=== PATIENT | male | born 1960 | race Hispanic/Latino ===

== ENCOUNTER 2018-09-23 12:03 | Inpatient (IN) | payer MEDICAID, OTHER ==
[2018-09-23] MEDS ORDERED: Sodium Chloride 0.9% 500 ML IV ONE ×3 (13:39→18:39)
[2018-09-23] MEDS ORDERED: Piperacillin/Tazobact 3.375 gm 100 ML IVPB STA (13:40)
[2018-09-23] MEDS ORDERED: Piperacillin/Tazobact 3.375 gm 100 ML IVPB ONE ×2 (13:50→14:25)
[2018-09-23 14:17] LABS: BASO # 0.4 K/uL (0.0-0.2); BASO % 1.1 % (0.0-2.0); LYMPH # 0.5 K/uL (1.0-4.3); LYMPH % 1.4 % (20.0-40.0); MEAN CORPUSCULAR HEMOGLOBIN 29.2 pg (27.0-31.0); MEAN CORPUSCULAR HGB CONC 33.5 g/dL (33.0-37.0); MEAN PLATELET VOLUME 9.1 fL (7.2-11.7); MONO # 1.5 K/uL (0.0-0.8); MONO % 4.1 % (0.0-10.0); NEUT # 33.6 K/uL (1.8-7.0); NEUT % 93.4 % (50.0-75.0); PLATELET COUNT 386 K/uL (130-400); RBC 4.47 Mil/uL (4.40-5.90); RED CELL DISTRIBUTION WIDTH 13.8 % (11.5-14.5)
--- NOTE | 2018-09-23 14:23 | C.PDOC ---
History Of Present Illness 58yo male, comes to ER reporting right foot swelling and also wounds in his right lower extremity for the past 5 days. Patient went to his PMD for evaluation and was referred to the ER. He denies any fever, chills, and has no additional complaints. Time Seen by Provider: 09/23/18 13:13 Chief Complaint (Nursing): Lower Extremity Problem/Injury History Per: Patient History/Exam Limitations: no limitations Onset/Duration Of Symptoms: Days (5) Current Symptoms Are (Timing): Still Present Past Medical History Reviewed: Historical Data, Nursing Documentation, Vital Signs Vital Signs: Last Vital Signs Temp 2098 F H 09/23/18 12:08 Pulse 96 H 09/23/18 12:08 Resp 20 09/23/18 12:08 BP 102/70 09/23/18 12:08 Pulse Ox 98 09/23/18 12:08 Surgical History: No Surg Hx Family History: States: No Known Family Hx - Social History Hx Tobacco Use: No Hx Alcohol Use: No Hx Substance Use: No - Immunization History Hx Tetanus Toxoid Vaccination: No Hx Influenza Vaccination: No Hx Pneumococcal Vaccination: No Review Of Systems Except As Marked, All Systems Reviewed And Found Negative. Constitutional: Negative for: Fever, Chills Musculoskeletal: Positive for: Foot Pain (right foot pain and swelling) Neurological: Negative for: Weakness Physical Exam - Physical Exam Appears: Non-toxic Skin: Normal Color Head: Atraumatic, Normacephalic Eye(s): bilateral: Normal Inspection Cardiovascular: Rhythm Regular Respiratory: Normal Breath Sounds Extremity: Other (diffuse erythema to right lower leg; ulcers noted to right lower leg with foul purulent discharge and bullae.) Neurological/Psych: Oriented x3 ED Course And Treatment - Laboratory Results Result Diagrams: 09/28/18 07:09 09/29/18 07:53 O2 Sat by Pulse Oximetry: 98 (RA) Pulse Ox Interpretation: Normal Medical Decision Making Medical Decision Making: Impression: Right foot pain and swelling Plan: * Labs * XR Right foot * XR Tib/fib * IV Zosyn 1400 Podiatry resident aware of case, will evaluate patient in ER. [id number] Patient to be taken to the OR due to necrotizing fascitis; patient admitted under Dr. Moreno. Disposition - Disposition Disposition: HOSPITALIZED Disposition Time: 16:00 Condition: CRITICAL - Clinical Impression Clinical Impression: Necrotizing fasciitis - Scribe Statement The provider has reviewed the documentation as recorded by the Quentinibe Shanti Graham Provider Attestation: All medical record entries made by the Quentinibsue were at my direction and person ally dictated by me. I have reviewed the chart and agree that the record accurately reflects my personal performance of the history, physical exam, medical decision making, and the department course for this patient. I have also personally directed, reviewed, and agree with the discharge instructions and disposition. Decision To Admit - Pt Status Changed To: Hospital Disposition Of: Inpatient - Admit Certification Admit to Inpatient:: After my assessment, the patient will require hospitalization for at least two midnights. This is because of the severity of symptoms shown, intensity of services needed, and/or the medical risk in this patient being treated as an outpatient. - InPatient: Physician Admission Certification: I certify that this patient requires 2 or more midnights of care for the following reason:: needs OR - . Bed Request Type: ICU Admitting Physician: Taiwo Moreno Patient Diagnosis: Necrotizing fasciitis
[2018-09-23 14:25] LABS: INR 1.4; PROTHROMBIN TIME 15.2 SECONDS (9.7-12.2)
[2018-09-23 14:39] LABS: VENOUS BLOOD GAS BASE EXCESS 7.3 mmol/L (0.0-2.0); VENOUS BLOOD GAS PCO2 53 mmHg (40-60); VENOUS BLOOD GAS PO2 32 mm/Hg (30-55); VENOUS BLOOD PH 7.41 (7.32-7.43)
[2018-09-23] MEDS ORDERED: Sodium Chloride 0.9% 1,000 ML IV ONE ×2 (14:41→15:04)
[2018-09-23 15:06] LABS: ALB/GLOB RATIO 0.8 (1.0-2.1); ALBUMIN 2.7 g/dL (3.5-5.0); ALT/SGPT 17 U/L (21-72); AST/SGOT 16 U/L (17-59); BLOOD UREA NITROGEN 36 mg/dL (9-20); CALCIUM 7.7 mg/dl (8.6-10.4); GFR NON-AFRICAN AMERICAN > 60
[2018-09-23] MEDS ORDERED: (Novolin R) Insulin Human Regular 100 units/ml vial IVP STA ×2 (15:08→17:48)
[2018-09-23 15:14] LABS: BANDS 6 % (0-2); MONOCYTE 2 % (0-10); NEUTROPHIL 92 % (50-75); PLATELET ESTIMATE NORMAL (NORMAL); TOTAL CELLS COUNTED 100
--- NOTE | 2018-09-23 15:15 | RAD ---
Date of service: 09/23/2018 PROCEDURE: Right Foot Radiographs. HISTORY: swelling COMPARISON: None. FINDINGS: BONES: No fracture. Small plantar calcaneal spur noted. No lytic or blastic osseous lesion. No osseous erosion or periosteal reaction appreciated. JOINTS: Normal. SOFT TISSUES: There is diffuse soft tissue swelling. There is subcutaneous gas noted most prominently over the dorsal aspect of the foot but also in the plantar soft tissues as evident on the lateral view. The dorsal subcutaneous gas extends proximally along the anterior tibia. Vascular calcification is noted suggestive of diabetes. OTHER FINDINGS: None. IMPRESSION: Soft tissue swelling with subcutaneous gas both dorsally and along the plantar aspect of the foot. Findings were discussed with Dr. Julio by telephone at 2:50 p.m. on 09/23/2018.
--- NOTE | 2018-09-23 15:18 | RAD ---
Date of service: 09/23/2018 PROCEDURE: Radiographs of the right tibia and fibula. HISTORY: swelling COMPARISON: None available TECHNIQUE: Frontal and lateral views obtained. FINDINGS: BONES: No osseous fracture. No osseous erosion or periosteal reaction. JOINT SPACES: Unremarkable. OTHER FINDINGS: Diffuse soft tissue swelling. There is subcutaneous gas seen over the distal dorsal tibia. This may be indicative of necrotizing fasciitis. IMPRESSION: Subcutaneous gas and diffuse soft tissue swelling. These findings may indicate necrotizing fasciitis.
[2018-09-23 15:29] LABS: ERYTHROCYTE SEDIMENTATION RATE 55 mm/hr (0-15)
--- NOTE | 2018-09-23 16:03 | RAD ---
Date of service: 09/23/2018 HISTORY: preop COMPARISON: No prior. FINDINGS: LUNGS: No active pulmonary disease. PLEURA: No significant pleural effusion identified, no pneumothorax apparent. CARDIOVASCULAR: No appreciable visualized aortic atherosclerotic calcification present. Normal cardiac size. No pulmonary vascular congestion. OSSEOUS STRUCTURES: No significant abnormalities. VISUALIZED UPPER ABDOMEN: Normal. OTHER FINDINGS: None. IMPRESSION: No active disease. .
[2018-09-23] MEDS ORDERED: Vancomycin 1 GM 1 GM/250 ML BAG IVPB ONE (16:14)
[2018-09-23] MEDS ORDERED: (Novolin R) Insulin Human Regular 100 units/ml vial ONE ×2 (16:14→18:04)
--- NOTE | 2018-09-23 17:46 | CP.PCM.CON ---
History of Present Illness - History of Present Illness History of Present Illness: Podiatry Consult Note for Dr. Prashanth BernabeM seen and evaluated in ED complaining of blistering, pain, redness and swelling to his right leg x 5 days. Patient states that these symptoms have gradually been getting worse over that time period. He states that he went to Urgent Care and was told to immediately present to the ED. He denies taking any medicine for his symptoms at this time. Denies any recent trauma or open wounds to the area. Patient is AAO x 3 and NAD at time of visit. States that all he had to eat or drink today was tea at around 8:30 am. Denies any further pedal complaints at this time. Denies any recent N/V/F/C/CP/SOB/D Meds: Denies All: NKDA PSH: Nasal polyp FH: Unknown SH: Denies alcohol, tobacco or drug use Review of Systems - Review of Systems All systems: reviewed and no additional remarkable complaints except Review of Systems: as per HPI Past Patient History - Infectious Disease Hx of Infectious Diseases: None - Past Social History Smoking Status: Never Smoked - PSYCHIATRIC Hx Substance Use: No - SURGICAL HISTORY Hx Surgeries: No - ANESTHESIA Hx Anesthesia: No Meds Allergies/Adverse Reactions: Allergies Allergy/AdvReac Type Severity Reaction Status Date / Time No Known Allergies Allergy Verified 09/23/18 12:13 - Medications Medications: Current Medications Bacitracin 150,000 unit/ (Sodium Chloride) 3,000 mls @ 3,000 mls/hr IR .Q1H SHIVANI; Protocol Stop: 09/23/18 18:26 Physical Exam - Constitutional Appears: Toxic, No Acute Distress - Extremities Exam Additional comments: RLE focused exam: Vasc: DP/PT pulses faintly palpable 1/4 b/l secondary to +2 pitting edema. CFT < 3 seconds to all digits. Skin temperature greatly increased in right leg compared to left leg Neuro: Epicritic and protective sensation grossly intact b/l Derm: Multiple hemmorhagic bullae noted to leg and foot with open, weeping, blistering skin noted to dorsal and plantar foot. Severe erythema noted from distal toes to upper third of leg circumferentially. No open wounds noted. Severe malodor present MSK: POP to RLE with crepitus present in foot and leg. ROM limited to RLE compared to LLE. - Neurological Exam Neurological exam: Alert, Oriented x3 - Psychiatric Exam Psychiatric exam: Normal Affect, Normal Mood Results - Vital Signs Recent Vital Signs: Last Vital Signs Temp 98.8 F 09/23/18 17:09 Pulse 97 H 09/23/18 17:36 Resp 20 09/23/18 17:36 BP 143/85 09/23/18 17:36 Pulse Ox 97 09/23/18 17:36 - Labs Result Diagrams: 09/23/18 13:40 09/23/18 14:08 Labs: Laboratory Results - last 24 hr 09/23/18 09/23/18 09/23/18 13:40 14:08 14:08 WBC 36.0 H RBC 4.47 Hgb 13.0 Hct 38.9 MCV 87.0 MCH 29.2 MCHC 33.5 RDW 13.8 Plt Count 386 MPV 9.1 Neut % (Auto) 93.4 H Lymph % (Auto) 1.4 L [place] % (Auto) 4.1 Eos % (Auto) 0.0 Baso % (Auto) 1.1 Neut # (Auto) 33.6 H Lymph # (Auto) 0.5 L [place] # (Auto) 1.5 H Eos # (Auto) 0.0 Baso # (Auto) 0.4 H Neutrophils % (Manual) 92 H Band Neutrophils % 6 H Lymphocytes % (Manual) TEST NOT PERFORMED Monocytes % (Manual) 2 Platelet Estimate Normal RBC Morphology Normal ESR 55 H PT 15.2 H INR 1.4 APTT 26 pO2 VBG pH VBG pCO2 VBG HCO3 VBG Total CO2 VBG O2 Sat (Calc) VBG Base Excess VBG Potassium Glucose Lactate Crit Value Called To Crit Value Called By Crit Value Read Back Blood Gas Notified Time Sodium 128 L Potassium 3.8 Chloride 82 L Carbon Dioxide 31 H Anion Gap 19 BUN 36 H Creatinine 1.1 Est GFR ( Amer) > 60 Est GFR (Non-Af Amer) > 60 Random Glucose 576 H* Serum Osmolality Calcium 7.7 L Total Bilirubin 0.8 AST 16 L ALT 17 L Alkaline Phosphatase 205 H Troponin I < 0.0120 C-Reactive Protein > 270.00 H Total Protein 6.3 Albumin 2.7 L Globulin 3.6 Albumin/Globulin Ratio 0.8 L Venous Blood Potassium Blood Type Antibody Screen 09/23/18 09/23/1818 14:32 14:53 14:57 WBC RBC Hgb Hct MCV MCH MCHC RDW Plt Count MPV Neut % (Auto) Lymph % (Auto) [place] % (Auto) Eos % (Auto) Baso % (Auto) Neut # (Auto) Lymph # (Auto) [place] # (Auto) Eos # (Auto) Baso # (Auto) Neutrophils % (Manual) Band Neutrophils % Lymphocytes % (Manual) Monocytes % (Manual) Platelet Estimate RBC Morphology ESR PT INR APTT pO2 32 VBG pH 7.41 VBG pCO2 53 VBG HCO3 29.7 VBG Total CO2 35.2 H VBG O2 Sat (Calc) 68.7 H VBG Base Excess 7.3 H VBG Potassium 3.9 Glucose 590 H* Lactate 2.9 H Crit Value Called To irvin Garcia Crit Value Called By Angel solares Crit Value Read Back Y Blood Gas Notified Time 1439 Sodium 131.0 L Potassium Chloride 84.0 L Carbon Dioxide Anion Gap BUN Creatinine Est GFR ( Amer) Est GFR (Non-Af Amer) Random Glucose Serum Osmolality 303 H Calcium Total Bilirubin AST ALT Alkaline Phosphatase Troponin I C-Reactive Protein Total Protein Albumin Globulin Albumin/Globulin Ratio Venous Blood Potassium 3.9 Blood Type AB POSITIVE Antibody Screen Negative Assessment & Plan - Assessment and Plan (Free Text) Assessment: 58M seen in ED for soft tissue emphysema and possible necrotizing fasciitis of RLE Plan: Patient seen and evaluated Plan discussed with Dr. Alford WBC 36.0 Glucose 576 ESR 55 CRP > 270 R foot xray: Soft tissue swelling with subcutaneous gas both dorsally and along the plantar aspect of the foot. R tib/fib xray: Subcutaneous gas and diffuse soft tissue swelling. These findings may indicate necrotizing fasciitis. Patient for emergent I and D with Dr. Alford Patient to be admitted to hospital following case Podiatry will continue to follow while patient in house - Date & Time Date: 09/23/18 Time: 17:45
[2018-09-23] MEDS ORDERED: Midazolam 2 MG/2 ML VIAL ONE (18:31)
[2018-09-23] MEDS ORDERED: Propofol 10 mg/ml Inj (20 ML) ONE (18:31)
[2018-09-23] MEDS ORDERED: Sodium Chloride 0.9% 1,000 ML ONE (18:39)
[2018-09-23] MEDS: Bacitracin 150,000 UNIT in Sodium Chloride 0.9% Irrig 3,000 ML IR SCH ×2 (19:20→19:30)
[2018-09-23] MEDS ORDERED: Succinylcholine Chloride 20 mg/ml Syr (5 ml) IV ONE (19:48)
[2018-09-23] MEDS ORDERED: Phenylephrine 10 mg/ml Inj ONE (19:48)
[2018-09-23] MEDS ORDERED: Oxycodone/Acetaminophen 5/325 mg Tab PO PRN ×2 (20:16)
[2018-09-23] MEDS ORDERED: Vasopressin 20 Units/ml Inj ONE (20:21)
--- NOTE | 2018-09-23 20:24 | PCM.SURG1 ---
Surgeon's Initial Post Op Note - Surgeon's Notes Surgeon: Dr. Alford, DPM Treatment Specialist: Dr. Job Fair PGY2, Dr. Obdulia Alonzo PGY2, Dr. Glenny Arnold PGY1 Type of Anesthesia: General Endo Pre-Operative Diagnosis: Soft tissue emphysema/necrotizing fasciitis of right leg Operative Findings: See Dictation. I: None. M: 3-0 Prolene, 1/4 inch packing Post-Operative Diagnosis: Same Operation Performed: Incision and drainage of R leg and foot with debridement of nonviable soft tissue and irigation of tissue Specimen/Specimens Removed: None Estimated Blood Loss: EBL {In ML}: 30 Blood Products Given: N/A Drains Used: No Drains Post-Op Condition: Good Date of Surgery/Procedure: 09/23/18 Time of Surgery/Procedure: 20:24
[2018-09-23] MEDS ORDERED: Clindamycin 300 MG in Sodium Chloride 0.9% 50 ML IVPB SCH (20:30)
[2018-09-23] MEDS ORDERED: Piperacillin/Tazobact 3.375 GM in Sodium Chloride 100 ML IVPB SCH (20:30)
[2018-09-23] MEDS: (Novolin R) Insulin Human Regular 100 units/ml vial IVP ONE ×2 (20:35→22:21)
[2018-09-23] MEDS: Sodium Chloride 0.9% 1,000 ML IV SCH (22:22)
--- NOTE | 2018-09-23 22:26 | CP.PCM.HP ---
Past Patient History - Infectious Disease Hx of Infectious Diseases: None - Past Social History Smoking Status: Never Smoked - PSYCHIATRIC Hx Substance Use: No - SURGICAL HISTORY Hx Surgeries: No - ANESTHESIA Hx Anesthesia: No Meds Allergies/Adverse Reactions: Allergies Allergy/AdvReac Type Severity Reaction Status Date / Time No Known Allergies Allergy Verified 09/23/18 12:13 Results - Vital Signs Recent Vital Signs: Last Vital Signs Temp 99.3 F 09/23/18 21:30 Pulse 83 09/23/18 21:30 Resp 16 09/23/18 21:30 BP 105/64 09/23/18 21:30 Pulse Ox 100 09/23/18 21:30 - Labs Result Diagrams: 09/23/18 13:40 09/23/18 14:08 Labs: Laboratory Results - last 24 hr 09/23/18 09/23/18 09/23/18 13:40 14:08 14:08 WBC 36.0 H RBC 4.47 Hgb 13.0 Hct 38.9 MCV 87.0 MCH 29.2 MCHC 33.5 RDW 13.8 Plt Count 386 MPV 9.1 Neut % (Auto) 93.4 H Lymph % (Auto) 1.4 L [place] % (Auto) 4.1 Eos % (Auto) 0.0 Baso % (Auto) 1.1 Neut # (Auto) 33.6 H Lymph # (Auto) 0.5 L [place] # (Auto) 1.5 H Eos # (Auto) 0.0 Baso # (Auto) 0.4 H Neutrophils % (Manual) 92 H Band Neutrophils % 6 H Lymphocytes % (Manual) TEST NOT PERFORMED Monocytes % (Manual) 2 Platelet Estimate Normal RBC Morphology Normal ESR 55 H PT 15.2 H INR 1.4 APTT 26 pO2 VBG pH VBG pCO2 VBG HCO3 VBG Total CO2 VBG O2 Sat (Calc) VBG Base Excess VBG Potassium Glucose Lactate Crit Value Called To Crit Value Called By Crit Value Read Back Blood Gas Notified Time Sodium 128 L Potassium 3.8 Chloride 82 L Carbon Dioxide 31 H Anion Gap 19 BUN 36 H Creatinine 1.1 Est GFR ( Amer) > 60 Est GFR (Non-Af Amer) > 60 POC Glucose (mg/dL) Random Glucose 576 H* Serum Osmolality Calcium 7.7 L Total Bilirubin 0.8 AST 16 L ALT 17 L Alkaline Phosphatase 205 H Troponin I < 0.0120 C-Reactive Protein > 270.00 H Total Protein 6.3 Albumin 2.7 L Globulin 3.6 Albumin/Globulin Ratio 0.8 L Venous Blood Potassium Blood Type Antibody Screen 09/23/18 09/23/18 09/23/18 14:32 14:53 14:57 WBC RBC Hgb Hct MCV MCH MCHC RDW Plt Count MPV Neut % (Auto) Lymph % (Auto) [place] % (Auto) Eos % (Auto) Baso % (Auto) Neut # (Auto) Lymph # (Auto) [place] # (Auto) Eos # (Auto) Baso # (Auto) Neutrophils % (Manual) Band Neutrophils % Lymphocytes % (Manual) Monocytes % (Manual) Platelet Estimate RBC Morphology ESR PT INR APTT pO2 32 VBG pH 7.41 VBG pCO2 53 VBG HCO3 29.7 VBG Total CO2 35.2 H VBG O2 Sat (Calc) 68.7 H VBG Base Excess 7.3 H VBG Potassium 3.9 Glucose 590 H* Lactate 2.9 H Crit Value Called To irvin Garcia Crit Value Called By Angel solares Crit Value Read Back Y Blood Gas Notified Time 1439 Sodium 131.0 L Potassium Chloride 84.0 L Carbon Dioxide Anion Gap BUN Creatinine Est GFR ( Amer) Est GFR (Non-Af Amer) POC Glucose (mg/dL) Random Glucose Serum Osmolality 303 H Calcium Total Bilirubin AST ALT Alkaline Phosphatase Troponin I C-Reactive Protein Total Protein Albumin Globulin Albumin/Globulin Ratio Venous Blood Potassium 3.9 Blood Type AB POSITIVE Antibody Screen Negative 09/23/18 17:46 WBC RBC Hgb Hct MCV MCH MCHC RDW Plt Count MPV Neut % (Auto) Lymph % (Auto) [place] % (Auto) Eos % (Auto) Baso % (Auto) Neut # (Auto) Lymph # (Auto) [place] # (Auto) Eos # (Auto) Baso # (Auto) Neutrophils % (Manual) Band Neutrophils % Lymphocytes % (Manual) Monocytes % (Manual) Platelet Estimate RBC Morphology ESR PT INR APTT pO2 VBG pH VBG pCO2 VBG HCO3 VBG Total CO2 VBG O2 Sat (Calc) VBG Base Excess VBG Potassium Glucose Lactate Crit Value Called To Crit Value Called By Crit Value Read Back Blood Gas Notified Time Sodium Potassium Chloride Carbon Dioxide Anion Gap BUN Creatinine Est GFR ( Amer) Est GFR (Non-Af Amer) POC Glucose (mg/dL) 365 H Random Glucose Serum Osmolality Calcium Total Bilirubin AST ALT Alkaline Phosphatase Troponin I C-Reactive Protein Total Protein Albumin Globulin Albumin/Globulin Ratio Venous Blood Potassium Blood Type Antibody Screen
[2018-09-23 23:08] LABS: BLOOD UREA NITROGEN 36 mg/dL (9-20); GFR NON-AFRICAN AMERICAN > 60; HDL CHOLESTEROL 10 mg/dL (30-70)
[2018-09-23 23:19] LABS: LDL CHOLESTEROL 42 mg/dL (0-129)
--- NOTE | 2018-09-23 23:57 | PCM.SEPTIC ---
Sepsis Progress Note - Reassessment Type Date of Evaluation: 09/23/18 Time of Evaluation: 21:00 Reassessment Type: Non-invasive reassessment - Non Invasive Reassessment Were the most recent vital sign reviewed: Yes Vital Sign (Latest): Temp Pulse Resp BP Pulse Ox 97.9 F 82 16 115/73 99 09/23/18 22:00 09/23/18 22:40 09/23/18 22:40 09/23/18 22:01 09/23/18 22:40 Cardiovascular: Yes: Regular Rate, Rhythm Respiratory: Yes: Normal Breath Sounds Capillary Refill: Normal (Less than 2 sec) Skin: Normal Color - Invasive Reassessment (complete 2 of 4) Was a Central Venous Pressure Measurement obtained within 6 Hours after the presentation of septic shock: No Was a central venous oxygen measurement obtained within 6 hours after the presentation of septic shock: No Was a bedside cardiovascular ultrasound performed within 6 hours after the presentation of septic shock: No Was a passive leg raise performed or was a fluid challenge performed within 6 hrs of the initial fluid bolus: No
[2018-09-24] MEDS ORDERED: Potassium Chloride 20 mEq/15 ml LIQ UD PO ONE (00:17)
--- NOTE | 2018-09-24 03:52 | HP ---
CHIEF COMPLIANT: Right leg pain, fever, blistering for five days. HISTORY OF PRESENT ILLNESS: This is a 58-year-old white male who is nonsmoker, nonalcohol user. He works in [employer], has no significant past medical history. According to the patient, he developed sudden onset of right leg swelling, redness, pain, purulent discharge from the right leg and foot below the knee area, gradually worsening acute quick redness of the leg, fevers, chills, rigors, body aches, tiredness, frequency of urination, generalized weakness, malaise, anorexia, and fatigue. The patient had frequency of urination, polyuria, and polydipsia. He has a weight loss. He does not recall how long he has this condition and pain in the right leg got worse, became more red, started bleeding from the right foot with open ulcers on the foot, on the bottom of the right big toe. The patient came to emergency room, and he is hospitalized. He is in intense pain. Along with that, he has systemic symptoms. He denies any cough, sore throat, running nose, sneezing, itchy eyes, itchy nose. He denies any joint pain, hip pain, back pain, chest pain. He has palpitation, weakness, and dizziness. The patient has history of polyuria, polydipsia, and polyphagia. He denies any history of abdominal pain. PAST MEDICAL HISTORY: Nothing significant. SOCIAL HISTORY: Nonsmoker, non-EtOH user. CURRENT MEDICATIONS: None. ALLERGIES: UNKNOWN. PHYSICAL EXAMINATION: GENERAL: This is an middle-aged male, in [id number] distress with right leg pain below the knee area cellulitis. SKIN: The patient has a large area of cellulitis on the right leg below the knee down to the foot with open ulcers on the bottom of right big toe. Along with that, he has ulceration on the dorsum of the foot with bleeding from the bottom of foot with purulent discharge, foul smelling, increasingly dense, red, swollen, hard and tender to touch. HEENT: Atraumatic and normocephalic. Negative pallor. Negative jaundice. Extraocular movements are intact. NECK: Supple. No JVD. No lymph node. No thyromegaly. No carotid bruit. CHEST WALL: Bilateral symmetrical expansion. No tenderness. No deformity. LUNGS: Bilaterally clear. No rales. No rhonchi. CARDIOVASCULAR SYSTEM: PMI in the fifth intercostal space, midclavicular line. CENTRAL NERVOUS SYSTEM: Awake, alert, and oriented x3. Cranial nerves II through XII are normal. Power 5/5 x4. Plantars are downgoing. ASSESSMENT: 1. Necrotizing fasciitis of the right leg with cellulitis, most likely bacterial infection, unclear about source. 2. Diabetes. PLAN: Admit. Accu-Chek sliding scale. Antibiotics. Pain medication. The patient is for emergency operating room to release necrotizing fasciitis. The patient is medically stable to go to OR as his chest x-ray negative. The patient has high sugar, he is being started on sliding scale. Taiwo Moreno MD
[2018-09-24] MEDS: Clindamycin 300 MG in Sodium Chloride 0.9% 50 ML IVPB SCH ×4 (04:05→21:38)
[2018-09-24] MEDS: Piperacillin/Tazobact 3.375 GM in Sodium Chloride 100 ML IVPB SCH ×4 (04:10→22:19)
[2018-09-24] MEDS: Vancomycin 1 gm/NS 200 ml 1 GM/200 ML BAG IVPB SCH ×2 (04:56→18:08)
[2018-09-24] MEDS: Sodium Chloride 0.9% 1,000 ML IV SCH ×3 (05:45→17:29)
[2018-09-24 06:42] LABS: BASO % 0.1 % (0.0-2.0); EOS % 0.1 % (0.0-4.0); HEMOGLOBIN 10.3 g/dL (12.0-18.0); LYMPH # 0.8 K/uL (1.0-4.3); LYMPH % 2.2 % (20.0-40.0); MEAN CELL VOLUME 86.9 fL (80.0-94.0); MEAN CORPUSCULAR HEMOGLOBIN 28.9 pg (27.0-31.0); MEAN CORPUSCULAR HGB CONC 33.2 g/dL (33.0-37.0); MEAN PLATELET VOLUME 9.1 fL (7.2-11.7); MONO % 2.9 % (0.0-10.0); NEUT # 31.9 K/uL (1.8-7.0); NEUT % 94.7 % (50.0-75.0); PLATELET COUNT 309 K/uL (130-400); RBC 3.58 Mil/uL (4.40-5.90); RED CELL DISTRIBUTION WIDTH 13.5 % (11.5-14.5); WHITE BLOOD COUNT 33.7 K/uL (4.8-10.8)
[2018-09-24 06:57] LABS: ALB/GLOB RATIO 0.7 (1.0-2.1); ALBUMIN 2.2 g/dL (3.5-5.0); ALT/SGPT 18 U/L (21-72); AST/SGOT 20 U/L (17-59); BLOOD UREA NITROGEN 40 mg/dL (9-20); CALCIUM 6.7 mg/dl (8.6-10.4); GFR NON-AFRICAN AMERICAN 57
--- NOTE | 2018-09-24 07:45 | CP.CCUPN ---
CCU Subjective - Physician Review Subjective (Free Text): 09/24/18 10:57 Patient clinically improved. Medically stable for transfer to med/surg. Critical Care Time Spent (in minutes): 35 CCU Objective - Vital Signs / Intake & Output Vital Signs (Last 4 hours): Vital Signs Temp 09/24/18 04:00 97.8 F Intake and Output (Last 8hrs): Intake & Output 09/23/18 09/24/18 09/24/18 22:59 06:59 14:59 Intake Total 1100 1200 100 Output Total 550 Balance 1100 650 100 Weight 189 lb 4.8 oz Intake: IV 700 Intake, IV Amount 200 1000 100 Right hand 200 1000 100 Oral 200 200 0 Output: Urine 550 Urine, Voided 550 Other: # Voids Urine, Voided 0 0 0 # Bowel Movements 0 0 0 - Physical Exam Head: Positive for: Atraumatic, Normocephalic Pupils: Positive for: PERRL Extroacular Muscles: Positive for: EOMI Conjunctiva: Positive for: Normal Mouth: Positive for: Moist Mucous Membranes Neck: Positive for: Normal Range of Motion Respiratory/Chest: Positive for: Clear to Auscultation, Good Air Exchange. Negative for: Respiratory Distress, Accessory Muscle Use, Wheezes, Rales, Retracting, Rhonchi Cardiovascular: Positive for: Regular Rate and Rhythm, Normal S1, S2 Abdomen: Positive for: Normal Bowel Sounds. Negative for: Tenderness, Distention, Peritoneal Signs, Rebound, Guarding Upper Extremity: Positive for: Normal Inspection, Normal ROM, NORMAL PULSES, Neurovascularly Intact, Capillary Refill < 2s. Negative for: Cyanosis, Edema Lower Extremity: Positive for: NORMAL PULSES, Neurovascularly Intact, Capillary Refill < 2 s, Other (RLE dressing clean/dry/intact). Negative for: CALF TENDERNESS Neurological: Positive for: CN II-XII Intact, Speech Normal Psychiatric: Positive for: Alert, Oriented x 3, Normal Insight, Normal Concentration - Medications Active Medications: Active Medications Generic Name Dose Route Start Last Admin Trade Name Freq PRN Reason Stop Dose Admin Acetaminophen 650 mg 09/23/18 20:19 Tylenol 325mg Tab PO Q6 PRN Pain, Mild (1-3) Enoxaparin Sodium 40 mg 09/24/18 10:00 Lovenox SC DAILY SHIVANI Vancomycin/Sodium Chloride 1 gm in 200 mls @ 133.333 mls/hr 09/24/18 04:30 09/24/18 04:56 Vancomycin 1 Gm/Ns 200 Ml IVPB 133.333 mls/hr Q12H SHIVANI Administration Protocol Sodium Chloride 1,000 mls @ 100 mls/hr 09/23/18 20:30 09/24/18 05:45 Sodium Chloride 0.9% IV Not Given .Q10H SHIVANI Piperacillin Sod/Tazobactam 100 mls @ 200 mls/hr 09/24/18 04:30 09/24/18 04:10 Sod 3.375 gm/ Sodium Chloride IVPB 200 mls/hr Q6H SHIVANI Administration Protocol Clindamycin Phosphate 300 mg/ 52 mls @ 100 mls/hr 09/24/18 04:30 09/24/18 04:05 Sodium Chloride IVPB 100 mls/hr Q6H [facility] Administration Protocol Insulin Aspart 0 unit 09/24/18 07:30 Novolog SC ACHS [facility] Protocol Ketorolac Tromethamine 30 mg 09/24/18 00:00 09/24/18 05:44 Toradol IVP Not Given Q6 SHIVANI Oxycodone/Acetaminophen 1 tab 09/23/18 20:16 Percocet 5/325 Mg Tab PO 09/26/18 20:17 Q4H PRN Pain, moderate (4-7) Oxycodone/Acetaminophen 2 tab 09/23/18 20:16 Percocet 5/325 Mg Tab PO 09/26/18 20:17 Q4H PRN Pain, moderate (4-7) Pneumococcal Polyvalent Vaccine 0.5 ml 09/25/18 10:00 Pneumovax 23 Vaccine IM 09/25/18 10:01 .ONCE ONE - Patient Studies Lab Studies: Lab Studies 09/24/18 09/24/18 09/23/18 Range/Units 06:32 06:30 22:44 WBC 33.7 H (4.8-10.8) K/uL RBC 3.58 L (4.40-5.90) Mil/uL Hgb 10.3 L D (12.0-18.0) g/dL Hct 31.1 L (35.0-51.0) % MCV 86.9 (80.0-94.0) fL MCH 28.9 (27.0-31.0) pg MCHC 33.2 (33.0-37.0) g/dL RDW 13.5 (11.5-14.5) % Plt Count 309 (130-400) K/uL MPV 9.1 (7.2-11.7) fL Neut % (Auto) 94.7 H (50.0-75.0) % Lymph % (Auto) 2.2 L (20.0-40.0) % [place] % (Auto) 2.9 (0.0-10.0) % Eos % (Auto) 0.1 (0.0-4.0) % Baso % (Auto) 0.1 (0.0-2.0) % Neut # (Auto) 31.9 H (1.8-7.0) K/uL Lymph # (Auto) 0.8 L (1.0-4.3) K/uL [place] # (Auto) 1.0 H (0.0-0.8) K/uL Eos # (Auto) 0.0 (0.0-0.7) K/uL Baso # (Auto) 0.0 (0.0-0.2) K/uL Neutrophils % (Manual) (50-75) % Band Neutrophils % (0-2) % Lymphocytes % (Manual) Monocytes % (Manual) (0-10) % Platelet Estimate (NORMAL) RBC Morphology ESR (0-15) mm/hr PT (9.7-12.2) SECONDS INR APTT (21-34) SECONDS pO2 (30-55) mm/Hg VBG pH (7.32-7.43) VBG pCO2 (40-60) mmHg VBG HCO3 mmol/L VBG Total CO2 (22-28) mmol/L VBG O2 Sat (Calc) (40-65) % VBG Base Excess (0.0-2.0) mmol/L VBG Potassium (3.6-5.2) mmol/L Glucose (75-110) mg/dl Lactate (0.7-2.1) mmol/L Crit Value Called To Crit Value Called By Crit Value Read Back Blood Gas Notified Time Sodium 134 (132-148) mmol/L Potassium 3.8 (3.6-5.2) mmol/L Chloride 97 L (98-107) mmol/L Carbon Dioxide 28 (22-30) mmol/L Anion Gap 13 (10-20) BUN 40 H (9-20) mg/dL Creatinine 1.3 (0.8-1.5) mg/dL Est GFR ( Amer) > 60 Est GFR (Non-Af Amer) 57 POC Glucose (mg/dL) (65-110) mg/dL Random Glucose 285 H (75-110) mg/dL Hemoglobin A1c 11.3 H (4.2-6.5) % Serum Osmolality (272-300) mosm/kg Lactic Acid (0.7-2.1) mmol/L Calcium 6.7 L (8.6-10.4) mg/dl Phosphorus 3.3 (2.5-4.5) mg/dL Magnesium 2.0 (1.6-2.3) mg/dL Total Bilirubin 0.8 (0.2-1.3) mg/dL AST 20 (17-59) U/L ALT 18 L (21-72) U/L Alkaline Phosphatase 183 H (38-126) U/L Troponin I (0.00-0.120) ng/mL C-Reactive Protein (0.0-9.9) mg/L Total Protein 5.2 L (6.3-8.3) g/dL Albumin 2.2 L (3.5-5.0) g/dL Globulin 3.0 (2.2-3.9) gm/dL Albumin/Globulin Ratio 0.7 L (1.0-2.1) Triglycerides (0-149) mg/dL Cholesterol (0-199) mg/dL LDL Cholesterol Direct (0-129) mg/dL HDL Cholesterol (30-70) mg/dL Venous Blood Potassium (3.6-5.2) mmol/L Blood Type Antibody Screen 09/23/18 09/23/18 09/23/18 Range/Units 22:44 22:44 17:46 WBC (4.8-10.8) K/uL RBC (4.40-5.90) Mil/uL Hgb (12.0-18.0) g/dL Hct (35.0-51.0) % MCV (80.0-94.0) fL MCH (27.0-31.0) pg MCHC (33.0-37.0) g/dL RDW (11.5-14.5) % Plt Count (130-400) K/uL MPV (7.2-11.7) fL Neut % (Auto) (50.0-75.0) % Lymph % (Auto) (20.0-40.0) % [place] % (Auto) (0.0-10.0) % Eos % (Auto) (0.0-4.0) % Baso % (Auto) (0.0-2.0) % Neut # (Auto) (1.8-7.0) K/uL Lymph # (Auto) (1.0-4.3) K/uL [place] # (Auto) (0.0-0.8) K/uL Eos # (Auto) (0.0-0.7) K/uL Baso # (Auto) (0.0-0.2) K/uL Neutrophils % (Manual) (50-75) % Band Neutrophils % (0-2) % Lymphocytes % (Manual) Monocytes % (Manual) (0-10) % Platelet Estimate (NORMAL) RBC Morphology ESR (0-15) mm/hr PT (9.7-12.2) SECONDS INR APTT (21-34) SECONDS pO2 (30-55) mm/Hg VBG pH (7.32-7.43) VBG pCO2 (40-60) mmHg VBG HCO3 mmol/L VBG Total CO2 (22-28) mmol/L VBG O2 Sat (Calc) (40-65) % VBG Base Excess (0.0-2.0) mmol/L VBG Potassium (3.6-5.2) mmol/L Glucose (75-110) mg/dl Lactate (0.7-2.1) mmol/L Crit Value Called To Crit Value Called By Crit Value Read Back Blood Gas Notified Time Sodium 134 (132-148) mmol/L Potassium 3.3 L (3.6-5.2) mmol/L Chloride 96 L (98-107) mmol/L Carbon Dioxide 31 H (22-30) mmol/L Anion Gap 10 (10-20) BUN 36 H (9-20) mg/dL Creatinine 1.0 (0.8-1.5) mg/dL Est GFR ( Amer) > 60 Est GFR (Non-Af Amer) > 60 POC Glucose (mg/dL) 365 H (65-110) mg/dL Random Glucose 321 H (75-110) mg/dL Hemoglobin A1c (4.2-6.5) % Serum Osmolality (272-300) mosm/kg Lactic Acid 1.6 (0.7-2.1) mmol/L Calcium 7.0 L (8.6-10.4) mg/dl Phosphorus (2.5-4.5) mg/dL Magnesium (1.6-2.3) mg/dL Total Bilirubin (0.2-1.3) mg/dL AST (17-59) U/L ALT (21-72) U/L Alkaline Phosphatase (38-126) U/L Troponin I (0.00-0.120) ng/mL C-Reactive Protein (0.0-9.9) mg/L Total Protein (6.3-8.3) g/dL Albumin (3.5-5.0) g/dL Globulin (2.2-3.9) gm/dL Albumin/Globulin Ratio (1.0-2.1) Triglycerides 152 H (0-149) mg/dL Cholesterol 64 (0-199) mg/dL LDL Cholesterol Direct 42 (0-129) mg/dL HDL Cholesterol 10 L (30-70) mg/dL Venous Blood Potassium (3.6-5.2) mmol/L Blood Type Antibody Screen 09/23/18 09/23/18 09/23/18 Range/Units 14:57 14:53 14:32 WBC (4.8-10.8) K/uL RBC (4.40-5.90) Mil/uL Hgb (12.0-18.0) g/dL Hct (35.0-51.0) % MCV (80.0-94.0) fL MCH (27.0-31.0) pg MCHC (33.0-37.0) g/dL RDW (11.5-14.5) % Plt Count (130-400) K/uL MPV (7.2-11.7) fL Neut % (Auto) (50.0-75.0) % Lymph % (Auto) (20.0-40.0) % [place] % (Auto) (0.0-10.0) % Eos % (Auto) (0.0-4.0) % Baso % (Auto) (0.0-2.0) % Neut # (Auto) (1.8-7.0) K/uL Lymph # (Auto) (1.0-4.3) K/uL [place] # (Auto) (0.0-0.8) K/uL Eos # (Auto) (0.0-0.7) K/uL Baso # (Auto) (0.0-0.2) K/uL Neutrophils % (Manual) (50-75) % Band Neutrophils % (0-2) % Lymphocytes % (Manual) Monocytes % (Manual) (0-10) % Platelet Estimate (NORMAL) RBC Morphology ESR (0-15) mm/hr PT (9.7-12.2) SECONDS INR APTT (21-34) SECONDS pO2 32 (30-55) mm/Hg VBG pH 7.41 (7.32-7.43) VBG pCO2 53 (40-60) mmHg VBG HCO3 29.7 mmol/L VBG Total CO2 35.2 H (22-28) mmol/L VBG O2 Sat (Calc) 68.7 H (40-65) % VBG Base Excess 7.3 H (0.0-2.0) mmol/L VBG Potassium 3.9 (3.6-5.2) mmol/L Glucose 590 H* (75-110) mg/dl Lactate 2.9 H (0.7-2.1) mmol/L Crit Value Called To irvin Gacria Crit Value Called By Angel solares Crit Value Read Back Y Blood Gas Notified Time 1439 Sodium 131.0 L (132-148) mmol/L Potassium (3.6-5.2) mmol/L Chloride 84.0 L (98-107) mmol/L Carbon Dioxide (22-30) mmol/L Anion Gap (10-20) BUN (9-20) mg/dL Creatinine (0.8-1.5) mg/dL Est GFR ( Amer) Est GFR (Non-Af Amer) POC Glucose (mg/dL) (65-110) mg/dL Random Glucose (75-110) mg/dL Hemoglobin A1c (4.2-6.5) % Serum Osmolality 303 H (272-300) mosm/kg Lactic Acid (0.7-2.1) mmol/L Calcium (8.6-10.4) mg/dl Phosphorus (2.5-4.5) mg/dL Magnesium (1.6-2.3) mg/dL Total Bilirubin (0.2-1.3) mg/dL AST (17-59) U/L ALT (21-72) U/L Alkaline Phosphatase (38-126) U/L Troponin I (0.00-0.120) ng/mL C-Reactive Protein (0.0-9.9) mg/L Total Protein (6.3-8.3) g/dL Albumin (3.5-5.0) g/dL Globulin (2.2-3.9) gm/dL Albumin/Globulin Ratio (1.0-2.1) Triglycerides (0-149) mg/dL Cholesterol (0-199) mg/dL LDL Cholesterol Direct (0-129) mg/dL HDL Cholesterol (30-70) mg/dL Venous Blood Potassium 3.9 (3.6-5.2) mmol/L Blood Type AB POSITIVE Antibody Screen Negative 09/23/18 09/23/18 09/23/18 Range/Units 14:08 14:08 13:40 WBC 36.0 H (4.8-10.8) K/uL RBC 4.47 (4.40-5.90) Mil/uL Hgb 13.0 (12.0-18.0) g/dL Hct 38.9 (35.0-51.0) % MCV 87.0 (80.0-94.0) fL MCH 29.2 (27.0-31.0) pg MCHC 33.5 (33.0-37.0) g/dL RDW 13.8 (11.5-14.5) % Plt Count 386 (130-400) K/uL MPV 9.1 (7.2-11.7) fL Neut % (Auto) 93.4 H (50.0-75.0) % Lymph % (Auto) 1.4 L (20.0-40.0) % [place] % (Auto) 4.1 (0.0-10.0) % Eos % (Auto) 0.0 (0.0-4.0) % Baso % (Auto) 1.1 (0.0-2.0) % Neut # (Auto) 33.6 H (1.8-7.0) K/uL Lymph # (Auto) 0.5 L (1.0-4.3) K/uL [place] # (Auto) 1.5 H (0.0-0.8) K/uL Eos # (Auto) 0.0 (0.0-0.7) K/uL Baso # (Auto) 0.4 H (0.0-0.2) K/uL Neutrophils % (Manual) 92 H (50-75) % Band Neutrophils % 6 H (0-2) % Lymphocytes % (Manual) TEST NOT PERFORMED Monocytes % (Manual) 2 (0-10) % Platelet Estimate Normal (NORMAL) RBC Morphology Normal ESR 55 H (0-15) mm/hr PT 15.2 H (9.7-12.2) SECONDS INR 1.4 APTT 26 (21-34) SECONDS pO2 (30-55) mm/Hg VBG pH (7.32-7.43) VBG pCO2 (40-60) mmHg VBG HCO3 mmol/L VBG Total CO2 (22-28) mmol/L VBG O2 Sat (Calc) (40-65) % VBG Base Excess (0.0-2.0) mmol/L VBG Potassium (3.6-5.2) mmol/L Glucose (75-110) mg/dl Lactate (0.7-2.1) mmol/L Crit Value Called To Crit Value Called By Crit Value Read Back Blood Gas Notified Time Sodium 128 L (132-148) mmol/L Potassium 3.8 (3.6-5.2) mmol/L Chloride 82 L (98-107) mmol/L Carbon Dioxide 31 H (22-30) mmol/L Anion Gap 19 (10-20) BUN 36 H (9-20) mg/dL Creatinine 1.1 (0.8-1.5) mg/dL Est GFR ( Amer) > 60 Est GFR (Non-Af Amer) > 60 POC Glucose (mg/dL) (65-110) mg/dL Random Glucose 576 H* (75-110) mg/dL Hemoglobin A1c (4.2-6.5) % Serum Osmolality (272-300) mosm/kg Lactic Acid (0.7-2.1) mmol/L Calcium 7.7 L (8.6-10.4) mg/dl Phosphorus (2.5-4.5) mg/dL Magnesium (1.6-2.3) mg/dL Total Bilirubin 0.8 (0.2-1.3) mg/dL AST 16 L (17-59) U/L ALT 17 L (21-72) U/L Alkaline Phosphatase 205 H (38-126) U/L Troponin I < 0.0120 (0.00-0.120) ng/mL C-Reactive Protein > 270.00 H (0.0-9.9) mg/L Total Protein 6.3 (6.3-8.3) g/dL Albumin 2.7 L (3.5-5.0) g/dL Globulin 3.6 (2.2-3.9) gm/dL Albumin/Globulin Ratio 0.8 L (1.0-2.1) Triglycerides (0-149) mg/dL Cholesterol (0-199) mg/dL LDL Cholesterol Direct (0-129) mg/dL HDL Cholesterol (30-70) mg/dL Venous Blood Potassium (3.6-5.2) mmol/L Blood Type Antibody Screen Laboratory Results - last 24 hr 09/23/18 09/23/18 09/23/18 13:40 14:08 14:08 WBC 36.0 H RBC 4.47 Hgb 13.0 Hct 38.9 MCV 87.0 MCH 29.2 MCHC 33.5 RDW 13.8 Plt Count 386 MPV 9.1 Neut % (Auto) 93.4 H Lymph % (Auto) 1.4 L [place] % (Auto) 4.1 Eos % (Auto) 0.0 Baso % (Auto) 1.1 Neut # (Auto) 33.6 H Lymph # (Auto) 0.5 L [place] # (Auto) 1.5 H Eos # (Auto) 0.0 Baso # (Auto) 0.4 H Neutrophils % (Manual) 92 H Band Neutrophils % 6 H Lymphocytes % (Manual) TEST NOT PERFORMED Monocytes % (Manual) 2 Platelet Estimate Normal RBC Morphology Normal ESR 55 H PT 15.2 H INR 1.4 APTT 26 pO2 VBG pH VBG pCO2 VBG HCO3 VBG Total CO2 VBG O2 Sat (Calc) VBG Base Excess VBG Potassium Glucose Lactate Crit Value Called To Crit Value Called By Crit Value Read Back Blood Gas Notified Time Sodium 128 L Potassium 3.8 Chloride 82 L Carbon Dioxide 31 H Anion Gap 19 BUN 36 H Creatinine 1.1 Est GFR ( Amer) > 60 Est GFR (Non-Af Amer) > 60 POC Glucose (mg/dL) Random Glucose 576 H* Hemoglobin A1c Serum Osmolality Lactic Acid Calcium 7.7 L Phosphorus Magnesium Total Bilirubin 0.8 AST 16 L ALT 17 L Alkaline Phosphatase 205 H Troponin I < 0.0120 C-Reactive Protein > 270.00 H Total Protein 6.3 Albumin 2.7 L Globulin 3.6 Albumin/Globulin Ratio 0.8 L Triglycerides Cholesterol LDL Cholesterol Direct HDL Cholesterol Venous Blood Potassium Blood Type Antibody Screen 09/23/18 09/23/18 09/23/18 14:32 14:53 14:57 WBC RBC Hgb Hct MCV MCH MCHC RDW Plt Count MPV Neut % (Auto) Lymph % (Auto) [place] % (Auto) Eos % (Auto) Baso % (Auto) Neut # (Auto) Lymph # (Auto) [place] # (Auto) Eos # (Auto) Baso # (Auto) Neutrophils % (Manual) Band Neutrophils % Lymphocytes % (Manual) Monocytes % (Manual) Platelet Estimate RBC Morphology ESR PT INR APTT pO2 32 VBG pH 7.41 VBG pCO2 53 VBG HCO3 29.7 VBG Total CO2 35.2 H VBG O2 Sat (Calc) 68.7 H VBG Base Excess 7.3 H VBG Potassium 3.9 Glucose 590 H* Lactate 2.9 H Crit Value Called To irivn Garcia Crit Value Called By Angel solares Crit Value Read Back Y Blood Gas Notified Time 1439 Sodium 131.0 L Potassium Chloride 84.0 L Carbon Dioxide Anion Gap BUN Creatinine Est GFR ( Amer) Est GFR (Non-Af Amer) POC Glucose (mg/dL) Random Glucose Hemoglobin A1c Serum Osmolality 303 H Lactic Acid Calcium Phosphorus Magnesium Total Bilirubin AST ALT Alkaline Phosphatase Troponin I C-Reactive Protein Total Protein Albumin Globulin Albumin/Globulin Ratio Triglycerides Cholesterol LDL Cholesterol Direct HDL Cholesterol Venous Blood Potassium 3.9 Blood Type AB POSITIVE Antibody Screen Negative 09/23/18 09/23/18 09/23/18 17:46 22:44 22:44 WBC RBC Hgb Hct MCV MCH MCHC RDW Plt Count MPV Neut % (Auto) Lymph % (Auto) [place] % (Auto) Eos % (Auto) Baso % (Auto) Neut # (Auto) Lymph # (Auto) [place] # (Auto) Eos # (Auto) Baso # (Auto) Neutrophils % (Manual) Band Neutrophils % Lymphocytes % (Manual) Monocytes % (Manual) Platelet Estimate RBC Morphology ESR PT INR APTT pO2 VBG pH VBG pCO2 VBG HCO3 VBG Total CO2 VBG O2 Sat (Calc) VBG Base Excess VBG Potassium Glucose Lactate Crit Value Called To Crit Value Called By Crit Value Read Back Blood Gas Notified Time Sodium 134 Potassium 3.3 L Chloride 96 L Carbon Dioxide 31 H Anion Gap 10 BUN 36 H Creatinine 1.0 Est GFR ( Amer) > 60 Est GFR (Non-Af Amer) > 60 POC Glucose (mg/dL) 365 H Random Glucose 321 H Hemoglobin A1c Serum Osmolality Lactic Acid 1.6 Calcium 7.0 L Phosphorus Magnesium Total Bilirubin AST ALT Alkaline Phosphatase Troponin I C-Reactive Protein Total Protein Albumin Globulin Albumin/Globulin Ratio Triglycerides 152 H Cholesterol 64 LDL Cholesterol Direct 42 HDL Cholesterol 10 L Venous Blood Potassium Blood Type Antibody Screen 09/23/18 09/24/18 09/24/18 22:44 06:30 06:32 WBC 33.7 H RBC 3.58 L Hgb 10.3 L D Hct 31.1 L MCV 86.9 MCH 28.9 MCHC 33.2 RDW 13.5 Plt Count 309 MPV 9.1 Neut % (Auto) 94.7 H Lymph % (Auto) 2.2 L [place] % (Auto) 2.9 Eos % (Auto) 0.1 Baso % (Auto) 0.1 Neut # (Auto) 31.9 H Lymph # (Auto) 0.8 L [place] # (Auto) 1.0 H Eos # (Auto) 0.0 Baso # (Auto) 0.0 Neutrophils % (Manual) Band Neutrophils % Lymphocytes % (Manual) Monocytes % (Manual) Platelet Estimate RBC Morphology ESR PT INR APTT pO2 VBG pH VBG pCO2 VBG HCO3 VBG Total CO2 VBG O2 Sat (Calc) VBG Base Excess VBG Potassium Glucose Lactate Crit Value Called To Crit Value Called By Crit Value Read Back Blood Gas Notified Time Sodium 134 Potassium 3.8 Chloride 97 L Carbon Dioxide 28 Anion Gap 13 BUN 40 H Creatinine 1.3 Est GFR ( Amer) > 60 Est GFR (Non-Af Amer) 57 POC Glucose (mg/dL) Random Glucose 285 H Hemoglobin A1c 11.3 H Serum Osmolality Lactic Acid Calcium 6.7 L Phosphorus 3.3 Magnesium 2.0 Total Bilirubin 0.8 AST 20 ALT 18 L Alkaline Phosphatase 183 H Troponin I C-Reactive Protein Total Protein 5.2 L Albumin 2.2 L Globulin 3.0 Albumin/Globulin Ratio 0.7 L Triglycerides Cholesterol LDL Cholesterol Direct HDL Cholesterol Venous Blood Potassium Blood Type Antibody Screen EKG/Cardiology Studies: Cardiology / EKG Studies 09/23/18 14:48 ELECTROCARDIOGRAM Stat Comment: Mode Of Transportation: Reason For Exam: preop 09/23/18 15:27 ELECTROCARDIOGRAM Stat Comment: Mode Of Transportation: Reason For Exam: preop Fingerstick Blood Sugar Results: 395 Critical Care Progress Note - Nutrition Nutrition: Nutrition Category Date Time Status Diabetic [Consistent Carbohydrate] [DIET] Diets 09/24/18 Breakfast Active
[2018-09-24] MEDS: (Novolog) Insulin Aspart, Recombinant 100 u/ml 10 ml vial SC SCH ×4 (07:57→21:07)
--- NOTE | 2018-09-24 07:57 | RAD ---
Date of service: 09/23/2018 PROCEDURE: Right Foot Radiographs. HISTORY: RLE infection s/p I D COMPARISON: None. FINDINGS: BONES: No fracture. No periosteal reaction. No osseous destruction appreciated. Inferior calcaneal spur . Mary's tendon insetional enesthesophyte. JOINTS: Minimal 1st metatarsal-phalangeal joint arthrosis. SOFT TISSUES: Diffusely abdomen normally swollen with diffuse abnormal mottled lucencies-appearance consistent with known soft tissue infection with recent incision and drainage and subsequent bandaging. Soft tissue changes are seen mainly along the anterior lower leg along the dorsal mid and forefoot and also affect the plantar surfaces as well. OTHER FINDINGS: None. IMPRESSION: No osseous destruction or periosteal reaction seen to suggest osteomyelitis. Extensive abnormal soft tissue findings as detailed above compatible with the history of a soft tissue infection and recent surgical intervention. Follow-up recommended
--- NOTE | 2018-09-24 07:59 | RAD ---
Date of service: 09/23/2018 PROCEDURE: Radiographs of the right tibia and fibula. HISTORY: RLE infection s/p I D COMPARISON: None available TECHNIQUE: Frontal and lateral views obtained. FINDINGS: BONES: No fracture or destructive lesion. Calcaneal spurring present JOINT SPACES: Unremarkable. OTHER FINDINGS: Soft tissue abnormal swelling and abnormal multiple lucencies project over the distal lower leg and are partially seen in portions of the ankle on this exam. Findings are better detailed on the same-day right foot x-ray report. Soft tissue changes are compatible with known soft tissue infection and recent incision and drainage for such. Vascular calcifications present IMPRESSION: No periosteal reaction or cortical interruption seen to suggest osteomyelitis. No lytic lesions. No fractures. Soft tissue changes are compatible with known soft tissue infection and recent incision and drainage and bandaging
[2018-09-24 09:08] LABS: BANDS 5 % (0-2); LYMPHOCYTE 1 % (20-40); MONOCYTE 2 % (0-10); NEUTROPHIL 92 % (50-75); PLATELET ESTIMATE NORMAL (NORMAL); TOTAL CELLS COUNTED 100
[2018-09-24 09:09] LABS: HYPOCHROMIC SLIGHT; POLYCHROMIC SLIGHT
[2018-09-24] MEDS: Enoxaparin 40 mg Syringe SC SCH (09:42)
[2018-09-24] MEDS ORDERED: Tetanus/Diphtheria Toxoids 0.5 ml Syringe IM ONE (11:45)
--- NOTE | 2018-09-24 12:14 | CP.PCM.CON ---
History of Present Illness - History of Present Illness History of Present Illness: 58M seen and evaluated in ED complaining of blistering, pain, redness and swelling to his right leg x 5 days. Patient states that these symptoms have gradually been getting worse over that time period. He states that he went to Urgent Care and was told to immediately present to the ED. denies trauma travel pets injury etc Meds: Denies All: NKDA PSH: Nasal polyp FH: Unknown SH: Denies alcohol, tobacco or drug use Review of Systems - Review of Systems All systems: reviewed and no additional remarkable complaints except - Constitutional Constitutional: absent: As Per HPI, Anorexia, Chills, Daytime Sleepiness, Excessive Sweating, Fatigue, Fever, Frequent Falls, Headache, Increased Appetite, Lethargy, Malaise, Night Sweats, Snoring, Sleep Apnea, Weight Gain, Weight Loss, Weakness, Other - EENT Eyes: absent: As Per HPI, Blind Spots, Blurred Vision, Change in Vision, Decreased Night Vision, Diplopia, Discharge, Dry Eye, Exophthalmos, Floaters, Irritation, Itchy Eyes, Loss of Peripheral Vision, Pain, Photophobia, Requires Corrective Lenses, Sees Flashes, Spots in Vision, Tunnel Vision, Other Visual Disturbances, Loss of Vision, Other Ears: absent: As Per HPI, Decreased Hearing, Ear Discharge, Ear Pain, Tinnitus, Abnormal Hearing, Disequilibrium, Dizziness, Other Nose/Mouth/Throat: absent: As Per HPI, Epistaxis, Nasal Congestion, Nasal Discharge, Nasal Obstruction, Nasal Trauma, Nose Pain, Post Nasal Drip, Sinus Pain, Sinus Pressure, Bleeding Gums, Change in Voice, Dental Pain, Dry Mouth, Dysphagia, Halitosis, Hoarsness, Lip Swelling, Mouth Lesions, Mouth Pain, Odynophagia, Sore Throat, Throat Swelling, Tongue Swelling, Facial Pain, Neck Pain, Neck Mass, Other - Cardiovascular Cardiovascular: absent: As Per HPI, Acrocyanosis, Chest Pain, Chest Pain at Rest, Chest Pain with Activity, Claudication, Diaphoresis, Dyspnea, Dyspnea on Exertion, Edema, Irregular Heart Rhythm, Pain Radiating to Arm/Neck/Jaw, Leg Edema, Leg Ulcers, Lightheadedness, Orthopnea, Palpitations, Paroxysmal Nocturnal Dyspnea, Pedal Edema, Radiating Pain, Rapid Heart Rate, Slow Heart Rate, Syncope, Other - Respiratory Respiratory: absent: As Per HPI, Cough, Dyspnea, Hemoptysis, Dyspnea on Exertion, Wheezing, Snoring, Stridor, Pain on Inspiration, Chest Congestion, Excessive Mucous Production, Change in Mucous Color, Pain with Coughing, Other - Gastrointestinal Gastrointestinal: absent: As Per HPI, Abdominal Pain, Belching, Bloating, Change in Bowel Habits, Change in Stool Character, Coffee Ground Emesis, Constipation, Cramping, Diarrhea, Dyspepsia, Dysphagia, Early Satiety, Excessive Flatus, Fecal Incontinence, Heartburn, Hematemesis, Hematochezia, Loose Stools, Melena, Nausea, Odynophagia, Temesmus, Vomiting, Other - Genitourinary Genitourinary: absent: As Per HPI, Change in Urinary Stream, Difficulty Urinating, Dysuria, Flank Pain, Hematuria, Pyuria, Nocturia, Urinary Incontinence, Urinary Frequency, Urinary Hesitance, Urinary Urgency, Voiding Freq/Small Amts, Freq UTI, Hx Renal/Bladder Calculi, Hx /Renal Surgery, Bladder Distension, Other - Musculoskeletal Musculoskeletal: As Per HPI - Integumentary Integumentary: As Per HPI, Skin Pain, Wounds - Neurological Neurological: absent: As Per HPI, Abnormal Gait, Abnormal Hearing, Abnormal Movements, Abnormal Speech, Behavioral Changes, Burning Sensations, Confusion, Convulsions, Disequilibrium, Dizziness, Numbness, Focal Weakness, Frequent Falls, Headaches, Lack of Coordination, Loss of Vision, Memory Loss, Paresthesias, Radicular Pain, Restless Legs, Sensory Deficit, Syncope, Tingling, Tremor, Vertigo, Weakness, Other Visual Disturbances, Other - Psychiatric Psychiatric: absent: As Per HPI, Abnormal Sleep Pattern, Anhedonia, Anxiety, Auditory Hallucinations, Behavioral Changes, Change in Appetite, Change in Libido, Confusion, Depression, Difficulty Concentrating, Hallucinations, Homicidal Ideation, Hopelessness, Irritability, Memory Loss, Mood Swings, Panic Attacks, Paranoia, Suicidal Ideation, Visual Hallucinations, Tactile Hallucinations, Other - Endocrine Endocrine: absent: As Per HPI, Change in Body Appearance, Change in Libido, Cold Intolorance, Deepening of Voice, Excessive Sweating, Fatigue, Flushing, Heat Intolorance, Increase in Ring/Shoe/Hat Size, Palpitations, Polydipsia, Polyphagia, Polyuria, Other - Hematologic/Lymphatic Hematologic: absent: As Per HPI, Easy Bleeding, Easy Bruising, Lymphadenopathy, Other Past Patient History - Infectious Disease Hx of Infectious Diseases: None - Past Medical History & Family History Past Medical History?: Yes - Past Social History Smoking Status: Never Smoked - CARDIAC Hx Cardiac Disorders: No - PULMONARY Hx Respiratory Disorders: No - NEUROLOGICAL Hx Neurological Disorder: No - HEENT Hx HEENT Problems: Yes Other/Comment: uses reading glasses - RENAL Hx Chronic Kidney Disease: No - ENDOCRINE/METABOLIC Hx Endocrine Disorders: No - HEMATOLOGICAL/ONCOLOGICAL Hx Blood Disorders: No - INTEGUMENTARY Hx Dermatological Problems: No - MUSCULOSKELETAL/RHEUMATOLOGICAL Hx Falls: No - GASTROINTESTINAL Hx Gastrointestinal Disorders: No - GENITOURINARY/GYNECOLOGICAL Hx Genitourinary Disorders: No - PSYCHIATRIC Hx Substance Use: No - SURGICAL HISTORY Hx Surgeries: No - ANESTHESIA Hx Anesthesia: No Meds Allergies/Adverse Reactions: Allergies Allergy/AdvReac Type Severity Reaction Status Date / Time No Known Allergies Allergy Verified 09/23/18 12:13 - Medications Medications: Current Medications Acetaminophen (Tylenol 325mg Tab) 650 mg PO Q6 PRN PRN Reason: Pain, Mild (1-3) Enoxaparin Sodium (Lovenox) 40 mg SC DAILY [facility] Last Admin: 09/24/18 09:42 Dose: 40 mg Vancomycin/Sodium Chloride (Vancomycin 1 Gm/Ns 200 Ml) 1 gm in 200 mls @ 133.333 mls/hr IVPB Q12H [facility]; Protocol Last Admin: 09/24/18 04:56 Dose: 133.333 mls/hr Sodium Chloride (Sodium Chloride 0.9%) 1,000 mls @ 100 mls/hr IV .Q10H [facility] Last Admin: 09/24/18 05:45 Dose: Not Given Piperacillin Sod/Tazobactam (Sod 3.375 gm/ Sodium Chloride) 100 mls @ 200 mls/hr IVPB Q6H [facility]; Protocol Last Admin: 09/24/18 09:57 Dose: 200 mls/hr Clindamycin Phosphate 300 mg/ (Sodium Chloride) 52 mls @ 100 mls/hr IVPB Q6H [facility]; Protocol Last Admin: 09/24/18 09:42 Dose: 100 mls/hr Insulin Aspart (Novolog) 0 unit SC ACHS [facility]; Protocol Last Admin: 09/24/18 12:02 Dose: 4 units Ketorolac Tromethamine (Toradol) 30 mg IVP Q6 [facility] Last Admin: 09/24/18 12:04 Dose: Not Given Oxycodone/Acetaminophen (Percocet 5/325 Mg Tab) 1 tab PO Q4H PRN PRN Reason: Pain, moderate (4-7) Stop: 09/26/18 20:17 Oxycodone/Acetaminophen (Percocet 5/325 Mg Tab) 2 tab PO Q4H PRN PRN Reason: Pain, moderate (4-7) Stop: 09/26/18 20:17 Last Admin: 09/24/18 09:55 Dose: 2 tab Pneumococcal Polyvalent Vaccine (Pneumovax 23 Vaccine) 0.5 ml IM .ONCE ONE Stop: 09/25/18 10:01 Physical Exam - Constitutional Appears: Non-toxic, Chronically Ill - Head Exam Head Exam: NORMOCEPHALIC - Eye Exam Eye Exam: absent: Scleral icterus - ENT Exam ENT Exam: Mucous Membranes Dry - Neck Exam Neck exam: Negative for: Lymphadenopathy - Respiratory Exam Respiratory Exam: Decreased Breath Sounds - Cardiovascular Exam Cardiovascular Exam: REGULAR RHYTHM - GI/Abdominal Exam GI & Abdominal Exam: Diminished Bowel Sounds, Soft - Rectal Exam Rectal Exam: Deferred - Exam Exam: NORMAL INSPECTION - Extremities Exam Extremities exam: Positive for: pedal edema, tenderness, pedal pulses present. Negative for: calf tenderness - Back Exam Back exam: absent: CVA tenderness (L), CVA tenderness (R) - Neurological Exam Neurological exam: Alert, CN II-XII Intact, Oriented x3, Reflexes Normal - Psychiatric Exam Psychiatric exam: Normal Mood - Skin Skin Exam: Dry Results - Vital Signs Recent Vital Signs: Last Vital Signs Temp 97.8 F 09/24/18 08:00 Pulse 82 09/23/18 22:40 Resp 16 09/23/18 22:40 BP 115/73 09/23/18 22:01 Pulse Ox 99 09/23/18 22:40 - Labs Result Diagrams: 09/24/18 06:32 09/24/18 06:30 Labs: Laboratory Results - last 24 hr 09/23/18 09/23/18 09/23/18 13:40 14:08 14:08 WBC 36.0 H RBC 4.47 Hgb 13.0 Hct 38.9 MCV 87.0 MCH 29.2 MCHC 33.5 RDW 13.8 Plt Count 386 MPV 9.1 Neut % (Auto) 93.4 H Lymph % (Auto) 1.4 L Gosper % (Auto) 4.1 Eos % (Auto) 0.0 Baso % (Auto) 1.1 Neut # (Auto) 33.6 H Lymph # (Auto) 0.5 L Gosper # (Auto) 1.5 H Eos # (Auto) 0.0 Baso # (Auto) 0.4 H Neutrophils % (Manual) 92 H Band Neutrophils % 6 H Lymphocytes % (Manual) TEST NOT PERFORMED Monocytes % (Manual) 2 Platelet Estimate Normal RBC Morphology Normal Polychromasia Hypochromasia (manual) ESR 55 H PT 15.2 H INR 1.4 APTT 26 pO2 VBG pH VBG pCO2 VBG HCO3 VBG Total CO2 VBG O2 Sat (Calc) VBG Base Excess VBG Potassium Glucose Lactate Crit Value Called To Crit Value Called By Crit Value Read Back Blood Gas Notified Time Sodium 128 L Potassium 3.8 Chloride 82 L Carbon Dioxide 31 H Anion Gap 19 BUN 36 H Creatinine 1.1 Est GFR ( Amer) > 60 Est GFR (Non-Af Amer) > 60 POC Glucose (mg/dL) Random Glucose 576 H* Hemoglobin A1c Serum Osmolality Lactic Acid Calcium 7.7 L Phosphorus Magnesium Total Bilirubin 0.8 AST 16 L ALT 17 L Alkaline Phosphatase 205 H Troponin I < 0.0120 C-Reactive Protein > 270.00 H Total Protein 6.3 Albumin 2.7 L Globulin 3.6 Albumin/Globulin Ratio 0.8 L Triglycerides Cholesterol LDL Cholesterol Direct HDL Cholesterol Venous Blood Potassium Blood Type Antibody Screen 09/23/18 09/23/18 09/23/18 14:32 14:53 14:57 WBC RBC Hgb Hct MCV MCH MCHC RDW Plt Count MPV Neut % (Auto) Lymph % (Auto) Gosper % (Auto) Eos % (Auto) Baso % (Auto) Neut # (Auto) Lymph # (Auto) Gosper # (Auto) Eos # (Auto) Baso # (Auto) Neutrophils % (Manual) Band Neutrophils % Lymphocytes % (Manual) Monocytes % (Manual) Platelet Estimate RBC Morphology Polychromasia Hypochromasia (manual) ESR PT INR APTT pO2 32 VBG pH 7.41 VBG pCO2 53 VBG HCO3 29.7 VBG Total CO2 35.2 H VBG O2 Sat (Calc) 68.7 H VBG Base Excess 7.3 H VBG Potassium 3.9 Glucose 590 H* Lactate 2.9 H Crit Value Called To irvin Garcia Crit Value Called By Angel solares Crit Value Read Back Y Blood Gas Notified Time 1439 Sodium 131.0 L Potassium Chloride 84.0 L Carbon Dioxide Anion Gap BUN Creatinine Est GFR ( Amer) Est GFR (Non-Af Amer) POC Glucose (mg/dL) Random Glucose Hemoglobin A1c Serum Osmolality 303 H Lactic Acid Calcium Phosphorus Magnesium Total Bilirubin AST ALT Alkaline Phosphatase Troponin I C-Reactive Protein Total Protein Albumin Globulin Albumin/Globulin Ratio Triglycerides Cholesterol LDL Cholesterol Direct HDL Cholesterol Venous Blood Potassium 3.9 Blood Type AB POSITIVE Antibody Screen Negative 09/23/18 09/23/18 09/23/18 17:46 20:23 22:44 WBC RBC Hgb Hct MCV MCH MCHC RDW Plt Count MPV Neut % (Auto) Lymph % (Auto) Gosper % (Auto) Eos % (Auto) Baso % (Auto) Neut # (Auto) Lymph # (Auto) Gosper # (Auto) Eos # (Auto) Baso # (Auto) Neutrophils % (Manual) Band Neutrophils % Lymphocytes % (Manual) Monocytes % (Manual) Platelet Estimate RBC Morphology Polychromasia Hypochromasia (manual) ESR PT INR APTT pO2 VBG pH VBG pCO2 VBG HCO3 VBG Total CO2 VBG O2 Sat (Calc) VBG Base Excess VBG Potassium Glucose Lactate Crit Value Called To Crit Value Called By Crit Value Read Back Blood Gas Notified Time Sodium Potassium Chloride Carbon Dioxide Anion Gap BUN Creatinine Est GFR ( Amer) Est GFR (Non-Af Amer) POC Glucose (mg/dL) 365 H 364 H Random Glucose Hemoglobin A1c Serum Osmolality Lactic Acid 1.6 Calcium Phosphorus Magnesium Total Bilirubin AST ALT Alkaline Phosphatase Troponin I C-Reactive Protein Total Protein Albumin Globulin Albumin/Globulin Ratio Triglycerides Cholesterol LDL Cholesterol Direct HDL Cholesterol Venous Blood Potassium Blood Type Antibody Screen 09/23/18 09/23/18 09/24/18 22:44 22:44 06:30 WBC RBC Hgb Hct MCV MCH MCHC RDW Plt Count MPV Neut % (Auto) Lymph % (Auto) Gosper % (Auto) Eos % (Auto) Baso % (Auto) Neut # (Auto) Lymph # (Auto) Gosper # (Auto) Eos # (Auto) Baso # (Auto) Neutrophils % (Manual) Band Neutrophils % Lymphocytes % (Manual) Monocytes % (Manual) Platelet Estimate RBC Morphology Polychromasia Hypochromasia (manual) ESR PT INR APTT pO2 VBG pH VBG pCO2 VBG HCO3 VBG Total CO2 VBG O2 Sat (Calc) VBG Base Excess VBG Potassium Glucose Lactate Crit Value Called To Crit Value Called By Crit Value Read Back Blood Gas Notified Time Sodium 134 134 Potassium 3.3 L 3.8 Chloride 96 L 97 L Carbon Dioxide 31 H 28 Anion Gap 10 13 BUN 36 H 40 H Creatinine 1.0 1.3 Est GFR ( Amer) > 60 > 60 Est GFR (Non-Af Amer) > 60 57 POC Glucose (mg/dL) Random Glucose 321 H 285 H Hemoglobin A1c 11.3 H Serum Osmolality Lactic Acid Calcium 7.0 L 6.7 L Phosphorus 3.3 Magnesium 2.0 Total Bilirubin 0.8 AST 20 ALT 18 L Alkaline Phosphatase 183 H Troponin I C-Reactive Protein Total Protein 5.2 L Albumin 2.2 L Globulin 3.0 Albumin/Globulin Ratio 0.7 L Triglycerides 152 H Cholesterol 64 LDL Cholesterol Direct 42 HDL Cholesterol 10 L Venous Blood Potassium Blood Type Antibody Screen 09/24/18 09/24/18 09/24/18 06:32 07:19 11:47 WBC 33.7 H RBC 3.58 L Hgb 10.3 L D Hct 31.1 L MCV 86.9 MCH 28.9 MCHC 33.2 RDW 13.5 Plt Count 309 MPV 9.1 Neut % (Auto) 94.7 H Lymph % (Auto) 2.2 L Gosper % (Auto) 2.9 Eos % (Auto) 0.1 Baso % (Auto) 0.1 Neut # (Auto) 31.9 H Lymph # (Auto) 0.8 L Gosper # (Auto) 1.0 H Eos # (Auto) 0.0 Baso # (Auto) 0.0 Neutrophils % (Manual) 92 H Band Neutrophils % 5 H Lymphocytes % (Manual) 1 L Monocytes % (Manual) 2 Platelet Estimate Normal RBC Morphology Polychromasia Slight Hypochromasia (manual) Slight ESR PT INR APTT pO2 VBG pH VBG pCO2 VBG HCO3 VBG Total CO2 VBG O2 Sat (Calc) VBG Base Excess VBG Potassium Glucose Lactate Crit Value Called To Crit Value Called By Crit Value Read Back Blood Gas Notified Time Sodium Potassium Chloride Carbon Dioxide Anion Gap BUN Creatinine Est GFR ( Amer) Est GFR (Non-Af Amer) POC Glucose (mg/dL) 288 H 294 H Random Glucose Hemoglobin A1c Serum Osmolality Lactic Acid Calcium Phosphorus Magnesium Total Bilirubin AST ALT Alkaline Phosphatase Troponin I C-Reactive Protein Total Protein Albumin Globulin Albumin/Globulin Ratio Triglycerides Cholesterol LDL Cholesterol Direct HDL Cholesterol Venous Blood Potassium Blood Type Antibody Screen Assessment & Plan (1) Necrotizing fasciitis of ankle and foot Status: Acute (2) Sepsis Status: Acute - Assessment and Plan (Free Text) Assessment: s/p debridement cont iv rx and wound care prognosis for limmb salvage guarded
--- NOTE | 2018-09-24 16:41 | CP.PCM.PN ---
Subjective - Date & Time of Evaluation Date of Evaluation: 09/24/18 Time of Evaluation: 16:29 - Subjective Subjective: Podiatry Progress Note for Dr. Prashanth Souza seen one day s/p I and D with washout of right foot and leg secondary to necrotizing fasciitis. Patient is AAO x 3 and NAD at time of visit. Denies any pain to his right lower leg. Denies any acute overnight events or new pedal complaints. States that he continues to experience some N/V/D Objective - Vital Signs/Intake and Output Vital Signs (last 24 hours): Temp Pulse Resp BP Pulse Ox 97.9 F 73 20 101/67 100 09/24/18 13:57 09/24/18 13:57 09/24/18 13:57 09/24/18 13:57 09/24/18 13:57 Intake and Output: 09/24/18 09/24/18 06:59 18:59 Intake Total 1800 1300 Output Total 550 200 Balance 1250 1100 - Medications Medications: Current Medications Acetaminophen (Tylenol 325mg Tab) 650 mg PO Q6 PRN PRN Reason: Pain, Mild (1-3) Enoxaparin Sodium (Lovenox) 40 mg SC DAILY [facility] Last Admin: 09/24/18 09:42 Dose: 40 mg Vancomycin/Sodium Chloride (Vancomycin 1 Gm/Ns 200 Ml) 1 gm in 200 mls @ 133.333 mls/hr IVPB Q12H [facility]; Protocol Last Admin: 09/24/18 04:56 Dose: 133.333 mls/hr Sodium Chloride (Sodium Chloride 0.9%) 1,000 mls @ 100 mls/hr IV .Q10H [facility] Last Admin: 09/24/18 13:40 Dose: 100 mls/hr Piperacillin Sod/Tazobactam (Sod 3.375 gm/ Sodium Chloride) 100 mls @ 200 mls/hr IVPB Q6H [facility]; Protocol Last Admin: 09/24/18 09:57 Dose: 200 mls/hr Clindamycin Phosphate 300 mg/ (Sodium Chloride) 52 mls @ 100 mls/hr IVPB Q6H [facility]; Protocol Last Admin: 09/24/18 16:09 Dose: 100 mls/hr Insulin Aspart (Novolog) 0 unit SC ACHS [facility]; Protocol Last Admin: 09/24/18 12:02 Dose: 4 units Ketorolac Tromethamine (Toradol) 30 mg IVP Q6 [facility] Last Admin: 09/24/18 12:04 Dose: Not Given Oxycodone/Acetaminophen (Percocet 5/325 Mg Tab) 1 tab PO Q4H PRN PRN Reason: Pain, moderate (4-7) Stop: 09/26/18 20:17 Oxycodone/Acetaminophen (Percocet 5/325 Mg Tab) 2 tab PO Q4H PRN PRN Reason: Pain, moderate (4-7) Stop: 09/26/18 20:17 Last Admin: 09/24/18 09:55 Dose: 2 tab Pneumococcal Polyvalent Vaccine (Pneumovax 23 Vaccine) 0.5 ml IM .ONCE ONE Stop: 09/25/18 10:01 - Labs Labs: 09/24/18 06:32 09/24/18 06:30 PT 15.2 SECONDS (9.7-12.2) H 09/23/18 14:08 INR 1.4 09/23/18 14:08 APTT 26 SECONDS (21-34) 09/23/18 14:08 - Constitutional Appears: Well, Non-toxic, No Acute Distress - Extremities Exam Additional comments: RLE focused exam: Vasc: DP/PT pulses non-palpable secondary to 2+ non-pitting edema to RLE. CFT > 3 seconds to all digits. Skin temperature increased R>L. Neuro: Epicritic and protective sensation intact along distribution of Sural and Tibial nerves. Epicritic and protective sensation absent along distribution of Superficial and Deep peroneal nerves Derm: Open incision sites noted at 1. lateral anterior mid-leg to base of third digit, partially helded together with intact retention sutures 2. Longitudinal plantar incision from first interdigital space to level of midfoot 3. Medial foot at level of MTPJ measuring roughly 4 cm. Packing noted in all incision sites. Skin is erythematous and mottled, especially at second and third digit. Evidence of lysed blisters noted in multiple spots on leg. 1 cc of purulent drainage expressed from base of second and third digits MSK: ROM limited at toes and ankle joint. Pain with palpation of proximal portion of anterior incision site - Neurological Exam Neurological Exam: Alert, Awake, Oriented x3 - Psychiatric Exam Psychiatric exam: Normal Affect, Normal Mood Assessment and Plan - Assessment and Plan (Free Text) Assessment: 58M seen one day s/p I and D with washout of right foot and leg secondary to necrotizing fasciitis Plan: Patient seen and evaluated Plan discussed with Dr. Alford WBC 33.7 from 36, afebrile Continue IV abx per ID Continue pain management per primary team Intra-op wound cx: Pending Post operative tib fib xray: No periosteal reaction or cortical interruption seen to suggest osteomyelitis. No lytic lesions. No fractures. Soft tissue changes are compatible with known soft tissue infection and recent incision and drainage and bandaging Post operative foot xray: No osseous destruction or periosteal reaction seen to suggest osteomyelitis. Extensive abnormal soft tissue findings as detailed above compatible with the history of a soft tissue infection and recent surgical intervention. Follow-up recommended Incision sites re-packed and wounds dressed with betadine soaked gauze, ABD pads, kirlix, CARMENCITA Patient scheduled for second washout in OR on Thursday 09/[address] Alford Podiatry will continue to follow while patient in house
[2018-09-25] MEDS: Sodium Chloride 0.9% 1,000 ML IV SCH ×4 (02:30→23:26)
[2018-09-25] MEDS: Clindamycin 300 MG in Sodium Chloride 0.9% 50 ML IVPB SCH ×4 (03:30→21:43)
[2018-09-25] MEDS: Piperacillin/Tazobact 3.375 GM in Sodium Chloride 100 ML IVPB SCH ×4 (04:00→23:57)
[2018-09-25] MEDS: Vancomycin 1 gm/NS 200 ml 1 GM/200 ML BAG IVPB SCH ×2 (04:50→17:49)
--- NOTE | 2018-09-25 08:09 | OP ---
PROCEDURE DATE: 09/23/2018 SURGEON: Aniyah Alford DPM ASSISTANTS: Job Fair, PGY-2; Obdulia Alonzo, PGY-2; Glenny Quinteros, PGY-1. ANESTHESIOLOGIST: Mark Zapata MD ANESTHESIA: General. PREOPERATIVE DIAGNOSIS: Soft tissue emphysema/necrotizing fasciitis of right lower extremity. POSTOPERATIVE DIAGNOSIS: Soft tissue emphysema/necrotizing fasciitis of right lower extremity. PROCEDURE: Incision and drainage of right leg and foot with debridement of all nonviable soft tissue and irrigation. INDICATIONS: The patient is a 58-year-old male with the above-mentioned diagnosis. The patient presented to the emergency department with signs and symptoms of necrotizing fasciitis and required immediate surgical intervention. The patient's family consented after careful explanation of risks, benefits, complications, and alternatives for the surgical procedure. No guarantees were given nor implied. N.p.o. status was confirmed prior to taking the patient into the operating room. PREPARATION: The patient was brought into the operating room and placed on the operating room table in a supine position. A time-out was performed for identification of the correct patient and procedure. After induction of general anesthesia, the right lower extremity was prepped and draped in the normal sterile manner and the procedure was begun. No tourniquet was used during the procedure. DESCRIPTION OF PROCEDURE: Attention was then turned to the right leg, which was noted to be extremely erythematous with hemorrhagic bullae present throughout the leg and foot. Utilizing a #15 blade, an approximately 5 cm longitudinal incision was made on the plantar aspect of the foot beginning in the first interdigital space and extending posteriorly to the level of the midfoot. Entire foot and leg was then squeezed to try and extract as much purulent drainage as possible. Roughly 5 mL worth of purulent drainage with malodor was expressed from the surgical site at this time. Attention was then turned to the lateral anterior right leg where an incision was made down to the level of deep fascia from the level of the mid leg across the anterior ankle to the base of the third digit. Copious amounts of purulent malodorous drainage was expressed from the surgical site. The leg, foot, and ankle were squeezed continuously until it was felt that nearly all purulent drainage had been removed. Multiple wound cultures were taken off the purulent drainage during this time and sent for microbiological examination. Attention was then turned to the medial aspect of the right foot where an approximately 3 cm longitudinal incision was made at the level of the first metatarsophalangeal joint. Again, the foot was squeezed and copious amounts of purulent drainage was expressed from this surgical site. Once it was felt that nearly all purulent drainage had been expressed from the leg and foot, a pulse lavage was utilized to irrigate all 3 surgical sites with a total of 6 liters of bacitracin-laced saline. Next, Irrisept solution was used to irrigate all 3 surgical sites as well. Clean cultures were then taken, and all three surgical sites were explored for any further purulent drainage and none was expressed. Four retention sutures were then placed across the anterior leg incision site. The skin edges were not reapproximated and coapted, but were brought closer together by these sutures. All three surgical sites were then packed with quarter inch iodoform packing, and dressed with copious amounts of betadine-soaked gauze, normal gauze, ABD pads, Kerlix, and Jose bandage. POSTOPERATIVE CONDITION: The patient tolerated the anesthesia and the procedure well and was escorted to the recovery room with vital signs stable and neurovascular structures intact to the right lower extremity. The patient is to remain nonweightbearing to his right lower extremity. Podiatry will continue to follow the patient while in-house. Job Fair DPM Aniyah Alford DPM
[2018-09-25] MEDS: (Novolog) Insulin Aspart, Recombinant 100 u/ml 10 ml vial SC SCH ×4 (08:29→21:13)
[2018-09-25] MEDS ORDERED: Pneumococcal 23-Valent Vaccine IM ONE (10:00)
[2018-09-25] MEDS: Enoxaparin 40 mg Syringe SC SCH (10:03)
--- NOTE | 2018-09-25 13:39 | MRI ---
Date of service: 09/25/2018 PROCEDURE: RIGHT FOOT MRI WITHOUT AND WITH CONTRAST HISTORY: s/p R lower extremity infection COMPARISON: right foot radiographs 09/23/2018. TECHNIQUE: Multiplanar multisequential MR imaging of the right foot was performed including but not limited to fat-suppressed T1 weighted imaging prior to and following intravenous gadolinium striation. Forefoot midfoot anatomy was captured throughout this examination. The hindfoot was not included in this study. 18 cc of Omniscan was utilized for contrast intravenously. 18cc of Omniscan was utilized for intravenous intravenous contrast. FINDINGS: There is a failure of fat suppression throughout the mid to distal digits diffusely in fat-suppressed sequences, which limits interpretation. No definitive osteomyelitis is appreciated otherwise although extensive soft tissue defects are identified at the plantar forefoot deep to the. Prominent soft tissue defects with a least some containing surgical packing are identified at the lateral superficial and deep soft tissues and midfoot, septated soft tissues immediately lateral to the 1st metatarsal head. A large defect is seen at the plantar foot superficial and deep soft tissues with surgical packing in the plane of the mid and distal 2nd metatarsal bone and a small with circumscribed dermal and subcutaneous soft tissue defect is appreciated medial to the 1st metatarsophalangeal joint. Pattern suggests drainage of potential prior abscess. No definitive abscess appreciated this time or enhancing marrow. No fracture or contusion. No subluxation or dislocation degenerative changes are manifest by articular cortical sclerosis throughout the cortices of the midfoot and forefoot joints diffusely. IMPRESSION: No definitive pattern suggest osteomyelitis though failure fat suppression throughout the digits limits interpretation somewhat. No definitive abnormal bone enhancement appreciable. No definitive marrow edema. Extensive left foot edema is appreciate diffusely including multiple soft tissue and dermal defects packed by gauze at the forefoot to midfoot plantar and dorsal soft tissues as discussed above. Limitations: Failure fat suppression of the digits diffusely.
--- NOTE | 2018-09-25 15:09 | PN ---
DATE: 09/25/2018 SUBJECTIVE: The patient denies any chest discomfort or abdominal pain. Dressing applied to the right foot. PHYSICAL EXAMINATION: VITAL SIGNS: Blood pressure 128/78, heart rate 83, temperature 98.3, respirations 20. HEENT: Pale conjunctivae. Chest: Clear. HEART: S1 and S2 regular. ABDOMEN: Soft. EXTREMITIES: 1+ right pedal edema with dressings applied to the right foot. LABORATORY DATA: yesterday's SMA-7, sodium 134, potassium 3.8, chloride 97, CO2 is 28, glucose 185, BUN 40, creatinine 1.3. Yesterday's hemoglobin and hematocrit 10.3 and 31.1. White count 33.7, platelet count 309,000. Right foot x-ray revealed no osseous destruction or periosteal reaction to suggest osteomyelitis. Extensive abnormal soft tissue findings compatible with a history of soft tissue infection and recent surgical intervention. MRI of the right lower extremity was performed, the report is still pending. ASSESSMENT: 1. Status post incision and drainage of right foot and leg for necrotizing fasciitis. 2. Uncontrolled diabetes mellitus. 3. Mild anemia. RECOMMENDATIONS: Continue current IV clindamycin 300 mg every six hours., subcutaneous Lovenox 40 mg once a day, Percocet 2 tablets every four hours p.r.n., IV Zosyn 3.375 g every six hours and IV vancomycin 1 g intravenously every 12 hours. I will obtain an echocardiograph study. Rao Cobb MD cc: Taiwo Moreno MD
--- NOTE | 2018-09-25 15:22 | CP.PCM.PN ---
Subjective - Date & Time of Evaluation Date of Evaluation: 09/25/18 Time of Evaluation: 15:12 - Subjective Subjective: Podiatry Progress Note for Dr. Prashanth Souza seen two days s/p I and D with washout of right leg for treatment of necrotizing fasciitis. Patient is AAO x 3 and NAD at time of visit. Denies any acute overnight events or new pedal complaints. Denies any recent N/V/F/C/CP/SOB/D. States that pain in leg is well controlled Objective - Vital Signs/Intake and Output Vital Signs (last 24 hours): Temp Pulse Resp BP Pulse Ox 98.3 F 83 20 128/78 96 09/25/18 07:38 09/25/18 07:38 09/25/18 07:38 09/25/18 07:38 09/25/18 07:38 Intake and Output: 09/25/18 09/25/18 06:59 18:59 Intake Total 1940 1200 Output Total 600 500 Balance 1340 700 - Medications Medications: Current Medications Acetaminophen (Tylenol 325mg Tab) 650 mg PO Q6 PRN PRN Reason: Pain, Mild (1-3) Enoxaparin Sodium (Lovenox) 40 mg SC DAILY [facility] Last Admin: 09/25/18 10:03 Dose: 40 mg Vancomycin/Sodium Chloride (Vancomycin 1 Gm/Ns 200 Ml) 1 gm in 200 mls @ 133.333 mls/hr IVPB Q12H [facility]; Protocol Last Admin: 09/25/18 04:50 Dose: 133.333 mls/hr Sodium Chloride (Sodium Chloride 0.9%) 1,000 mls @ 100 mls/hr IV .Q10H [facility] Last Admin: 09/25/18 13:56 Dose: Not Given Piperacillin Sod/Tazobactam (Sod 3.375 gm/ Sodium Chloride) 100 mls @ 200 mls/hr IVPB Q6H [facility]; Protocol Last Admin: 09/25/18 12:32 Dose: 200 mls/hr Clindamycin Phosphate 300 mg/ (Sodium Chloride) 52 mls @ 100 mls/hr IVPB Q6H [facility]; Protocol Last Admin: 09/25/18 10:04 Dose: 100 mls/hr Insulin Aspart (Novolog) 0 unit SC ACHS [facility]; Protocol Last Admin: 09/25/18 12:30 Dose: 2 units Ketorolac Tromethamine (Toradol) 30 mg IVP Q6 [facility] Last Admin: 09/25/18 13:57 Dose: Not Given Oxycodone/Acetaminophen (Percocet 5/325 Mg Tab) 1 tab PO Q4H PRN PRN Reason: Pain, moderate (4-7) Stop: 09/26/18 20:17 Oxycodone/Acetaminophen (Percocet 5/325 Mg Tab) 2 tab PO Q4H PRN PRN Reason: Pain, moderate (4-7) Stop: 09/26/18 20:17 Last Admin: 09/24/18 09:55 Dose: 2 tab - Labs Labs: 09/24/18 06:32 09/24/18 06:30 PT 15.2 SECONDS (9.7-12.2) H 09/23/18 14:08 INR 1.4 09/23/18 14:08 APTT 26 SECONDS (21-34) 09/23/18 14:08 - Constitutional Appears: Well, Non-toxic, No Acute Distress - Extremities Exam Additional comments: RLE focused exam: Vasc: DP/PT pulses non-palpable secondary to 2+ non-pitting edema to RLE. CFT > 3 seconds to all digits. Skin temperature increased R>L but greatly improved over yesterday. Erythema is still noted from toes to level of midcalf circumfrentially but is noted to be less severe than yesterday. Neuro: Epicritic and protective sensation intact along distribution of Sural and Tibial nerves. Epicritic and protective sensation starting to return along distribution of superficial peroneal nerve Derm: Open incision sites noted at 1. lateral anterior mid-leg to base of third digit, partially helded together with intact retention sutures 2. Longitudinal plantar incision from first interdigital space to level of midfoot 3. Medial foot at level of MTPJ measuring roughly 4 cm. Packing noted in all incision sites. Skin is erythematous and mottled, especially at second and third digit. Evidence of lysed blisters noted in multiple spots on leg. 1 cc of purulent drainage again expressed from base of second and third digits. Blister noted to base of third digit plantarly MSK: ROM limited at toes and ankle joint but improved over yesterday. Pain with palpation of proximal portion of anterior incision site - Neurological Exam Neurological Exam: Alert, Awake, Oriented x3 - Psychiatric Exam Psychiatric exam: Normal Affect, Normal Mood Assessment and Plan - Assessment and Plan (Free Text) Assessment: 58M seen two days s/p I and D with washout of right leg for treatment of necrotizing fasciitis. Plan: Patient seen and evaluated Plan discussed with Dr. Alford Afebrile Follow up CBC Continue IV abx per ID Intra-op wound cx: Staph Aureus, Group G Strep Post operative tib fib xray: No periosteal reaction or cortical interruption seen to suggest osteomyelitis. No lytic lesions. No fractures. Soft tissue changes are compatible with known soft tissue infection and recent incision and drainage and bandaging Post operative foot xray: No osseous destruction or periosteal reaction seen to suggest osteomyelitis. Extensive abnormal soft tissue findings as detailed above compatible with the history of a soft tissue infection and recent surgical intervention. Follow-up recommended LE MRI: No definitive pattern suggest osteomyelitis though failure fat suppression throughout the digits limits interpretation somewhat. No definitive abnormal bone enhancement appreciable. No definitive marrow edema. Extensive left foot edema is appreciate diffusely including multiple soft tissue and dermal defects packed by gauze at the forefoot to midfoot plantar and dorsal soft tissues as discussed above. Limitations: Failure fat suppression of the digits diffusely. Incision sites re-packed and wounds dressed with betadine soaked gauze, ABD pads, kirlix, CARMENCITA Patient scheduled for second washout in OR on Thursday 09/[address] Alford Podiatry will continue to follow while patient in house
[2018-09-25] MEDS ORDERED: Glucagon Recombinant 1 mg Inj IM PRN (16:33)
[2018-09-25] MEDS ORDERED: Dextrose 50% SYRINGE Inj (50 ml) IV PRN (16:33)
[2018-09-25 17:06] LABS: BASO # 0.1 K/uL (0.0-0.2); BASO % 0.3 % (0.0-2.0); EOS # 0.3 K/uL (0.0-0.7); EOS % 0.8 % (0.0-4.0); HEMOGLOBIN 9.5 g/dL (12.0-18.0); LYMPH # 0.7 K/uL (1.0-4.3); LYMPH % 2.4 % (20.0-40.0); MEAN CELL VOLUME 87.2 fL (80.0-94.0); MEAN CORPUSCULAR HEMOGLOBIN 28.7 pg (27.0-31.0); MEAN CORPUSCULAR HGB CONC 32.8 g/dL (33.0-37.0); MEAN PLATELET VOLUME 8.9 fL (7.2-11.7); MONO # 0.6 K/uL (0.0-0.8); NEUT # 28.3 K/uL (1.8-7.0); NEUT % 94.5 % (50.0-75.0); PLATELET COUNT 317 K/uL (130-400); RED CELL DISTRIBUTION WIDTH 14.2 % (11.5-14.5)
[2018-09-25 17:16] LABS: INR 1.4; PROTHROMBIN TIME 15.6 SECONDS (9.7-12.2)
--- NOTE | 2018-09-25 17:18 | CP.PCM.PN ---
Subjective - Date & Time of Evaluation Date of Evaluation: 09/25/18 Time of Evaluation: 16:50 - Subjective Subjective: [employer] ARCHITECT NOTES RN reported patient vomiting blood Patient seen at bedside , not in distress , noted bright blood noted in the emesis basin , patient stated he was drinking liquid and after he vomited , denies any prior alcohol history or upper gi bleed vss taken- stable Objective - Vital Signs/Intake and Output Vital Signs (last 24 hours): Temp Pulse Resp BP Pulse Ox 99 F 91 H 20 133/82 98 09/25/18 16:00 09/25/18 16:00 09/25/18 16:00 09/25/18 16:00 09/25/18 16:00 Intake and Output: 09/25/18 09/25/18 06:59 18:59 Intake Total 1940 1200 Output Total 600 500 Balance 1340 700 - Medications Medications: Current Medications Acetaminophen (Tylenol 325mg Tab) 650 mg PO Q6 PRN PRN Reason: Pain, Mild (1-3) Dextrose (Dextrose 50% Inj) 0 ml IV STAT PRN; Protocol PRN Reason: Hypoglycemia Protocol Dextrose (Glutose 15) 0 gm PO ONCE PRN; Protocol PRN Reason: Hypoglycemia Protocol Glucagon (Glucagen Diagnostic Kit) 0 mg IM STAT PRN; Protocol PRN Reason: Hypoglycemia Protocol Vancomycin/Sodium Chloride (Vancomycin 1 Gm/Ns 200 Ml) 1 gm in 200 mls @ 133.333 mls/hr IVPB Q12H [facility]; Protocol Last Admin: 09/25/18 04:50 Dose: 133.333 mls/hr Sodium Chloride (Sodium Chloride 0.9%) 1,000 mls @ 100 mls/hr IV .Q10H [facility] Last Admin: 09/25/18 13:56 Dose: Not Given Piperacillin Sod/Tazobactam (Sod 3.375 gm/ Sodium Chloride) 100 mls @ 200 mls/hr IVPB Q6H [facility]; Protocol Last Admin: 09/25/18 12:32 Dose: 200 mls/hr Clindamycin Phosphate 300 mg/ (Sodium Chloride) 52 mls @ 100 mls/hr IVPB Q6H [facility]; Protocol Last Admin: 09/25/18 16:14 Dose: 100 mls/hr Dextrose (Dextrose 5% In Water 1000 Ml) 1,000 mls @ 0 mls/hr IV .Q0M PRN; Protocol PRN Reason: Hypoglycemia Protocol Insulin Aspart (Novolog) 0 unit SC ACHS [facility]; Protocol Last Admin: 09/25/18 16:38 Dose: 2 units Insulin Aspart (Novolog) 0 unit SC ACBD [facility]; Protocol Oxycodone/Acetaminophen (Percocet 5/325 Mg Tab) 1 tab PO Q4H PRN PRN Reason: Pain, moderate (4-7) Stop: 09/26/18 20:17 Oxycodone/Acetaminophen (Percocet 5/325 Mg Tab) 2 tab PO Q4H PRN PRN Reason: Pain, moderate (4-7) Stop: 09/26/18 20:17 Last Admin: 09/24/18 09:55 Dose: 2 tab Pantoprazole Sodium (Protonix Inj) 40 mg IVP Q12H [facility] - Labs Labs: 09/24/18 06:32 09/24/18 06:30 PT 15.2 SECONDS (9.7-12.2) H 09/23/18 14:08 INR 1.4 09/23/18 14:08 APTT 26 SECONDS (21-34) 09/23/18 14:08 Assessment and Plan - Assessment and Plan (Free Text) Assessment: A/P r/o upper GI BLEED stat cbc, PT,PTT, and cbc q 6hrs , type and screen , and stoppped all anticoagulant prtonix [address] barnett on GI Consult transfer patient to telemetry Will transfuse PRBC if hgb less than 7.5 D/W Dr. Cobb ( covering with Dr. Moreno)
[2018-09-25 17:35] LABS: ALB/GLOB RATIO 0.7 (1.0-2.1); ALBUMIN 2.2 g/dL (3.5-5.0); BILIRUBIN,DIRECT 0.7 mg/dL (0.0-0.4); CALCIUM 7.2 mg/dl (8.6-10.4)
[2018-09-25 18:06] LABS: BANDS 3 % (0-2); LYMPHOCYTE 1 % (20-40); MONOCYTE 1 % (0-10); NEUTROPHIL 95 % (50-75); TOTAL CELLS COUNTED 100
--- NOTE | 2018-09-25 18:06 | CP.PCM.PN ---
Subjective - Date & Time of Evaluation Date of Evaluation: 09/25/18 Time of Evaluation: 09:00 - Subjective Subjective: vomited blood earlier denies any now no fever Objective - Vital Signs/Intake and Output Vital Signs (last 24 hours): Temp Pulse Resp BP Pulse Ox 99.1 F 92 H 20 127/76 97 09/25/18 17:43 09/25/18 17:43 09/25/18 17:43 09/25/18 17:43 09/25/18 17:43 Intake and Output: 09/25/18 09/25/18 06:59 18:59 Intake Total 1940 1200 Output Total 600 500 Balance 1340 700 - Medications Medications: Current Medications Acetaminophen (Tylenol 325mg Tab) 650 mg PO Q6 PRN PRN Reason: Pain, Mild (1-3) Dextrose (Dextrose 50% Inj) 0 ml IV STAT PRN; Protocol PRN Reason: Hypoglycemia Protocol Dextrose (Glutose 15) 0 gm PO ONCE PRN; Protocol PRN Reason: Hypoglycemia Protocol Glucagon (Glucagen Diagnostic Kit) 0 mg IM STAT PRN; Protocol PRN Reason: Hypoglycemia Protocol Vancomycin/Sodium Chloride (Vancomycin 1 Gm/Ns 200 Ml) 1 gm in 200 mls @ 133.333 mls/hr IVPB Q12H [facility]; Protocol Last Admin: 09/25/18 17:49 Dose: 133.333 mls/hr Sodium Chloride (Sodium Chloride 0.9%) 1,000 mls @ 100 mls/hr IV .Q10H [facility] Last Admin: 09/25/18 13:56 Dose: Not Given Piperacillin Sod/Tazobactam (Sod 3.375 gm/ Sodium Chloride) 100 mls @ 200 mls/hr IVPB Q6H [facility]; Protocol Last Admin: 09/25/18 17:19 Dose: 200 mls/hr Clindamycin Phosphate 300 mg/ (Sodium Chloride) 52 mls @ 100 mls/hr IVPB Q6H [facility]; Protocol Last Admin: 09/25/18 16:14 Dose: 100 mls/hr Dextrose (Dextrose 5% In Water 1000 Ml) 1,000 mls @ 0 mls/hr IV .Q0M PRN; Protocol PRN Reason: Hypoglycemia Protocol Insulin Aspart (Novolog) 0 unit SC ACHS [facility]; Protocol Last Admin: 09/25/18 16:38 Dose: 2 units Insulin Aspart (Novolog) 0 unit SC ACBD [facility]; Protocol Oxycodone/Acetaminophen (Percocet 5/325 Mg Tab) 1 tab PO Q4H PRN PRN Reason: Pain, moderate (4-7) Stop: 09/26/18 20:17 Oxycodone/Acetaminophen (Percocet 5/325 Mg Tab) 2 tab PO Q4H PRN PRN Reason: Pain, moderate (4-7) Stop: 09/26/18 20:17 Last Admin: 09/24/18 09:55 Dose: 2 tab Pantoprazole Sodium (Protonix Inj) 40 mg IVP Q12H [facility] Last Admin: 09/25/18 17:17 Dose: 40 mg - Labs Labs: 09/25/18 16:56 09/25/18 16:56 PT 15.6 SECONDS (9.7-12.2) H 09/25/18 16:56 INR 1.4 09/25/18 16:56 APTT 27 SECONDS (21-34) 09/25/18 16:56 - Constitutional Appears: Non-toxic - Head Exam Head Exam: NORMOCEPHALIC - Eye Exam Eye Exam: PERRL - ENT Exam ENT Exam: Mucous Membranes Dry - Neck Exam Neck Exam: absent: Lymphadenopathy - Respiratory Exam Respiratory Exam: Decreased Breath Sounds - Cardiovascular Exam Cardiovascular Exam: REGULAR RHYTHM - GI/Abdominal Exam GI & Abdominal Exam: Distended, Soft - Rectal Exam Rectal Exam: Deferred - Exam Exam: NORMAL INSPECTION - Extremities Exam Extremities Exam: Pedal Edema Additional comments: dressing in place - Back Exam Back Exam: absent: CVA tenderness (L), CVA tenderness (R) - Neurological Exam Neurological Exam: Alert, Awake Assessment and Plan (1) Necrotizing fasciitis of ankle and foot Status: Acute (2) Sepsis Status: Acute (3) Diabetes mellitus, new onset Status: Acute - Assessment and Plan (Free Text) Plan: cont iv antibiotics and wound care will review MRI
[2018-09-25 18:07] LABS: HYPOCHROMIC SLIGHT; PLATELET ESTIMATE NORMAL (NORMAL); POLYCHROMIC SLIGHT
[2018-09-25 22:20] LABS: BASO # 0.1 K/uL (0.0-0.2); BASO % 0.3 % (0.0-2.0); EOS # 0.3 K/uL (0.0-0.7); EOS % 1.1 % (0.0-4.0); HEMOGLOBIN 8.7 g/dL (12.0-18.0); LYMPH # 0.8 K/uL (1.0-4.3); LYMPH % 2.8 % (20.0-40.0); MEAN CELL VOLUME 86.9 fL (80.0-94.0); MEAN CORPUSCULAR HGB CONC 33.4 g/dL (33.0-37.0); MEAN PLATELET VOLUME 8.9 fL (7.2-11.7); MONO # 0.6 K/uL (0.0-0.8); MONO % 2.2 % (0.0-10.0); NEUT # 25.6 K/uL (1.8-7.0); NEUT % 93.6 % (50.0-75.0); PLATELET COUNT 302 K/uL (130-400); RED CELL DISTRIBUTION WIDTH 13.7 % (11.5-14.5); WHITE BLOOD COUNT 27.4 K/uL (4.8-10.8)
[2018-09-25 22:40] LABS: EOSINOPHIL 1 % (0-4); LYMPHOCYTE 5 % (20-40); NEUTROPHIL 94 % (50-75); PLATELET ESTIMATE NORMAL (NORMAL); TOTAL CELLS COUNTED 100
[2018-09-25 22:41] LABS: HYPOCHROMIC SLIGHT; POLYCHROMIC SLIGHT
--- NOTE | 2018-09-25 22:44 | CARD ---
APPROVED REPORT Date of service: 09/25/2018 EXAM: Two-dimensional and M-mode echocardiogram with Doppler and color Doppler. 2D DIMENSIONS IVSd1.1 (0.7-1.1cm)LVDd4.6 (3.9-5.9cm) PWd1.0 (0.7-1.1cm)LA Ouyrlf48 (18-58mL) LVDs2.9 (2.5-4.0cm)FS (%) 36.0 % LVEF (%)65.7 (>50%)LVEF (Pimentel's)61.28 % M-Mode DIMENSIONS Left Atrium (MM)4.10 (2.5-4.0cm)IVSd1.07 (0.7-1.1cm) Aortic Root4.05 (2.2-3.7cm)LVDd5.20 (4.0-5.6cm) Aortic Cusp Exc.2.28 (1.5-2.0cm)PWd1.01 (0.7-1.1cm) FS (%) 38 %LVDs3.20 (2.0-3.8cm) LVEF (%)68 (>50%) Aortic Valve AI P 1/2 [id number] Mitral Valve MV E Hdisxbxr80.1cm/sMV A Yrfdtzsk046.2cm/sE/A ratio0.9 TDI Lateral E' Peak V11.77cm/sMedial E' Peak V9.00cm/sE/Lateral E'7.6 E/Medial E'9.9 Tricuspid Valve TR Peak Bpwcicba783yn/sTR Peak Gr.[id number] LEFT VENTRICLE The left ventricle is normal size. There is normal left ventricular wall thickness. The left ventricular function is normal. The left ventricular ejection fraction is within the normal range. There is normal LV segmental wall motion. Transmitral Doppler flow pattern is abnormal. RIGHT VENTRICLE The right ventricle is normal size. ATRIA The left atrium is borderline dilated. The right atrium size is normal. AORTIC VALVE There is mild aortic regurgitation. MITRAL VALVE Mitral regurgitation is mild. TRICUSPID VALVE There is moderate tricuspid regurgitation. <Conclusion> Normal LV systolic function. Diastolic dysfunction. Borderline dilated LA. Mild MR. Mild A R. Moderte TR.
[2018-09-26] MEDS: Clindamycin 300 MG in Sodium Chloride 0.9% 50 ML IVPB SCH ×4 (03:59→21:32)
[2018-09-26] MEDS: Piperacillin/Tazobact 3.375 GM in Sodium Chloride 100 ML IVPB SCH ×4 (04:00→22:06)
[2018-09-26] MEDS: Sodium Chloride 0.9% 1,000 ML IV SCH ×2 (04:03→21:28)
[2018-09-26 07:46] LABS: HEMOGLOBIN 8.4 g/dL (12.0-18.0); MEAN CELL VOLUME 87.1 fL (80.0-94.0); MEAN CORPUSCULAR HGB CONC 33.3 g/dL (33.0-37.0); MEAN PLATELET VOLUME 9.2 fL (7.2-11.7); RBC 2.88 Mil/uL (4.40-5.90); RED CELL DISTRIBUTION WIDTH 13.8 % (11.5-14.5); WHITE BLOOD COUNT 23.8 K/uL (4.8-10.8)
[2018-09-26] MEDS: (Novolog) Insulin Aspart, Recombinant 100 u/ml 10 ml vial SC SCH ×6 (08:10→21:41)
--- NOTE | 2018-09-26 10:39 | CP.PCM.PN ---
Subjective - Date & Time of Evaluation Date of Evaluation: 09/26/18 Time of Evaluation: 10:36 - Subjective Subjective: Podiatry Progress Note for Dr. Prashanth Souza seen three days s/p I and D with washout of right leg for treatment of necrotizing fasciitis. Patient is AAO x 3 and NAD at time of visit. Denies any acute overnight events or new pedal complaints. Denies any recent N/V/F/C/CP/SOB/D. States that pain in leg is well controlled Objective - Vital Signs/Intake and Output Vital Signs (last 24 hours): Temp Pulse Resp BP Pulse Ox 98.9 F 99 H 20 126/77 96 09/25/18 23:10 09/26/18 00:00 09/25/18 23:10 09/25/18 23:10 09/25/18 23:10 Intake and Output: 09/26/18 09/26/18 06:59 18:59 Intake Total 1250 Output Total 1600 Balance -350 - Medications Medications: Current Medications Acetaminophen (Tylenol 325mg Tab) 650 mg PO Q6 PRN PRN Reason: Pain, Mild (1-3) Dextrose (Dextrose 50% Inj) 0 ml IV STAT PRN; Protocol PRN Reason: Hypoglycemia Protocol Dextrose (Glutose 15) 0 gm PO ONCE PRN; Protocol PRN Reason: Hypoglycemia Protocol Glucagon (Glucagen Diagnostic Kit) 0 mg IM STAT PRN; Protocol PRN Reason: Hypoglycemia Protocol Sodium Chloride (Sodium Chloride 0.9%) 1,000 mls @ 100 mls/hr IV .Q10H [facility] Last Admin: 09/26/18 04:03 Dose: 100 mls/hr Piperacillin Sod/Tazobactam (Sod 3.375 gm/ Sodium Chloride) 100 mls @ 200 mls/hr IVPB Q6H [facility]; Protocol Last Admin: 09/26/18 04:00 Dose: 200 mls/hr Clindamycin Phosphate 300 mg/ (Sodium Chloride) 52 mls @ 100 mls/hr IVPB Q6H [facility]; Protocol Last Admin: 09/26/18 03:59 Dose: 100 mls/hr Dextrose (Dextrose 5% In Water 1000 Ml) 1,000 mls @ 0 mls/hr IV .Q0M PRN; Protocol PRN Reason: Hypoglycemia Protocol Daptomycin 400 mg/ Sodium (Chloride) 100 mls @ 100 mls/hr IV Q24H [facility]; Protocol Stop: 09/30/18 18:31 Last Admin: 09/25/18 20:01 Dose: 100 mls/hr Insulin Aspart (Novolog) 0 unit SC ACHS [facility]; Protocol Last Admin: 09/26/18 08:10 Dose: Not Given Insulin Aspart (Novolog) 0 unit SC ACBD [facility]; Protocol Last Admin: 09/26/18 08:11 Dose: Not Given Oxycodone/Acetaminophen (Percocet 5/325 Mg Tab) 1 tab PO Q4H PRN PRN Reason: Pain, moderate (4-7) Stop: 09/26/18 20:17 Oxycodone/Acetaminophen (Percocet 5/325 Mg Tab) 2 tab PO Q4H PRN PRN Reason: Pain, moderate (4-7) Stop: 09/26/18 20:17 Last Admin: 09/24/18 09:55 Dose: 2 tab Pantoprazole Sodium (Protonix Inj) 40 mg IVP Q12H [facility] Last Admin: 09/26/18 03:59 Dose: 40 mg - Labs Labs: 09/26/18 07:34 09/25/18 16:56 PT 15.6 SECONDS (9.7-12.2) H 09/25/18 16:56 INR 1.4 09/25/18 16:56 APTT 27 SECONDS (21-34) 09/25/18 16:56 - Constitutional Appears: Well, Non-toxic - Head Exam Head Exam: ATRAUMATIC - Extremities Exam Additional comments: RLE focused exam: Vasc: DP/PT pulses non-palpable secondary to 2+ non-pitting edema to RLE. CFT > 3 seconds to all digits. Skin temperature increased R>L but greatly improved over yesterday. Erythema is still noted from toes to level of midcalf circ umfrentially but is noted to be less severe than yesterday. Neuro: Epicritic and protective sensation intact along distribution of Sural and Tibial nerves. Epicritic and protective sensation starting to return along distribution of superficial peroneal nerve Derm: Open incision sites noted at 1. lateral anterior mid-leg to base of third digit, partially helded together with intact retention sutures 2. Longitudinal plantar incision from first interdigital space to level of midfoot 3. Medial foot at level of MTPJ measuring roughly 4 cm. Packing noted in all incision sites. Skin is erythematous and mottled, especially at second and third digit. Evidence of lysed blisters noted in multiple spots on leg. 1 cc of purulent drainage again expressed from base of second and third digits. Blister noted to base of third digit plantarly MSK: ROM limited at toes and ankle joint but improved over yesterday. Pain with palpation of proximal portion of anterior incision site - Neurological Exam Neurological Exam: Alert, Awake, Oriented x3 - Psychiatric Exam Psychiatric exam: Normal Affect - Skin Skin Exam: Normal Color Assessment and Plan - Assessment and Plan (Free Text) Assessment: 58M seen three days s/p I and D with washout of right leg for treatment of necrotizing fasciitis. Plan: Patient seen and evaluated Plan discussed with Dr. Alford Afebrile white count trending downwards Continue IV abx per ID Intra-op wound cx: Staph Aureus, Group G Strep Post operative tib fib xray: No periosteal reaction or cortical interruption seen to suggest osteomyelitis. No lytic lesions. No fractures. Soft tissue changes are compatible with known soft tissue infection and recent incision and drainage and bandaging Post operative foot xray: No osseous destruction or periosteal reaction seen to suggest osteomyelitis. Extensive abnormal soft tissue findings as detailed above compatible with the history of a soft tissue infection and recent surgical intervention. Follow-up recommended LE MRI: No definitive pattern suggest osteomyelitis though failure fat suppression throughout the digits limits interpretation somewhat. No definitive abnormal bone enhancement appreciable. No definitive marrow edema. Extensive left foot edema is appreciate diffusely including multiple soft tissue and dermal defects packed by gauze at the forefoot to midfoot plantar and dorsal soft tissues as discussed above. Limitations: Failure fat suppression of the digits diffusely. Incision sites re-packed and wounds dressed with betadine soaked gauze, ABD pads, kirlix, CARMENCITA Patient scheduled for second washout in OR on Thursday 09/[address] Alford; please provide medical clearance Podiatry will continue to follow while patient in house
--- NOTE | 2018-09-26 13:30 | CP.PCM.CON ---
<RanjanaMark - Last Filed: 09/26/18 15:03> History of Present Illness - History of Present Illness History of Present Illness: GI Fellow PGY4, Consult note. Aramis Cabrera, 58M, presented 09/23 for leg pain and found to have necrotizing fasciitis, s/p I&D with Irrigation. He reportedly had bright red blood emesis yesterday and we were consulted. Today, patient denies subsequent hematemesis. He had BM today but did not look at the color. He denies hx of GI bleeds. He does not take any medications at home and denies using NSAIDS. He denies hx of liver disease or alcohol use. He denies seeing a doctor regularly. He denies weight loss, abdominal pain, previously having EGD or CSPY. Patient is tolerating diet and ate solid food for lunch. Hb has decreased from 13 on admission to 8.4 today. INR 1.4. PMHx - T2DM PSHx - None FMHx - none SocHx - Never smoker. Quit alcohol 2 years ago. 12pt ROS comleted and negative except for above. Past Patient History - Infectious Disease Hx of Infectious Diseases: None - Past Medical History & Family History Past Medical History?: Yes - Past Social History Smoking Status: Never Smoked - CARDIAC Hx Cardiac Disorders: No - PULMONARY Hx Respiratory Disorders: No - NEUROLOGICAL Hx Neurological Disorder: No - HEENT Hx HEENT Problems: Yes Other/Comment: uses reading glasses - RENAL Hx Chronic Kidney Disease: No - ENDOCRINE/METABOLIC Hx Endocrine Disorders: No - HEMATOLOGICAL/ONCOLOGICAL Hx Blood Disorders: No - INTEGUMENTARY Hx Dermatological Problems: No - MUSCULOSKELETAL/RHEUMATOLOGICAL Hx Falls: No - GASTROINTESTINAL Hx Gastrointestinal Disorders: No - GENITOURINARY/GYNECOLOGICAL Hx Genitourinary Disorders: No - PSYCHIATRIC Hx Substance Use: No - SURGICAL HISTORY Hx Surgeries: No - ANESTHESIA Hx Anesthesia: No Meds Allergies/Adverse Reactions: Allergies Allergy/AdvReac Type Severity Reaction Status Date / Time No Known Allergies Allergy Verified 09/23/18 12:13 - Medications Medications: Current Medications Acetaminophen (Tylenol 325mg Tab) 650 mg PO Q6 PRN PRN Reason: Pain, Mild (1-3) Dextrose (Dextrose 50% Inj) 0 ml IV STAT PRN; Protocol PRN Reason: Hypoglycemia Protocol Dextrose (Glutose 15) 0 gm PO ONCE PRN; Protocol PRN Reason: Hypoglycemia Protocol Glucagon (Glucagen Diagnostic Kit) 0 mg IM STAT PRN; Protocol PRN Reason: Hypoglycemia Protocol Sodium Chloride (Sodium Chloride 0.9%) 1,000 mls @ 100 mls/hr IV .Q10H [facility] Last Admin: 09/26/18 04:03 Dose: 100 mls/hr Piperacillin Sod/Tazobactam (Sod 3.375 gm/ Sodium Chloride) 100 mls @ 200 mls/hr IVPB Q6H [facility]; Protocol Last Admin: 09/26/18 10:55 Dose: 200 mls/hr Clindamycin Phosphate 300 mg/ (Sodium Chloride) 52 mls @ 100 mls/hr IVPB Q6H [facility]; Protocol Last Admin: 09/26/18 10:50 Dose: 100 mls/hr Dextrose (Dextrose 5% In Water 1000 Ml) 1,000 mls @ 0 mls/hr IV .Q0M PRN; Protocol PRN Reason: Hypoglycemia Protocol Daptomycin 400 mg/ Sodium (Chloride) 100 mls @ 100 mls/hr IV Q24H [facility]; Protocol Stop: 09/30/18 18:31 Last Admin: 09/25/18 20:01 Dose: 100 mls/hr Insulin Aspart (Novolog) 0 unit SC ACHS [facility]; Protocol Last Admin: 09/26/18 12:42 Dose: 2 units Insulin Aspart (Novolog) 0 unit SC ACBD [facility]; Protocol Last Admin: 09/26/18 08:11 Dose: Not Given Oxycodone/Acetaminophen (Percocet 5/325 Mg Tab) 1 tab PO Q4H PRN PRN Reason: Pain, moderate (4-7) Stop: 09/26/18 20:17 Oxycodone/Acetaminophen (Percocet 5/325 Mg Tab) 2 tab PO Q4H PRN PRN Reason: Pain, moderate (4-7) Stop: 09/26/18 20:17 Last Admin: 09/24/18 09:55 Dose: 2 tab Pantoprazole Sodium (Protonix Inj) 40 mg IVP Q12H [facility] Last Admin: 09/26/18 03:59 Dose: 40 mg Physical Exam - Constitutional Appears: Non-toxic, No Acute Distress - Head Exam Head Exam: NORMAL INSPECTION, NORMOCEPHALIC - Eye Exam Eye Exam: EOMI, Normal appearance - ENT Exam ENT Exam: Mucous Membranes Moist, Normal Exam - Respiratory Exam Respiratory Exam: Clear to Auscultation Bilateral, NORMAL BREATHING PATTERN - Cardiovascular Exam Cardiovascular Exam: REGULAR RHYTHM, +S1, +S2 - GI/Abdominal Exam GI & Abdominal Exam: Normal Bowel Sounds, Organomegaly, Soft. absent: Tendern ess - Rectal Exam Rectal Exam: Black Stool - Extremities Exam Extremities exam: Positive for: normal inspection. Negative for: pedal edema - Neurological Exam Neurological exam: Alert, CN II-XII Intact, Oriented x3 - Psychiatric Exam Psychiatric exam: Normal Affect, Normal Mood - Skin Skin Exam: Dry, Normal Color Results - Vital Signs Recent Vital Signs: Last Vital Signs Temp 98.9 F 09/25/18 23:10 Pulse 99 H 09/26/18 00:00 Resp 20 09/25/18 23:10 BP 126/77 09/25/18 23:10 Pulse Ox 96 09/25/18 23:10 - Labs Result Diagrams: 09/26/18 07:34 09/25/18 16:56 Labs: Laboratory Results - last 24 hr 09/25/18 09/25/18 09/25/18 12:06 16:13 16:56 WBC 30.0 H RBC 3.30 L Hgb 9.5 L Hct 28.8 L MCV 87.2 MCH 28.7 MCHC 32.8 L RDW 14.2 Plt Count 317 MPV 8.9 Neut % (Auto) 94.5 H Lymph % (Auto) 2.4 L [place] % (Auto) 2.0 Eos % (Auto) 0.8 Baso % (Auto) 0.3 Neut # (Auto) 28.3 H Lymph # (Auto) 0.7 L [place] # (Auto) 0.6 Eos # (Auto) 0.3 Baso # (Auto) 0.1 Neutrophils % (Manual) 95 H Band Neutrophils % 3 H Lymphocytes % (Manual) 1 L Monocytes % (Manual) 1 Eosinophils % (Manual) Platelet Estimate Normal Polychromasia Slight Hypochromasia (manual) Slight PT INR APTT Sodium Potassium Chloride Carbon Dioxide Anion Gap BUN Creatinine Est GFR ( Amer) Est GFR (Non-Af Amer) POC Glucose (mg/dL) 183 H 199 H Random Glucose Calcium Total Bilirubin Direct Bilirubin AST ALT Alkaline Phosphatase Total Protein Albumin Globulin Albumin/Globulin Ratio Blood Type Antibody Screen 09/25/18 09/25/1818 16:56 16:56 16:56 WBC RBC Hgb Hct MCV MCH MCHC RDW Plt Count MPV Neut % (Auto) Lymph % (Auto) [place] % (Auto) Eos % (Auto) Baso % (Auto) Neut # (Auto) Lymph # (Auto) [place] # (Auto) Eos # (Auto) Baso # (Auto) Neutrophils % (Manual) Band Neutrophils % Lymphocytes % (Manual) Monocytes % (Manual) Eosinophils % (Manual) Platelet Estimate Polychromasia Hypochromasia (manual) PT 15.6 H INR 1.4 APTT 27 Sodium 132 Potassium 3.4 L Chloride 98 Carbon Dioxide 27 Anion Gap 11 BUN 40 H Creatinine 1.9 H Est GFR ( Amer) 44 Est GFR (Non-Af Amer) 37 POC Glucose (mg/dL) Random Glucose 196 H Calcium 7.2 L Total Bilirubin 0.7 Direct Bilirubin 0.7 H AST 37 ALT 23 Alkaline Phosphatase 282 H D Total Protein 5.5 L Albumin 2.2 L Globulin 3.3 Albumin/Globulin Ratio 0.7 L Blood Type AB POSITIVE Antibody Screen Negative 09/25/18 09/25/18 09/26/18 20:55 22:13 06:18 WBC 27.4 H RBC 3.00 L Hgb 8.7 L Hct 26.1 L MCV 86.9 MCH 29.0 MCHC 33.4 RDW 13.7 Plt Count 302 MPV 8.9 Neut % (Auto) 93.6 H Lymph % (Auto) 2.8 L [place] % (Auto) 2.2 Eos % (Auto) 1.1 Baso % (Auto) 0.3 Neut # (Auto) 25.6 H Lymph # (Auto) 0.8 L [place] # (Auto) 0.6 Eos # (Auto) 0.3 Baso # (Auto) 0.1 Neutrophils % (Manual) 94 H Band Neutrophils % Lymphocytes % (Manual) 5 L Monocytes % (Manual) TEST NOT PERFORMED Eosinophils % (Manual) 1 Platelet Estimate Normal Polychromasia Slight Hypochromasia (manual) Slight PT INR APTT Sodium Potassium Chloride Carbon Dioxide Anion Gap BUN Creatinine Est GFR ( Amer) Est GFR (Non-Af Amer) POC Glucose (mg/dL) 160 H 142 H Random Glucose Calcium Total Bilirubin Direct Bilirubin AST ALT Alkaline Phosphatase Total Protein Albumin Globulin Albumin/Globulin Ratio Blood Type Antibody Screen 09/26/18 09/26/18 07:34 11:17 WBC 23.8 H RBC 2.88 L Hgb 8.4 L Hct 25.1 L MCV 87.1 MCH 29.0 MCHC 33.3 RDW 13.8 Plt Count 290 MPV 9.2 Neut % (Auto) Lymph % (Auto) [place] % (Auto) Eos % (Auto) Baso % (Auto) Neut # (Auto) Lymph # (Auto) [place] # (Auto) Eos # (Auto) Baso # (Auto) Neutrophils % (Manual) Band Neutrophils % Lymphocytes % (Manual) Monocytes % (Manual) Eosinophils % (Manual) Platelet Estimate Polychromasia Hypochromasia (manual) PT INR APTT Sodium Potassium Chloride Carbon Dioxide Anion Gap BUN Creatinine Est GFR ( Amer) Est GFR (Non-Af Amer) POC Glucose (mg/dL) 216 H Random Glucose Calcium Total Bilirubin Direct Bilirubin AST ALT Alkaline Phosphatase Total Protein Albumin Globulin Albumin/Globulin Ratio Blood Type Antibody Screen Assessment & Plan - Assessment and Plan (Free Text) Assessment: #Acute blood loss anemia due to suspected upper GI bleed #Leg Necrotizing Faciitis #T2DM, uncontrolled #Maculopapular rash, ?drug reaction PLAN: - Patient needs EGD. Plan for tomorrow AM. - He is HDS, but hb drop from 13 to 8.4. - Monitor Hb closely, transfuse 2u pRBCs stat if Hb less than 7 or becomes unstable. - PPI IV BID - I have asked the nurse to contact podiatry to make them aware of the urgency of the EGD. - NPO - Date & Time Date: 09/26/18 Time: 14:57 <Braden Starkey - Last Filed: 09/27/18 07:56> Meds - Medications Medications: Current Medications Acetaminophen (Tylenol 325mg Tab) 650 mg PO Q6 PRN PRN Reason: Pain, Mild (1-3) Dextrose (Dextrose 50% Inj) 0 ml IV STAT PRN; Protocol PRN Reason: Hypoglycemia Protocol Dextrose (Glutose 15) 0 gm PO ONCE PRN; Protocol PRN Reason: Hypoglycemia Protocol Glucagon (Glucagen Diagnostic Kit) 0 mg IM STAT PRN; Protocol PRN Reason: Hypoglycemia Protocol Clindamycin Phosphate 300 mg/ (Sodium Chloride) 52 mls @ 100 mls/hr IVPB Q6H [facility]; Protocol Last Admin: 11/23/18 04:04 Dose: 100 mls/hr Dextrose (Dextrose 5% In Water 1000 Ml) 1,000 mls @ 0 mls/hr IV .Q0M PRN; Protocol PRN Reason: Hypoglycemia Protocol Daptomycin 400 mg/ Sodium (Chloride) 100 mls @ 100 mls/hr IV Q24H [facility]; Protocol Stop: 09/30/18 18:31 Last Admin: 09/26/18 19:23 Dose: 100 mls/hr Bacitracin 150,000 unit/ (Sodium Chloride) 3,000 mls @ 3,000 mls/hr IR .Q1H [facility]; Protocol Stop: 09/27/18 09:14 Insulin Aspart (Novolog) 0 unit SC ACHS [facility]; Protocol Last Admin: 09/27/18 07:32 Dose: Not Given Insulin Aspart (Novolog) 0 unit SC ACBD [facility]; Protocol Last Admin: 09/27/18 07:32 Dose: Not Given Pantoprazole Sodium (Protonix Inj) 40 mg IVP Q12H [facility] Last Admin: 09/27/18 04:06 Dose: 40 mg Results - Vital Signs Recent Vital Signs: Last Vital Signs Temp 98.4 F 09/27/18 06:39 Pulse 95 H 09/27/18 06:39 Resp 20 09/27/18 06:39 BP 147/81 09/27/18 06:39 Pulse Ox 95 09/27/18 06:39 - Labs Result Diagrams: 09/26/18 21:43 09/25/18 16:56 Labs: Laboratory Results - last 24 hr 09/26/18 09/26/18 09/26/18 11:17 15:17 15:17 WBC 22.4 H RBC 2.93 L Hgb 8.4 L Hct 25.3 L MCV 86.2 MCH 28.6 MCHC 33.1 RDW 13.8 Plt Count 310 MPV 8.8 Neut % (Auto) 91.2 H Lymph % (Auto) 3.8 L [place] % (Auto) 3.6 Eos % (Auto) 1.1 Baso % (Auto) 0.3 Neut # (Auto) 20.4 H Lymph # (Auto) 0.8 L [place] # (Auto) 0.8 Eos # (Auto) 0.3 Baso # (Auto) 0.1 Neutrophils % (Manual) 87 H Band Neutrophils % 6 H Lymphocytes % (Manual) 4 L Monocytes % (Manual) 2 Eosinophils % (Manual) 1 Toxic Granulation Present Platelet Estimate Normal Large Platelets Present Polychromasia Slight Hypochromasia (manual) Slight Anisocytosis (manual) Slight POC Glucose (mg/dL) 216 H Blood Type AB POSITIVE Antibody Screen Negative 09/26/18 09/26/18 09/26/18 17:10 21:33 21:43 WBC 20.7 H RBC 2.87 L Hgb 8.3 L Hct 24.8 L MCV 86.4 MCH 29.1 MCHC 33.6 RDW 13.5 Plt Count 309 MPV 9.0 Neut % (Auto) Lymph % (Auto) [place] % (Auto) Eos % (Auto) Baso % (Auto) Neut # (Auto) Lymph # (Auto) [place] # (Auto) Eos # (Auto) Baso # (Auto) Neutrophils % (Manual) Band Neutrophils % Lymphocytes % (Manual) Monocytes % (Manual) Eosinophils % (Manual) Toxic Granulation Platelet Estimate Large Platelets Polychromasia Hypochromasia (manual) Anisocytosis (manual) POC Glucose (mg/dL) 168 H 175 H Blood Type Antibody Screen 09/27/18 06:34 WBC RBC Hgb Hct MCV MCH MCHC RDW Plt Count MPV Neut % (Auto) Lymph % (Auto) [place] % (Auto) Eos % (Auto) Baso % (Auto) Neut # (Auto) Lymph # (Auto) [place] # (Auto) Eos # (Auto) Baso # (Auto) Neutrophils % (Manual) Band Neutrophils % Lymphocytes % (Manual) Monocytes % (Manual) Eosinophils % (Manual) Toxic Granulation Platelet Estimate Large Platelets Polychromasia Hypochromasia (manual) Anisocytosis (manual) POC Glucose (mg/dL) 149 H Blood Type Antibody Screen Attending/Attestation - Attestation I have personally seen and examined this patient.: Yes I have fully participated in the care of the patient.: Yes I have reviewed all pertinent clinical information: Yes Notes (Text): 09/27/18 07:55 Chart reviewed. The pt was interview and examined yesterday. The findings, assessment and recommendations were discussed with Dr. betts and documented above.
[2018-09-26 15:24] LABS: BASO # 0.1 K/uL (0.0-0.2); BASO % 0.3 % (0.0-2.0); EOS # 0.3 K/uL (0.0-0.7); EOS % 1.1 % (0.0-4.0); HEMOGLOBIN 8.4 g/dL (12.0-18.0); LYMPH # 0.8 K/uL (1.0-4.3); LYMPH % 3.8 % (20.0-40.0); MEAN CELL VOLUME 86.2 fL (80.0-94.0); MEAN CORPUSCULAR HEMOGLOBIN 28.6 pg (27.0-31.0); MEAN CORPUSCULAR HGB CONC 33.1 g/dL (33.0-37.0); MEAN PLATELET VOLUME 8.8 fL (7.2-11.7); MONO # 0.8 K/uL (0.0-0.8); MONO % 3.6 % (0.0-10.0); NEUT # 20.4 K/uL (1.8-7.0); NEUT % 91.2 % (50.0-75.0); PLATELET COUNT 310 K/uL (130-400); RBC 2.93 Mil/uL (4.40-5.90); RED CELL DISTRIBUTION WIDTH 13.8 % (11.5-14.5); WHITE BLOOD COUNT 22.4 K/uL (4.8-10.8)
[2018-09-26 15:45] LABS: BANDS 6 % (0-2); EOSINOPHIL 1 % (0-4); LYMPHOCYTE 4 % (20-40); MONOCYTE 2 % (0-10); NEUTROPHIL 87 % (50-75); PLATELET ESTIMATE NORMAL (NORMAL); TOTAL CELLS COUNTED 100
[2018-09-26 15:46] LABS: ANISOCYTOSIS SLIGHT; HYPOCHROMIC SLIGHT; LARGE PLATELETS PRESENT; POLYCHROMIC SLIGHT; TOXIC GRANULATION PRESENT
--- NOTE | 2018-09-26 18:08 | PN ---
DATE: 09/26/2018 SUBJECTIVE: The patient developed hematemesis yesterday, was transferred to telemetry and the patient does not report having irish blood vomitus. The patient denies any history of prior upper GI bleeding and is unaware of any history of peptic ulcer disease. PHYSICAL EXAMINATION: VITAL SIGNS: Blood pressure 126/77, heart rate 97, temperature 98.9, respirations 20. HEENT: Pale conjunctivae. CHEST: Clear. HEART: Sounds regular. EXTREMITIES: Dressings applied to the right foot with 1+ right leg edema. LABORATORY DATA: Today's hemoglobin and hematocrit 8.4 and 25.1 with a drop of nearly 1 g compared to yesterday and nearly 2 g compared to day before yesterday. Today's white count 23.8, platelet count 290,000. Today's blood sugar is 142. Lower extremity MRI, there is failure of throughout the mid to distal digits diffusely in , which limits interpretation. No definite osteomyelitis appreciated otherwise though extensive soft tissue defects are identified in the plantar forefoot deep to the prominence of tissue defects with at least some containing surgical packing. Extensive left foot edema is appreciated diffusely including multiple soft tissue and dermal defects at the forefoot to the mid foot plantar and dorsal soft tissue. Blood culture is positive for Staph aureus and wound cultures positive for group G Streptococcus as well as Staph aureus. ASSESSMENT: 1. Status post incision and drainage of right foot for necrotizing fasciitis. 2. Upper gastrointestinal bleeding. 3. Uncontrolled diabetes mellitus. PLAN: Lovenox was discontinued yesterday. Continue IV clindamycin 300 mg every 6 hours, IV Zosyn 3.375 g every 6 hours. The patient was started on IV Protonix at 40 mg every 12 hours. A GI consult was ordered for Dr. Koch. Rao Cobb MD
[2018-09-26 21:47] LABS: HEMOGLOBIN 8.3 g/dL (12.0-18.0); MEAN CELL VOLUME 86.4 fL (80.0-94.0); MEAN CORPUSCULAR HEMOGLOBIN 29.1 pg (27.0-31.0); MEAN CORPUSCULAR HGB CONC 33.6 g/dL (33.0-37.0); RBC 2.87 Mil/uL (4.40-5.90); RED CELL DISTRIBUTION WIDTH 13.5 % (11.5-14.5); WHITE BLOOD COUNT 20.7 K/uL (4.8-10.8)
[2018-09-27] MEDS: Clindamycin 300 MG in Sodium Chloride 0.9% 50 ML IVPB SCH ×3 (04:04→16:18)
[2018-09-27] MEDS: Piperacillin/Tazobact 3.375 GM in Sodium Chloride 100 ML IVPB SCH ×2 (04:05→04:54)
[2018-09-27] MEDS ORDERED: Bacitracin 150,000 UNIT in Sodium Chloride 0.9% Irrig 3,000 ML IR SCH (07:15)
[2018-09-27] MEDS: (Novolog) Insulin Aspart, Recombinant 100 u/ml 10 ml vial SC SCH ×6 (07:32→22:15)
[2018-09-27] MEDS ORDERED: Propofol 10 mg/ml Inj (20 ML) ONE ×3 (08:00→08:27)
[2018-09-27] MEDS: Sucralfate 1 gm/10 ml Oral Susp UD PO SCH ×4 (09:38→21:38)
[2018-09-27] MEDS ORDERED: DiphenhydrAMINE 50 mg/ml Inj IVP ONE (11:15)
[2018-09-27] MEDS ORDERED: Gadodiamide 287 mg/ml 20 ml IV ONE (11:35)
[2018-09-27 11:39] LABS: BASO # 0.1 K/uL (0.0-0.2); BASO % 0.4 % (0.0-2.0); EOS # 0.2 K/uL (0.0-0.7); EOS % 1.1 % (0.0-4.0); HEMOGLOBIN 8.7 g/dL (12.0-18.0); LYMPH # 0.8 K/uL (1.0-4.3); LYMPH % 4.8 % (20.0-40.0); MEAN CELL VOLUME 86.8 fL (80.0-94.0); MEAN CORPUSCULAR HGB CONC 33.4 g/dL (33.0-37.0); MEAN PLATELET VOLUME 8.9 fL (7.2-11.7); MONO # 0.8 K/uL (0.0-0.8); MONO % 5.1 % (0.0-10.0); NEUT % 88.6 % (50.0-75.0); NRBC % 0.1 % (0.0-2.0); PLATELET COUNT 318 K/uL (130-400); RBC 3.02 Mil/uL (4.40-5.90); RED CELL DISTRIBUTION WIDTH 13.5 % (11.5-14.5); WHITE BLOOD COUNT 15.9 K/uL (4.8-10.8)
[2018-09-27 12:23] LABS: LYMPHOCYTE 3 % (20-40); MONOCYTE 2 % (0-10); NEUTROPHIL 95 % (50-75); TOTAL CELLS COUNTED 100
[2018-09-27 12:24] LABS: HYPOCHROMIC SLIGHT; PLATELET ESTIMATE NORMAL (NORMAL); POLYCHROMIC SLIGHT
[2018-09-27 12:29] LABS: HEPATITIS B SURFACE AG Negative (NEGATIVE)
[2018-09-27 12:35] LABS: HEPATITIS A IGM NEGATIVE (NEGATIVE); HEPATITIS B CORE AB NEGATIVE (NEGATIVE)
[2018-09-27 12:47] LABS: HEPATITIS C ANTIBODY NEGATIVE (NEGATIVE)
--- NOTE | 2018-09-27 16:48 | PN ---
DATE: 09/27/2018 SUBJECTIVE: The patient underwent upper endoscopy and the findings are consistent with esophagitis, esophageal ulcer, gastritis, gastric ulcer, and duodenitis. The final report is still pending. The patient's right foot surgery was postponed. The patient denies any chest pain or leg pain. PHYSICAL EXAMINATION: VITAL SIGNS: Blood pressure 145/76, heart rate 82, temperature 98, and respirations 13. HEENT: Pale conjunctivae. CHEST: Clear. HEART: S1 and S2 regular. EXTREMITIES: 1+ pitting edema. LABORATORY DATA: Today's hemoglobin and hematocrit 8.7 and 26.2, white count 15.9, and platelet count 318,000. Today's blood sugars are 149 and 160. ASSESSMENT: 1. Recent upper gastrointestinal bleeding with history of esophageal and gastric ulcer with esophagitis and gastritis as well as duodenitis. 2. Status post incision and drainage for right foot necrotizing fascitis. 3. Diabetes mellitus. PLAN: Continue current Carafate at 1 g twice a day and IV clindamycin 300 mg every 6 hours. I will discuss discontinuing daptomycin because of the patient's rash in the left antecubital area and will continue IV Protonix at 40 mg every 12 hours and Tylenol 650 mg every 6 hours p.r.n. for pain. Rao Cobb MD
--- NOTE | 2018-09-27 17:01 | CP.PCM.PN ---
Subjective - Date & Time of Evaluation Date of Evaluation: 09/27/18 Time of Evaluation: 08:00 - Subjective Subjective: new rash zosyn cubicin clinda on hold IV ancef added cellulitis less has MSSA blood Objective - Vital Signs/Intake and Output Vital Signs (last 24 hours): Temp Pulse Resp BP Pulse Ox 98.1 F 98 H 20 154/69 H 95 09/27/18 15:00 09/27/18 15:00 09/27/18 15:00 09/27/18 15:00 09/27/18 15:00 Intake and Output: 09/27/18 09/27/18 06:59 18:59 Intake Total 1150 1100 Balance 1150 1100 - Medications Medications: Current Medications Acetaminophen (Tylenol 325mg Tab) 650 mg PO Q6 PRN PRN Reason: Pain, Mild (1-3) Dextrose (Dextrose 50% Inj) 0 ml IV STAT PRN; Protocol PRN Reason: Hypoglycemia Protocol Dextrose (Glutose 15) 0 gm PO ONCE PRN; Protocol PRN Reason: Hypoglycemia Protocol Diphenhydramine HCl (Benadryl) 25 mg PO Q6 PRN PRN Reason: Rash Glucagon (Glucagen Diagnostic Kit) 0 mg IM STAT PRN; Protocol PRN Reason: Hypoglycemia Protocol Dextrose (Dextrose 5% In Water 1000 Ml) 1,000 mls @ 0 mls/hr IV .Q0M PRN; Protocol PRN Reason: Hypoglycemia Protocol Cefazolin Sodium 2,000 mg/ (Sodium Chloride) 50 mls @ 100 mls/hr IVPB Q8H [facility]; Protocol Insulin Aspart (Novolog) 0 unit SC ACHS [facility]; Protocol Last Admin: 09/27/18 12:26 Dose: 2 units Insulin Aspart (Novolog) 0 unit SC ACBD [facility]; Protocol Last Admin: 09/27/18 07:32 Dose: Not Given Pantoprazole Sodium (Protonix Inj) 40 mg IVP Q12H [facility] Last Admin: 09/27/18 16:17 Dose: 40 mg Sucralfate (Carafate Oral Susp) 1 gm PO ACHS [facility] Last Admin: 09/27/18 16:17 Dose: 1 gm - Labs Labs: 09/27/18 11:32 09/25/18 16:56 PT 15.6 SECONDS (9.7-12.2) H 09/25/18 16:56 INR 1.4 09/25/18 16:56 APTT 27 SECONDS (21-34) 09/25/18 16:56 - Constitutional Appears: Non-toxic, Chronically Ill - Head Exam Head Exam: NORMOCEPHALIC - Eye Exam Eye Exam: absent: Scleral icterus - ENT Exam ENT Exam: Mucous Membranes Dry - Neck Exam Neck Exam: absent: Lymphadenopathy - Respiratory Exam Respiratory Exam: Decreased Breath Sounds - Cardiovascular Exam Cardiovascular Exam: REGULAR RHYTHM - GI/Abdominal Exam GI & Abdominal Exam: Distended, Soft - Rectal Exam Rectal Exam: Deferred - Exam Exam: NORMAL INSPECTION - Extremities Exam Extremities Exam: Pedal Edema - Back Exam Back Exam: absent: CVA tenderness (L), CVA tenderness (R) Assessment and Plan (1) Necrotizing fasciitis of ankle and foot Status: Acute (2) Sepsis Status: Acute (3) Diabetes mellitus, new onset Status: Acute - Assessment and Plan (Free Text) Assessment: zosyn cubicin clinda on hold IV ancef added cellulitis less has MSSA blood
[2018-09-28 07:20] LABS: BASO # 0.1 K/uL (0.0-0.2); BASO % 0.4 % (0.0-2.0); EOS # 0.3 K/uL (0.0-0.7); EOS % 2.2 % (0.0-4.0); HEMOGLOBIN 8.3 g/dL (12.0-18.0); LYMPH # 0.9 K/uL (1.0-4.3); LYMPH % 6.1 % (20.0-40.0); MEAN CELL VOLUME 86.3 fL (80.0-94.0); MEAN CORPUSCULAR HEMOGLOBIN 28.3 pg (27.0-31.0); MEAN CORPUSCULAR HGB CONC 32.9 g/dL (33.0-37.0); MONO # 0.8 K/uL (0.0-0.8); MONO % 5.8 % (0.0-10.0); NEUT # 12.2 K/uL (1.8-7.0); NEUT % 85.5 % (50.0-75.0); PLATELET COUNT 328 K/uL (130-400); RBC 2.92 Mil/uL (4.40-5.90); RED CELL DISTRIBUTION WIDTH 13.3 % (11.5-14.5); WHITE BLOOD COUNT 14.3 K/uL (4.8-10.8)
[2018-09-28] MEDS: Sucralfate 1 gm/10 ml Oral Susp UD PO SCH ×4 (07:34→21:33)
[2018-09-28] MEDS: (Novolog) Insulin Aspart, Recombinant 100 u/ml 10 ml vial SC SCH ×4 (07:35→21:25)
[2018-09-28 08:33] LABS: BLOOD UREA NITROGEN 19 mg/dL (9-20); CALCIUM 7.5 mg/dl (8.6-10.4); GFR NON-AFRICAN AMERICAN 57
[2018-09-28 10:44] LABS: BANDS 1 % (0-2); MONOCYTE 4 % (0-10)
[2018-09-28 10:45] LABS: EOSINOPHIL 2 % (0-4); LYMPHOCYTE 6 % (20-40); NEUTROPHIL 87 % (50-75); TOTAL CELLS COUNTED 100
[2018-09-28 10:46] LABS: PLATELET ESTIMATE NORMAL (NORMAL)
--- NOTE | 2018-09-28 10:57 | CP.PCM.PN ---
Subjective - Date & Time of Evaluation Date of Evaluation: 09/28/18 Time of Evaluation: 10:56 - Subjective Subjective: Podiatry Progress Note for Dr. Prashanth BernabeM seen five days s/p I and D with washout of right leg for treatment of necrotizing fasciitis. Patient is AAO x 3 and NAD at time of visit. Denies any acute overnight events or new pedal complaints. Denies any recent N/V/F/C/CP/SOB/D. States that pain in leg is well controlled Objective - Vital Signs/Intake and Output Vital Signs (last 24 hours): Temp Pulse Resp BP Pulse Ox 97.9 F 88 20 155/83 H 97 09/28/18 07:00 09/28/18 07:00 09/28/18 07:00 09/28/18 07:00 09/28/18 07:00 Intake and Output: 09/28/18 09/28/18 06:59 18:59 Intake Total 640 Output Total 700 Balance -60 - Medications Medications: Current Medications Acetaminophen (Tylenol 325mg Tab) 650 mg PO Q6 PRN PRN Reason: Pain, Mild (1-3) Dextrose (Dextrose 50% Inj) 0 ml IV STAT PRN; Protocol PRN Reason: Hypoglycemia Protocol Dextrose (Glutose 15) 0 gm PO ONCE PRN; Protocol PRN Reason: Hypoglycemia Protocol Diphenhydramine HCl (Benadryl) 25 mg PO Q6 PRN PRN Reason: Rash Glucagon (Glucagen Diagnostic Kit) 0 mg IM STAT PRN; Protocol PRN Reason: Hypoglycemia Protocol Dextrose (Dextrose 5% In Water 1000 Ml) 1,000 mls @ 0 mls/hr IV .Q0M PRN; Protocol PRN Reason: Hypoglycemia Protocol Cefazolin Sodium 1,000 mg/ (Sodium Chloride) 50 mls @ 100 mls/hr IVPB Q8H [facility]; Protocol Last Admin: 09/28/18 09:15 Dose: 100 mls/hr Clindamycin Phosphate 600 mg/ (Sodium Chloride) 54 mls @ 100 mls/hr IVPB Q8H [facility]; Protocol Last Admin: 09/28/18 07:35 Dose: 100 mls/hr Insulin Aspart (Novolog) 0 unit SC ACHS [facility]; Protocol Last Admin: 09/28/18 07:35 Dose: 2 units Pantoprazole Sodium (Protonix Inj) 40 mg IVP Q12H [facility] Last Admin: 09/28/18 04:56 Dose: 40 mg Sucralfate (Carafate Oral Susp) 1 gm PO ACHS [facility] Last Admin: 09/28/18 07:34 Dose: 1 gm - Labs Labs: 09/28/18 07:09 09/28/18 07:09 PT 15.6 SECONDS (9.7-12.2) H 09/25/18 16:56 INR 1.4 09/25/18 16:56 APTT 27 SECONDS (21-34) 09/25/18 16:56 - Constitutional Appears: Well, Non-toxic - Head Exam Head Exam: ATRAUMATIC - Extremities Exam Additional comments: RLE focused exam: Vasc: DP/PT pulses non-palpable secondary to 2+ non-pitting edema to RLE. CFT > 3 seconds to all digits. Skin temperature increased R>L but greatly improved over yesterday. Erythema is still noted from toes to level of midcalf circumfrentially but is noted to be less severe than yesterday. Neuro: Epicritic and protective sensation intact along distribution of Sural and Tibial nerves. Epicritic and protective sensation starting to return along distr ibution of superficial peroneal nerve Derm: Open incision sites noted at 1. lateral anterior mid-leg to base of third digit, partially helded together with intact retention sutures 2. Longitudinal plantar incision from first interdigital space to level of midfoot 3. Medial foot at level of MTPJ measuring roughly 4 cm. Packing noted in all incision sites. Skin is erythematous and mottled, especially at second and third digit. Evidence of lysed blisters noted in multiple spots on leg. 1 cc of purulent drainage again expressed from base of second and third digits. Blister noted to base of third digit plantarly MSK: ROM limited at toes and ankle joint but improved over yesterday. Pain with palpation of proximal portion of anterior incision site - Neurological Exam Neurological Exam: Alert, Awake, Normal Gait - Psychiatric Exam Psychiatric exam: Normal Affect Assessment and Plan - Assessment and Plan (Free Text) Assessment: 58M seen five days s/p I and D with washout of right leg for treatment of necrotizing fasciitis. Plan: Patient seen and evaluated Plan discussed with Dr. Alford Afebrile white count trending downwards-14.3 WBC Continue IV abx per ID Intra-op wound cx: Staph Aureus, Group G Strep Post operative tib fib xray: No periosteal reaction or cortical interruption seen to suggest osteomyelitis. No lytic lesions. No fractures. Soft tissue changes are compatible with known soft tissue infection and recent incision and drainage and bandaging Post operative foot xray: No osseous destruction or periosteal reaction seen to suggest osteomyelitis. Extensive abnormal soft tissue findings as detailed above compatible with the history of a soft tissue infection and recent surgical intervention. Follow-up recommended LE MRI: No definitive pattern suggest osteomyelitis though failure fat suppression throughout the digits limits interpretation somewhat. No definitive abnormal bone enhancement appreciable. No definitive marrow edema. Extensive left foot edema is appreciate diffusely including multiple soft tissue and dermal defects packed by gauze at the forefoot to midfoot plantar and dorsal soft tissues as discussed above. Limitations: Failure fat suppression of the digits diffusely. 3 cc of purulent drainage expressed from plantar incision site cleansed with gauze and saline. Incision sites re-packed and wounds dressed with betadine soaked gauze, ABD pads, kirlix, CARMENCITA Patient scheduled for second washout in OR on Sunday 09/[address] Alford; please provide medical clearance Podiatry will continue to follow while patient in house
--- NOTE | 2018-09-28 11:31 | CP.PCM.PN ---
<Mark Chilel - Last Filed: 09/28/18 12:15> Subjective - Date & Time of Evaluation Date of Evaluation: 09/28/18 Time of Evaluation: 11:29 - Subjective Subjective: Patient is doing well. No signs of bleeding at this time. Hb Stable. he is tolerating diet. Objective - Vital Signs/Intake and Output Vital Signs (last 24 hours): Temp Pulse Resp BP Pulse Ox 97.9 F 88 20 155/83 H 97 09/28/18 07:00 09/28/18 07:00 09/28/18 07:00 09/28/18 07:00 09/28/18 07:00 Intake and Output: 09/28/18 09/28/18 06:59 18:59 Intake Total 640 Output Total 700 Balance -60 - Medications Medications: Current Medications Acetaminophen (Tylenol 325mg Tab) 650 mg PO Q6 PRN PRN Reason: Pain, Mild (1-3) Dextrose (Dextrose 50% Inj) 0 ml IV STAT PRN; Protocol PRN Reason: Hypoglycemia Protocol Dextrose (Glutose 15) 0 gm PO ONCE PRN; Protocol PRN Reason: Hypoglycemia Protocol Diphenhydramine HCl (Benadryl) 25 mg PO Q6 PRN PRN Reason: Rash Glucagon (Glucagen Diagnostic Kit) 0 mg IM STAT PRN; Protocol PRN Reason: Hypoglycemia Protocol Dextrose (Dextrose 5% In Water 1000 Ml) 1,000 mls @ 0 mls/hr IV .Q0M PRN; Protocol PRN Reason: Hypoglycemia Protocol Cefazolin Sodium 1,000 mg/ (Sodium Chloride) 50 mls @ 100 mls/hr IVPB Q8H [facility]; Protocol Last Admin: 09/28/18 09:15 Dose: 100 mls/hr Clindamycin Phosphate 600 mg/ (Sodium Chloride) 54 mls @ 100 mls/hr IVPB Q8H [facility]; Protocol Last Admin: 09/28/18 07:35 Dose: 100 mls/hr Insulin Aspart (Novolog) 0 unit SC ACHS [facility]; Protocol Last Admin: 09/28/18 07:35 Dose: 2 units Pantoprazole Sodium (Protonix Ec Tab) 40 mg PO BID [facility] Sucralfate (Carafate Oral Susp) 1 gm PO ACHS [facility] Last Admin: 09/28/18 07:34 Dose: 1 gm - Labs Labs: 09/28/18 07:09 09/28/18 07:09 PT 15.6 SECONDS (9.7-12.2) H 09/25/18 16:56 INR 1.4 09/25/18 16:56 APTT 27 SECONDS (21-34) 09/25/18 16:56 - Constitutional Appears: Toxic, No Acute Distress, Chronically Ill - Head Exam Head Exam: NORMAL INSPECTION, NORMOCEPHALIC - Eye Exam Eye Exam: EOMI, Normal appearance - ENT Exam ENT Exam: Mucous Membranes Moist, Normal Exam - Respiratory Exam Respiratory Exam: Clear to Ausculation Bilateral, NORMAL BREATHING PATTERN - Cardiovascular Exam Cardiovascular Exam: REGULAR RHYTHM, +S1, +S2 - GI/Abdominal Exam GI & Abdominal Exam: Soft, Normal Bowel Sounds. absent: Tenderness - Neurological Exam Neurological Exam: Alert, Awake, Oriented x3 - Psychiatric Exam Psychiatric exam: Normal Affect, Normal Mood - Skin Skin Exam: Dry, Normal Color Assessment and Plan - Assessment and Plan (Free Text) Assessment: #Acute blood loss anemia due to suspected upper GI bleed #Leg Necrotizing Faciitis #T2DM, uncontrolled #Maculopapular rash, ?drug reaction PLAN: - s/p EGD 09/27/18 showing severe esophagitis, mid esophageal stricture, gastric ulcers, duodenititis - He is HDS, hb drop from 13 to 8.4. Stable now. - Monitor Hb closely, transfuse 2u pRBCs stat if Hb less than 7 or becomes unstable. - PPI PO BID, Carafate QID. Patient understand he needs to take these as an outpatient. - NOTE: Rx Carafate tabs PO QID and instruct to crush (much less expensive) - Soft diet. - He will need outpt follow up and EGD in 2 months. <Braden Starkey - Last Filed: 09/28/18 13:14> Objective - Vital Signs/Intake and Output Vital Signs (last 24 hours): Temp Pulse Resp BP Pulse Ox 97.9 F 88 20 155/83 H 97 09/28/18 07:00 09/28/18 07:00 09/28/18 07:00 09/28/18 07:00 09/28/18 07:00 Intake and Output: 09/28/18 09/28/18 06:59 18:59 Intake Total 640 Output Total 700 Balance -60 - Medications Medications: Current Medications Acetaminophen (Tylenol 325mg Tab) 650 mg PO Q6 PRN PRN Reason: Pain, Mild (1-3) Dextrose (Dextrose 50% Inj) 0 ml IV STAT PRN; Protocol PRN Reason: Hypoglycemia Protocol Dextrose (Glutose 15) 0 gm PO ONCE PRN; Protocol PRN Reason: Hypoglycemia Protocol Diphenhydramine HCl (Benadryl) 25 mg PO Q6 PRN PRN Reason: Rash Glucagon (Glucagen Diagnostic Kit) 0 mg IM STAT PRN; Protocol PRN Reason: Hypoglycemia Protocol Dextrose (Dextrose 5% In Water 1000 Ml) 1,000 mls @ 0 mls/hr IV .Q0M PRN; Protocol PRN Reason: Hypoglycemia Protocol Cefazolin Sodium 1,000 mg/ (Sodium Chloride) 50 mls @ 100 mls/hr IVPB Q8H [facility]; Protocol Last Admin: 09/28/18 09:15 Dose: 100 mls/hr Clindamycin Phosphate 600 mg/ (Sodium Chloride) 54 mls @ 100 mls/hr IVPB Q8H [facility]; Protocol Last Admin: 09/28/18 07:35 Dose: 100 mls/hr Insulin Aspart (Novolog) 0 unit SC ACHS [facility]; Protocol Last Admin: 09/28/18 07:35 Dose: 2 units Pantoprazole Sodium (Protonix Ec Tab) 40 mg PO BID [facility] Sucralfate (Carafate Oral Susp) 1 gm PO ACHS [facility] Last Admin: 09/28/18 07:34 Dose: 1 gm - Labs Labs: 09/28/18 07:09 09/28/18 07:09 PT 15.6 SECONDS (9.7-12.2) H 09/25/18 16:56 INR 1.4 09/25/18 16:56 APTT 27 SECONDS (21-34) 09/25/18 16:56 Attending/Attestation - Attestation I have personally seen and examined this patient.: Yes I have fully participated in the care of the patient.: Yes I have reviewed all pertinent clinical information, including history, physical exam and plan: Yes Notes (Text): The pt was seen and examined. Chart reviewed. Assessment, findings and recommendations as documented above were discussed with Dr. Chilel.
[2018-09-28] MEDS ORDERED: Potassium Chloride 20 mEq ER Tab PO ONE ×2 (13:30→14:30)
[2018-09-28] MEDS: Pantoprazole 40 mg EC Tab PO SCH (18:20)
--- NOTE | 2018-09-28 20:19 | CP.PCM.PCO ---
Physician Communication Note - Physician Communication Note Physician Communication Note: please obtain medical clearance from primary doctor for sx on Sunday
--- NOTE | 2018-09-28 22:06 | PN ---
DATE: 09/28/2018 FOLLOWUP SUBJECTIVE: The patient denies any chest pain or leg pain. No recurrence of hematemesis. PHYSICAL EXAMINATION: VITAL SIGNS: Blood pressure 155/83, heart rate 88, temperature 97.9, respirations 20. HEENT: Pale conjunctivae. CHEST: Clear. HEART: S1 and S2 are regular. EXTREMITIES: Dressings applied to the right foot. LABORATORY DATA: Today's SMA-7 is within normal limits except for glucose of 103 and potassium 3.4. Today's hemoglobin and hematocrit 8.3 and 25.2, white count 14.3, platelet count 328,000. ASSESSMENT: 1. Right foot necrotizing fasciitis, status post incision and drainage. 2. Staphylococcus aureus bacteremia. 3. Upper gastrointestinal bleeding. Esophagogastroduodenoscopy was consistent with gastric and esophageal ulcers with subjective gastritis and duodenitis. 4. Hypokalemia. PLAN: Continue current IV cefazolin at 1 g every 8 hours, IV clindamycin at 600 mg every 8 hours, Carafate 1 g p.o. twice a day. The patient did receive K-Dur 40 mEq orally today. We will follow up BMP in the a.m. and the plan to do incision and drainage on Sunday by Dr. Alford, the wood lather. Rao Cobb MD
[2018-09-29] MEDS: Sucralfate 1 gm/10 ml Oral Susp UD PO SCH ×4 (07:35→21:33)
[2018-09-29] MEDS: (Novolog) Insulin Aspart, Recombinant 100 u/ml 10 ml vial SC SCH ×4 (07:39→21:41)
[2018-09-29 08:23] LABS: BLOOD UREA NITROGEN 15 mg/dL (9-20); CALCIUM 7.5 mg/dl (8.6-10.4); GFR NON-AFRICAN AMERICAN > 60
[2018-09-29] MEDS: Pantoprazole 40 mg EC Tab PO SCH ×2 (09:56→17:23)
--- NOTE | 2018-09-29 11:21 | CP.PCM.PN ---
Subjective - Date & Time of Evaluation Date of Evaluation: 09/29/18 Time of Evaluation: 11:18 - Subjective Subjective: Podiatry Progress Note for Dr. Prashanth BernabeM seen six days s/p I and D with washout of right leg for treatment of necrotizing fasciitis. Patient is AAO x 3 and NAD at time of visit. Denies any acute overnight events or new pedal complaints. Denies any recent N/V/F/C/CP/SOB/D. States that pain in leg is well controlled Objective - Vital Signs/Intake and Output Vital Signs (last 24 hours): Temp Pulse Resp BP Pulse Ox 98.2 F 78 18 170/91 H 98 09/29/18 07:00 09/29/18 09:01 09/29/18 07:00 09/29/18 07:00 09/29/18 07:00 Intake and Output: 09/29/18 09/29/18 06:59 18:59 Intake Total 570 Output Total 950 Balance -380 - Medications Medications: Current Medications Acetaminophen (Tylenol 325mg Tab) 650 mg PO Q6 PRN PRN Reason: Pain, Mild (1-3) Dextrose (Dextrose 50% Inj) 0 ml IV STAT PRN; Protocol PRN Reason: Hypoglycemia Protocol Dextrose (Glutose 15) 0 gm PO ONCE PRN; Protocol PRN Reason: Hypoglycemia Protocol Diphenhydramine HCl (Benadryl) 25 mg PO Q6 PRN PRN Reason: Rash Glucagon (Glucagen Diagnostic Kit) 0 mg IM STAT PRN; Protocol PRN Reason: Hypoglycemia Protocol Dextrose (Dextrose 5% In Water 1000 Ml) 1,000 mls @ 0 mls/hr IV .Q0M PRN; Protocol PRN Reason: Hypoglycemia Protocol Cefazolin Sodium 1,000 mg/ (Sodium Chloride) 50 mls @ 100 mls/hr IVPB Q8H [facility]; Protocol Last Admin: 09/29/18 09:59 Dose: 100 mls/hr Clindamycin Phosphate 600 mg/ (Sodium Chloride) 54 mls @ 100 mls/hr IVPB Q8H [facility]; Protocol Last Admin: 09/29/18 07:35 Dose: 100 mls/hr Insulin Aspart (Novolog) 0 unit SC ACHS [facility]; Protocol Last Admin: 09/29/18 07:39 Dose: 2 units Pantoprazole Sodium (Protonix Ec Tab) 40 mg PO BID [facility] Last Admin: 09/29/18 09:56 Dose: 40 mg Sucralfate (Carafate Oral Susp) 1 gm PO ACHS [facility] Last Admin: 09/29/18 07:35 Dose: 1 gm - Labs Labs: 09/28/18 07:09 09/29/18 07:53 PT 15.6 SECONDS (9.7-12.2) H 09/25/18 16:56 INR 1.4 09/25/18 16:56 APTT 27 SECONDS (21-34) 09/25/18 16:56 - Constitutional Appears: Well, Non-toxic - Extremities Exam Additional comments: RLE focused exam: Vasc: DP/PT pulses non-palpable secondary to 2+ non-pitting edema to RLE. CFT > 3 seconds to all digits. Skin temperature increased R>L but greatly improved over yesterday. Erythema is still noted from toes to level of midcalf circumfrentially but is noted to be less severe than yesterday. Neuro: Epicritic and protective sensation intact along distribution of Sural and Tibial nerves. Epicritic and protective sensation starting to return along distribution of superficial peroneal nerve Derm: Open incision sites noted at 1. lateral anterior mid-leg to base of third digit, partially helded together with intact retention sutures 2. Longitudinal plantar incision from first interdigital space to level of midfoot 3. Medial foot at level of MTPJ measuring roughly 4 cm. Packing noted in all incision sites. Skin is erythematous and mottled, especially at second and third digit. Evidence of lysed blisters noted in multiple spots on leg. 1 cc of purulent drainage again expressed from base of second and third digits. Blister noted to base of third digit plantarly MSK: ROM limited at toes and ankle joint but improved over yesterday. Pain with palpation of proximal portion of anterior incision site - Neurological Exam Neurological Exam: Alert - Skin Skin Exam: Normal Color Assessment and Plan - Assessment and Plan (Free Text) Assessment: 58M seen six days s/p I and D with washout of right leg for treatment of necrotizing fasciitis. Plan: Patient seen and evaluated Plan discussed with Dr. Alford Afebrile white count trending downwards-14.3 WBC Continue IV abx per ID Intra-op wound cx: Staph Aureus, Group G Strep Post operative tib fib xray: No periosteal reaction or cortical interruption seen to suggest osteomyelitis. No lytic lesions. No fractures. Soft tissue changes are compatible with known soft tissue infection and recent incision and drainage and bandaging Post operative foot xray: No osseous destruction or periosteal reaction seen to suggest osteomyelitis. Extensive abnormal soft tissue findings as detailed above compatible with the history of a soft tissue infection and recent surgical intervention. Follow-up recommended LE MRI: No definitive pattern suggest osteomyelitis though failure fat suppression throughout the digits limits interpretation somewhat. No definitive abnormal bone enhancement appreciable. No definitive marrow edema. Extensive left foot edema is appreciate diffusely including multiple soft tissue and dermal defects packed by gauze at the forefoot to midfoot plantar and dorsal soft tissues as discussed above. Limitations: Failure fat suppression of the digits diffusely. 3 cc of purulent drainage expressed from plantar incision site cleansed with gauze and saline. Incision sites re-packed and wounds dressed with betadine soaked gauze, ABD pads, kirlix, CARMENCITA Patient scheduled for second washout in OR on Sunday 09/[address] Prashanth Shelley has medically cleared the patient incision and drainage NPO order placed Podiatry will continue to follow while patient in house
--- NOTE | 2018-09-29 12:25 | CP.PCM.PN ---
<Mark Chilel - Last Filed: 09/29/18 12:22> Subjective - Date & Time of Evaluation Date of Evaluation: 09/29/18 Time of Evaluation: 12:22 - Subjective Subjective: Patient is doing well. No complaints. No further bleeding. Discussed plan with patient and sister (nurse) Objective - Vital Signs/Intake and Output Vital Signs (last 24 hours): Temp Pulse Resp BP Pulse Ox 98.2 F 78 18 170/91 H 98 09/29/18 07:00 09/29/18 09:01 09/29/18 07:00 09/29/18 07:00 09/29/18 07:00 Intake and Output: 09/29/18 09/29/18 06:59 18:59 Intake Total 570 Output Total 950 Balance -380 - Medications Medications: Current Medications Acetaminophen (Tylenol 325mg Tab) 650 mg PO Q6 PRN PRN Reason: Pain, Mild (1-3) Dextrose (Dextrose 50% Inj) 0 ml IV STAT PRN; Protocol PRN Reason: Hypoglycemia Protocol Dextrose (Glutose 15) 0 gm PO ONCE PRN; Protocol PRN Reason: Hypoglycemia Protocol Diphenhydramine HCl (Benadryl) 25 mg PO Q6 PRN PRN Reason: Rash Glucagon (Glucagen Diagnostic Kit) 0 mg IM STAT PRN; Protocol PRN Reason: Hypoglycemia Protocol Dextrose (Dextrose 5% In Water 1000 Ml) 1,000 mls @ 0 mls/hr IV .Q0M PRN; Protocol PRN Reason: Hypoglycemia Protocol Cefazolin Sodium 1,000 mg/ (Sodium Chloride) 50 mls @ 100 mls/hr IVPB Q8H [facility]; Protocol Last Admin: 09/29/18 09:59 Dose: 100 mls/hr Clindamycin Phosphate 600 mg/ (Sodium Chloride) 54 mls @ 100 mls/hr IVPB Q8H [facility]; Protocol Last Admin: 09/29/18 07:35 Dose: 100 mls/hr Insulin Aspart (Novolog) 0 unit SC ACHS [facility]; Protocol Last Admin: 09/29/18 07:39 Dose: 2 units Pantoprazole Sodium (Protonix Ec Tab) 40 mg PO BID [facility] Last Admin: 09/29/18 09:56 Dose: 40 mg Sucralfate (Carafate Oral Susp) 1 gm PO ACHS [facility] Last Admin: 09/29/18 07:35 Dose: 1 gm - Labs Labs: 09/28/18 07:09 09/29/18 07:53 PT 15.6 SECONDS (9.7-12.2) H 09/25/18 16:56 INR 1.4 09/25/18 16:56 APTT 27 SECONDS (21-34) 09/25/18 16:56 - Constitutional Appears: Non-toxic, No Acute Distress - Head Exam Head Exam: NORMAL INSPECTION, NORMOCEPHALIC - Eye Exam Eye Exam: EOMI, Normal appearance - ENT Exam ENT Exam: Mucous Membranes Moist - Respiratory Exam Respiratory Exam: Clear to Ausculation Bilateral, NORMAL BREATHING PATTERN - Cardiovascular Exam Cardiovascular Exam: REGULAR RHYTHM, +S1, +S2 - GI/Abdominal Exam GI & Abdominal Exam: Soft, Normal Bowel Sounds. absent: Tenderness - Extremities Exam Extremities Exam: absent: Normal Inspection - Neurological Exam Neurological Exam: Alert, Awake, Oriented x3 - Psychiatric Exam Psychiatric exam: Normal Affect, Normal Mood - Skin Skin Exam: Dry, Normal Color Assessment and Plan - Assessment and Plan (Free Text) Assessment: #Acute blood loss anemia due to suspected upper GI bleed #Leg Necrotizing Faciitis #T2DM, uncontrolled #Maculopapular rash, ?drug reaction PLAN: - s/p EGD 09/27/18 showing severe esophagitis, mid esophageal stricture, gastric ulcers, duodenititis - He is HDS, hb drop from 13 to 8.4. Stable now. - Monitor Hb closely, transfuse 2u pRBCs stat if Hb less than 7 or becomes unstable. - PPI PO BID, Carafate QID. Patient understand he needs to take these as an outpatient. - NOTE: Rx Carafate tabs PO QID and instruct to crush (much less expensive) - Soft diet. - He will need outpt follow up and EGD in 2 months. -Plan discussed with patient and his sister (nurse). -Signing off. Please reconsult as needed. <Braden Starkey - Last Filed: 09/29/18 13:02> Objective - Vital Signs/Intake and Output Vital Signs (last 24 hours): Temp Pulse Resp BP Pulse Ox 98.2 F 78 18 170/91 H 98 09/29/18 07:00 09/29/18 09:01 09/29/18 07:00 09/29/18 07:00 09/29/18 12:46 Intake and Output: 09/29/18 09/29/18 06:59 18:59 Intake Total 570 Output Total 950 Balance -380 - Medications Medications: Current Medications Acetaminophen (Tylenol 325mg Tab) 650 mg PO Q6 PRN PRN Reason: Pain, Mild (1-3) Dextrose (Dextrose 50% Inj) 0 ml IV STAT PRN; Protocol PRN Reason: Hypoglycemia Protocol Dextrose (Glutose 15) 0 gm PO ONCE PRN; Protocol PRN Reason: Hypoglycemia Protocol Diphenhydramine HCl (Benadryl) 25 mg PO Q6 PRN PRN Reason: Rash Glucagon (Glucagen Diagnostic Kit) 0 mg IM STAT PRN; Protocol PRN Reason: Hypoglycemia Protocol Dextrose (Dextrose 5% In Water 1000 Ml) 1,000 mls @ 0 mls/hr IV .Q0M PRN; Protocol PRN Reason: Hypoglycemia Protocol Cefazolin Sodium 1,000 mg/ (Sodium Chloride) 50 mls @ 100 mls/hr IVPB Q8H [facility]; Protocol Last Admin: 09/29/18 09:59 Dose: 100 mls/hr Clindamycin Phosphate 600 mg/ (Sodium Chloride) 54 mls @ 100 mls/hr IVPB Q8H [facility]; Protocol Last Admin: 09/29/18 07:35 Dose: 100 mls/hr Insulin Aspart (Novolog) 0 unit SC ACHS [facility]; Protocol Last Admin: 09/29/18 12:31 Dose: 3 units Pantoprazole Sodium (Protonix Ec Tab) 40 mg PO BID [facility] Last Admin: 09/29/18 09:56 Dose: 40 mg Sucralfate (Carafate Oral Susp) 1 gm PO ACHS [facility] Last Admin: 09/29/18 12:36 Dose: 1 gm - Labs Labs: 09/28/18 07:09 09/29/18 07:53 PT 15.6 SECONDS (9.7-12.2) H 09/25/18 16:56 INR 1.4 09/25/18 16:56 APTT 27 SECONDS (21-34) 09/25/18 16:56 Attending/Attestation - Attestation I have personally seen and examined this patient.: Yes I have fully participated in the care of the patient.: Yes I have reviewed all pertinent clinical information, including history, physical exam and plan: Yes Notes (Text): 09/29/18 13:02 The pt was seen, examined and discussed with Dr. Chilel. Findings, assessment and recommendations above. Discussed with the pt and his sister
--- NOTE | 2018-09-29 14:19 | CP.PCM.PCO ---
Physician Communication Note - Physician Communication Note Physician Communication Note: OK with [facility]
--- NOTE | 2018-09-29 15:17 | PN ---
DATE: 09/29/2019 SUBJECTIVE: The patient denies any chest pain or leg pain. No reported nausea or vomiting and no hematemesis. PHYSICAL EXAMINATION: VITAL SIGNS: Blood pressure 170/91, heart rate 74, temperature 98.2, respirations 18. HEENT: Pale conjunctivae. CHEST: Clear. HEART: S1 and S2 regular. EXTREMITIES: 1+ right leg edema. LABORATORY DATA: SMA-7 is within normal limit except for glucose of 176. Calcium is 7.5, below normal. ASSESSMENT: 1. Right foot necrotizing fasciitis. 2. Status post upper gastrointestinal bleeding with finding of gastric ulcers as well as esophagitis, gastritis, and duodenitis. 3. Uncontrolled diabetes mellitus. 4. Staphylococcus bacteremia. PLAN: Continue current IV clindamycin 600 mg every 8 hours, IV cefazolin at 1 g every 8 hours. Continue Carafate 1 g b.i.d.,Protonix 20 mg twice a day. The patient will undergo repeat incision and drainage tomorrow with postoperative telemetry monitoring or ICU depending on the outcome. Rao Cobb MD
--- NOTE | 2018-09-29 15:50 | CP.PCM.PN ---
Subjective - Date & Time of Evaluation Date of Evaluation: 09/29/18 Time of Evaluation: 08:00 - Subjective Subjective: for I and D iv rx renewed cellulitis less Objective - Vital Signs/Intake and Output Vital Signs (last 24 hours): Temp Pulse Resp BP Pulse Ox 98.2 F 78 18 170/91 H 98 09/29/18 07:00 09/29/18 09:01 09/29/18 07:00 09/29/18 07:00 09/29/18 12:46 Intake and Output: 09/29/18 09/29/18 06:59 18:59 Intake Total 570 Output Total 950 Balance -380 - Medications Medications: Current Medications Acetaminophen (Tylenol 325mg Tab) 650 mg PO Q6 PRN PRN Reason: Pain, Mild (1-3) Dextrose (Dextrose 50% Inj) 0 ml IV STAT PRN; Protocol PRN Reason: Hypoglycemia Protocol Dextrose (Glutose 15) 0 gm PO ONCE PRN; Protocol PRN Reason: Hypoglycemia Protocol Diphenhydramine HCl (Benadryl) 25 mg PO Q6 PRN PRN Reason: Rash Glucagon (Glucagen Diagnostic Kit) 0 mg IM STAT PRN; Protocol PRN Reason: Hypoglycemia Protocol Dextrose (Dextrose 5% In Water 1000 Ml) 1,000 mls @ 0 mls/hr IV .Q0M PRN; Protocol PRN Reason: Hypoglycemia Protocol Cefazolin Sodium 1,000 mg/ (Sodium Chloride) 50 mls @ 100 mls/hr IVPB Q8H [facility]; Protocol Last Admin: 09/29/18 09:59 Dose: 100 mls/hr Clindamycin Phosphate 600 mg/ (Sodium Chloride) 54 mls @ 100 mls/hr IVPB Q8H [facility]; Protocol Last Admin: 09/29/18 07:35 Dose: 100 mls/hr Insulin Aspart (Novolog) 0 unit SC ACHS [facility]; Protocol Last Admin: 09/29/18 12:31 Dose: 3 units Pantoprazole Sodium (Protonix Ec Tab) 40 mg PO BID [facility] Last Admin: 09/29/18 09:56 Dose: 40 mg Sucralfate (Carafate Oral Susp) 1 gm PO ACHS [facility] Last Admin: 09/29/18 12:36 Dose: 1 gm - Labs Labs: 09/28/18 07:09 09/29/18 07:53 PT 15.6 SECONDS (9.7-12.2) H 09/25/18 16:56 INR 1.4 09/25/18 16:56 APTT 27 SECONDS (21-34) 09/25/18 16:56 - Constitutional Appears: Non-toxic, Chronically Ill - Head Exam Head Exam: NORMOCEPHALIC - Eye Exam Eye Exam: absent: Scleral icterus - ENT Exam ENT Exam: Mucous Membranes Dry - Neck Exam Neck Exam: absent: Lymphadenopathy - Respiratory Exam Respiratory Exam: Decreased Breath Sounds - Cardiovascular Exam Cardiovascular Exam: REGULAR RHYTHM - GI/Abdominal Exam GI & Abdominal Exam: Distended, Soft - Rectal Exam Rectal Exam: Deferred - Exam Exam: NORMAL INSPECTION - Extremities Exam Extremities Exam: Pedal Edema - Back Exam Back Exam: absent: CVA tenderness (L), CVA tenderness (R) - Neurological Exam Neurological Exam: Alert, Awake, Oriented x3 Assessment and Plan (1) Necrotizing fasciitis of ankle and foot Status: Acute (2) Sepsis Status: Acute (3) Diabetes mellitus, new onset Status: Acute - Assessment and Plan (Free Text) Assessment: cont iv rx and wound care rash resolved
[2018-09-30] MEDS: Sucralfate 1 gm/10 ml Oral Susp UD PO SCH ×4 (07:40→22:46)
[2018-09-30] MEDS: (Novolog) Insulin Aspart, Recombinant 100 u/ml 10 ml vial SC SCH ×4 (07:41→22:48)
[2018-09-30 11:58] LABS: BASO # 0.1 K/uL (0.0-0.2); BASO % 0.7 % (0.0-2.0); EOS # 0.5 K/uL (0.0-0.7); EOS % 3.4 % (0.0-4.0); HEMOGLOBIN 8.9 g/dL (12.0-18.0); LYMPH # 0.8 K/uL (1.0-4.3); LYMPH % 5.6 % (20.0-40.0); MEAN CELL VOLUME 86.4 fL (80.0-94.0); MEAN CORPUSCULAR HEMOGLOBIN 29.4 pg (27.0-31.0); MEAN PLATELET VOLUME 9.1 fL (7.2-11.7); MONO # 0.9 K/uL (0.0-0.8); MONO % 6.3 % (0.0-10.0); NEUT # 12.1 K/uL (1.8-7.0); PLATELET COUNT 425 K/uL (130-400); RBC 3.02 Mil/uL (4.40-5.90); RED CELL DISTRIBUTION WIDTH 13.9 % (11.5-14.5); WHITE BLOOD COUNT 14.4 K/uL (4.8-10.8)
[2018-09-30 12:26] LABS: BANDS 1 % (0-2); EOSINOPHIL 6 % (0-4); MONOCYTE 5 % (0-10); MYELOCYTE 2 % (0-0); TOTAL CELLS COUNTED 100
[2018-09-30 12:27] LABS: ANISOCYTOSIS SLIGHT; HYPOCHROMIC SLIGHT; LYMPHOCYTE 6 % (20-40); NEUTROPHIL 80 % (50-75); PLATELET ESTIMATE SLIGHTLY INCREASED (NORMAL); POIKILOCYTOSIS SLIGHT; TARGET CELLS SLIGHT
--- NOTE | 2018-09-30 12:48 | CP.PCM.PN ---
Subjective - Date & Time of Evaluation Date of Evaluation: 09/30/18 Time of Evaluation: 09:00 - Subjective Subjective: going to OR iv rx renewed cont rx less pain no fever Objective - Vital Signs/Intake and Output Vital Signs (last 24 hours): Temp Pulse Resp BP Pulse Ox 98.2 F 80 20 162/78 H 100 09/30/18 08:17 09/30/18 08:17 09/30/18 08:17 09/30/18 08:17 09/30/18 08:17 Intake and Output: 09/30/18 09/30/18 06:59 18:59 Intake Total 150 Output Total 1200 Balance -1050 - Medications Medications: Current Medications Acetaminophen (Tylenol 325mg Tab) 650 mg PO Q6 PRN PRN Reason: Pain, Mild (1-3) Dextrose (Dextrose 50% Inj) 0 ml IV STAT PRN; Protocol PRN Reason: Hypoglycemia Protocol Dextrose (Glutose 15) 0 gm PO ONCE PRN; Protocol PRN Reason: Hypoglycemia Protocol Diphenhydramine HCl (Benadryl) 25 mg PO Q6 PRN PRN Reason: Rash Glucagon (Glucagen Diagnostic Kit) 0 mg IM STAT PRN; Protocol PRN Reason: Hypoglycemia Protocol Dextrose (Dextrose 5% In Water 1000 Ml) 1,000 mls @ 0 mls/hr IV .Q0M PRN; Protocol PRN Reason: Hypoglycemia Protocol Cefazolin Sodium 1,000 mg/ (Sodium Chloride) 50 mls @ 100 mls/hr IVPB Q8H [facility]; Protocol Last Admin: 09/30/18 08:59 Dose: 100 mls/hr Clindamycin Phosphate 600 mg/ (Sodium Chloride) 54 mls @ 100 mls/hr IVPB Q8H [facility]; Protocol Last Admin: 09/30/18 07:40 Dose: 100 mls/hr Insulin Aspart (Novolog) 0 unit SC ACHS [facility]; Protocol Last Admin: 09/30/18 11:32 Dose: Not Given Pantoprazole Sodium (Protonix Ec Tab) 40 mg PO BID [facility] Last Admin: 09/29/18 17:23 Dose: 40 mg Sucralfate (Carafate Oral Susp) 1 gm PO ACHS [facility] Last Admin: 09/30/18 11:31 Dose: Not Given - Labs Labs: 09/30/18 11:19 09/29/18 07:53 PT 15.6 SECONDS (9.7-12.2) H 09/25/18 16:56 INR 1.4 09/25/18 16:56 APTT 27 SECONDS (21-34) 09/25/18 16:56 - Constitutional Appears: Non-toxic - Head Exam Head Exam: NORMOCEPHALIC - Eye Exam Eye Exam: PERRL - ENT Exam ENT Exam: Mucous Membranes Dry - Neck Exam Neck Exam: absent: Lymphadenopathy - Respiratory Exam Respiratory Exam: Decreased Breath Sounds - Cardiovascular Exam Cardiovascular Exam: REGULAR RHYTHM - GI/Abdominal Exam GI & Abdominal Exam: Distended - Rectal Exam Rectal Exam: Deferred - Exam Exam: NORMAL INSPECTION - Extremities Exam Extremities Exam: Pedal Edema, Tenderness - Back Exam Back Exam: absent: CVA tenderness (L), CVA tenderness (R) - Neurological Exam Neurological Exam: Alert, Awake, Oriented x3 Assessment and Plan (1) Necrotizing fasciitis of ankle and foot Status: Acute (2) Sepsis Status: Acute (3) Diabetes mellitus, new onset Status: Acute - Assessment and Plan (Free Text) Assessment: fo rOR / debridement
[2018-09-30] MEDS: Pantoprazole 40 mg EC Tab PO SCH ×2 (13:22→19:48)
[2018-09-30] MEDS ORDERED: Lidocaine 2% MPF (5 ml) Inj ONE (15:15)
[2018-09-30] MEDS ORDERED: Bupivacaine 0.25% 20 ML INJ IJ ONE (15:15)
[2018-09-30] MEDS ORDERED: Midazolam 2 MG/2 ML VIAL ONE (15:19)
[2018-09-30] MEDS ORDERED: Propofol 10 mg/ml Inj (20 ML) ONE ×2 (15:21→16:11)
[2018-09-30] MEDS ORDERED: Vancomycin 1 g Inj ONE (15:22)
[2018-09-30] MEDS ORDERED: HYDROmorphone 0.5 mg/0.5 ml ISec IVP PRN (16:40)
--- NOTE | 2018-09-30 16:43 | PCM.SURG1 ---
Surgeon's Initial Post Op Note - Surgeon's Notes Surgeon: Dr. Aniyah Alford, DPM Street Light Inspector: Dr. Job Fair PGY2 Type of Anesthesia: IV Sedation, Local Anesthesia Administered By: Dr. Rivas Pre-Operative Diagnosis: Necrotizing Fasciitis of right leg Operative Findings: See dictation report. M- Iodoform packing. I- 20 cc 1:1 2% lidocaine plain and 0.25% marcaine plain Post-Operative Diagnosis: Same Operation Performed: Incision and Drainage of right foot and leg Specimen/Specimens Removed: None Estimated Blood Loss: EBL {In ML}: 50 Blood Products Given: N/A Drains Used: No Drains Post-Op Condition: Good Date of Surgery/Procedure: 09/30/18 Time of Surgery/Procedure: 16:43
[2018-09-30 17:03] LABS: HEMOGLOBIN 8.7 g/dL (12.0-18.0); MEAN CELL VOLUME 85.8 fL (80.0-94.0); MEAN CORPUSCULAR HEMOGLOBIN 28.7 pg (27.0-31.0); MEAN CORPUSCULAR HGB CONC 33.5 g/dL (33.0-37.0); RBC 3.04 Mil/uL (4.40-5.90); RED CELL DISTRIBUTION WIDTH 13.8 % (11.5-14.5); WHITE BLOOD COUNT 14.8 K/uL (4.8-10.8)
--- NOTE | 2018-09-30 17:58 | CARD ---
APPROVED REPORT Date of service: 09/23/2018 EKG Measurement Heart [id number] <Conclusion> Normal sinus rhythm Moderate voltage criteria for LVH, may be normal variant Borderline ECG
--- NOTE | 2018-10-01 02:06 | CP.PCM.PN ---
Subjective - Date & Time of Evaluation Date of Evaluation: 09/30/18 - Subjective Subjective: dictated Objective - Vital Signs/Intake and Output Vital Signs (last 24 hours): Temp Pulse Resp BP Pulse Ox 98.5 F 92 H 20 149/85 95 09/30/18 23:00 09/30/18 23:00 09/30/18 23:00 09/30/18 23:00 09/30/18 23:00 Intake and Output: 09/30/18 10/01/18 18:59 06:59 Intake Total 954 Output Total 500 350 Balance 454 -350 - Medications Medications: Current Medications Acetaminophen (Tylenol 325mg Tab) 650 mg PO Q6 PRN PRN Reason: Pain, Mild (1-3) Aspirin (Ecotrin) 81 mg PO DAILY [facility] Dextrose (Dextrose 50% Inj) 0 ml IV STAT PRN; Protocol PRN Reason: Hypoglycemia Protocol Dextrose (Glutose 15) 0 gm PO ONCE PRN; Protocol PRN Reason: Hypoglycemia Protocol Diphenhydramine HCl (Benadryl) 25 mg PO Q6 PRN PRN Reason: Rash Glucagon (Glucagen Diagnostic Kit) 0 mg IM STAT PRN; Protocol PRN Reason: Hypoglycemia Protocol Dextrose (Dextrose 5% In Water 1000 Ml) 1,000 mls @ 0 mls/hr IV .Q0M PRN; Protocol PRN Reason: Hypoglycemia Protocol Clindamycin Phosphate 600 mg/ (Sodium Chloride) 54 mls @ 100 mls/hr IVPB Q8H [facility]; Protocol Last Admin: 10/01/18 00:30 Dose: 100 mls/hr Cefazolin Sodium 2,000 mg/ (Sodium Chloride) 50 mls @ 100 mls/hr IVPB Q8H [facility]; Protocol Last Admin: 10/01/18 01:40 Dose: 100 mls/hr Insulin Aspart (Novolog) 0 unit SC ACHS [facility]; Protocol Last Admin: 09/30/18 22:48 Dose: Not Given Lidocaine (Lidoderm) 1 ea TD DAILY [facility] Losartan Potassium (Cozaar) 25 mg PO DAILY [facility] Pantoprazole Sodium (Protonix Ec Tab) 40 mg PO BID [facility] Last Admin: 09/30/18 19:48 Dose: 40 mg Rosuvastatin Calcium (Crestor) 5 mg PO HS [facility] Last Admin: 09/30/18 22:46 Dose: 5 mg Sucralfate (Carafate Oral Susp) 1 gm PO ACHS [facility] Last Admin: 09/30/18 22:46 Dose: 1 gm - Labs Labs: 09/30/18 17:01 09/29/18 07:53 PT 15.6 SECONDS (9.7-12.2) H 09/25/18 16:56 INR 1.4 09/25/18 16:56 APTT 27 SECONDS (21-34) 09/25/18 16:56
--- NOTE | 2018-10-01 02:06 | CP.PCM.PN ---
Subjective - Date & Time of Evaluation Date of Evaluation: 09/24/18 - Subjective Subjective: dictated Objective - Vital Signs/Intake and Output Vital Signs (last 24 hours): Temp Pulse Resp BP Pulse Ox 98.5 F 92 H 20 149/85 95 09/30/18 23:00 09/30/18 23:00 09/30/18 23:00 09/30/18 23:00 09/30/18 23:00 Intake and Output: 09/30/18 10/01/18 18:59 06:59 Intake Total 954 Output Total 500 350 Balance 454 -350 - Medications Medications: Current Medications Acetaminophen (Tylenol 325mg Tab) 650 mg PO Q6 PRN PRN Reason: Pain, Mild (1-3) Aspirin (Ecotrin) 81 mg PO DAILY [facility] Dextrose (Dextrose 50% Inj) 0 ml IV STAT PRN; Protocol PRN Reason: Hypoglycemia Protocol Dextrose (Glutose 15) 0 gm PO ONCE PRN; Protocol PRN Reason: Hypoglycemia Protocol Diphenhydramine HCl (Benadryl) 25 mg PO Q6 PRN PRN Reason: Rash Glucagon (Glucagen Diagnostic Kit) 0 mg IM STAT PRN; Protocol PRN Reason: Hypoglycemia Protocol Dextrose (Dextrose 5% In Water 1000 Ml) 1,000 mls @ 0 mls/hr IV .Q0M PRN; Protocol PRN Reason: Hypoglycemia Protocol Clindamycin Phosphate 600 mg/ (Sodium Chloride) 54 mls @ 100 mls/hr IVPB Q8H [facility]; Protocol Last Admin: 10/01/18 00:30 Dose: 100 mls/hr Cefazolin Sodium 2,000 mg/ (Sodium Chloride) 50 mls @ 100 mls/hr IVPB Q8H [facility]; Protocol Last Admin: 10/01/18 01:40 Dose: 100 mls/hr Insulin Aspart (Novolog) 0 unit SC ACHS [facility]; Protocol Last Admin: 09/30/18 22:48 Dose: Not Given Lidocaine (Lidoderm) 1 ea TD DAILY [facility] Losartan Potassium (Cozaar) 25 mg PO DAILY [facility] Pantoprazole Sodium (Protonix Ec Tab) 40 mg PO BID [facility] Last Admin: 09/30/18 19:48 Dose: 40 mg Rosuvastatin Calcium (Crestor) 5 mg PO HS [facility] Last Admin: 09/30/18 22:46 Dose: 5 mg Sucralfate (Carafate Oral Susp) 1 gm PO ACHS [facility] Last Admin: 09/30/18 22:46 Dose: 1 gm - Labs Labs: 09/30/18 17:01 09/29/18 07:53 PT 15.6 SECONDS (9.7-12.2) H 09/25/18 16:56 INR 1.4 09/25/18 16:56 APTT 27 SECONDS (21-34) 09/25/18 16:56
[2018-10-01 06:52] LABS: BASO # 0.1 K/uL (0.0-0.2); BASO % 0.7 % (0.0-2.0); EOS # 0.5 K/uL (0.0-0.7); EOS % 3.2 % (0.0-4.0); HEMOGLOBIN 8.4 g/dL (12.0-18.0); LYMPH # 0.8 K/uL (1.0-4.3); LYMPH % 5.2 % (20.0-40.0); MEAN CELL VOLUME 86.9 fL (80.0-94.0); MEAN CORPUSCULAR HEMOGLOBIN 29.2 pg (27.0-31.0); MEAN CORPUSCULAR HGB CONC 33.5 g/dL (33.0-37.0); MEAN PLATELET VOLUME 9.3 fL (7.2-11.7); MONO % 6.7 % (0.0-10.0); NEUT # 12.4 K/uL (1.8-7.0); NEUT % 84.2 % (50.0-75.0); PLATELET COUNT 435 K/uL (130-400); RBC 2.88 Mil/uL (4.40-5.90); RED CELL DISTRIBUTION WIDTH 13.7 % (11.5-14.5); WHITE BLOOD COUNT 14.7 K/uL (4.8-10.8)
--- NOTE | 2018-10-01 06:58 | PN ---
DATE: 10/01/2018 SUBJECTIVE: The patient is status post surgery with Dr. Alford, incision and drainage with washout of right foot and leg secondary to necrotizing fascitis. The patient has pain. The patient is on antibiotics, and the patient is afebrile. PHYSICAL EXAMINATION: VITAL SIGNS: Blood pressure 101/67, pulse 73, respiratory rate 20, and temperature 97.9. LUNGS: Clear. CARDIOVASCULAR SYSTEM: S1 and S2, regular. ABDOMEN: Soft. EXTREMITIES: Right foot wound. ASSESSMENT: 1. Necrotizing fascitis of right foot. 2. Diabetes, new onset. 3. Hypertension, new onset. 4. Anemia of chronic disease. PLAN: Continue current medications. Monitor the patient. Taiwo Moreno MD
[2018-10-01 07:23] LABS: BLOOD UREA NITROGEN 15 mg/dL (9-20); CALCIUM 7.5 mg/dl (8.6-10.4); GFR NON-AFRICAN AMERICAN 57
[2018-10-01] MEDS: Sucralfate 1 gm/10 ml Oral Susp UD PO SCH ×4 (07:40→21:18)
[2018-10-01] MEDS: (Novolog) Insulin Aspart, Recombinant 100 u/ml 10 ml vial SC SCH ×4 (07:41→21:19)
[2018-10-01 08:41] LABS: EOSINOPHIL 4 % (0-4); LYMPHOCYTE 5 % (20-40); MONOCYTE 9 % (0-10); NEUTROPHIL 82 % (50-75); TOTAL CELLS COUNTED 100
[2018-10-01 08:42] LABS: ANISOCYTOSIS SLIGHT; HYPOCHROMIC SLIGHT; PLATELET ESTIMATE SLIGHTLY INCREASED (NORMAL); POIKILOCYTOSIS SLIGHT
[2018-10-01 08:43] LABS: LARGE PLATELETS PRESENT; MICROCYTOSIS SLIGHT
[2018-10-01] MEDS ORDERED: Potassium Chloride 20 mEq ER Tab PO ONE (10:00)
--- NOTE | 2018-10-01 10:06 | OP ---
PROCEDURE DATE: 09/30/2018 SURGEON: Aniyah Alford DPM ELECTRICAL PROSPECTING SUPERVISOR: Job Fair DPM, PGY-2. ANESTHESIOLOGIST: Dr. Rivas. ANESTHESIA: IV sedation with local. PREOPERATIVE DIAGNOSIS: Necrotizing fascitis of right leg and foot. POSTOPERATIVE DIAGNOSIS: Necrotizing fascitis of right leg and foot. PROCEDURE: Incision and drainage of right foot and leg. INDICATIONS: The patient is a 58-year-old female with the above-mentioned diagnosis. The patient was previously brought into the operating room a week ago for an initial incision and drainage of her right leg and foot after presenting to the emergency department with an acute case of necrotizing fascitis. At this time, the patient has exhausted all conservative treatment options and now requires a second surgical intervention. The patient signed the consent. After careful explanation of risks, benefits, complications, and alternatives for surgical procedure, no guarantees were given nor implied. N.p.o. status was confirmed prior to taking the patient into the operating room. PREPARATION: The patient was brought into the operating room and placed on the operating room table in the supine position. A time-out was performed for identification of the correct patient and procedure. After induction of IV sedation, the patient received a total of 20 mL of 1:1 mixture of 0.25% Marcaine plain and 2% lidocaine plain in a local block fashion to the right leg and foot. Right lower extremity was then prepped and draped in the normal sterile manner and the procedure began. No tourniquet was used during the procedure. PROCEDURE 1: Attention was then turned to the right leg and foot where multiple incision sites and subsequent wounds were identified from the previous surgical procedure. One incision site, 1 inch from the mid leg of the patient across the ankle joint distally to the level of the mid foot. Second incision site was noted on the plantar aspect of the foot from the first interdigital space to the level of the mid foot in a sagittal fashion. A third incision site was noted on the medial aspect of the foot at the level of the metatarsophalangeal joint, measuring roughly 4 cm in length. All incision sites were noted to be expressing purulent drainage, foul smell odor, and were covered with a fibronecrotic, emery, soothy textured tissue. Utilizing #15 blade and pickups, all nonviable tissues were sharply debrided from the patient's foot at all incision sites as well as in the second interdigital space and the patient's foot where a pocket of purulent drainage was noted to be found and nonviable tissue was identified. Following sharp debridement of all nonviable tissues, a Versajet was utilized to further debride any remaining tissue that could not be sharply debrided. It was noted at this time that the patient had adequate bleeding at all surgical sites, but there is still a large amount of nonviable tissue adherent to the base of all surgical sites. When the leg and foot was squeezed from proximal to distal, it was noted that roughly 7 mL of purulent drainage was coming from the medial arch of the foot out of the distal surgical site at the level of the metatarsophalangeal joint. Next, chlorhexidine brushes were utilized to scrub all surgical sites, and attempted to try and clean them and make them as bacteria free as possible. The entire foot was then washed with copious amounts of normal sterile saline. All wounds were flushed with copious amounts of normal sterile saline. Anterior leg and foot wound was dressed with vancomycin powder, Xeroform, 4 x 4 gauze, and ABDs. The plantar and medial incision sites were dressed with Iodoform packing, 4 x 4 gauze, ABDs, and the entire foot was wrapped in Kerlix and Jose. It was noted prior to that from the foot that the capillary refill time of the second and third digit was greater than three seconds. However, this was also noted preoperatively and does not seem to improve as the procedure went on. The depth of the anterior leg wound was down from the level of exposed extensive tendons, and the plantar and medial and surgical sites were down to the level of bone after debridement of all necrotic nonviable tissues left. POSTOPERATIVE CONDITION: The patient tolerated the anesthesia and the procedure well and was escorted to the recovery room with vital signs stable and neurovascular status intact to the right lower extremity. The patient is to remain nonweightbearing on his right foot and is to keep the dressings clean, dry, and intact. Podiatry will continue to follow the patient while he is in-house and we will inform the patient that further surgical procedure may be indicated in the near future. Job Fair DPM Aniyah Alford DPM [facility] # [id number]
--- NOTE | 2018-10-01 10:19 | HP ---
HISTORY OF PRESENT ILLNESS: The patient has a right foot dressing, being followed up by Podiatry, status post surgery. His blood pressures are high. His blood sugars are somewhat under control. WBC is elevated. The patient is afebrile. No shortness of breath. No chest pain. PHYSICAL EXAMINATION: VITAL SIGNS: Blood pressure is 149/55, pulse 92, respiratory rate 20, and temperature 98.5. LUNGS: Clear. CARDIOVASCULAR SYSTEM: S1 and S2, regular. ABDOMEN: Soft. EXTREMITIES: Right foot has a dressing. ASSESSMENT: 1. Plantar fasciitis of the right leg. 2. New onset diabetes. 3. New onset hypertension. 4. Anemia of chronic disease. PLAN: Add Cozaar, antibiotics. Monitor the patient. Taiwo Moreno MD
[2018-10-01] MEDS: Pantoprazole 40 mg EC Tab PO SCH ×2 (10:29→17:01)
--- NOTE | 2018-10-01 12:02 | CP.PCM.PN ---
Subjective - Date & Time of Evaluation Date of Evaluation: 10/01/18 Time of Evaluation: 11:56 - Subjective Subjective: Podiatry Progress Note for Dr. Alford 58 year old male seen 1 day s/p I and D with washout of right leg for treatment of necrotizing fasciitis. Patient is AAOx3 and NAD at time of visit. Denies any acute overnight events or new pedal complaints. Denies of any pain today. Educated of another possible washout tomorrow. Denies any recent N/V/F/C/CP/SOB/D. Objective - Vital Signs/Intake and Output Vital Signs (last 24 hours): Temp Pulse Resp BP Pulse Ox 98.2 F 85 20 144/84 94 L 10/01/18 07:30 10/01/18 07:30 10/01/18 07:30 10/01/18 07:30 10/01/18 07:30 Intake and Output: 10/01/18 10/01/18 06:59 18:59 Output Total 650 Balance -650 - Medications Medications: Current Medications Acetaminophen (Tylenol 325mg Tab) 650 mg PO Q6 PRN PRN Reason: Pain, Mild (1-3) Aspirin (Ecotrin) 81 mg PO DAILY [facility] Last Admin: 10/01/18 11:24 Dose: 81 mg Dextrose (Dextrose 50% Inj) 0 ml IV STAT PRN; Protocol PRN Reason: Hypoglycemia Protocol Dextrose (Glutose 15) 0 gm PO ONCE PRN; Protocol PRN Reason: Hypoglycemia Protocol Diphenhydramine HCl (Benadryl) 25 mg PO Q6 PRN PRN Reason: Rash Glucagon (Glucagen Diagnostic Kit) 0 mg IM STAT PRN; Protocol PRN Reason: Hypoglycemia Protocol Clindamycin Phosphate 600 mg/ (Sodium Chloride) 54 mls @ 100 mls/hr IVPB Q8H [facility]; Protocol Last Admin: 10/01/18 07:41 Dose: 100 mls/hr Cefazolin Sodium 2,000 mg/ (Sodium Chloride) 50 mls @ 100 mls/hr IVPB Q8H [facility]; Protocol Last Admin: 10/01/18 10:25 Dose: 100 mls/hr Insulin Aspart (Novolog) 0 unit SC ACHS [facility]; Protocol Last Admin: 10/01/18 07:41 Dose: 2 units Lidocaine (Lidoderm) 1 ea TD DAILY [facility] Losartan Potassium (Cozaar) 25 mg PO DAILY [facility] Last Admin: 10/01/18 10:29 Dose: 25 mg Pantoprazole Sodium (Protonix Ec Tab) 40 mg PO BID [facility] Last Admin: 10/01/18 10:29 Dose: 40 mg Rosuvastatin Calcium (Crestor) 5 mg PO HS [facility] Last Admin: 09/30/18 22:46 Dose: 5 mg Sucralfate (Carafate Oral Susp) 1 gm PO ACHS [facility] Last Admin: 10/01/18 11:24 Dose: 1 gm - Labs Labs: 10/01/18 06:44 10/01/18 06:44 PT 15.6 SECONDS (9.7-12.2) H 09/25/18 16:56 INR 1.4 09/25/18 16:56 APTT 27 SECONDS (21-34) 09/25/18 16:56 - Constitutional Appears: Well, Non-toxic, No Acute Distress - Extremities Exam Additional comments: RLE focused exam: VASC: DP/PT pulses non-palpable secondary to 2+ non-pitting edema to RLE. CFT > 3 seconds to all digits. Skin temperature increased R>L but greatly improved. Erythema is still noted from toes to level of midcalf circumfrentially but is noted to be less severe than before. Derm: Open surgical wound with exposed tendons and deep soft tissue on the anterior lateral aspect of the right leg which extends distally over the ankle and proximal foot, 2. Longitudinal plantar incision from first interdigital spac e to level of midfoot 3. Medial foot at level of MTPJ measuring roughly 4 cm. Packing noted in all incision sites. Skin is erythematous and mottled, especially at second and third digit. No active drainage, no purulence, minimal malodor - appears better than previous evaluation Neuro: Epicritic and protective sensation intact along distribution of Sural and Tibial nerves. Epicritic and protective sensation starting to return along distribution of superficial peroneal nerve as well as the tibial nerve MSK: ROM limited at toes and ankle joint but improved over yesterday. Pain with palpation of plantar incision sites - Neurological Exam Neurological Exam: Alert, Awake, Oriented x3 - Psychiatric Exam Psychiatric exam: Normal Affect, Normal Mood Assessment and Plan - Assessment and Plan (Free Text) Assessment: 58 year old male evaluated 1 day s/p I and D with washout of right leg for treatment of necrotizing fasciitis. Plan: Patient seen and evaluated Plan discussed with Dr. Alford Labs, vitals and charts reviewed - Afebrile, 14.7 WBC Intra-op wound cx: Staph Aureus, Group G Strep Continue IV abx per ID Post operative tib fib xray: No periosteal reaction or cortical interruption seen to suggest osteomyelitis. No lytic lesions. No fractures. Soft tissue changes are compatible with known soft tissue infection and recent incision and drainage and bandaging Post operative foot xray: No osseous destruction or periosteal reaction seen to suggest osteomyelitis. Extensive abnormal soft tissue findings as detailed above compatible with the history of a soft tissue infection and recent surgical intervention. Follow-up recommended LE MRI: No definitive pattern suggest osteomyelitis though failure fat s uppression throughout the digits limits interpretation somewhat. No definitive abnormal bone enhancement appreciable. No definitive marrow edema. Extensive left foot edema is appreciate diffusely including multiple soft tissue and dermal defects packed by gauze at the forefoot to midfoot plantar and dorsal soft tissues as discussed above. Limitations: Failure fat suppression of the digits diffusely. no purulent drainage expressed from the surgical sites, mainly serous fluid site cleansed with gauze and saline. Incision sites re-packed and wounds dressed with xeroform on the anterior aspect , and betadine soaked gauz, DSD, ABD, kerlix, CARMENCITA bandage - Plan for Wound vac application - wound vac ordered Patient scheduled for second washout in OR on Tuesday 10/02 Dr. Shelley has medically cleared previously for incision and drainage NPO order placed Podiatry will continue to follow while patient in house
--- NOTE | 2018-10-01 12:07 | CP.PCM.PN ---
Subjective - Date & Time of Evaluation Date of Evaluation: 10/01/18 Time of Evaluation: 08:00 - Subjective Subjective: events noted IV rx renewed Objective - Vital Signs/Intake and Output Vital Signs (last 24 hours): Temp Pulse Resp BP Pulse Ox 98.2 F 85 20 144/84 94 L 10/01/18 07:30 10/01/18 07:30 10/01/18 07:30 10/01/18 07:30 10/01/18 07:30 Intake and Output: 10/01/18 10/01/18 06:59 18:59 Output Total 650 Balance -650 - Medications Medications: Current Medications Acetaminophen (Tylenol 325mg Tab) 650 mg PO Q6 PRN PRN Reason: Pain, Mild (1-3) Aspirin (Ecotrin) 81 mg PO DAILY [facility] Last Admin: 10/01/18 11:24 Dose: 81 mg Dextrose (Dextrose 50% Inj) 0 ml IV STAT PRN; Protocol PRN Reason: Hypoglycemia Protocol Dextrose (Glutose 15) 0 gm PO ONCE PRN; Protocol PRN Reason: Hypoglycemia Protocol Diphenhydramine HCl (Benadryl) 25 mg PO Q6 PRN PRN Reason: Rash Glucagon (Glucagen Diagnostic Kit) 0 mg IM STAT PRN; Protocol PRN Reason: Hypoglycemia Protocol Clindamycin Phosphate 600 mg/ (Sodium Chloride) 54 mls @ 100 mls/hr IVPB Q8H [facility]; Protocol Last Admin: 10/01/18 07:41 Dose: 100 mls/hr Cefazolin Sodium 2,000 mg/ (Sodium Chloride) 50 mls @ 100 mls/hr IVPB Q8H [facility]; Protocol Last Admin: 10/01/18 10:25 Dose: 100 mls/hr Insulin Aspart (Novolog) 0 unit SC ACHS [facility]; Protocol Last Admin: 10/01/18 07:41 Dose: 2 units Lidocaine (Lidoderm) 1 ea TD DAILY [facility] Losartan Potassium (Cozaar) 25 mg PO DAILY [facility] Last Admin: 10/01/18 10:29 Dose: 25 mg Pantoprazole Sodium (Protonix Ec Tab) 40 mg PO BID [facility] Last Admin: 10/01/18 10:29 Dose: 40 mg Rosuvastatin Calcium (Crestor) 5 mg PO HS [facility] Last Admin: 09/30/18 22:46 Dose: 5 mg Sucralfate (Carafate Oral Susp) 1 gm PO ACHS [facility] Last Admin: 10/01/18 11:24 Dose: 1 gm - Labs Labs: 10/01/18 06:44 10/01/18 06:44 PT 15.6 SECONDS (9.7-12.2) H 09/25/18 16:56 INR 1.4 09/25/18 16:56 APTT 27 SECONDS (21-34) 09/25/18 16:56 - Constitutional Appears: Non-toxic, Chronically Ill - Head Exam Head Exam: NORMOCEPHALIC - Eye Exam Eye Exam: absent: Scleral icterus - ENT Exam ENT Exam: Mucous Membranes Dry - Neck Exam Neck Exam: absent: Lymphadenopathy - Respiratory Exam Respiratory Exam: Decreased Breath Sounds - Cardiovascular Exam Cardiovascular Exam: REGULAR RHYTHM - GI/Abdominal Exam GI & Abdominal Exam: Distended, Soft. absent: Tenderness - Rectal Exam Rectal Exam: Deferred - Exam Exam: NORMAL INSPECTION Assessment and Plan (1) Necrotizing fasciitis of ankle and foot Status: Acute (2) Sepsis Status: Acute (3) Diabetes mellitus, new onset Status: Acute
[2018-10-01] MEDS: Lidocaine 5% Patch TD SCH (12:49)
--- NOTE | 2018-10-01 21:55 | CP.PCM.PN ---
Subjective - Subjective Subjective: dictated Objective - Vital Signs/Intake and Output Vital Signs (last 24 hours): Temp Pulse Resp BP Pulse Ox 98.2 F 80 20 149/80 96 10/01/18 15:00 10/01/18 15:00 10/01/18 15:00 10/01/18 15:00 10/01/18 15:00 - Medications Medications: Current Medications Acetaminophen (Tylenol 325mg Tab) 650 mg PO Q6 PRN PRN Reason: Pain, Mild (1-3) Aspirin (Ecotrin) 81 mg PO DAILY [facility] Last Admin: 10/01/18 11:24 Dose: 81 mg Dextrose (Dextrose 50% Inj) 0 ml IV STAT PRN; Protocol PRN Reason: Hypoglycemia Protocol Dextrose (Glutose 15) 0 gm PO ONCE PRN; Protocol PRN Reason: Hypoglycemia Protocol Diphenhydramine HCl (Benadryl) 25 mg PO Q6 PRN PRN Reason: Rash Glucagon (Glucagen Diagnostic Kit) 0 mg IM STAT PRN; Protocol PRN Reason: Hypoglycemia Protocol Clindamycin Phosphate 600 mg/ (Sodium Chloride) 54 mls @ 100 mls/hr IVPB Q8H [facility]; Protocol Last Admin: 10/01/18 17:01 Dose: 100 mls/hr Cefazolin Sodium 2,000 mg/ (Sodium Chloride) 50 mls @ 100 mls/hr IVPB Q8H [facility]; Protocol Last Admin: 10/01/18 17:02 Dose: 100 mls/hr Insulin Aspart (Novolog) 0 unit SC ACHS [facility]; Protocol Last Admin: 10/01/18 21:19 Dose: Not Given Lidocaine (Lidoderm) 1 ea TD DAILY [facility] Last Admin: 10/01/18 12:49 Dose: Not Given Losartan Potassium (Cozaar) 25 mg PO DAILY [facility] Last Admin: 10/01/18 10:29 Dose: 25 mg Metformin HCl (Glucophage) 500 mg PO BID [facility] Last Admin: 10/01/18 19:50 Dose: 500 mg Pantoprazole Sodium (Protonix Ec Tab) 40 mg PO BID [facility] Last Admin: 10/01/18 17:01 Dose: 40 mg Rosuvastatin Calcium (Crestor) 5 mg PO HS [facility] Last Admin: 10/01/18 21:18 Dose: 5 mg Sucralfate (Carafate Oral Susp) 1 gm PO ACHS [facility] Last Admin: 10/01/18 21:18 Dose: 1 gm - Labs Labs: 10/01/18 06:44 10/01/18 06:44 PT 15.6 SECONDS (9.7-12.2) H 09/25/18 16:56 INR 1.4 09/25/18 16:56 APTT 27 SECONDS (21-34) 09/25/18 16:56
[2018-10-02 07:01] LABS: BASO # 0.1 K/uL (0.0-0.2); BASO % 0.7 % (0.0-2.0); EOS # 0.5 K/uL (0.0-0.7); EOS % 3.6 % (0.0-4.0); HEMOGLOBIN 8.2 g/dL (12.0-18.0); LYMPH # 1.1 K/uL (1.0-4.3); LYMPH % 8.3 % (20.0-40.0); MEAN CELL VOLUME 86.2 fL (80.0-94.0); MEAN CORPUSCULAR HGB CONC 33.7 g/dL (33.0-37.0); MEAN PLATELET VOLUME 9.1 fL (7.2-11.7); MONO # 0.8 K/uL (0.0-0.8); MONO % 6.3 % (0.0-10.0); NEUT # 10.4 K/uL (1.8-7.0); NEUT % 81.1 % (50.0-75.0); PLATELET COUNT 468 K/uL (130-400); RBC 2.81 Mil/uL (4.40-5.90); WHITE BLOOD COUNT 12.9 K/uL (4.8-10.8)
[2018-10-02 07:32] LABS: INR 1.3; PROTHROMBIN TIME 14.4 SECONDS (9.7-12.2)
[2018-10-02 08:08] LABS: BLOOD UREA NITROGEN 15 mg/dL (9-20); CALCIUM 7.7 mg/dl (8.6-10.4); GFR NON-AFRICAN AMERICAN 57
[2018-10-02] MEDS: (Novolog) Insulin Aspart, Recombinant 100 u/ml 10 ml vial SC SCH ×4 (08:11→21:13)
[2018-10-02] MEDS: Sucralfate 1 gm/10 ml Oral Susp UD PO SCH ×4 (08:11→21:12)
[2018-10-02 09:09] LABS: ANISOCYTOSIS SLIGHT; EOSINOPHIL 6 % (0-4); LYMPHOCYTE 9 % (20-40); MONOCYTE 7 % (0-10); MYELOCYTE 1 % (0-0); NEUTROPHIL 77 % (50-75); PLATELET ESTIMATE SLIGHTLY INCREASED (NORMAL); POIKILOCYTOSIS SLIGHT; TOTAL CELLS COUNTED 100
[2018-10-02 09:10] LABS: HYPOCHROMIC MODERATE; MICROCYTOSIS SLIGHT
--- NOTE | 2018-10-02 09:31 | PN ---
DATE: 10/02/2018 SUBJECTIVE: The patient . He has right foot wound, which is well dressed. The patient is being seen by laundry or dry cleaners counter clerk. No fever. On antibiotics. PHYSICAL EXAMINATION: VITAL SIGNS: Blood pressure 149/80, pulse 80, respiratory rate 20, temperature 98.2. LUNGS: Clear. CARDIOVASCULAR SYSTEM: S1 and S2 regular. ABDOMEN: Soft. EXTREMITIES: Right foot wound. ASSESSMENT: 1. Necrotizing fascitis of right foot for a while. 2. Type 2 diabetes, new onset. 3. Hypertension, new onset. 4. Anemia of chronic disease. PLAN: Overall, medically stable. Taiwo Moreno MD
[2018-10-02] MEDS: Pantoprazole 40 mg EC Tab PO SCH ×2 (09:43→17:15)
[2018-10-02] MEDS: Lidocaine 5% Patch TD SCH (10:00)
[2018-10-02] MEDS ORDERED: Midazolam 2 MG/2 ML VIAL ONE (13:35)
[2018-10-02] MEDS ORDERED: Propofol 10 mg/ml Inj (20 ML) ONE ×2 (13:35→14:15)
[2018-10-02] MEDS ORDERED: Lidocaine Hydrochloride 10 ML INJ ONE (13:42)
[2018-10-02] MEDS ORDERED: Bupivacaine 0.25% 20 ML INJ IJ ONE (13:42)
--- NOTE | 2018-10-02 14:50 | CP.PCM.PN ---
Subjective - Date & Time of Evaluation Date of Evaluation: 10/02/18 Time of Evaluation: 07:00 - Subjective Subjective: for OR afeb IV rx renewed Objective - Vital Signs/Intake and Output Vital Signs (last 24 hours): Temp Pulse Resp BP Pulse Ox 98.3 F 86 20 150/87 95 10/02/18 12:45 10/02/18 12:45 10/02/18 12:45 10/02/18 12:45 10/02/18 12:45 Intake and Output: 10/02/18 10/02/18 06:59 18:59 Intake Total 0 Output Total 600 Balance -600 0 - Medications Medications: Current Medications Acetaminophen (Tylenol 325mg Tab) 650 mg PO Q6 PRN PRN Reason: Pain, Mild (1-3) Aspirin (Ecotrin) 81 mg PO DAILY [facility] Last Admin: 10/02/18 09:59 Dose: Not Given Dextrose (Dextrose 50% Inj) 0 ml IV STAT PRN; Protocol PRN Reason: Hypoglycemia Protocol Dextrose (Glutose 15) 0 gm PO ONCE PRN; Protocol PRN Reason: Hypoglycemia Protocol Diphenhydramine HCl (Benadryl) 25 mg PO Q6 PRN PRN Reason: Rash Glucagon (Glucagen Diagnostic Kit) 0 mg IM STAT PRN; Protocol PRN Reason: Hypoglycemia Protocol Clindamycin Phosphate 600 mg/ (Sodium Chloride) 54 mls @ 100 mls/hr IVPB Q8H [facility]; Protocol Last Admin: 10/02/18 08:38 Dose: 100 mls/hr Cefazolin Sodium 2,000 mg/ (Sodium Chloride) 50 mls @ 100 mls/hr IVPB Q8H [facility]; Protocol Last Admin: 10/02/18 09:41 Dose: 100 mls/hr Insulin Aspart (Novolog) 0 unit SC ACHS [facility]; Protocol Last Admin: 10/02/18 11:43 Dose: Not Given Lidocaine (Lidoderm) 1 ea TD DAILY [facility] Last Admin: 10/02/18 10:00 Dose: Not Given Losartan Potassium (Cozaar) 25 mg PO DAILY [facility] Last Admin: 10/02/18 09:43 Dose: 25 mg Metformin HCl (Glucophage) 500 mg PO BID [facility] Last Admin: 10/02/18 10:00 Dose: Not Given Pantoprazole Sodium (Protonix Ec Tab) 40 mg PO BID [facility] Last Admin: 10/02/18 09:43 Dose: 40 mg Rosuvastatin Calcium (Crestor) 5 mg PO HS [facility] Last Admin: 10/01/18 21:18 Dose: 5 mg Sucralfate (Carafate Oral Susp) 1 gm PO ACHS [facility] Last Admin: 10/02/18 12:30 Dose: Not Given - Labs Labs: 10/02/18 06:51 10/02/18 06:51 PT 14.4 SECONDS (9.7-12.2) H 10/02/18 06:51 INR 1.3 10/02/18 06:51 APTT 26 SECONDS (21-34) 10/02/18 06:51 - Constitutional Appears: Chronically Ill - Head Exam Head Exam: NORMOCEPHALIC - ENT Exam ENT Exam: Mucous Membranes Dry - Neck Exam Neck Exam: Full ROM - Respiratory Exam Respiratory Exam: Decreased Breath Sounds - Cardiovascular Exam Cardiovascular Exam: REGULAR RHYTHM - GI/Abdominal Exam GI & Abdominal Exam: Soft - Rectal Exam Rectal Exam: Deferred - Extremities Exam Extremities Exam: Pedal Edema Assessment and Plan (1) Necrotizing fasciitis of ankle and foot Status: Acute (2) Sepsis Status: Acute (3) Diabetes mellitus, new onset Status: Acute
--- NOTE | 2018-10-02 15:03 | PCM.SURG1 ---
Surgeon's Initial Post Op Note - Surgeon's Notes Surgeon: Dr. Alford Truck Loader: Dr. Madhavi Horner PGY-2, Dr. Obdulia Alonzo PGY-2 Type of Anesthesia: IV Sedation Anesthesia Administered By: Dr. Nix Pre-Operative Diagnosis: right leg necrotizing fasciitis with non-healing wound Operative Findings: see dictation. I: none. M: 2-0 Prolene, 1/2" iodoform packing, wound vac Post-Operative Diagnosis: same Operation Performed: right leg and foot incision and drainage, amputation of right 3rd digit, application of wound vac Specimen/Specimens Removed: right leg and foot soft tissue, right 3rd digit Estimated Blood Loss: EBL {In ML}: 50 Blood Products Given: N/A Drains Used: Wound Vac Post-Op Condition: Good Date of Surgery/Procedure: 10/02/18 Time of Surgery/Procedure: 15:03
[2018-10-02] MEDS ORDERED: HYDROmorphone 0.5 mg/0.5 ml ISec IVP PRN (15:18)
--- NOTE | 2018-10-02 17:13 | RAD ---
Date of service: 10/02/2018 PROCEDURE: Right Ankle Radiographs. HISTORY: s/p surgery COMPARISON: None available. FINDINGS: BONES: No fracture. Plantar calcaneal spur noted. JOINTS: Normal. No osteoarthritis. Ankle mortise maintained. Talar dome intact SOFT TISSUES: Vascular calcification noted OTHER FINDINGS: None. IMPRESSION: No acute abnormality
[2018-10-02] MEDS: Lactated Ringer's 1,000 ML IV SCH (17:14)
--- NOTE | 2018-10-02 17:14 | RAD ---
Date of service: 10/02/2018 PROCEDURE: Right Foot Radiographs. HISTORY: s/p surgery COMPARISON: 09/23/2018 FINDINGS: BONES: Status post amputation 3rd digit at the metatarsal phalangeal articulation. No acute fracture. Plantar calcaneal spur noted. JOINTS: Normal. SOFT TISSUES: Soft tissue swelling seen about the plantar and dorsal aspect of the operative site OTHER FINDINGS: None. IMPRESSION: Amputation 3rd digit at MTP.
--- NOTE | 2018-10-02 17:15 | RAD ---
Date of service: 10/02/2018 PROCEDURE: Radiographs of the right tibia and fibula. HISTORY: s/p surgery COMPARISON: None available TECHNIQUE: Frontal and lateral views obtained. FINDINGS: BONES: No fracture or destructive lesion. JOINT SPACES: Unremarkable. OTHER FINDINGS: None. IMPRESSION: Unremarkable radiographs of the right tibia and fibula.
--- NOTE | 2018-10-02 22:35 | CP.PCM.PN ---
Subjective - Subjective Subjective: dictated Objective - Vital Signs/Intake and Output Vital Signs (last 24 hours): Temp Pulse Resp BP Pulse Ox 97.4 F L 79 20 171/90 H 96 10/02/18 16:12 10/02/18 16:12 10/02/18 16:12 10/02/18 16:12 10/02/18 16:12 Intake and Output: 10/02/18 10/03/18 18:59 06:59 Intake Total 900 Balance 900 - Medications Medications: Current Medications Acetaminophen (Tylenol 325mg Tab) 650 mg PO Q6 PRN PRN Reason: Pain, Mild (1-3) Last Admin: 10/02/18 16:47 Dose: 650 mg Aspirin (Ecotrin) 81 mg PO DAILY [facility] Last Admin: 10/02/18 09:59 Dose: Not Given Dextrose (Dextrose 50% Inj) 0 ml IV STAT PRN; Protocol PRN Reason: Hypoglycemia Protocol Dextrose (Glutose 15) 0 gm PO ONCE PRN; Protocol PRN Reason: Hypoglycemia Protocol Diphenhydramine HCl (Benadryl) 25 mg PO Q6 PRN PRN Reason: Rash Glucagon (Glucagen Diagnostic Kit) 0 mg IM STAT PRN; Protocol PRN Reason: Hypoglycemia Protocol Clindamycin Phosphate 600 mg/ (Sodium Chloride) 54 mls @ 100 mls/hr IVPB Q8H [facility]; Protocol Last Admin: 10/02/18 16:45 Dose: 100 mls/hr Cefazolin Sodium 2,000 mg/ (Sodium Chloride) 50 mls @ 100 mls/hr IVPB Q8H [facility]; Protocol Last Admin: 10/02/18 16:46 Dose: 100 mls/hr Lactated Ringer's (Lactated Ringer's) 1,000 mls @ 100 mls/hr IV .Q10H [facility] Last Admin: 10/02/18 17:14 Dose: 100 mls/hr Insulin Aspart (Novolog) 0 unit SC ACHS [facility]; Protocol Last Admin: 10/02/18 21:13 Dose: Not Given Lidocaine (Lidoderm) 1 ea TD DAILY [facility] Last Admin: 10/02/18 10:00 Dose: Not Given Losartan Potassium (Cozaar) 50 mg PO DAILY [facility] Last Admin: 10/02/18 19:13 Dose: 50 mg Metformin HCl (Glucophage) 500 mg PO BID [facility] Last Admin: 10/02/18 17:15 Dose: 500 mg Pantoprazole Sodium (Protonix Ec Tab) 40 mg PO BID [facility] Last Admin: 10/02/18 17:15 Dose: 40 mg Rosuvastatin Calcium (Crestor) 5 mg PO HS [facility] Last Admin: 10/02/18 21:12 Dose: 5 mg Sucralfate (Carafate Oral Susp) 1 gm PO ACHS [facility] Last Admin: 10/02/18 21:12 Dose: 1 gm - Labs Labs: 10/02/18 06:51 10/02/18 06:51 PT 14.4 SECONDS (9.7-12.2) H 10/02/18 06:51 INR 1.3 10/02/18 06:51 APTT 26 SECONDS (21-34) 10/02/18 06:51
[2018-10-03] MEDS: Lactated Ringer's 1,000 ML IV SCH ×4 (01:30→21:54)
--- NOTE | 2018-10-03 03:27 | PN ---
DATE: 10/02/2018 SUBJECTIVE: Aramis Cabrera is for OR again today. The patient is afebrile. No shortness of breath. No chest pain. Blood sugars are going down. No fever. No chills. PHYSICAL EXAMINATION: VITAL SIGNS: Blood pressure 171/90, pulse 79, respiratory rate 20, temperature 97.4. LUNGS: Bilateral clear. CARDIOVASCULAR SYSTEM: S1 and S2 are regular. ABDOMEN: Soft. ASSESSMENT: 1. New-onset diabetes. 2. Necrotizing fasciitis of the right foot. 3. New-onset hypertension. 4. Anemia of chronic disease. PLAN: OR. Wound care. Antibiotics. Medical optimization. Taiwo Moreno MD
[2018-10-03 06:51] LABS: BASO # 0.1 K/uL (0.0-0.2); BASO % 0.7 % (0.0-2.0); EOS # 0.4 K/uL (0.0-0.7); HEMOGLOBIN 7.5 g/dL (12.0-18.0); LYMPH % 7.1 % (20.0-40.0); MEAN CELL VOLUME 86.6 fL (80.0-94.0); MEAN CORPUSCULAR HGB CONC 33.5 g/dL (33.0-37.0); MEAN PLATELET VOLUME 9.5 fL (7.2-11.7); MONO # 0.8 K/uL (0.0-0.8); MONO % 5.6 % (0.0-10.0); NEUT # 11.3 K/uL (1.8-7.0); NEUT % 83.6 % (50.0-75.0); PLATELET COUNT 439 K/uL (130-400); RBC 2.57 Mil/uL (4.40-5.90); RED CELL DISTRIBUTION WIDTH 13.5 % (11.5-14.5); WHITE BLOOD COUNT 13.5 K/uL (4.8-10.8)
[2018-10-03] MEDS: Sucralfate 1 gm/10 ml Oral Susp UD PO SCH ×4 (08:11→21:53)
[2018-10-03] MEDS: (Novolog) Insulin Aspart, Recombinant 100 u/ml 10 ml vial SC SCH ×4 (08:17→21:54)
[2018-10-03] MEDS: Pantoprazole 40 mg EC Tab PO SCH ×2 (09:06→18:46)
[2018-10-03 09:09] LABS: ANISOCYTOSIS SLIGHT; BASOPHIL 1 % (0-2); EOSINOPHIL 1 % (0-4); LYMPHOCYTE 3 % (20-40); MONOCYTE 7 % (0-10); NEUTROPHIL 88 % (50-75); PLATELET ESTIMATE SLIGHTLY INCREASED (NORMAL); POIKILOCYTOSIS SLIGHT; TOTAL CELLS COUNTED 100
[2018-10-03 09:10] LABS: HYPOCHROMIC SLIGHT
[2018-10-03] MEDS: Lidocaine 5% Patch TD SCH (09:11)
--- NOTE | 2018-10-03 13:12 | RAD ---
Chest x-ray single frontal view HISTORY: PICC line placement. Comparison: 09/23/2018 FINDINGS: Right PICC line with tip extending into the mid right SVC. Moderate venous congestion. Dense consolidative opacifications seen within the mid to lower lung zones bilaterally with associated bilateral pleural effusions. Rounded nodular density projects over right lung apex laterally on the oblique view. Cardiomegaly. Degenerative changes in the spine and shoulders. Impression: Right PICC line with tip extending into the mid right SVC. Moderate venous congestion. Dense consolidative opacifications seen within the mid to lower lung zones bilaterally with associated bilateral pleural effusions. Cardiomegaly.
--- NOTE | 2018-10-03 13:12 | CP.PCM.PN ---
Subjective - Date & Time of Evaluation Date of Evaluation: 10/03/18 Time of Evaluation: 13:08 - Subjective Subjective: Podiatry Progress Note for Dr. Alford 58 year old male seen 1 day s/p I and D with washout of right leg for treatment of necrotizing fasciitis and application of wound vac. Patient is AAOx3 and NAD at time of visit. Denies of any pain today. Denies any acute overnight events or new pedal complaints. Denies any recent N/V/F/C/CP/SOB/D. Objective - Vital Signs/Intake and Output Vital Signs (last 24 hours): Temp Pulse Resp BP Pulse Ox 98.0 F 82 20 153/90 H 97 10/03/18 07:00 10/03/18 07:00 10/03/18 07:00 10/03/18 07:00 10/03/18 07:00 Intake and Output: 10/03/18 10/03/18 06:59 18:59 Intake Total 1900 Output Total 1310 Balance 590 - Medications Medications: Current Medications Acetaminophen (Tylenol 325mg Tab) 650 mg PO Q6 PRN PRN Reason: Pain, Mild (1-3) Last Admin: 10/02/18 16:47 Dose: 650 mg Aspirin (Ecotrin) 81 mg PO DAILY [facility] Last Admin: 10/03/18 09:06 Dose: 81 mg Dextrose (Dextrose 50% Inj) 0 ml IV STAT PRN; Protocol PRN Reason: Hypoglycemia Protocol Dextrose (Glutose 15) 0 gm PO ONCE PRN; Protocol PRN Reason: Hypoglycemia Protocol Diphenhydramine HCl (Benadryl) 25 mg PO Q6 PRN PRN Reason: Rash Glucagon (Glucagen Diagnostic Kit) 0 mg IM STAT PRN; Protocol PRN Reason: Hypoglycemia Protocol Clindamycin Phosphate 600 mg/ (Sodium Chloride) 54 mls @ 100 mls/hr IVPB Q8H [facility]; Protocol Last Admin: 10/03/18 08:11 Dose: 100 mls/hr Cefazolin Sodium 2,000 mg/ (Sodium Chloride) 50 mls @ 100 mls/hr IVPB Q8H [facility]; Protocol Last Admin: 10/03/18 09:05 Dose: 100 mls/hr Lactated Ringer's (Lactated Ringer's) 1,000 mls @ 100 mls/hr IV .Q10H [facility] Last Admin: 10/03/18 12:00 Dose: Not Given Insulin Aspart (Novolog) 0 unit SC [facility]; Protocol Last Admin: 10/03/18 12:52 Dose: 2 units Lidocaine (Lidoderm) 1 ea TD DAILY [facility] Last Admin: 10/03/18 09:11 Dose: Not Given Losartan Potassium (Cozaar) 50 mg PO DAILY [facility] Last Admin: 10/03/18 09:06 Dose: 50 mg Metformin HCl (Glucophage) 500 mg PO BID [facility] Last Admin: 10/03/18 09:06 Dose: 500 mg Pantoprazole Sodium (Protonix Ec Tab) 40 mg PO BID [facility] Last Admin: 10/03/18 09:06 Dose: 40 mg Rosuvastatin Calcium (Crestor) 5 mg PO HS [facility] Last Admin: 10/02/18 21:12 Dose: 5 mg Sucralfate (Carafate Oral Susp) 1 gm PO [facility] Last Admin: 10/03/18 12:52 Dose: 1 gm - Labs Labs: 10/03/18 06:44 10/02/18 06:51 PT 14.4 SECONDS (9.7-12.2) H 10/02/18 06:51 INR 1.3 10/02/18 06:51 APTT 26 SECONDS (21-34) 10/02/18 06:51 - Constitutional Appears: Well, Non-toxic, No Acute Distress - Extremities Exam Additional comments: RLE focused exam: Wound VAC functioning continuous at 125 mmHG - Canister shows 60 cc of sero-sanguineous drainage Plantar surgical site appears well coapted with no dehiscence, no active drainage, mild sero-sanguineous drainage noted on the bandage, packing seen on the plantar proximal aspect - Neurological Exam Neurological Exam: Alert, Awake, Oriented x3 - Psychiatric Exam Psychiatric exam: Normal Affect, Normal Mood Assessment and Plan - Assessment and Plan (Free Text) Assessment: 58 year old male evaluated 1 day s/p I and D with washout of right leg for treatment of necrotizing fasciitis. Plan: Patient seen and evaluated Plan discussed with Dr. Alford Labs, vitals and charts reviewed - Afebrile, 13.5 WBC Intra-op wound cx: Staph Aureus, Group G Strep Continue IV abx per ID Post operative tib fib xray: No periosteal reaction or cortical interruption seen to suggest osteomyelitis. No lytic lesions. No fractures. Soft tissue changes are compatible with known soft tissue infection and recent incision and drainage and bandaging Post operative foot xray: No osseous destruction or periosteal reaction seen to suggest osteomyelitis. Extensive abnormal soft tissue findings as detailed above compatible with the history of a soft tissue infection and recent surgical intervention. Follow-up recommended LE MRI: No definitive pattern suggest osteomyelitis though failure fat suppression throughout the digits limits interpretation somewhat. No definitive abnormal bone enhancement appreciable. No definitive marrow edema. Extensive left foot edema is appreciate diffusely including multiple soft tissue and dermal defects packed by gauze at the forefoot to midfoot plantar and dorsal soft tissues as discussed above. Limitations: Failure fat suppression of the digits diffusely. no purulent drainage expressed from the surgical sites, mainly serous fluid during the procedure as well as during dressing change this morning site cleansed with gauze and saline. Incision site re-packed on the plantar side and wound vac functioning at 125 mmHg with no leak on the anterior foot/leg and dressed with gauz, DSD, ABD, kerlix, CARMENCITA bandage Plan to change the wound vac on Sunday for re-assessment of the wound Podiatry will continue to follow while patient in house
--- NOTE | 2018-10-03 20:33 | PCM.OP ---
Operative Report - Operative Report Date of Surgery/Procedure: 10/02/18 Time of Surgery/Procedure: 13:30 Surgeon: Dr. Aniyah Alford Weatherization Administrator: Dr. Madhavi Horner PGY-2, Dr. Obdulia Alonzo PGY-2 Anesthesia/Sedation: Dr. Hines - IV sedation Pre-Operative Diagnosis: right leg necrotizing fasciitis with non-healing wound, right foot 3rd digit gangrene Post-Operative Diagnosis: right leg necrotizing fasciitis with non-healing wound, right foot 3rd digit gangrene Indication for Surgery: The patient is a 58 year-old male with the above diagnoses. The patient has exhausted all conservative treatment at this time and now requires surgical intervention. The patient signed the consent after careful explanation of risks, benefits, complications and alternatives for surgical procedure. No guarantees were given nor implied. NPO status was confirmed prior to taking patient to the operating room. Operative Findings: Preparation: The patient was brought in to the operating room and placed on the operating room table in the supine position. Timeout was performed for identification of the correct patient and procedure. After induction of intravenous sedation, the patient's right leg and foot was then prepped and draped in normal sterile manner and the procedure began. No tourniquet was utilized during the procedure. No local anesthesia was injected prior to the procedure secondary to patient's neuropathic status. Procedure/Operation Description: Procedure #1: Amputation of right foot 3rd digit Attention was directed to the right foot 3rd digit which was noted to exhibit diffuse gangrenous changes with discoloration to the entirety of the 3rd digit. Using a sterile 15 blade, a circumferential incision was made surrounding the base of the 3rd digit at the level of the 3rd metatarsophalangeal joint, down to the level of bone. Using sterile forceps and a 15 blade, the 3rd digit was disarticulated at the metatarsophalangeal joint and passed off the field to be sent for pathology. The site was then flushed with copious amounts of normal sterile saline. Procedure #2: Debridement of non-healing wound Attention was then directed to the lateral aspect of the right lower leg and foot where a non-healing wound extending from the distal 1/3 of the right leg extending to the lateral forefoot to the level of the 3rd-5th tarsometatarsal joints. The wound base was noted to have a fibrotic base. An additional surgical incision was noted to the plantar aspect of the midfoot extending distally to the forefoot into the right foot 2nd and 3rd interspaces, including the site of the previously amputated 3rd digit. Furthermore, a superficial circular ulceration measuring approximately 3cm in diameter and 0.1cm in depth was noted to the medial aspect of the 1st metatarsophalangeal joint. A sterile 15 blade and forceps were utilized to excise all necrotic tissue from the wound beds and wound margins. Next, using Versajet on setting 7, the wound beds were excisionally debrided of all remaining fibrotic and non-viable tissue until fresh and healthy bleeding granular tissue appeared. The plantar wound was then reapproximated distally with 2-0 Prolene sutures and packed proximally at the level of the plantar medial arch with 1/2 iodoform packing. Next, a wound vac was applied to the right dorsolateral lower leg and foot wound, the 2nd interspace wound and the medial 1st metatarsophalangeal joint wound, all of which were bridged with black foam. The wound vac was set to continuous pressure of 125 mm Hg and turned on, where it was confirmed that no leaks were detected. The plantar linear surgical incision site wound was dressed with Adaptic and the remainder of the right lower extremity was dressed with abdominal pads, 4x4 gauze, and CARMENCITA bandage. Estimated Blood Loss: 50cc Drains: Wound vac, right leg and foot Complications: None Specimen: right leg and foot soft tissue, right 3rd digit Discharge & Condition: Postoperative Condition: The patient tolerated the anesthesia and procedure well and was escorted to the recovery room with vital signs stable and neurovascular status unchanged to the right lower extremity. Patient is to remain non-weight bearing to right lower extremity. Patient is to return to floors and podiatry will continue to follow patient while in house. Upon discharge, patient will follow up with Dr. Alford in [facility] podiatry clinic.
--- NOTE | 2018-10-04 00:58 | CP.PCM.PN ---
Subjective - Date & Time of Evaluation Date of Evaluation: 10/03/18 - Subjective Subjective: dictated Objective - Vital Signs/Intake and Output Vital Signs (last 24 hours): Temp Pulse Resp BP Pulse Ox 98 F 82 18 145/75 95 10/03/18 20:00 10/03/18 20:00 10/03/18 20:00 10/03/18 20:00 10/03/18 20:00 Intake and Output: 10/03/18 10/04/18 18:59 06:59 Intake Total 925 1505 Output Total 75 20 Balance 850 1485 - Medications Medications: Current Medications Acetaminophen (Tylenol 325mg Tab) 650 mg PO Q6 PRN PRN Reason: Pain, Mild (1-3) Last Admin: 10/02/18 16:47 Dose: 650 mg Aspirin (Ecotrin) 81 mg PO DAILY [facility] Last Admin: 10/03/18 09:06 Dose: 81 mg Dextrose (Dextrose 50% Inj) 0 ml IV STAT PRN; Protocol PRN Reason: Hypoglycemia Protocol Dextrose (Glutose 15) 0 gm PO ONCE PRN; Protocol PRN Reason: Hypoglycemia Protocol Diphenhydramine HCl (Benadryl) 25 mg PO Q6 PRN PRN Reason: Rash Glucagon (Glucagen Diagnostic Kit) 0 mg IM STAT PRN; Protocol PRN Reason: Hypoglycemia Protocol Clindamycin Phosphate 600 mg/ (Sodium Chloride) 54 mls @ 100 mls/hr IVPB Q8H [facility]; Protocol Last Admin: 10/04/18 00:08 Dose: 100 mls/hr Cefazolin Sodium 2,000 mg/ (Sodium Chloride) 50 mls @ 100 mls/hr IVPB Q8H [facility]; Protocol Last Admin: 10/03/18 18:04 Dose: 100 mls/hr Lactated Ringer's (Lactated Ringer's) 1,000 mls @ 100 mls/hr IV .Q10H [facility] Last Admin: 10/03/18 21:54 Dose: Not Given Insulin Aspart (Novolog) 0 unit SC ACHS [facility]; Protocol Last Admin: 10/03/18 21:54 Dose: Not Given Lidocaine (Lidoderm) 1 ea TD DAILY [facility] Last Admin: 10/03/18 09:11 Dose: Not Given Losartan Potassium (Cozaar) 50 mg PO DAILY [facility] Last Admin: 10/03/18 09:06 Dose: 50 mg Metformin HCl (Glucophage) 500 mg PO BID [facility] Last Admin: 10/03/18 18:46 Dose: 500 mg Pantoprazole Sodium (Protonix Ec Tab) 40 mg PO BID [facility] Last Admin: 10/03/18 18:46 Dose: 40 mg Rosuvastatin Calcium (Crestor) 5 mg PO HS [facility] Last Admin: 10/03/18 21:53 Dose: 5 mg Sucralfate (Carafate Oral Susp) 1 gm PO ACHS [facility] Last Admin: 10/03/18 21:53 Dose: 1 gm - Labs Labs: 10/03/18 06:44 10/02/18 06:51 PT 14.4 SECONDS (9.7-12.2) H 10/02/18 06:51 INR 1.3 10/02/18 06:51 APTT 26 SECONDS (21-34) 10/02/18 06:51
--- NOTE | 2018-10-04 03:36 | PN ---
DATE: 10/04/2018 SUBJECTIVE: Dalton Cabrera is feeling better. He is more alert. Postop, his hemoglobin is down. He is for blood transfusion. No fever. No chills. PHYSICAL EXAMINATION: VITAL SIGNS: Blood pressure 148/83, pulse 80, respiratory rate 20, temperature 98.1. LUNGS: Clear. CARDIOVASCULAR SYSTEM: S1 and S2 regular. EXTREMITIES: Right foot wound. ASSESSMENT: 1. Necrotizing fascitis, right foot. 2. Type 2 diabetes. 3. Hypertension. 4. Anemia. PLAN: Blood transfusion. Monitor patient. Taiwo Moreno MD
[2018-10-04] MEDS: Lactated Ringer's 1,000 ML IV SCH ×3 (04:30→17:33)
[2018-10-04 06:35] LABS: BASO # 0.1 K/uL (0.0-0.2); BASO % 0.9 % (0.0-2.0); EOS # 0.3 K/uL (0.0-0.7); EOS % 2.5 % (0.0-4.0); HEMOGLOBIN 8.5 g/dL (12.0-18.0); LYMPH # 0.9 K/uL (1.0-4.3); LYMPH % 6.9 % (20.0-40.0); MEAN CORPUSCULAR HGB CONC 33.7 g/dL (33.0-37.0); MEAN PLATELET VOLUME 8.9 fL (7.2-11.7); MONO # 0.7 K/uL (0.0-0.8); MONO % 5.3 % (0.0-10.0); NEUT # 10.7 K/uL (1.8-7.0); NEUT % 84.4 % (50.0-75.0); PLATELET COUNT 470 K/uL (130-400); RBC 2.92 Mil/uL (4.40-5.90); RED CELL DISTRIBUTION WIDTH 14.2 % (11.5-14.5); WHITE BLOOD COUNT 12.7 K/uL (4.8-10.8)
[2018-10-04 07:48] LABS: BLOOD UREA NITROGEN 11 mg/dL (9-20); GFR NON-AFRICAN AMERICAN 57
[2018-10-04 07:49] LABS: CALCIUM 7.8 mg/dl (8.6-10.4)
[2018-10-04 08:24] LABS: BASOPHIL 1 % (0-2); EOSINOPHIL 1 % (0-4); LYMPHOCYTE 7 % (20-40); MONOCYTE 5 % (0-10); NEUTROPHIL 86 % (50-75); TOTAL CELLS COUNTED 100
[2018-10-04 08:25] LABS: ANISOCYTOSIS SLIGHT; HYPOCHROMIC SLIGHT; PLATELET ESTIMATE SLIGHTLY INCREASED (NORMAL); POIKILOCYTOSIS SLIGHT
[2018-10-04 08:26] LABS: LARGE PLATELETS PRESENT
[2018-10-04] MEDS: Sucralfate 1 gm/10 ml Oral Susp UD PO SCH ×4 (08:30→21:16)
[2018-10-04] MEDS: (Novolog) Insulin Aspart, Recombinant 100 u/ml 10 ml vial SC SCH ×4 (08:47→21:17)
[2018-10-04] MEDS: Pantoprazole 40 mg EC Tab PO SCH ×2 (09:12→17:34)
[2018-10-04] MEDS: Lidocaine 5% Patch TD SCH (09:20)
--- NOTE | 2018-10-04 17:36 | CP.PCM.PN ---
Subjective - Date & Time of Evaluation Date of Evaluation: 10/04/18 Time of Evaluation: 09:00 - Subjective Subjective: s/p OR tolerated well afeb on IV antibiotics rx renewed Objective - Vital Signs/Intake and Output Vital Signs (last 24 hours): Temp Pulse Resp BP Pulse Ox 98.3 F 85 20 159/83 H 96 10/04/18 15:44 10/04/18 15:44 10/04/18 15:44 10/04/18 15:44 10/04/18 15:44 Intake and Output: 10/04/18 10/04/18 06:59 18:59 Intake Total 2505 Output Total 1220 Balance 1285 - Medications Medications: Current Medications Acetaminophen (Tylenol 325mg Tab) 650 mg PO Q6 PRN PRN Reason: Pain, Mild (1-3) Last Admin: 10/02/18 16:47 Dose: 650 mg Aspirin (Ecotrin) 81 mg PO DAILY [facility] Last Admin: 10/04/18 09:12 Dose: 81 mg Dextrose (Dextrose 50% Inj) 0 ml IV STAT PRN; Protocol PRN Reason: Hypoglycemia Protocol Dextrose (Glutose 15) 0 gm PO ONCE PRN; Protocol PRN Reason: Hypoglycemia Protocol Diphenhydramine HCl (Benadryl) 25 mg PO Q6 PRN PRN Reason: Rash Glucagon (Glucagen Diagnostic Kit) 0 mg IM STAT PRN; Protocol PRN Reason: Hypoglycemia Protocol Clindamycin Phosphate 600 mg/ (Sodium Chloride) 54 mls @ 100 mls/hr IVPB Q8H [facility]; Protocol Last Admin: 10/04/18 16:09 Dose: 100 mls/hr Cefazolin Sodium 2,000 mg/ (Sodium Chloride) 50 mls @ 100 mls/hr IVPB Q8H [facility]; Protocol Last Admin: 10/04/18 09:41 Dose: 100 mls/hr Lactated Ringer's (Lactated Ringer's) 1,000 mls @ 100 mls/hr IV .Q10H [facility] Last Admin: 10/04/18 08:01 Dose: Not Given Insulin Aspart (Novolog) 0 unit SC ACHS [facility]; Protocol Last Admin: 10/04/18 11:52 Dose: Not Given Lidocaine (Lidoderm) 1 ea TD DAILY [facility] Last Admin: 10/04/18 09:20 Dose: Not Given Losartan Potassium (Cozaar) 50 mg PO DAILY [facility] Last Admin: 10/04/18 09:12 Dose: 50 mg Metformin HCl (Glucophage) 500 mg PO BID [facility] Last Admin: 10/04/18 09:11 Dose: 500 mg Pantoprazole Sodium (Protonix Ec Tab) 40 mg PO BID [facility] Last Admin: 10/04/18 09:12 Dose: 40 mg Rosuvastatin Calcium (Crestor) 5 mg PO HS [facility] Last Admin: 10/03/18 21:53 Dose: 5 mg Sucralfate (Carafate Oral Susp) 1 gm PO ACHS [facility] Last Admin: 10/04/18 16:10 Dose: 1 gm - Labs Labs: 10/04/18 06:24 10/04/18 06:24 PT 14.4 SECONDS (9.7-12.2) H 10/02/18 06:51 INR 1.3 10/02/18 06:51 APTT 26 SECONDS (21-34) 10/02/18 06:51 - Constitutional Appears: Non-toxic, Chronically Ill - Head Exam Head Exam: NORMOCEPHALIC - Eye Exam Eye Exam: absent: Scleral icterus - ENT Exam ENT Exam: Mucous Membranes Dry - Neck Exam Neck Exam: absent: Lymphadenopathy - Respiratory Exam Respiratory Exam: Decreased Breath Sounds - Cardiovascular Exam Cardiovascular Exam: REGULAR RHYTHM - GI/Abdominal Exam GI & Abdominal Exam: Distended - Rectal Exam Rectal Exam: Deferred - Exam Exam: NORMAL INSPECTION - Extremities Exam Extremities Exam: Pedal Edema, Tenderness. absent: Calf Tenderness, Normal Inspection - Back Exam Back Exam: absent: CVA tenderness (L), CVA tenderness (R) - Neurological Exam Neurological Exam: Alert, Awake, Oriented x3 Assessment and Plan (1) Necrotizing fasciitis of ankle and foot Status: Acute (2) Sepsis Status: Acute (3) Diabetes mellitus, new onset Status: Acute - Assessment and Plan (Free Text) Assessment: s/p amp 3rd digit right foot s/p debridement right foot wound IV antibiotic renewed cont wound care
--- NOTE | 2018-10-04 20:05 | CP.PCM.PN ---
Subjective - Date & Time of Evaluation Date of Evaluation: 10/04/18 Time of Evaluation: 10:30 - Subjective Subjective: Podiatry Progress Note for Dr. Alford 58 year old male seen 2 days s/p I and D with washout of right leg for treatment of necrotizing fasciitis and application of wound vac. Patient is AAOx3 and NAD at time of visit. Denies of any pain today. Denies any acute overnight events or new pedal complaints. Denies any recent N/V/F/C/CP/SOB/D. Objective - Vital Signs/Intake and Output Vital Signs (last 24 hours): Temp Pulse Resp BP Pulse Ox 98.3 F 85 20 159/83 H 96 10/04/18 15:44 10/04/18 15:44 10/04/18 15:44 10/04/18 15:44 10/04/18 15:44 - Medications Medications: Current Medications Acetaminophen (Tylenol 325mg Tab) 650 mg PO Q6 PRN PRN Reason: Pain, Mild (1-3) Last Admin: 10/02/18 16:47 Dose: 650 mg Aspirin (Ecotrin) 81 mg PO DAILY [facility] Last Admin: 10/04/18 09:12 Dose: 81 mg Dextrose (Dextrose 50% Inj) 0 ml IV STAT PRN; Protocol PRN Reason: Hypoglycemia Protocol Dextrose (Glutose 15) 0 gm PO ONCE PRN; Protocol PRN Reason: Hypoglycemia Protocol Diphenhydramine HCl (Benadryl) 25 mg PO Q6 PRN PRN Reason: Rash Glucagon (Glucagen Diagnostic Kit) 0 mg IM STAT PRN; Protocol PRN Reason: Hypoglycemia Protocol Clindamycin Phosphate 600 mg/ (Sodium Chloride) 54 mls @ 100 mls/hr IVPB Q8H [facility]; Protocol Last Admin: 10/04/18 16:09 Dose: 100 mls/hr Cefazolin Sodium 2,000 mg/ (Sodium Chloride) 50 mls @ 100 mls/hr IVPB Q8H [facility]; Protocol Last Admin: 10/04/18 17:33 Dose: 100 mls/hr Lactated Ringer's (Lactated Ringer's) 1,000 mls @ 100 mls/hr IV .Q10H [facility] Last Admin: 10/04/18 17:33 Dose: 100 mls/hr Insulin Aspart (Novolog) 0 unit SC ACHS [facility]; Protocol Last Admin: 10/04/18 17:34 Dose: 4 units Lidocaine (Lidoderm) 1 ea TD DAILY [facility] Last Admin: 10/04/18 09:20 Dose: Not Given Losartan Potassium (Cozaar) 50 mg PO DAILY [facility] Last Admin: 10/04/18 09:12 Dose: 50 mg Metformin HCl (Glucophage) 500 mg PO BID [facility] Last Admin: 10/04/18 17:34 Dose: 500 mg Pantoprazole Sodium (Protonix Ec Tab) 40 mg PO BID [facility] Last Admin: 10/04/18 17:34 Dose: 40 mg Rosuvastatin Calcium (Crestor) 5 mg PO HS [facility] Last Admin: 10/03/18 21:53 Dose: 5 mg Sucralfate (Carafate Oral Susp) 1 gm PO ACHS [facility] Last Admin: 10/04/18 16:10 Dose: 1 gm - Labs Labs: 10/04/18 06:24 10/04/18 06:24 PT 14.4 SECONDS (9.7-12.2) H 10/02/18 06:51 INR 1.3 10/02/18 06:51 APTT 26 SECONDS (21-34) 10/02/18 06:51 - Constitutional Appears: Well, Non-toxic, No Acute Distress - Extremities Exam Additional comments: RLE focused exam: Wound VAC functioning continuous at 125 mmHG - Canister shows 150 cc of sero-sanguineous drainage Plantar surgical site appears well coapted with no dehiscence, no active drainage, mild sero-sanguineous drainage noted on the bandage, packing seen on the plantar proximal aspect - Neurological Exam Neurological Exam: Alert, Awake, Oriented x3 - Psychiatric Exam Psychiatric exam: Normal Affect, Normal Mood Assessment and Plan - Assessment and Plan (Free Text) Assessment: 58 year old male evaluated 2 days s/p I and D with washout of right leg for treatment of necrotizing fasciitis. Plan: Patient seen and evaluated Plan discussed with Dr. Alford Labs, vitals and charts reviewed - Afebrile, 12.7 WBC Intra-op wound cx: Staph Aureus, Group G Strep Continue IV abx per ID Post operative tib fib xray: No periosteal reaction or cortical interruption seen to suggest osteomyelitis. No lytic lesions. No fractures. Soft tissue changes are compatible with known soft tissue infection and recent incision and drainage and bandaging Post operative foot xray: No osseous destruction or periosteal reaction seen to suggest osteomyelitis. Extensive abnormal soft tissue findings as detailed above compatible with the history of a soft tissue infection and recent surgical intervention. Follow-up recommended LE MRI: No definitive pattern suggest osteomyelitis though failure fat suppression throughout the digits limits interpretation somewhat. No definitive abnormal bone enhancement appreciable. No definitive marrow edema. Extensive left foot edema is appreciate diffusely including multiple soft tissue and dermal defects packed by gauze at the forefoot to midfoot plantar and dorsal soft tissues as discussed above. Limitations: Failure fat suppression of the digits diffusely. no purulent drainage expressed from the surgical sites, mainly serous fluid during the procedure as well as during dressing change this morning site cleansed with gauze and saline. Incision site re-packed on the plantar side and wound vac functioning at 125 mmHg with no leak on the anterior foot/leg and dressed with gauz, DSD, ABD, kerlix, CARMENCITA bandage Plan to change the wound vac on Sunday for re-assessment of the wound Podiatry will continue to follow while patient in house
--- NOTE | 2018-10-04 23:54 | CP.PCM.PN ---
Subjective - Subjective Subjective: dictated Objective - Vital Signs/Intake and Output Vital Signs (last 24 hours): Temp Pulse Resp BP Pulse Ox 98.3 F 85 20 159/83 H 96 10/04/18 15:44 10/04/18 15:44 10/04/18 15:44 10/04/18 15:44 10/04/18 15:44 Intake and Output: 10/04/18 10/05/18 18:59 06:59 Intake Total 1000 Output Total 730 Balance 270 - Medications Medications: Current Medications Acetaminophen (Tylenol 325mg Tab) 650 mg PO Q6 PRN PRN Reason: Pain, Mild (1-3) Last Admin: 10/02/18 16:47 Dose: 650 mg Aspirin (Ecotrin) 81 mg PO DAILY [facility] Last Admin: 10/04/18 09:12 Dose: 81 mg Dextrose (Dextrose 50% Inj) 0 ml IV STAT PRN; Protocol PRN Reason: Hypoglycemia Protocol Dextrose (Glutose 15) 0 gm PO ONCE PRN; Protocol PRN Reason: Hypoglycemia Protocol Diphenhydramine HCl (Benadryl) 25 mg PO Q6 PRN PRN Reason: Rash Glucagon (Glucagen Diagnostic Kit) 0 mg IM STAT PRN; Protocol PRN Reason: Hypoglycemia Protocol Clindamycin Phosphate 600 mg/ (Sodium Chloride) 54 mls @ 100 mls/hr IVPB Q8H [facility]; Protocol Last Admin: 10/04/18 16:09 Dose: 100 mls/hr Cefazolin Sodium 2,000 mg/ (Sodium Chloride) 50 mls @ 100 mls/hr IVPB Q8H [facility]; Protocol Last Admin: 10/04/18 17:33 Dose: 100 mls/hr Lactated Ringer's (Lactated Ringer's) 1,000 mls @ 100 mls/hr IV .Q10H [facility] Last Admin: 10/04/18 17:33 Dose: 100 mls/hr Insulin Aspart (Novolog) 0 unit SC ACHS [facility]; Protocol Last Admin: 10/04/18 21:17 Dose: Not Given Lidocaine (Lidoderm) 1 ea TD DAILY [facility] Last Admin: 10/04/18 09:20 Dose: Not Given Losartan Potassium (Cozaar) 50 mg PO DAILY [facility] Last Admin: 10/04/18 09:12 Dose: 50 mg Metformin HCl (Glucophage) 500 mg PO BID [facility] Last Admin: 10/04/18 17:34 Dose: 500 mg Pantoprazole Sodium (Protonix Ec Tab) 40 mg PO BID [facility] Last Admin: 10/04/18 17:34 Dose: 40 mg Rosuvastatin Calcium (Crestor) 5 mg PO HS [facility] Last Admin: 10/04/18 21:16 Dose: 5 mg Sucralfate (Carafate Oral Susp) 1 gm PO ACHS [facility] Last Admin: 10/04/18 21:16 Dose: 1 gm - Labs Labs: 10/04/18 06:24 10/04/18 06:24 PT 14.4 SECONDS (9.7-12.2) H 10/02/18 06:51 INR 1.3 10/02/18 06:51 APTT 26 SECONDS (21-34) 10/02/18 06:51
--- NOTE | 2018-10-05 06:04 | PN ---
DATE: 10/05/2018 SUBJECTIVE: The patient is afebrile. No shortness of breath. Right leg wound is healing, seen by Podiatry. PHYSICAL EXAMINATION VITAL SIGNS: Blood pressure 159/83, pulse 85, respiratory rate 20, temperature 98.3. LUNGS: Clear. No rales or rhonchi. CARDIOVASCULAR SYSTEM: PMI not localized. S1 and S2 are regular. ABDOMEN: Soft. ASSESSMENT: 1. Necrotizing fasciitis of the right foot. 2. Type 2 diabetes. 3. Anemia of chronic disease. 4. Hypertension. PLAN: Continue current medication. Monitor the patient. Taiwo Moreno MD
[2018-10-05 06:44] LABS: BASO # 0.1 K/uL (0.0-0.2); BASO % 1.2 % (0.0-2.0); EOS # 0.4 K/uL (0.0-0.7); EOS % 3.2 % (0.0-4.0); HEMOGLOBIN 8.5 g/dL (12.0-18.0); LYMPH # 0.9 K/uL (1.0-4.3); MEAN CELL VOLUME 85.9 fL (80.0-94.0); MEAN CORPUSCULAR HEMOGLOBIN 29.4 pg (27.0-31.0); MEAN CORPUSCULAR HGB CONC 34.2 g/dL (33.0-37.0); MONO # 0.7 K/uL (0.0-0.8); MONO % 6.4 % (0.0-10.0); NEUT # 8.8 K/uL (1.8-7.0); NEUT % 81.2 % (50.0-75.0); PLATELET COUNT 420 K/uL (130-400); RBC 2.91 Mil/uL (4.40-5.90); WHITE BLOOD COUNT 10.9 K/uL (4.8-10.8)
[2018-10-05 07:33] LABS: ALB/GLOB RATIO 0.7 (1.0-2.1); ALBUMIN 2.4 g/dL (3.5-5.0); ALT/SGPT 15 U/L (21-72); AST/SGOT 23 U/L (17-59); BLOOD UREA NITROGEN 11 mg/dL (9-20); CALCIUM 7.8 mg/dl (8.6-10.4); GFR NON-AFRICAN AMERICAN > 60
[2018-10-05] MEDS: Lactated Ringer's 1,000 ML IV SCH (07:49)
[2018-10-05] MEDS: (Novolog) Insulin Aspart, Recombinant 100 u/ml 10 ml vial SC SCH ×4 (08:27→21:15)
[2018-10-05] MEDS: Sucralfate 1 gm/10 ml Oral Susp UD PO SCH ×4 (08:28→21:12)
[2018-10-05 09:20] LABS: ANISOCYTOSIS SLIGHT; BANDS 1 % (0-2); EOSINOPHIL 3 % (0-4); LYMPHOCYTE 5 % (20-40); MONOCYTE 6 % (0-10); NEUTROPHIL 85 % (50-75); PLATELET ESTIMATE SLIGHTLY INCREASED (NORMAL); TOTAL CELLS COUNTED 100
[2018-10-05 09:21] LABS: GIANT PLATELETS PRESENT; HYPOCHROMIC SLIGHT; LARGE PLATELETS PRESENT; POLYCHROMIC SLIGHT; TOXIC GRANULATION PRESENT
[2018-10-05] MEDS: Lidocaine 5% Patch TD SCH (09:21)
[2018-10-05] MEDS: Pantoprazole 40 mg EC Tab PO SCH ×2 (09:21→17:23)
--- NOTE | 2018-10-05 12:20 | CP.PCM.PN ---
Subjective - Date & Time of Evaluation Date of Evaluation: 10/05/18 Time of Evaluation: 12:20 - Subjective Subjective: Podiatry Progress Note for Dr. Alford 58 year old male seen 3 days s/p I and D with washout of right leg for treatment of necrotizing fasciitis and application of wound vac. Patient is AAOx3 and NAD at time of visit. No new complaints per patient. Dressing to RLE clean/dry/intact. Denies n/v/f/d/c/sob. Objective - Vital Signs/Intake and Output Vital Signs (last 24 hours): Temp Pulse Resp BP Pulse Ox 98.2 F 87 20 174/102 H 98 10/05/18 07:00 10/05/18 07:00 10/05/18 07:00 10/05/18 07:00 10/05/18 07:00 Intake and Output: 10/05/18 10/05/18 06:59 18:59 Intake Total 1900 Output Total 1380 Balance 520 - Medications Medications: Current Medications Acetaminophen (Tylenol 325mg Tab) 650 mg PO Q6 PRN PRN Reason: Pain, Mild (1-3) Last Admin: 10/02/18 16:47 Dose: 650 mg Aspirin (Ecotrin) 81 mg PO DAILY [facility] Last Admin: 10/05/18 09:21 Dose: 81 mg Dextrose (Dextrose 50% Inj) 0 ml IV STAT PRN; Protocol PRN Reason: Hypoglycemia Protocol Dextrose (Glutose 15) 0 gm PO ONCE PRN; Protocol PRN Reason: Hypoglycemia Protocol Diphenhydramine HCl (Benadryl) 25 mg PO Q6 PRN PRN Reason: Rash Glucagon (Glucagen Diagnostic Kit) 0 mg IM STAT PRN; Protocol PRN Reason: Hypoglycemia Protocol Clindamycin Phosphate 600 mg/ (Sodium Chloride) 54 mls @ 100 mls/hr IVPB Q8H [facility]; Protocol Last Admin: 10/05/18 07:47 Dose: 100 mls/hr Cefazolin Sodium 2,000 mg/ (Sodium Chloride) 50 mls @ 100 mls/hr IVPB Q8H [facility]; Protocol Last Admin: 10/05/18 08:29 Dose: 100 mls/hr Insulin Aspart (Novolog) 0 unit SC ACHS [facility]; Protocol Last Admin: 10/05/18 08:27 Dose: 2 units Lidocaine (Lidoderm) 1 ea TD DAILY [facility] Last Admin: 10/05/18 09:21 Dose: Not Given Losartan Potassium (Cozaar) 50 mg PO DAILY [facility] Last Admin: 10/05/18 09:22 Dose: Not Given Metformin HCl (Glucophage) 500 mg PO BID [facility] Last Admin: 10/05/18 09:21 Dose: 500 mg Pantoprazole Sodium (Protonix Ec Tab) 40 mg PO BID [facility] Last Admin: 10/05/18 09:21 Dose: 40 mg Rosuvastatin Calcium (Crestor) 5 mg PO HS [facility] Last Admin: 10/04/18 21:16 Dose: 5 mg Sucralfate (Carafate Oral Susp) 1 gm PO ACHS [facility] Last Admin: 10/05/18 08:28 Dose: 1 gm - Labs Labs: 10/05/18 06:35 10/05/18 06:35 PT 14.4 SECONDS (9.7-12.2) H 10/02/18 06:51 INR 1.3 10/02/18 06:51 APTT 26 SECONDS (21-34) 10/02/18 06:51 - Constitutional Appears: Well, Non-toxic, No Acute Distress - Extremities Exam Additional comments: RLE focused exam: WoundVAC functioning continuous suction 125mmHg - 250cc serosanguinous output VASC: DP/PT pulses non-palpable secondary to 2+ non-pitting edema to RLE. CFT > 3 seconds to all digits. Skin temperature increased R>L but greatly improved. Erythema is still noted from toes to level of midcalf circumfrentially, diminished from previous visit. Derm: 1) Open surgical wound with exposed tendons and deep soft tissue on the anterior lateral aspect of the right leg which extends distally over the ankle and proximal foot 2) Longitudinal plantar incision from first interdigital space to level of midfoot appears well coapted with no evidence of dehiscence, mild serosanguinous drainage, with packing in place 3) Medial foot at level of 1st MTPJ measuring roughly 4 cm. 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 Epicritic and protective sensation starting to return along distribution of superficial peroneal nerve as well as the tibial nerve MSK: ROM limited at toes and ankle joint but improved over yesterday. Pain with palpation of plantar incision sites - Neurological Exam Neurological Exam: Alert, Awake, Oriented x3 - Psychiatric Exam Psychiatric exam: Normal Affect, Normal Mood Assessment and Plan - Assessment and Plan (Free Text) Assessment: 58 year old male POD#3 days s/p I and D with washout of right leg for treatment of necrotizing fasciitis. Plan: Patient seen and evaluated Plan discussed with Dr. Alford Afebrile, WBC 10.9 trending downward Intra-op wound cx: Staph Aureus, Group G Strep Continue IV abx per ID - Cefazolin, Clindamycin Post operative tib fib xray: No periosteal reaction or cortical interruption see n to suggest osteomyelitis. No lytic lesions. No fractures. Soft tissue changes are compatible with known soft tissue infection and recent incision and drainage and bandaging Post operative foot xray: No osseous destruction or periosteal reaction seen to suggest osteomyelitis. Extensive abnormal soft tissue findings as detailed above compatible with the history of a soft tissue infection and recent surgical intervention. Follow-up recommended LE MRI: No definitive pattern suggest osteomyelitis though failure fat suppression throughout the digits limits interpretation somewhat. No definitive abnormal bone enhancement appreciable. No definitive marrow edema. Extensive left foot edema is appreciate diffusely including multiple soft tissue and dermal defects packed by gauze at the forefoot to midfoot plantar and dorsal soft tissues as discussed above. Limitations: Failure fat suppression of the digits diffusely. WoundVAC dressing and canister changed, will continue to monitor output Packing reapplied to plantar wound RLE dressed with DSD, CARMENCITA Podiatry will continue to follow while patient in house
--- NOTE | 2018-10-05 20:21 | CP.PCM.PN ---
Subjective - Subjective Subjective: dictated Objective - Vital Signs/Intake and Output Vital Signs (last 24 hours): Temp Pulse Resp BP Pulse Ox 98.8 F 76 20 167/86 H 95 10/05/18 15:58 10/05/18 15:58 10/05/18 15:58 10/05/18 15:58 10/05/18 15:58 - Medications Medications: Current Medications Acetaminophen (Tylenol 325mg Tab) 650 mg PO Q6 PRN PRN Reason: Pain, Mild (1-3) Last Admin: 10/02/18 16:47 Dose: 650 mg Aspirin (Ecotrin) 81 mg PO DAILY [facility] Last Admin: 10/05/18 09:21 Dose: 81 mg Dextrose (Dextrose 50% Inj) 0 ml IV STAT PRN; Protocol PRN Reason: Hypoglycemia Protocol Dextrose (Glutose 15) 0 gm PO ONCE PRN; Protocol PRN Reason: Hypoglycemia Protocol Diphenhydramine HCl (Benadryl) 25 mg PO Q6 PRN PRN Reason: Rash Glucagon (Glucagen Diagnostic Kit) 0 mg IM STAT PRN; Protocol PRN Reason: Hypoglycemia Protocol Clindamycin Phosphate 600 mg/ (Sodium Chloride) 54 mls @ 100 mls/hr IVPB Q8H [facility]; Protocol Last Admin: 10/05/18 16:30 Dose: 100 mls/hr Insulin Aspart (Novolog) 0 unit SC ACHS [facility]; Protocol Last Admin: 10/05/18 17:23 Dose: 3 units Lidocaine (Lidoderm) 1 ea TD DAILY [facility] Last Admin: 10/05/18 09:21 Dose: Not Given Losartan Potassium (Cozaar) 50 mg PO DAILY [facility] Last Admin: 10/05/18 09:22 Dose: Not Given Metformin HCl (Glucophage) 500 mg PO BID [facility] Last Admin: 10/05/18 17:23 Dose: 500 mg Pantoprazole Sodium (Protonix Ec Tab) 40 mg PO BID [facility] Last Admin: 10/05/18 17:23 Dose: 40 mg Rosuvastatin Calcium (Crestor) 5 mg PO HS [facility] Last Admin: 10/04/18 21:16 Dose: 5 mg Sucralfate (Carafate Oral Susp) 1 gm PO ACHS [facility] Last Admin: 10/05/18 16:29 Dose: 1 gm - Labs Labs: 10/05/18 06:35 10/05/18 06:35 PT 14.4 SECONDS (9.7-12.2) H 10/02/18 06:51 INR 1.3 10/02/18 06:51 APTT 26 SECONDS (21-34) 10/02/18 06:51
--- NOTE | 2018-10-06 01:47 | PN ---
DATE: 10/05/2018 SUBJECTIVE: Aramis Cabrera is on the wound care status post OR. Afebrile. Decreased blood pressure. Decreased sugar. No nausea or vomiting. PHYSICAL EXAMINATION VITAL SIGNS: Blood pressure 146/79, pulse 76, respiratory rate 20, temperature 98.8. LUNGS: Clear. CARDIOVASCULAR SYSTEM: S1 and S2 regular. ABDOMEN: Soft. ASSESSMENT: 1. Necrotizing fascitis of right foot. 2. Type 2 diabetes. 3. Hypertension. 4. Anemia of chronic disease. PLAN: Continue current medication, physical therapy. Rehab. Monitor the patient. Taiwo Moreno MD
[2018-10-06] MEDS: Sucralfate 1 gm/10 ml Oral Susp UD PO SCH ×4 (06:32→21:49)
[2018-10-06] MEDS: (Novolog) Insulin Aspart, Recombinant 100 u/ml 10 ml vial SC SCH ×4 (08:04→21:50)
[2018-10-06] MEDS: Lidocaine 5% Patch TD SCH (09:00)
[2018-10-06] MEDS: Pantoprazole 40 mg EC Tab PO SCH ×2 (09:48→17:35)
--- NOTE | 2018-10-06 14:02 | CP.PCM.PN ---
Subjective - Date & Time of Evaluation Date of Evaluation: 10/06/18 Time of Evaluation: 14:02 - Subjective Subjective: Podiatry - Dr. Prashanth BernabeM seen and evaluated this AM 4 days s/p I and D with washout of right leg for treatment of necrotizing fasciitis and application of wound vac. Patient resting comfortably, hemodynamically stable and NAD. No acute events overnight. No new complaints to RLE per patient. Dressing to RLE clean/dry/intact with woundVAC on continuous suction 125mmHg. Denies n/v/f/d/c/sob/cai/cp. Objective - Vital Signs/Intake and Output Vital Signs (last 24 hours): Temp Pulse Resp BP Pulse Ox 98.3 F 77 20 167/90 H 95 10/06/18 07:00 10/06/18 07:00 10/06/18 07:00 10/06/18 07:00 10/06/18 07:00 Intake and Output: 10/06/18 10/06/18 06:59 18:59 Intake Total 450 Output Total 530 Balance -80 - Medications Medications: Current Medications Acetaminophen (Tylenol 325mg Tab) 650 mg PO Q6 PRN PRN Reason: Pain, Mild (1-3) Last Admin: 10/02/18 16:47 Dose: 650 mg Aspirin (Ecotrin) 81 mg PO DAILY [facility] Last Admin: 10/06/18 09:48 Dose: 81 mg Dextrose (Dextrose 50% Inj) 0 ml IV STAT PRN; Protocol PRN Reason: Hypoglycemia Protocol Dextrose (Glutose 15) 0 gm PO ONCE PRN; Protocol PRN Reason: Hypoglycemia Protocol Diphenhydramine HCl (Benadryl) 25 mg PO Q6 PRN PRN Reason: Rash Glucagon (Glucagen Diagnostic Kit) 0 mg IM STAT PRN; Protocol PRN Reason: Hypoglycemia Protocol Clindamycin Phosphate 600 mg/ (Sodium Chloride) 54 mls @ 100 mls/hr IVPB Q8H [facility]; Protocol Last Admin: 10/06/18 08:48 Dose: 100 mls/hr Insulin Aspart (Novolog) 0 unit SC ACHS [facility]; Protocol Last Admin: 10/06/18 12:30 Dose: 2 units Lidocaine (Lidoderm) 1 ea TD DAILY [facility] Last Admin: 10/06/18 09:00 Dose: Not Given Losartan Potassium (Cozaar) 50 mg PO DAILY [facility] Last Admin: 10/06/18 09:48 Dose: 50 mg Metformin HCl (Glucophage) 500 mg PO BID [facility] Last Admin: 10/06/18 09:48 Dose: 500 mg Pantoprazole Sodium (Protonix Ec Tab) 40 mg PO BID [facility] Last Admin: 10/06/18 09:48 Dose: 40 mg Rosuvastatin Calcium (Crestor) 5 mg PO HS [facility] Last Admin: 10/05/18 21:12 Dose: 5 mg Sucralfate (Carafate Oral Susp) 1 gm PO ACHS [facility] Last Admin: 10/06/18 12:30 Dose: 1 gm - Labs Labs: 10/05/18 06:35 10/05/18 06:35 PT 14.4 SECONDS (9.7-12.2) H 10/02/18 06:51 INR 1.3 10/02/18 06:51 APTT 26 SECONDS (21-34) 10/02/18 06:51 - Constitutional Appears: Well, Non-toxic, No Acute Distress - Extremities Exam Additional comments: RLE focused exam: Wound VAC functioning continuous at 125 mmHG - Canister shows ~60 cc of serosanguinous drainage Neurovascular status intact to digits No pain upon calf compression Erythema to RLE improving since previous visit Plantar surgical site appears well coapted with sutures intact and no evidence of wound dehiscence, Iodoform packing in place, serosanguinous drainage present, no purulence - Neurological Exam Neurological Exam: Alert, Awake, Oriented x3 - Psychiatric Exam Psychiatric exam: Normal Affect, Normal Mood Assessment and Plan - Assessment and Plan (Free Text) Assessment: 58 year old male POD#4 days s/p I and D with washout of right leg for treatment of necrotizing fasciitis. Plan: Patient seen and evaluated Plan discussed with Dr. Prashanth FERREIRA Intra-op wound cx: Staph Aureus, Group G Strep Continue IV abx per ID - Clindamycin Post operative tib fib xray: No periosteal reaction or cortical interruption seen to suggest osteomyelitis. No lytic lesions. No fractures. Soft tissue changes are compatible with known soft tissue infection and recent incision and drainage and bandaging Post operative foot xray: No osseous destruction or periosteal reaction seen to suggest osteomyelitis. Extensive abnormal soft tissue findings as detailed above compatible with the history of a soft tissue infection and recent surgical i ntervention. Follow-up recommended LE MRI: No definitive pattern suggest osteomyelitis though failure fat suppression throughout the digits limits interpretation somewhat. No definitive abnormal bone enhancement appreciable. No definitive marrow edema. Extensive left foot edema is appreciate diffusely including multiple soft tissue and dermal defects packed by gauze at the forefoot to midfoot plantar and dorsal soft tissues as discussed above. Limitations: Failure fat suppression of the digits diffusely. WoundVAC left intact - will continue to monitor Packing reapplied to plantar wound RLE dressed with DSD, CARMENCITA Activity: NWB RLE Podiatry will continue to follow
--- NOTE | 2018-10-06 17:58 | CP.PCM.PN ---
Subjective - Date & Time of Evaluation Date of Evaluation: 10/06/18 Time of Evaluation: 09:00 - Subjective Subjective: 4 days s/p I and D with washout of right leg for treatment of necrotizing fasciitis and application of wound vac. Objective - Vital Signs/Intake and Output Vital Signs (last 24 hours): Temp Pulse Resp BP Pulse Ox 98.2 F 76 20 167/90 H 96 10/06/18 15:00 10/06/18 15:00 10/06/18 15:00 10/06/18 15:00 10/06/18 15:00 Intake and Output: 10/06/18 10/06/18 06:59 18:59 Intake Total 450 150 Output Total 530 515 Balance -80 -365 - Medications Medications: Current Medications Acetaminophen (Tylenol 325mg Tab) 650 mg PO Q6 PRN PRN Reason: Pain, Mild (1-3) Last Admin: 10/02/18 16:47 Dose: 650 mg Aspirin (Ecotrin) 81 mg PO DAILY [facility] Last Admin: 10/06/18 09:48 Dose: 81 mg Dextrose (Dextrose 50% Inj) 0 ml IV STAT PRN; Protocol PRN Reason: Hypoglycemia Protocol Dextrose (Glutose 15) 0 gm PO ONCE PRN; Protocol PRN Reason: Hypoglycemia Protocol Diphenhydramine HCl (Benadryl) 25 mg PO Q6 PRN PRN Reason: Rash Glucagon (Glucagen Diagnostic Kit) 0 mg IM STAT PRN; Protocol PRN Reason: Hypoglycemia Protocol Clindamycin Phosphate 600 mg/ (Sodium Chloride) 54 mls @ 100 mls/hr IVPB Q8H [facility]; Protocol Last Admin: 10/06/18 16:07 Dose: 100 mls/hr Insulin Aspart (Novolog) 0 unit SC ACHS [facility]; Protocol Last Admin: 10/06/18 16:35 Dose: 2 units Lidocaine (Lidoderm) 1 ea TD DAILY [facility] Last Admin: 10/06/18 09:00 Dose: Not Given Losartan Potassium (Cozaar) 50 mg PO DAILY [facility] Last Admin: 10/06/18 09:48 Dose: 50 mg Metformin HCl (Glucophage) 500 mg PO BID [facility] Last Admin: 10/06/18 17:34 Dose: 500 mg Pantoprazole Sodium (Protonix Ec Tab) 40 mg PO BID [facility] Last Admin: 10/06/18 17:35 Dose: 40 mg Rosuvastatin Calcium (Crestor) 5 mg PO HS [facility] Last Admin: 10/05/18 21:12 Dose: 5 mg Sucralfate (Carafate Oral Susp) 1 gm PO ACHS [facility] Last Admin: 10/06/18 16:08 Dose: 1 gm - Labs Labs: 10/05/18 06:35 10/05/18 06:35 PT 14.4 SECONDS (9.7-12.2) H 10/02/18 06:51 INR 1.3 10/02/18 06:51 APTT 26 SECONDS (21-34) 10/02/18 06:51 - Constitutional Appears: Non-toxic, Chronically Ill - Head Exam Head Exam: NORMOCEPHALIC - Eye Exam Eye Exam: absent: Scleral icterus - ENT Exam ENT Exam: Normal External Ear Exam - Neck Exam Neck Exam: absent: Lymphadenopathy - Respiratory Exam Respiratory Exam: Decreased Breath Sounds - Cardiovascular Exam Cardiovascular Exam: REGULAR RHYTHM - GI/Abdominal Exam GI & Abdominal Exam: Distended - Rectal Exam Rectal Exam: Deferred - Exam Exam: NORMAL INSPECTION - Extremities Exam Extremities Exam: Pedal Edema - Back Exam Back Exam: absent: CVA tenderness (L), CVA tenderness (R) Assessment and Plan (1) Necrotizing fasciitis of ankle and foot Status: Acute (2) Sepsis Status: Acute (3) Diabetes mellitus, new onset Status: Acute - Assessment and Plan (Free Text) Assessment: 4 days s/p I and D with washout of right leg for treatment of necrotizing fasciitis and application of wound vac.
--- NOTE | 2018-10-06 21:45 | CP.PCM.PN ---
Subjective - Subjective Subjective: dictated Objective - Vital Signs/Intake and Output Vital Signs (last 24 hours): Temp Pulse Resp BP Pulse Ox 98.2 F 76 20 167/90 H 96 10/06/18 15:00 10/06/18 15:00 10/06/18 15:00 10/06/18 15:00 10/06/18 15:00 Intake and Output: 10/06/18 10/07/18 18:59 06:59 Intake Total 150 Output Total 515 Balance -365 - Medications Medications: Current Medications Acetaminophen (Tylenol 325mg Tab) 650 mg PO Q6 PRN PRN Reason: Pain, Mild (1-3) Last Admin: 10/02/18 16:47 Dose: 650 mg Aspirin (Ecotrin) 81 mg PO DAILY [facility] Last Admin: 10/06/18 09:48 Dose: 81 mg Dextrose (Dextrose 50% Inj) 0 ml IV STAT PRN; Protocol PRN Reason: Hypoglycemia Protocol Dextrose (Glutose 15) 0 gm PO ONCE PRN; Protocol PRN Reason: Hypoglycemia Protocol Diphenhydramine HCl (Benadryl) 25 mg PO Q6 PRN PRN Reason: Rash Glucagon (Glucagen Diagnostic Kit) 0 mg IM STAT PRN; Protocol PRN Reason: Hypoglycemia Protocol Clindamycin Phosphate 600 mg/ (Sodium Chloride) 54 mls @ 100 mls/hr IVPB Q8H [facility]; Protocol Last Admin: 10/06/18 16:07 Dose: 100 mls/hr Insulin Aspart (Novolog) 0 unit SC ACHS [facility]; Protocol Last Admin: 10/06/18 16:35 Dose: 2 units Lidocaine (Lidoderm) 1 ea TD DAILY [facility] Last Admin: 10/06/18 09:00 Dose: Not Given Losartan Potassium (Cozaar) 50 mg PO DAILY [facility] Last Admin: 10/06/18 09:48 Dose: 50 mg Metformin HCl (Glucophage) 500 mg PO BID [facility] Last Admin: 10/06/18 17:34 Dose: 500 mg Pantoprazole Sodium (Protonix Ec Tab) 40 mg PO BID [facility] Last Admin: 10/06/18 17:35 Dose: 40 mg Rosuvastatin Calcium (Crestor) 5 mg PO HS [facility] Last Admin: 10/05/18 21:12 Dose: 5 mg Sucralfate (Carafate Oral Susp) 1 gm PO ACHS [facility] Last Admin: 10/06/18 16:08 Dose: 1 gm - Labs Labs: 10/05/18 06:35 10/05/18 06:35 PT 14.4 SECONDS (9.7-12.2) H 10/02/18 06:51 INR 1.3 10/02/18 06:51 APTT 26 SECONDS (21-34) 10/02/18 06:51
--- NOTE | 2018-10-07 03:18 | PN ---
DATE: 10/06/2018 SUBJECTIVE: Aramis Cabrera is afebrile. No shortness of breath. He has a wound on the right foot that has a dressing. PHYSICAL EXAMINATION: VITAL SIGNS: BP 167/90, pulse 77, respiratory rate 20, and temperature 98.3. LUNGS: Clear. No rales. No rhonchi. CARDIOVASCULAR SYSTEM: S1, S2 regular. ABDOMEN: Soft. ASSESSMENT: 1. Hypertension. 2. New-onset diabetes. 3. Necrotizing fasciitis of right foot. PLAN: Continue wound care, antibiotics, physical therapy. Monitor the patient. Taiwo Moreno MD
[2018-10-07] MEDS: Sucralfate 1 gm/10 ml Oral Susp UD PO SCH ×4 (06:35→21:29)
[2018-10-07] MEDS: (Novolog) Insulin Aspart, Recombinant 100 u/ml 10 ml vial SC SCH ×4 (08:31→21:34)
[2018-10-07] MEDS: Pantoprazole 40 mg EC Tab PO SCH ×2 (09:23→18:26)
[2018-10-07] MEDS: Lidocaine 5% Patch TD SCH (09:23)
--- NOTE | 2018-10-07 12:15 | CP.PCM.PN ---
Subjective - Date & Time of Evaluation Date of Evaluation: 10/07/18 Time of Evaluation: 09:00 - Subjective Subjective: large defect right foot granulating slowly IV rx in progress Objective - Vital Signs/Intake and Output Vital Signs (last 24 hours): Temp Pulse Resp BP Pulse Ox 98 F 76 20 162/90 H 97 10/07/18 07:00 10/07/18 07:00 10/07/18 07:00 10/07/18 07:00 10/07/18 07:00 Intake and Output: 10/07/18 10/07/18 06:59 18:59 Intake Total 500 Output Total 1535 Balance -1035 - Medications Medications: Current Medications Acetaminophen (Tylenol 325mg Tab) 650 mg PO Q6 PRN PRN Reason: Pain, Mild (1-3) Last Admin: 10/02/18 16:47 Dose: 650 mg Aspirin (Ecotrin) 81 mg PO DAILY [facility] Last Admin: 10/07/18 09:23 Dose: 81 mg Dextrose (Dextrose 50% Inj) 0 ml IV STAT PRN; Protocol PRN Reason: Hypoglycemia Protocol Dextrose (Glutose 15) 0 gm PO ONCE PRN; Protocol PRN Reason: Hypoglycemia Protocol Diphenhydramine HCl (Benadryl) 25 mg PO Q6 PRN PRN Reason: Rash Glucagon (Glucagen Diagnostic Kit) 0 mg IM STAT PRN; Protocol PRN Reason: Hypoglycemia Protocol Clindamycin Phosphate 600 mg/ (Sodium Chloride) 54 mls @ 100 mls/hr IVPB Q8H [facility]; Protocol Last Admin: 10/07/18 08:32 Dose: 100 mls/hr Insulin Aspart (Novolog) 0 unit SC ACHS [facility]; Protocol Last Admin: 10/07/18 08:31 Dose: 2 units Lidocaine (Lidoderm) 1 ea TD DAILY [facility] Last Admin: 10/07/18 09:23 Dose: Not Given Losartan Potassium (Cozaar) 50 mg PO DAILY [facility] Last Admin: 10/07/18 09:23 Dose: 50 mg Metformin HCl (Glucophage) 500 mg PO BID [facility] Last Admin: 10/07/18 09:23 Dose: 500 mg Pantoprazole Sodium (Protonix Ec Tab) 40 mg PO BID [facility] Last Admin: 10/07/18 09:23 Dose: 40 mg Rosuvastatin Calcium (Crestor) 5 mg PO HS [facility] Last Admin: 10/06/18 21:49 Dose: 5 mg Sucralfate (Carafate Oral Susp) 1 gm PO ACHS [facility] Last Admin: 10/07/18 06:35 Dose: 1 gm - Labs Labs: 10/05/18 06:35 10/05/18 06:35 PT 14.4 SECONDS (9.7-12.2) H 10/02/18 06:51 INR 1.3 10/02/18 06:51 APTT 26 SECONDS (21-34) 10/02/18 06:51 - Constitutional Appears: Non-toxic, Chronically Ill - Head Exam Head Exam: NORMOCEPHALIC - Eye Exam Eye Exam: absent: Scleral icterus - ENT Exam ENT Exam: Mucous Membranes Dry - Neck Exam Neck Exam: absent: Lymphadenopathy - Respiratory Exam Respiratory Exam: Decreased Breath Sounds - Cardiovascular Exam Cardiovascular Exam: REGULAR RHYTHM - GI/Abdominal Exam GI & Abdominal Exam: Distended - Rectal Exam Rectal Exam: Deferred - Exam Exam: NORMAL INSPECTION Assessment and Plan (1) Necrotizing fasciitis of ankle and foot Status: Acute (2) Sepsis Status: Acute (3) Diabetes mellitus, new onset Status: Acute
--- NOTE | 2018-10-07 13:49 | CP.PCM.PN ---
Subjective - Date & Time of Evaluation Date of Evaluation: 10/07/18 Time of Evaluation: 13:47 - Subjective Subjective: Podiatry Progress Note - Dr. Prashanth Souza seen and evaluated this AM 5 days s/p I and D with washout of right leg for treatment of necrotizing fasciitis and application of wound vac. Patient resting comfortably, hemodynamically stable and NAD. No acute events overnight. No new complaints to RLE per patient. Dressing to RLE clean/dry/intact with woundVAC on continuous suction 125mmHg. Denies n/v/f/d/c/sob/cai/cp. Objective - Vital Signs/Intake and Output Vital Signs (last 24 hours): Temp Pulse Resp BP Pulse Ox 98 F 76 20 162/90 H 97 10/07/18 07:00 10/07/18 07:00 10/07/18 07:00 10/07/18 07:00 10/07/18 07:00 Intake and Output: 10/07/18 10/07/18 06:59 18:59 Intake Total 500 Output Total 1535 Balance -1035 - Medications Medications: Current Medications Acetaminophen (Tylenol 325mg Tab) 650 mg PO Q6 PRN PRN Reason: Pain, Mild (1-3) Last Admin: 10/02/18 16:47 Dose: 650 mg Aspirin (Ecotrin) 81 mg PO DAILY [facility] Last Admin: 10/07/18 09:23 Dose: 81 mg Dextrose (Dextrose 50% Inj) 0 ml IV STAT PRN; Protocol PRN Reason: Hypoglycemia Protocol Dextrose (Glutose 15) 0 gm PO ONCE PRN; Protocol PRN Reason: Hypoglycemia Protocol Diphenhydramine HCl (Benadryl) 25 mg PO Q6 PRN PRN Reason: Rash Glucagon (Glucagen Diagnostic Kit) 0 mg IM STAT PRN; Protocol PRN Reason: Hypoglycemia Protocol Clindamycin Phosphate 600 mg/ (Sodium Chloride) 54 mls @ 100 mls/hr IVPB Q8H [facility]; Protocol Last Admin: 10/07/18 08:32 Dose: 100 mls/hr Insulin Aspart (Novolog) 0 unit SC ACHS [facility]; Protocol Last Admin: 10/07/18 12:19 Dose: 2 units Lidocaine (Lidoderm) 1 ea TD DAILY [facility] Last Admin: 10/07/18 09:23 Dose: Not Given Losartan Potassium (Cozaar) 50 mg PO DAILY [facility] Last Admin: 10/07/18 09:23 Dose: 50 mg Metformin HCl (Glucophage) 500 mg PO BID [facility] Last Admin: 10/07/18 09:23 Dose: 500 mg Pantoprazole Sodium (Protonix Ec Tab) 40 mg PO BID [facility] Last Admin: 10/07/18 09:23 Dose: 40 mg Rosuvastatin Calcium (Crestor) 5 mg PO HS [facility] Last Admin: 10/06/18 21:49 Dose: 5 mg Sucralfate (Carafate Oral Susp) 1 gm PO ACHS [facility] Last Admin: 10/07/18 12:18 Dose: 1 gm - Labs Labs: 10/05/18 06:35 10/05/18 06:35 PT 14.4 SECONDS (9.7-12.2) H 10/02/18 06:51 INR 1.3 10/02/18 06:51 APTT 26 SECONDS (21-34) 10/02/18 06:51 - Constitutional Appears: Well, Non-toxic, No Acute Distress - Extremities Exam Additional comments: RLE focused exam: WoundVAC functioning continuous suction 125mmHg - 100cc serosanguinous output VASC: DP/PT pulses non-palpable secondary to 2+ non-pitting edema to RLE. CFT > 3 seconds to all digits. Skin temperature increased R>L but greatly improved. Erythema is still noted from toes to level of midcalf circumfrentially, diminished from previous visit. Derm: 1) Open surgical wound with exposed tendons and deep soft tissue on the anterior lateral aspect of the right leg which extends distally over the ankle and proximal foot 2) Longitudinal plantar incision from first interdigital space to level of m idfoot appears well coapted with no evidence of dehiscence, mild serosanguinous drainage, with packing in place 3) Medial foot at level of 1st MTPJ measuring roughly 4 cm. 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 Epicritic and protective sensation starting to return along distribution of superficial peroneal nerve as well as the tibial nerve MSK: ROM limited at toes and ankle joint but improved over yesterday. Pain with palpation of plantar incision sites - Neurological Exam Neurological Exam: Alert, Awake, Oriented x3 - Psychiatric Exam Psychiatric exam: Normal Affect, Normal Mood Assessment and Plan - Assessment and Plan (Free Text) Assessment: 58 year old male POD#5 days s/p I and D with washout of right leg for treatment of necrotizing fasciitis. Plan: Patient seen and evaluated Plan discussed with Dr. Prashanth Merritt, WBC 10.9 as of 10/05 trending downward Intra-op wound cx: Staph Aureus, Group G Strep Continue IV abx per ID - Cefazolin, Clindamycin Post operative tib fib xray: No periosteal reaction or cortical interruption seen to suggest osteomyelitis. No lytic lesions. No fractures. Soft tissue changes are compatible with known soft tissue infection and recent incision and drainage and bandaging Post operative foot xray: No osseous destruction or periosteal reaction seen to suggest osteomyelitis. Extensive abnormal soft tissue findings as detailed above compatible with the history of a soft tissue infection and recent surgical intervention. Follow-up recommended LE MRI: No definitive pattern suggest osteomyelitis though failure fat suppression throughout the digits limits interpretation somewhat. No definitive abnormal bone enhancement appreciable. No definitive marrow edema. Extensive left foot edema is appreciate diffusely including multiple soft tissue and dermal defects packed by gauze at the forefoot to midfoot plantar and dorsal soft tissues as discussed above. Limitations: Failure fat suppression of the digits diffusely. Dressing applied using xeroform, betadine soaked DSD, and packing applied to the plantar foot RLE dressed with DSD, CARMENCITA Will continue wound vac tomorrow Podiatry will continue to follow while patient in house
--- NOTE | 2018-10-07 21:54 | CP.PCM.PN ---
Subjective - Subjective Subjective: dictated Objective - Vital Signs/Intake and Output Vital Signs (last 24 hours): Temp Pulse Resp BP Pulse Ox 98.1 F 72 20 170/90 H 97 10/07/18 15:00 10/07/18 15:00 10/07/18 15:00 10/07/18 15:00 10/07/18 15:00 Intake and Output: 10/07/18 10/08/18 18:59 06:59 Output Total 20 Balance -20 - Medications Medications: Current Medications Acetaminophen (Tylenol 325mg Tab) 650 mg PO Q6 PRN PRN Reason: Pain, Mild (1-3) Last Admin: 10/02/18 16:47 Dose: 650 mg Aspirin (Ecotrin) 81 mg PO DAILY [facility] Last Admin: 10/07/18 09:23 Dose: 81 mg Dextrose (Dextrose 50% Inj) 0 ml IV STAT PRN; Protocol PRN Reason: Hypoglycemia Protocol Dextrose (Glutose 15) 0 gm PO ONCE PRN; Protocol PRN Reason: Hypoglycemia Protocol Diphenhydramine HCl (Benadryl) 25 mg PO Q6 PRN PRN Reason: Rash Glucagon (Glucagen Diagnostic Kit) 0 mg IM STAT PRN; Protocol PRN Reason: Hypoglycemia Protocol Clindamycin Phosphate 600 mg/ (Sodium Chloride) 54 mls @ 100 mls/hr IVPB Q8H [facility]; Protocol Last Admin: 10/07/18 16:59 Dose: 100 mls/hr Insulin Aspart (Novolog) 0 unit SC ACHS [facility]; Protocol Last Admin: 10/07/18 21:34 Dose: Not Given Lidocaine (Lidoderm) 1 ea TD DAILY [facility] Last Admin: 10/07/18 09:23 Dose: Not Given Losartan Potassium (Cozaar) 50 mg PO DAILY [facility] Last Admin: 10/07/18 09:23 Dose: 50 mg Metformin HCl (Glucophage) 500 mg PO BID [facility] Last Admin: 10/07/18 18:26 Dose: 500 mg Pantoprazole Sodium (Protonix Ec Tab) 40 mg PO BID [facility] Last Admin: 10/07/18 18:26 Dose: 40 mg Rosuvastatin Calcium (Crestor) 5 mg PO HS [facility] Last Admin: 10/07/18 21:28 Dose: 5 mg Sucralfate (Carafate Oral Susp) 1 gm PO ACHS [facility] Last Admin: 12/03/18 21:29 Dose: 1 gm - Labs Labs: 10/05/18 06:35 10/05/18 06:35 PT 14.4 SECONDS (9.7-12.2) H 10/02/18 06:51 INR 1.3 10/02/18 06:51 APTT 26 SECONDS (21-34) 10/02/18 06:51
--- NOTE | 2018-10-08 03:35 | PN ---
DATE: 10/07/2018 SUBJECTIVE: Aramis Cabrera is afebrile. HIV negative on blood test. No nausea or vomiting. His right foot has a wound. He is afebrile. PHYSICAL EXAMINATION: VITAL SIGNS: Blood pressure 170/90, pulse 72, respiratory rate 20, and temperature 98.1. LUNGS: Clear. No rales. No rhonchi. CARDIOVASCULAR SYSTEM: S1, S2 regular. ABDOMEN: Soft. ASSESSMENT: 1. Necrotizing fasciitis, right foot. 2. Type 2 diabetes. 3. Hypertension. 4. Anemia of chronic disease. PLAN: Continue antibiotics. Wound care. Monitor the patient. Taiwo Moreno MD
[2018-10-08] MEDS: Sucralfate 1 gm/10 ml Oral Susp UD PO SCH ×4 (08:55→21:14)
[2018-10-08] MEDS: Lidocaine 5% Patch TD SCH (09:04)
[2018-10-08] MEDS: (Novolog) Insulin Aspart, Recombinant 100 u/ml 10 ml vial SC SCH ×4 (09:04→21:33)
[2018-10-08] MEDS: Pantoprazole 40 mg EC Tab PO SCH ×2 (09:04→17:17)
--- NOTE | 2018-10-08 11:34 | CP.PCM.PN ---
Subjective - Date & Time of Evaluation Date of Evaluation: 10/08/18 Time of Evaluation: 11:29 - Subjective Subjective: Podiatry Progress Note - Dr. Alfodr 58 year old male seen and evaluated 6 days s/p I and D with washout of right leg for treatment of necrotizing fasciitis and application of wound vac. Patient resting comfortably, hemodynamically stable and NAD. No acute events overnight. No new complaints to RLE per patient. Dressing to RLE clean/dry/intact with mild strike through noted. Denies n/v/f/d/c/sob/cai/cp. Objective - Vital Signs/Intake and Output Vital Signs (last 24 hours): Temp Pulse Resp BP Pulse Ox 97.4 F L 77 20 147/86 97 10/08/18 07:00 10/08/18 07:00 10/08/18 07:00 10/08/18 07:00 10/08/18 07:00 Intake and Output: 10/08/18 10/08/18 06:59 18:59 Intake Total 240 Output Total 200 Balance 40 - Medications Medications: Current Medications Acetaminophen (Tylenol 325mg Tab) 650 mg PO Q6 PRN PRN Reason: Pain, Mild (1-3) Last Admin: 10/02/18 16:47 Dose: 650 mg Aspirin (Ecotrin) 81 mg PO DAILY [facility] Last Admin: 10/08/18 09:04 Dose: 81 mg Dextrose (Dextrose 50% Inj) 0 ml IV STAT PRN; Protocol PRN Reason: Hypoglycemia Protocol Dextrose (Glutose 15) 0 gm PO ONCE PRN; Protocol PRN Reason: Hypoglycemia Protocol Diphenhydramine HCl (Benadryl) 25 mg PO Q6 PRN PRN Reason: Rash Glucagon (Glucagen Diagnostic Kit) 0 mg IM STAT PRN; Protocol PRN Reason: Hypoglycemia Protocol Clindamycin Phosphate 600 mg/ (Sodium Chloride) 54 mls @ 100 mls/hr IVPB Q8H [facility]; Protocol Last Admin: 10/08/18 08:56 Dose: 100 mls/hr Insulin Aspart (Novolog) 0 unit SC ACHS [facility]; Protocol Last Admin: 10/08/18 09:04 Dose: Not Given Lidocaine (Lidoderm) 1 ea TD DAILY [facility] Last Admin: 10/08/18 09:04 Dose: Not Given Losartan Potassium (Cozaar) 50 mg PO DAILY [facility] Last Admin: 10/08/18 09:04 Dose: 50 mg Metformin HCl (Glucophage) 500 mg PO BID [facility] Last Admin: 10/08/18 09:04 Dose: 500 mg Pantoprazole Sodium (Protonix Ec Tab) 40 mg PO BID [facility] Last Admin: 10/08/18 09:04 Dose: 40 mg Rosuvastatin Calcium (Crestor) 5 mg PO HS [facility] Last Admin: 10/07/18 21:28 Dose: 5 mg Sucralfate (Carafate Oral Susp) 1 gm PO ACHS [facility] Last Admin: 10/08/18 08:55 Dose: 1 gm - Labs Labs: 10/05/18 06:35 10/05/18 06:35 PT 14.4 SECONDS (9.7-12.2) H 10/02/18 06:51 INR 1.3 10/02/18 06:51 APTT 26 SECONDS (21-34) 10/02/18 06:51 - Constitutional Appears: Well, Non-toxic, No Acute Distress - Extremities Exam Additional comments: RLE focused exam: VASC: DP/PT pulses non-palpable secondary to 1+ non-pitting edema to RLE. CFT approx 3 seconds to all digits. Skin temperature increased R>L but greatly improved. Erythema is still noted from toes to level of midcalf circumfrentially - diminished from previous visit. Derm: 1) Open surgical wound with exposed tendons and deep soft tissue on the anterior lateral aspect of the right leg which extends distally over the ankle and proximal foot 2) Longitudinal plantar incision from first interdigital space to level of midfoot appears well coapted with no evidence of dehiscence, mild serosanguinous drainage, with packing in place 3) Medial foot at level of 1st MTPJ measuring roughly 4 cm. 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 Epicritic and protective sensation starting to return along distribution of superficial peroneal nerve as well as the tibial nerve MSK: ROM limited at toes and ankle joint but improved over yesterday. Pain with palpation of plantar incision sites - Neurological Exam Neurological Exam: Alert, Awake, Oriented x3 - Psychiatric Exam Psychiatric exam: Normal Affect, Normal Mood Assessment and Plan - Assessment and Plan (Free Text) Assessment: 58 year old male POD#6 s/p I and D with washout of right leg for treatment of necrotizing fasciitis. Plan: Patient seen and evaluated Plan discussed with Dr. Prashanth Rosenthalebmally, WBC 10.9 as of 10/05 trending downward Intra-op wound cx: Staph Aureus, Group G Strep Continue IV abx per ID - Clindamycin Post operative tib fib xray: No periosteal reaction or cortical interruption seen to suggest osteomyelitis. No lytic lesions. No fractures. Soft tissue changes are compatible with known soft tissue infection and recent incision and drainage and bandaging Post operative foot xray: No osseous destruction or periosteal reaction seen to suggest osteomyelitis. Extensive abnormal soft tissue findings as detailed above compatible with the history of a soft tissue infection and recent surgical in tervention. Follow-up recommended LE MRI: No definitive pattern suggest osteomyelitis though failure fat suppression throughout the digits limits interpretation somewhat. No definitive abnormal bone enhancement appreciable. No definitive marrow edema. Extensive left foot edema is appreciate diffusely including multiple soft tissue and dermal defects packed by gauze at the forefoot to midfoot plantar and dorsal soft tissues as discussed above. Limitations: Failure fat suppression of the digits diffusely. WoundVAC dressing and canister changed, will continue to monitor output Packing reapplied to plantar wound RLE dressed with DSD, CARMENCITA Podiatry will continue to follow while patient in house
[2018-10-08 14:31] LABS: BASO # 0.1 K/uL (0.0-0.2); BASO % 1.1 % (0.0-2.0); EOS # 0.3 K/uL (0.0-0.7); EOS % 3.7 % (0.0-4.0); HEMOGLOBIN 9.1 g/dL (12.0-18.0); LYMPH % 11.5 % (20.0-40.0); MEAN CELL VOLUME 85.1 fL (80.0-94.0); MEAN CORPUSCULAR HEMOGLOBIN 28.3 pg (27.0-31.0); MEAN CORPUSCULAR HGB CONC 33.2 g/dL (33.0-37.0); MEAN PLATELET VOLUME 8.9 fL (7.2-11.7); MONO # 0.5 K/uL (0.0-0.8); MONO % 6.2 % (0.0-10.0); NEUT # 6.9 K/uL (1.8-7.0); NEUT % 77.5 % (50.0-75.0); RBC 3.23 Mil/uL (4.40-5.90); RED CELL DISTRIBUTION WIDTH 13.5 % (11.5-14.5); WHITE BLOOD COUNT 8.9 K/uL (4.8-10.8)
[2018-10-08 14:57] LABS: BLOOD UREA NITROGEN 12 mg/dL (9-20); GFR NON-AFRICAN AMERICAN > 60
--- NOTE | 2018-10-08 22:01 | CP.PCM.PN ---
Subjective - Date & Time of Evaluation Date of Evaluation: 10/08/18 Time of Evaluation: 08:00 - Subjective Subjective: seen on rounds IV rx in progress Objective - Vital Signs/Intake and Output Vital Signs (last 24 hours): Temp Pulse Resp BP Pulse Ox 98 F 77 20 147/87 96 10/08/18 15:00 10/08/18 15:00 10/08/18 15:00 10/08/18 15:00 10/08/18 15:00 Intake and Output: 10/08/18 10/09/18 18:59 06:59 Intake Total 300 Output Total 900 Balance -600 - Medications Medications: Current Medications Aspirin (Ecotrin) 81 mg PO DAILY [facility] Last Admin: 10/08/18 09:04 Dose: 81 mg Dextrose (Dextrose 50% Inj) 0 ml IV STAT PRN; Protocol PRN Reason: Hypoglycemia Protocol Dextrose (Glutose 15) 0 gm PO ONCE PRN; Protocol PRN Reason: Hypoglycemia Protocol Diphenhydramine HCl (Benadryl) 25 mg PO Q6 PRN PRN Reason: Rash Glucagon (Glucagen Diagnostic Kit) 0 mg IM STAT PRN; Protocol PRN Reason: Hypoglycemia Protocol Clindamycin Phosphate 600 mg/ (Sodium Chloride) 54 mls @ 100 mls/hr IVPB Q8H [facility]; Protocol Last Admin: 10/08/18 16:21 Dose: 100 mls/hr Insulin Aspart (Novolog) 0 unit SC ACHS [facility]; Protocol Last Admin: 10/08/18 21:33 Dose: Not Given Lidocaine (Lidoderm) 1 ea TD DAILY [facility] Last Admin: 10/08/18 09:04 Dose: Not Given Losartan Potassium (Cozaar) 50 mg PO DAILY [facility] Last Admin: 10/08/18 09:04 Dose: 50 mg Metformin HCl (Glucophage) 500 mg PO BID [facility] Last Admin: 10/08/18 17:17 Dose: 500 mg Pantoprazole Sodium (Protonix Ec Tab) 40 mg PO BID [facility] Last Admin: 10/08/18 17:17 Dose: 40 mg Rosuvastatin Calcium (Crestor) 5 mg PO HS [facility] Last Admin: 10/08/18 21:14 Dose: 5 mg Sucralfate (Carafate Oral Susp) 1 gm PO ACHS [facility] Last Admin: 10/08/18 21:14 Dose: 1 gm - Labs Labs: 10/08/18 14:16 10/08/18 14:16 PT 14.4 SECONDS (9.7-12.2) H 10/02/18 06:51 INR 1.3 10/02/18 06:51 APTT 26 SECONDS (21-34) 10/02/18 06:51 - Constitutional Appears: Non-toxic - Head Exam Head Exam: NORMOCEPHALIC - ENT Exam ENT Exam: Mucous Membranes Dry - Neck Exam Neck Exam: Normal Inspection - Respiratory Exam Respiratory Exam: Decreased Breath Sounds - Cardiovascular Exam Cardiovascular Exam: REGULAR RHYTHM - GI/Abdominal Exam GI & Abdominal Exam: Distended, Soft - Rectal Exam Rectal Exam: Deferred Assessment and Plan (1) Necrotizing fasciitis of ankle and foot Status: Acute (2) Sepsis Status: Acute (3) Diabetes mellitus, new onset Status: Acute
--- NOTE | 2018-10-09 00:35 | CP.PCM.PN ---
Subjective - Subjective Subjective: dictated Objective - Vital Signs/Intake and Output Vital Signs (last 24 hours): Temp Pulse Resp BP Pulse Ox 98 F 77 20 147/87 96 10/08/18 15:00 10/08/18 15:00 10/08/18 15:00 10/08/18 15:00 10/08/18 15:00 Intake and Output: 10/08/18 10/09/18 18:59 06:59 Intake Total 300 450 Output Total 900 490 Balance -600 -40 - Medications Medications: Current Medications Aspirin (Ecotrin) 81 mg PO DAILY [facility] Last Admin: 10/08/18 09:04 Dose: 81 mg Dextrose (Dextrose 50% Inj) 0 ml IV STAT PRN; Protocol PRN Reason: Hypoglycemia Protocol Dextrose (Glutose 15) 0 gm PO ONCE PRN; Protocol PRN Reason: Hypoglycemia Protocol Diphenhydramine HCl (Benadryl) 25 mg PO Q6 PRN PRN Reason: Rash Glucagon (Glucagen Diagnostic Kit) 0 mg IM STAT PRN; Protocol PRN Reason: Hypoglycemia Protocol Clindamycin Phosphate 600 mg/ (Sodium Chloride) 54 mls @ 100 mls/hr IVPB Q8H [facility]; Protocol Last Admin: 10/09/18 00:12 Dose: 100 mls/hr Insulin Aspart (Novolog) 0 unit SC ACHS [facility]; Protocol Last Admin: 10/08/18 21:33 Dose: Not Given Lidocaine (Lidoderm) 1 ea TD DAILY [facility] Last Admin: 10/08/18 09:04 Dose: Not Given Losartan Potassium (Cozaar) 50 mg PO DAILY [facility] Last Admin: 10/08/18 09:04 Dose: 50 mg Metformin HCl (Glucophage) 500 mg PO BID [facility] Last Admin: 10/08/18 17:17 Dose: 500 mg Pantoprazole Sodium (Protonix Ec Tab) 40 mg PO BID [facility] Last Admin: 10/08/18 17:17 Dose: 40 mg Rosuvastatin Calcium (Crestor) 5 mg PO HS [facility] Last Admin: 10/08/18 21:14 Dose: 5 mg Sucralfate (Carafate Oral Susp) 1 gm PO ACHS [facility] Last Admin: 10/08/18 21:14 Dose: 1 gm - Labs Labs: 10/08/18 14:16 10/08/18 14:16 PT 14.4 SECONDS (9.7-12.2) H 10/02/18 06:51 INR 1.3 10/02/18 06:51 APTT 26 SECONDS (21-34) 10/02/18 06:51
[2018-10-09] MEDS: Sucralfate 1 gm/10 ml Oral Susp UD PO SCH ×4 (06:31→22:26)
[2018-10-09] MEDS: (Novolog) Insulin Aspart, Recombinant 100 u/ml 10 ml vial SC SCH ×4 (09:00→22:00)
[2018-10-09] MEDS: Pantoprazole 40 mg EC Tab PO SCH ×2 (10:25→17:35)
[2018-10-09] MEDS: Lidocaine 5% Patch TD SCH (10:25)
--- NOTE | 2018-10-09 10:41 | PN ---
DATE: 10/09/2018 SUBJECTIVE: Aramis Cabrera is improving. He has right foot pain. He has a dressing, being seen by Podiatry. No shortness of breath. No chest pain. No cough. PHYSICAL EXAMINATION: VITAL SIGNS: Blood pressure 169/85, pulse 70, respiratory rate 20, temperature 98. LUNGS: Clear. CARDIOVASCULAR SYSTEM: S1 and S2, regular. ABDOMEN: Soft. ASSESSMENT: 1. Anemia of chronic disease. 2. Necrotizing fasciitis of right foot. 3. Type 2 diabetes, new onset. 4. Hypertension. PLAN: Continue antibiotic, wound care. Monitor the patient. Taiwo Moreno MD
--- NOTE | 2018-10-09 10:48 | CP.PCM.PN ---
Subjective - Date & Time of Evaluation Date of Evaluation: 10/09/18 Time of Evaluation: 10:45 - Subjective Subjective: Podiatry Progress Note - Dr. Alford 58 year old male seen and evaluated 7 days s/p I and D with washout of right leg for treatment of necrotizing fasciitis and application of wound vac. No acute events overnight. No new complaints to RLE per patient. Denies of an pain to the RLE today. Dressing to RLE clean/dry/intact with mild strike through noted. Denies n/v/f/d/c/sob/cai/cp. Objective - Vital Signs/Intake and Output Vital Signs (last 24 hours): Temp Pulse Resp BP Pulse Ox 98.0 F 78 20 169/85 H 98 10/09/18 07:00 10/09/18 07:00 10/09/18 07:00 10/09/18 07:00 10/09/18 07:00 Intake and Output: 10/09/18 10/09/18 06:59 18:59 Intake Total 500 Output Total 1220 Balance -720 - Medications Medications: Current Medications Aspirin (Ecotrin) 81 mg PO DAILY [facility] Last Admin: 10/09/18 10:25 Dose: 81 mg Dextrose (Dextrose 50% Inj) 0 ml IV STAT PRN; Protocol PRN Reason: Hypoglycemia Protocol Dextrose (Glutose 15) 0 gm PO ONCE PRN; Protocol PRN Reason: Hypoglycemia Protocol Diphenhydramine HCl (Benadryl) 25 mg PO Q6 PRN PRN Reason: Rash Glucagon (Glucagen Diagnostic Kit) 0 mg IM STAT PRN; Protocol PRN Reason: Hypoglycemia Protocol Clindamycin Phosphate 600 mg/ (Sodium Chloride) 54 mls @ 100 mls/hr IVPB Q8H [facility]; Protocol Last Admin: 10/09/18 09:00 Dose: 100 mls/hr Insulin Aspart (Novolog) 0 unit SC ACHS [facility]; Protocol Last Admin: 10/09/18 09:00 Dose: 2 units Lidocaine (Lidoderm) 1 ea TD DAILY [facility] Last Admin: 10/09/18 10:25 Dose: Not Given Losartan Potassium (Cozaar) 50 mg PO DAILY [facility] Last Admin: 10/09/18 10:25 Dose: 50 mg Metformin HCl (Glucophage) 500 mg PO BID [facility] Last Admin: 10/09/18 10:25 Dose: 500 mg Pantoprazole Sodium (Protonix Ec Tab) 40 mg PO BID [facility] Last Admin: 10/09/18 10:25 Dose: 40 mg Rosuvastatin Calcium (Crestor) 5 mg PO HS [facility] Last Admin: 10/08/18 21:14 Dose: 5 mg Sucralfate (Carafate Oral Susp) 1 gm PO ACHS [facility] Last Admin: 10/09/18 10:34 Dose: 1 gm - Labs Labs: 10/08/18 14:16 10/08/18 14:16 PT 14.4 SECONDS (9.7-12.2) H 10/02/18 06:51 INR 1.3 10/02/18 06:51 APTT 26 SECONDS (21-34) 10/02/18 06:51 - Constitutional Appears: Well, Non-toxic, No Acute Distress - Extremities Exam Additional comments: RLE focused exam: Wound VAC functioning continuous at 125 mmHG - Canister shows ~100 cc of serosanguinous drainage Neurovascular status intact to digits No pain upon calf compression Erythema to RLE improving since previous visit Plantar surgical site appears well coapted with sutures intact and no evidence of wound dehiscence, Iodoform packing in place, serosanguinous drainage present, no purulence - Neurological Exam Neurological Exam: Alert, Awake, Oriented x3 - Psychiatric Exam Psychiatric exam: Normal Affect, Normal Mood Assessment and Plan - Assessment and Plan (Free Text) Assessment: 58 year old male POD#7 s/p I and D with washout of right leg for treatment of necrotizing fasciitis. Plan: Patient seen and evaluated Plan discussed with Dr. Alford Afebrile, WBC 8.9 as of 10/08 trending downward Intra-op wound cx: Staph Aureus, Group G Strep Continue IV abx per ID - Clindamycin Post operative tib fib xray: No periosteal reaction or cortical interruption seen to suggest osteomyelitis. No lytic lesions. No fractures. Soft tissue changes are compatible with known soft tissue infection and recent incision and drainage and bandaging Post operative foot xray: No osseous destruction or periosteal reaction seen to suggest osteomyelitis. Extensive abnormal soft tissue findings as detailed above compatible with the history of a soft tissue infection and recent surgical intervention. Follow-up recommended LE MRI: No definitive pattern suggest osteomyelitis though failure fat suppression throughout the digits limits interpretation somewhat. No definitive abnormal bone enhancement appreciable. No definitive marrow edema. Extensive left foot edema is appreciate diffusely including multiple soft tissue and dermal defects packed by gauze at the forefoot to midfoot plantar and dorsal soft tissues as discussed above. Limitations: Failure fat suppression of the digits diffusely. WoundVAC dressing - functioning at 125mmHG: approx 100 cc of drainage - plan on changing the VAC Sunday Packing reapplied to plantar wound RLE dressed with DSD, CARMENCITA Podiatry will continue to follow while patient in house
--- NOTE | 2018-10-09 21:48 | CP.PCM.PN ---
Subjective - Subjective Subjective: dictated Objective - Vital Signs/Intake and Output Vital Signs (last 24 hours): Temp Pulse Resp BP Pulse Ox 97.8 F 70 20 155/81 H 94 L 10/09/18 15:00 10/09/18 15:00 10/09/18 15:00 10/09/18 15:00 10/09/18 15:00 Intake and Output: 10/09/18 10/10/18 18:59 06:59 Intake Total 400 Output Total 620 Balance -220 - Medications Medications: Current Medications Aspirin (Ecotrin) 81 mg PO DAILY [facility] Last Admin: 10/09/18 10:25 Dose: 81 mg Dextrose (Dextrose 50% Inj) 0 ml IV STAT PRN; Protocol PRN Reason: Hypoglycemia Protocol Dextrose (Glutose 15) 0 gm PO ONCE PRN; Protocol PRN Reason: Hypoglycemia Protocol Diphenhydramine HCl (Benadryl) 25 mg PO Q6 PRN PRN Reason: Rash Glucagon (Glucagen Diagnostic Kit) 0 mg IM STAT PRN; Protocol PRN Reason: Hypoglycemia Protocol Clindamycin Phosphate 600 mg/ (Sodium Chloride) 54 mls @ 100 mls/hr IVPB Q8H [facility]; Protocol Last Admin: 10/09/18 18:40 Dose: 100 mls/hr Insulin Aspart (Novolog) 0 unit SC ACHS [facility]; Protocol Last Admin: 10/09/18 17:35 Dose: 2 units Lidocaine (Lidoderm) 1 ea TD DAILY [facility] Last Admin: 10/09/18 10:25 Dose: Not Given Losartan Potassium (Cozaar) 50 mg PO DAILY [facility] Last Admin: 10/09/18 10:25 Dose: 50 mg Metformin HCl (Glucophage) 500 mg PO BID [facility] Last Admin: 10/09/18 10:25 Dose: 500 mg Pantoprazole Sodium (Protonix Ec Tab) 40 mg PO BID [facility] Last Admin: 10/09/18 17:35 Dose: 40 mg Rosuvastatin Calcium (Crestor) 5 mg PO HS [facility] Last Admin: 10/08/18 21:14 Dose: 5 mg Sucralfate (Carafate Oral Susp) 1 gm PO ACHS [facility] Last Admin: 10/09/18 17:35 Dose: 1 gm - Labs Labs: 10/08/18 14:16 10/08/18 14:16 PT 14.4 SECONDS (9.7-12.2) H 10/02/18 06:51 INR 1.3 10/02/18 06:51 APTT 26 SECONDS (21-34) 10/02/18 06:51
--- NOTE | 2018-10-09 22:15 | CP.PCM.PN ---
Subjective - Date & Time of Evaluation Date of Evaluation: 10/09/18 Time of Evaluation: 08:00 - Subjective Subjective: wound vac in place awake alert nad Objective - Vital Signs/Intake and Output Vital Signs (last 24 hours): Temp Pulse Resp BP Pulse Ox 97.8 F 70 20 155/81 H 94 L 10/09/18 15:00 10/09/18 15:00 10/09/18 15:00 10/09/18 15:00 10/09/18 15:00 Intake and Output: 10/09/18 10/10/18 18:59 06:59 Intake Total 400 Output Total 620 Balance -220 - Medications Medications: Current Medications Aspirin (Ecotrin) 81 mg PO DAILY [facility] Last Admin: 10/09/18 10:25 Dose: 81 mg Dextrose (Dextrose 50% Inj) 0 ml IV STAT PRN; Protocol PRN Reason: Hypoglycemia Protocol Dextrose (Glutose 15) 0 gm PO ONCE PRN; Protocol PRN Reason: Hypoglycemia Protocol Diphenhydramine HCl (Benadryl) 25 mg PO Q6 PRN PRN Reason: Rash Glucagon (Glucagen Diagnostic Kit) 0 mg IM STAT PRN; Protocol PRN Reason: Hypoglycemia Protocol Clindamycin Phosphate 600 mg/ (Sodium Chloride) 54 mls @ 100 mls/hr IVPB Q8H [facility]; Protocol Last Admin: 10/09/18 18:40 Dose: 100 mls/hr Insulin Aspart (Novolog) 0 unit SC ACHS [facility]; Protocol Last Admin: 10/09/18 17:35 Dose: 2 units Lidocaine (Lidoderm) 1 ea TD DAILY [facility] Last Admin: 10/09/18 10:25 Dose: Not Given Losartan Potassium (Cozaar) 50 mg PO DAILY [facility] Last Admin: 10/09/18 10:25 Dose: 50 mg Metformin HCl (Glucophage) 500 mg PO BID [facility] Last Admin: 10/09/18 10:25 Dose: 500 mg Pantoprazole Sodium (Protonix Ec Tab) 40 mg PO BID [facility] Last Admin: 10/09/18 17:35 Dose: 40 mg Rosuvastatin Calcium (Crestor) 5 mg PO HS [facility] Last Admin: 10/08/18 21:14 Dose: 5 mg Sucralfate (Carafate Oral Susp) 1 gm PO ACHS [facility] Last Admin: 10/09/18 17:35 Dose: 1 gm - Labs Labs: 10/08/18 14:16 10/08/18 14:16 PT 14.4 SECONDS (9.7-12.2) H 10/02/18 06:51 INR 1.3 10/02/18 06:51 APTT 26 SECONDS (21-34) 10/02/18 06:51 - Constitutional Appears: Non-toxic - Head Exam Head Exam: NORMOCEPHALIC - Eye Exam Eye Exam: PERRL Pupil Exam: NORMAL ACCOMODATION - ENT Exam ENT Exam: Mucous Membranes Moist - Neck Exam Neck Exam: Normal Inspection - Respiratory Exam Respiratory Exam: Decreased Breath Sounds - Cardiovascular Exam Cardiovascular Exam: REGULAR RHYTHM, +S1, +S2 - GI/Abdominal Exam GI & Abdominal Exam: Distended, Soft - Rectal Exam Rectal Exam: Deferred Assessment and Plan (1) Necrotizing fasciitis of ankle and foot Status: Acute (2) Sepsis Status: Acute (3) Diabetes mellitus, new onset Status: Acute - Assessment and Plan (Free Text) Assessment: cont iv rx for 6 weeks
[2018-10-09] MEDS: ceFAZolin 2 GM in Sodium Chloride 0.9% 100 ML IVPB SCH (23:11)
--- NOTE | 2018-10-10 02:05 | PN ---
DATE: 10/09/2018 SUBJECTIVE: He is afebrile. He denies any shortness of breath, chest pain, cough, sore throat. He has right foot pain. He is on antibiotic, being seen by Podiatry. PHYSICAL EXAMINATION: VITAL SIGNS: Blood pressure 155/81, pulse 70, respiratory rate 20, temperature 97.8. LUNGS: Clear. CARDIOVASCULAR SYSTEM: S1 and S2, regular. ABDOMEN: Soft. EXTREMITIES: Right foot wound with a dressing. ASSESSMENT: 1. Necrotizing fasciitis of right foot. 2. Type 2 diabetes, new onset. 3. Hypertension. 4. Hyperlipidemia. PLAN: Continue wound care, intravenous antibiotics, ID, and surgical followup. Taiwo Moreno MD
[2018-10-10] MEDS: ceFAZolin 2 GM in Sodium Chloride 0.9% 100 ML IVPB SCH ×3 (06:03→22:23)
[2018-10-10] MEDS: Sucralfate 1 gm/10 ml Oral Susp UD PO SCH ×4 (06:51→22:23)
[2018-10-10] MEDS: (Novolog) Insulin Aspart, Recombinant 100 u/ml 10 ml vial SC SCH ×4 (09:12→22:20)
[2018-10-10] MEDS: Pantoprazole 40 mg EC Tab PO SCH ×2 (09:19→18:03)
--- NOTE | 2018-10-10 10:43 | CP.PCM.PN ---
Subjective - Date & Time of Evaluation Date of Evaluation: 10/10/18 (.) Time of Evaluation: 10:41 - Subjective Subjective: Podiatry Progress Note - Dr. Alford 58 year old male seen and evaluated 8 days s/p I and D with washout of right leg for treatment of necrotizing fasciitis and application of wound vac. No new complaints to RLE per patient. Denies of an pain to the RLE today. No acute events overnight. Dressing to RLE clean/dry/intact with no strike through noted. Denies n/v/f/d/c/sob/cai/cp. Objective - Vital Signs/Intake and Output Vital Signs (last 24 hours): Temp Pulse Resp BP Pulse Ox 98 F 73 20 149/79 97 10/10/18 07:00 10/10/18 07:00 10/10/18 07:00 10/10/18 07:00 10/10/18 07:00 Intake and Output: 10/10/18 10/10/18 06:59 18:59 Intake Total 350 Output Total 620 Balance -270 - Medications Medications: Current Medications Aspirin (Ecotrin) 81 mg PO DAILY [facility] Last Admin: 10/10/18 09:19 Dose: 81 mg Dextrose (Dextrose 50% Inj) 0 ml IV STAT PRN; Protocol PRN Reason: Hypoglycemia Protocol Dextrose (Glutose 15) 0 gm PO ONCE PRN; Protocol PRN Reason: Hypoglycemia Protocol Diphenhydramine HCl (Benadryl) 25 mg PO Q6 PRN PRN Reason: Rash Glucagon (Glucagen Diagnostic Kit) 0 mg IM STAT PRN; Protocol PRN Reason: Hypoglycemia Protocol Cefazolin Sodium 2 gm/ Sodium (Chloride) 100 mls @ 100 mls/hr IVPB Q8H [facility]; Protocol Last Admin: 10/10/18 06:03 Dose: 100 mls/hr Insulin Aspart (Novolog) 0 unit SC ACHS [facility]; Protocol Last Admin: 10/10/18 09:12 Dose: Not Given Lidocaine (Lidoderm) 1 ea TD DAILY [facility] Last Admin: 10/09/18 10:25 Dose: Not Given Losartan Potassium (Cozaar) 50 mg PO DAILY [facility] Last Admin: 10/10/18 09:19 Dose: 50 mg Metformin HCl (Glucophage) 500 mg PO BID [facility] Last Admin: 10/10/18 09:19 Dose: 500 mg Pantoprazole Sodium (Protonix Ec Tab) 40 mg PO BID [facility] Last Admin: 10/10/18 09:19 Dose: 40 mg Rosuvastatin Calcium (Crestor) 5 mg PO HS [facility] Last Admin: 10/09/18 22:26 Dose: 5 mg Sucralfate (Carafate Oral Susp) 1 gm PO ACHS [facility] Last Admin: 10/10/18 06:51 Dose: 1 gm - Labs Labs: 10/08/18 14:16 10/08/18 14:16 PT 14.4 SECONDS (9.7-12.2) H 10/02/18 06:51 INR 1.3 10/02/18 06:51 APTT 26 SECONDS (21-34) 10/02/18 06:51 - Constitutional Appears: Well, Non-toxic, No Acute Distress - Extremities Exam Additional comments: RLE focused exam: Wound VAC functioning continuous at 125 mmHG - Canister shows ~150 cc of serosanguinous drainage Neurovascular status intact to digits No pain upon calf compression Erythema to RLE improving since previous visit Plantar surgical site appears well coapted with sutures intact and no evidence of wound dehiscence, Iodoform packing in place, minimal serosanguinous drainage present, no purulence - Neurological Exam Neurological Exam: Alert, Awake, Oriented x3 - Psychiatric Exam Psychiatric exam: Normal Affect, Normal Mood Assessment and Plan - Assessment and Plan (Free Text) Assessment: 58 year old male POD#8 s/p I and D with washout of right leg for treatment of necrotizing fasciitis. Plan: Patient seen and evaluated Plan discussed with Dr. Alford Afebrile, WBC 8.9 as of 10/08 trending downward Intra-op wound cx: Staph Aureus, Group G Strep Continue IV abx per ID - Cefazolin Post operative tib fib xray: No periosteal reaction or cortical interruption seen to suggest osteomyelitis. No lytic lesions. No fractures. Soft tissue changes are compatible with known soft tissue infection and recent incision and drainage and bandaging Post operative foot xray: No osseous destruction or periosteal reaction seen to suggest osteomyelitis. Extensive abnormal soft tissue findings as detailed above compatible with the history of a soft tissue infection and recent surgical intervention. Follow-up recommended LE MRI: No definitive pattern suggest osteomyelitis though failure fat suppression throughout the digits limits interpretation somewhat. No definitive abnormal bone enhancement appreciable. No definitive marrow edema. Extensive left foot edema is appreciate diffusely including multiple soft tissue and dermal defects packed by gauze at the forefoot to midfoot plantar and dorsal soft tissues as discussed above. Limitations: Failure fat suppression of the digits diffusely. WoundVAC dressing - functioning at 125mmHG: approx 150 cc of drainage - plan on changing the VAC Sunday Packing reapplied to plantar wound RLE dressed with DSD, CARMENCITA Stable from podiatry standpoint Podiatry will continue to follow while patient in house
[2018-10-10] MEDS: Lidocaine 5% Patch TD SCH (11:24)
--- NOTE | 2018-10-10 23:42 | CP.PCM.PN ---
Subjective - Subjective Subjective: DICTATED Objective - Vital Signs/Intake and Output Vital Signs (last 24 hours): Temp Pulse Resp BP Pulse Ox 97.9 F 72 20 153/81 H 98 10/10/18 16:33 10/10/18 16:33 10/10/18 16:33 18 16:33 10/10/18 16:33 Intake and Output: 10/10/18 10/11/18 18:59 06:59 Intake Total 480 400 Output Total 610 Balance -130 400 - Medications Medications: Current Medications Aspirin (Ecotrin) 81 mg PO DAILY [facility] Last Admin: 10/10/18 09:19 Dose: 81 mg Diphenhydramine HCl (Benadryl) 25 mg PO Q6 PRN PRN Reason: Rash Cefazolin Sodium 2 gm/ Sodium (Chloride) 100 mls @ 100 mls/hr IVPB Q8H [facility]; Protocol Last Admin: 10/10/18 22:23 Dose: 100 mls/hr Insulin Aspart (Novolog) 0 unit SC ACHS [facility]; Protocol Last Admin: 10/10/18 22:20 Dose: Not Given Lidocaine (Lidoderm) 1 ea TD DAILY [facility] Last Admin: 10/10/18 11:24 Dose: Not Given Losartan Potassium (Cozaar) 50 mg PO DAILY [facility] Last Admin: 10/10/18 09:19 Dose: 50 mg Metformin HCl (Glucophage) 500 mg PO BID [facility] Last Admin: 10/10/18 18:03 Dose: 500 mg Pantoprazole Sodium (Protonix Ec Tab) 40 mg PO BID [facility] Last Admin: 10/10/18 18:03 Dose: 40 mg Rosuvastatin Calcium (Crestor) 5 mg PO HS [facility] Last Admin: 10/10/18 22:22 Dose: 5 mg Sucralfate (Carafate Oral Susp) 1 gm PO ACHS [facility] Last Admin: 10/10/18 22:23 Dose: 1 gm - Labs Labs: 10/08/18 14:16 10/08/18 14:16 PT 14.4 SECONDS (9.7-12.2) H 10/02/18 06:51 INR 1.3 10/02/18 06:51 APTT 26 SECONDS (21-34) 10/02/18 06:51
[2018-10-11] MEDS: ceFAZolin 2 GM in Sodium Chloride 0.9% 100 ML IVPB SCH ×3 (06:13→22:00)
[2018-10-11 06:34] LABS: BASO # 0.1 K/uL (0.0-0.2); BASO % 1.4 % (0.0-2.0); EOS # 0.6 K/uL (0.0-0.7); EOS % 6.1 % (0.0-4.0); HEMOGLOBIN 8.9 g/dL (12.0-18.0); LYMPH # 1.3 K/uL (1.0-4.3); LYMPH % 12.7 % (20.0-40.0); MEAN CELL VOLUME 84.8 fL (80.0-94.0); MEAN CORPUSCULAR HEMOGLOBIN 28.2 pg (27.0-31.0); MEAN CORPUSCULAR HGB CONC 33.3 g/dL (33.0-37.0); MEAN PLATELET VOLUME 9.1 fL (7.2-11.7); MONO # 0.8 K/uL (0.0-0.8); MONO % 7.5 % (0.0-10.0); NEUT # 7.6 K/uL (1.8-7.0); NEUT % 72.3 % (50.0-75.0); RBC 3.16 Mil/uL (4.40-5.90); RED CELL DISTRIBUTION WIDTH 14.1 % (11.5-14.5); WHITE BLOOD COUNT 10.4 K/uL (4.8-10.8)
[2018-10-11 06:43] LABS: BLOOD UREA NITROGEN 16 mg/dL (9-20); CALCIUM 8.4 mg/dl (8.6-10.4); GFR NON-AFRICAN AMERICAN > 60
[2018-10-11] MEDS: Sucralfate 1 gm/10 ml Oral Susp UD PO SCH ×4 (06:57→21:56)
[2018-10-11] MEDS: Lidocaine 5% Patch TD SCH (09:26)
[2018-10-11] MEDS: (Novolog) Insulin Aspart, Recombinant 100 u/ml 10 ml vial SC SCH ×4 (09:26→21:58)
[2018-10-11] MEDS: Pantoprazole 40 mg EC Tab PO SCH ×2 (09:26→18:51)
--- NOTE | 2018-10-11 12:05 | CP.PCM.PN ---
Subjective - Date & Time of Evaluation Date of Evaluation: 10/11/18 Time of Evaluation: 12:05 - Subjective Subjective: Podiatry Progress Note - Dr. Alford 58 year old male seen and evaluated 9 days s/p I and D with washout of right leg for treatment of necrotizing fasciitis and application of wound vac. No acute events overnight. Denies of an pain to the RLE today. Dressing to RLE clean/dry/intact with no strike through noted. No new complaints to RLE per patient. Denies n/v/f/d/c/sob/cai/cp. Objective - Vital Signs/Intake and Output Vital Signs (last 24 hours): Temp Pulse Resp BP Pulse Ox 98.2 F 80 20 152/91 H 96 10/11/18 07:00 10/11/18 07:00 10/11/18 07:00 10/11/18 07:00 10/11/18 07:00 Intake and Output: 10/11/18 10/11/18 06:59 18:59 Intake Total 600 Output Total 1020 Balance -420 - Medications Medications: Current Medications Aspirin (Ecotrin) 81 mg PO DAILY [facility] Last Admin: 10/11/18 09:26 Dose: 81 mg Diphenhydramine HCl (Benadryl) 25 mg PO Q6 PRN PRN Reason: Rash Cefazolin Sodium 2 gm/ Sodium (Chloride) 100 mls @ 100 mls/hr IVPB Q8H [facility]; Protocol Last Admin: 10/11/18 06:13 Dose: 100 mls/hr Insulin Aspart (Novolog) 0 unit SC ACHS [facility]; Protocol Last Admin: 10/11/18 09:26 Dose: 2 units Lidocaine (Lidoderm) 1 ea TD DAILY [facility] Last Admin: 10/11/18 09:26 Dose: Not Given Losartan Potassium (Cozaar) 50 mg PO DAILY [facility] Last Admin: 10/11/18 09:26 Dose: 50 mg Metformin HCl (Glucophage) 500 mg PO BID [facility] Last Admin: 10/11/18 09:26 Dose: 500 mg Pantoprazole Sodium (Protonix Ec Tab) 40 mg PO BID [facility] Last Admin: 10/11/18 09:26 Dose: 40 mg Rosuvastatin Calcium (Crestor) 5 mg PO HS [facility] Last Admin: 10/10/18 22:22 Dose: 5 mg Sucralfate (Carafate Oral Susp) 1 gm PO ACHS [facility] Last Admin: 10/11/18 11:35 Dose: 1 gm - Labs Labs: 10/11/18 06:18 10/11/18 06:18 PT 14.4 SECONDS (9.7-12.2) H 10/02/18 06:51 INR 1.3 10/02/18 06:51 APTT 26 SECONDS (21-34) 10/02/18 06:51 - Constitutional Appears: Well, Non-toxic, No Acute Distress - Extremities Exam Additional comments: RLE focused exam: VASC: DP/PT pulses non-palpable secondary to 1+ non-pitting edema to RLE. CFT approx 3 seconds to all digits. Skin temperature increased R>L but greatly improved. Erythema is still noted from toes to level of midcalf circumfrentially - diminished from previous visit. Derm: 1) Open surgical wound with exposed tendons and deep soft tissue on the anterior lateral aspect of the right leg which extends distally over the ankle and proximal foot 2) Longitudinal plantar incision from first interdigital space to level of midfoot appears well coapted with no evidence of dehiscence, mild serosanguinous drainage, with packing in place, mild maceration noted 3) Medial foot at level of 1st MTPJ measuring roughly 4 cm. 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 Epicritic and protective sensation starting to return along distribution of superficial peroneal nerve as well as the tibial nerve MSK: ROM limited at toes and ankle joint but improved over yesterday. Pain with palpation of plantar incision sites - Neurological Exam Neurological Exam: Alert, Awake, Oriented x3 - Psychiatric Exam Psychiatric exam: Normal Affect, Normal Mood Assessment and Plan - Assessment and Plan (Free Text) Assessment: 58 year old male POD#9 s/p I and D with washout of right leg for treatment of necrotizing fasciitis. Plan: Patient seen and evaluated Plan discussed with Dr. Prashanth Merritt, WBC 10.4 Intra-op wound cx: Staph Aureus, Group G Strep Continue IV abx per ID - Cefazolin Post operative tib fib xray: No periosteal reaction or cortical interruption seen to suggest osteomyelitis. No lytic lesions. No fractures. Soft tissue changes are compatible with known soft tissue infection and recent incision and drainage and bandaging Post operative foot xray: No osseous destruction or periosteal reaction seen to suggest osteomyelitis. Extensive abnormal soft tissue findings as detailed above compatible with the history of a soft tissue infection and recent surgical intervention. Follow-up recommended LE MRI: No definitive pattern suggest osteomyelitis though failure fat suppression throughout the digits limits interpretation somewhat. No definitive abnormal bone enhancement appreciable. No definitive marrow edema. Extensive left foot edema is appreciate diffusely including multiple soft tissue and dermal defects packed by gauze at the forefoot to midfoot plantar and dorsal soft tissues as discussed above. Limitations: Failure fat suppression of the digits diffusely. WoundVAC dressing changed - functioning at 125mmHG, new canister placed Packing reapplied to plantar wound RLE dressed with DSD, CARMENCITA Podiatry plans for wound debridement with graft placement Sunday (10/14) Podiatry will continue to follow while patient in house
--- NOTE | 2018-10-11 18:01 | CP.PCM.PN ---
Subjective - Date & Time of Evaluation Date of Evaluation: 10/11/18 Time of Evaluation: 09:00 - Subjective Subjective: vac in [lace no fever no new complaints Objective - Vital Signs/Intake and Output Vital Signs (last 24 hours): Temp Pulse Resp BP Pulse Ox 98.2 F 80 20 152/91 H 96 10/11/18 07:00 10/11/18 07:00 10/11/18 07:00 10/11/18 07:00 10/11/18 07:00 Intake and Output: 10/11/18 10/11/18 06:59 18:59 Intake Total 600 Output Total 1020 Balance -420 - Medications Medications: Current Medications Aspirin (Ecotrin) 81 mg PO DAILY [facility] Last Admin: 10/11/18 09:26 Dose: 81 mg Diphenhydramine HCl (Benadryl) 25 mg PO Q6 PRN PRN Reason: Rash Cefazolin Sodium 2 gm/ Sodium (Chloride) 100 mls @ 100 mls/hr IVPB Q8H [facility]; Protocol Last Admin: 10/11/18 14:34 Dose: 100 mls/hr Insulin Aspart (Novolog) 0 unit SC ACHS [facility]; Protocol Last Admin: 10/11/18 12:55 Dose: Not Given Lidocaine (Lidoderm) 1 ea TD DAILY [facility] Last Admin: 10/11/18 09:26 Dose: Not Given Losartan Potassium (Cozaar) 50 mg PO DAILY [facility] Last Admin: 10/11/18 09:26 Dose: 50 mg Metformin HCl (Glucophage) 500 mg PO BID [facility] Last Admin: 10/11/18 09:26 Dose: 500 mg Pantoprazole Sodium (Protonix Ec Tab) 40 mg PO BID [facility] Last Admin: 10/11/18 09:26 Dose: 40 mg Rosuvastatin Calcium (Crestor) 5 mg PO HS [facility] Last Admin: 10/10/18 22:22 Dose: 5 mg Sucralfate (Carafate Oral Susp) 1 gm PO ACHS [facility] Last Admin: 10/11/18 11:35 Dose: 1 gm - Labs Labs: 10/11/18 06:18 10/11/18 06:18 PT 14.4 SECONDS (9.7-12.2) H 10/02/18 06:51 INR 1.3 10/02/18 06:51 APTT 26 SECONDS (21-34) 10/02/18 06:51 - Constitutional Appears: Non-toxic, Chronically Ill - Head Exam Head Exam: NORMOCEPHALIC - Eye Exam Eye Exam: absent: Nystagmus - ENT Exam ENT Exam: Mucous Membranes Dry - Neck Exam Neck Exam: absent: Lymphadenopathy - Respiratory Exam Respiratory Exam: Decreased Breath Sounds - Cardiovascular Exam Cardiovascular Exam: REGULAR RHYTHM - GI/Abdominal Exam GI & Abdominal Exam: Distended - Rectal Exam Rectal Exam: Deferred Assessment and Plan (1) Necrotizing fasciitis of ankle and foot Status: Acute (2) Sepsis Status: Acute (3) Diabetes mellitus, new onset Status: Acute
--- NOTE | 2018-10-11 22:37 | CP.PCM.PN ---
Subjective - Subjective Subjective: dictated Objective - Vital Signs/Intake and Output Vital Signs (last 24 hours): Temp Pulse Resp BP Pulse Ox 98.2 F 80 20 152/91 H 96 10/11/18 07:00 10/11/18 07:00 18 07:00 18 07:00 10/11/18 07:00 - Medications Medications: Current Medications Aspirin (Ecotrin) 81 mg PO DAILY [facility] Last Admin: 10/11/18 09:26 Dose: 81 mg Diphenhydramine HCl (Benadryl) 25 mg PO Q6 PRN PRN Reason: Rash Cefazolin Sodium 2 gm/ Sodium (Chloride) 100 mls @ 100 mls/hr IVPB Q8H [facility]; Protocol Last Admin: 10/11/18 22:00 Dose: 100 mls/hr Insulin Aspart (Novolog) 0 unit SC ACHS [facility]; Protocol Last Admin: 10/11/18 21:58 Dose: Not Given Lidocaine (Lidoderm) 1 ea TD DAILY [facility] Last Admin: 10/11/18 09:26 Dose: Not Given Losartan Potassium (Cozaar) 50 mg PO DAILY [facility] Last Admin: 10/11/18 09:26 Dose: 50 mg Metformin HCl (Glucophage) 500 mg PO BID [facility] Last Admin: 10/11/18 18:51 Dose: 500 mg Pantoprazole Sodium (Protonix Ec Tab) 40 mg PO BID [facility] Last Admin: 10/11/18 18:51 Dose: 40 mg Rosuvastatin Calcium (Crestor) 5 mg PO HS [facility] Last Admin: 10/11/18 21:56 Dose: 5 mg Sucralfate (Carafate Oral Susp) 1 gm PO ACHS [facility] Last Admin: 10/11/18 21:56 Dose: 1 gm - Labs Labs: 10/11/18 06:18 10/11/18 06:18 PT 14.4 SECONDS (9.7-12.2) H 10/02/18 06:51 INR 1.3 10/02/18 06:51 APTT 26 SECONDS (21-34) 10/02/18 06:51
--- NOTE | 2018-10-12 03:26 | PN ---
DATE: 10/11/2018 SUBJECTIVE: The patient is with right foot wound, has a dressing. Has necrotizing fasciitis. He will be placed in LTAC facility. He is afebrile. No shortness of breath. PHYSICAL EXAMINATION: VITAL SIGNS: Blood pressure 152/91, pulse 80, respiratory rate 20, and temperature 98.2. LUNGS: Clear. No rales. No rhonchi. CARDIOVASCULAR SYSTEM: S1 and S2 are regular. ABDOMEN: Soft. ASSESSMENT: 1. Right foot necrotizing fasciitis. 2. Hypertension. 3. Type 2 diabetes, new onset. 4. Anemia of chronic disease. PLAN: Continue antibiotics. Wound care. LTAC placement. Taiwo Moreno MD
[2018-10-12] MEDS: ceFAZolin 2 GM in Sodium Chloride 0.9% 100 ML IVPB SCH ×2 (06:28→15:06)
[2018-10-12] MEDS: Sucralfate 1 gm/10 ml Oral Susp UD PO SCH (06:30)
[2018-10-12] MEDS: (Novolog) Insulin Aspart, Recombinant 100 u/ml 10 ml vial SC SCH ×3 (07:35→18:29)
[2018-10-12] MEDS: Pantoprazole 40 mg EC Tab PO SCH ×2 (10:44→18:29)
--- NOTE | 2018-10-12 12:38 | CP.PCM.PN ---
Subjective - Date & Time of Evaluation Date of Evaluation: 10/12/18 Time of Evaluation: 12:38 - Subjective Subjective: Podiatry Progress Note - Dr. lAford 58 year old male seen and evaluated at bedside this afternoon, 10 days s/p right lower extremity incision and drainage with washout of right leg for treatment of necrotizing fasciitis and application of wound vac therapy. Pt denies any new pedal complaints. Denies of an pain to the RLE today. No acute events overnight. Dressing to RLE clean/dry/intact with wound vac in place. Patient denies F/C/N /V/CP/SOB/NYE/D/C. Objective - Vital Signs/Intake and Output Vital Signs (last 24 hours): Temp Pulse Resp BP Pulse Ox 98.1 F 77 18 143/83 96 10/12/18 07:00 10/12/18 07:00 10/12/18 07:00 10/12/18 07:00 10/12/18 07:00 Intake and Output: 10/12/18 10/12/18 06:59 18:59 Intake Total 100 Output Total 920 Balance -820 - Medications Medications: Current Medications Aspirin (Ecotrin) 81 mg PO DAILY [facility] Last Admin: 10/12/18 10:44 Dose: 81 mg Cefazolin Sodium 2 gm/ Sodium (Chloride) 100 mls @ 100 mls/hr IVPB Q8H [facility]; Protocol Last Admin: 10/12/18 06:28 Dose: 100 mls/hr Insulin Aspart (Novolog) 0 unit SC ACHS [facility]; Protocol Last Admin: 10/12/18 07:35 Dose: Not Given Lidocaine (Lidoderm) 1 ea TD DAILY [facility] Last Admin: 10/11/18 09:26 Dose: Not Given Losartan Potassium (Cozaar) 50 mg PO DAILY [facility] Last Admin: 10/12/18 10:44 Dose: 50 mg Metformin HCl (Glucophage) 500 mg PO BID [facility] Last Admin: 10/12/18 10:44 Dose: 500 mg Pantoprazole Sodium (Protonix Ec Tab) 40 mg PO BID [facility] Last Admin: 10/12/18 10:44 Dose: 40 mg Rosuvastatin Calcium (Crestor) 5 mg PO HS [facility] Last Admin: 10/11/18 21:56 Dose: 5 mg - Labs Labs: 10/11/18 06:18 10/11/18 06:18 PT 14.4 SECONDS (9.7-12.2) H 10/02/18 06:51 INR 1.3 10/02/18 06:51 APTT 26 SECONDS (21-34) 10/02/18 06:51 - Constitutional Appears: Well, Non-toxic, No Acute Distress - Extremities Exam Additional comments: RLE focused exam: Wound VAC functioning continuous at 125 mmHG - Canister shows approx 25-30 cc of serosanguinous drainage -Leak check confirms seal is good Neurovascular status intact to digits x4 No pain elicited upon calf compression Plantar surgical site appears well coapted with sutures intact and no evidence of wound dehiscence Iodoform packing in place, minimal serosanguinous drainage present, no purulence Minor maceration is noted to plantar tissue at suture sites - Neurological Exam Neurological Exam: Alert, Awake, Oriented x3 - Psychiatric Exam Psychiatric exam: Normal Affect, Normal Mood Assessment and Plan - Assessment and Plan (Free Text) Assessment: 58 year old male 10 days s/p I and D with washout of right leg for treatment of necrotizing fasciitis Plan: Patient seen and evaluated Plan discussed with Dr. Prashanth Merritt, WBC 8.9 as of 10/08 trending downward Intra-op wound cx: Staph Aureus, Group G Strep Continue IV abx per ID - Cefazolin Post operative tib fib xray: No periosteal reaction or cortical interruption seen to suggest osteomyelitis. No lytic lesions. No fractures. Soft tissue changes are compatible with known soft tissue infection and recent incision and drainage and bandaging Post operative foot xray: No osseous destruction or periosteal reaction seen to suggest osteomyelitis. Extensive abnormal soft tissue findings as detailed above compatible with the history of a soft tissue infection and recent surgical intervention. Follow-up recommended RLE MRI: No definitive pattern suggest osteomyelitis though failure fat suppression throughout the digits limits interpretation somewhat. No definitive abnormal bone enhancement appreciable. No definitive marrow edema. Extensive left foot edema is appreciate diffusely including multiple soft tissue and de rmal defects packed by gauze at the forefoot to midfoot plantar and dorsal soft tissues as discussed above. Limitations: Failure fat suppression of the digits diffusely. Wound VAC dressing - functioning at 125mmHG: approx 30 cc of serosanguinous drainage in canister - vac changed yesterday Packing reapplied to plantar wound and macerated tissue dressed with betadine, DSD RLE dressed with DSD, CARMENCITA Patient to go for wound debridement with graft application Sunday with Dr. Alford Anticoagulants to be held tomorrow - ok per primary team NPO after midnight tomorrow Podiatry will continue to follow while patient in house
[2018-10-12] MEDS: Lidocaine 5% Patch TD SCH (12:46)
--- NOTE | 2018-10-12 22:49 | CP.PCM.PN ---
Subjective - Subjective Subjective: dictated Objective - Vital Signs/Intake and Output Vital Signs (last 24 hours): Temp Pulse Resp BP Pulse Ox 98.3 F 70 20 149/81 98 10/12/18 15:20 10/12/18 15:20 10/12/18 15:20 10/12/18 15:20 10/12/18 15:20 Intake and Output: 10/12/18 10/13/18 18:59 06:59 Intake Total 200 Output Total 410 Balance -210 - Medications Medications: Current Medications Aspirin (Ecotrin) 81 mg PO DAILY [facility] Last Admin: 10/12/18 10:44 Dose: 81 mg Cefazolin Sodium 2 gm/ Sodium (Chloride) 100 mls @ 100 mls/hr IVPB Q8H [facility]; Protocol Last Admin: 10/12/18 15:06 Dose: 100 mls/hr Insulin Aspart (Novolog) 0 unit SC ACHS [facility]; Protocol Last Admin: 10/12/18 18:29 Dose: 3 units Lidocaine (Lidoderm) 1 ea TD DAILY [facility] Last Admin: 10/12/18 12:46 Dose: Not Given Losartan Potassium (Cozaar) 50 mg PO DAILY [facility] Last Admin: 10/12/18 10:44 Dose: 50 mg Metformin HCl (Glucophage) 500 mg PO BID [facility] Last Admin: 10/12/18 18:29 Dose: 500 mg Pantoprazole Sodium (Protonix Ec Tab) 40 mg PO BID [facility] Last Admin: 10/12/18 18:29 Dose: 40 mg Rosuvastatin Calcium (Crestor) 5 mg PO HS [facility] Last Admin: 10/11/18 21:56 Dose: 5 mg - Labs Labs: 10/11/18 06:18 10/11/18 06:18 PT 14.4 SECONDS (9.7-12.2) H 10/02/18 06:51 INR 1.3 10/02/18 06:51 APTT 26 SECONDS (21-34) 10/02/18 06:51
[2018-10-13] MEDS: ceFAZolin 2 GM in Sodium Chloride 0.9% 100 ML IVPB SCH ×4 (00:15→22:12)
[2018-10-13] MEDS: (Novolog) Insulin Aspart, Recombinant 100 u/ml 10 ml vial SC SCH ×5 (00:27→21:42)
--- NOTE | 2018-10-13 04:14 | PN ---
DATE: 10/12/2018 SUBJECTIVE: Aramis Clark is afebrile. He is for LTAC. PHYSICAL EXAMINATION: VITAL SIGNS: Blood pressure 149/81, pulse 70, respiratory rate 20, and temperature 98.3. LUNGS: Clear. CARDIOVASCULAR SYSTEM: S1 and S2 regular. ABDOMEN: Soft. ASSESSMENT: 1. Necrotizing fasciitis of foot, right. 2. Diabetes. 3. Hypertension. 4. Anemia of chronic disease. PLAN: Continue current medication, LTAC. Taiwo Moreno MD
[2018-10-13] MEDS: Lidocaine 5% Patch TD SCH (10:08)
[2018-10-13] MEDS: Pantoprazole 40 mg EC Tab PO SCH ×2 (10:25→17:17)
--- NOTE | 2018-10-13 13:54 | CP.PCM.PN ---
Subjective - Date & Time of Evaluation Date of Evaluation: 10/13/18 Time of Evaluation: 08:00 - Subjective Subjective: afeb nad Objective - Vital Signs/Intake and Output Vital Signs (last 24 hours): Temp Pulse Resp BP Pulse Ox 98.1 F 77 20 151/88 H 98 10/13/18 07:00 10/13/18 07:00 10/13/18 07:00 10/13/18 07:00 10/13/18 07:00 Intake and Output: 10/13/18 10/13/18 06:59 18:59 Output Total 700 Balance -700 - Medications Medications: Current Medications Aspirin (Ecotrin) 81 mg PO DAILY [facility] Last Admin: 10/13/18 10:25 Dose: 81 mg Cefazolin Sodium 2 gm/ Sodium (Chloride) 100 mls @ 100 mls/hr IVPB Q8H [facility]; Protocol Last Admin: 10/13/18 06:38 Dose: 100 mls/hr Insulin Aspart (Novolog) 0 unit SC ACHS [facility]; Protocol Last Admin: 10/13/18 12:34 Dose: 2 units Lidocaine (Lidoderm) 1 ea TD DAILY [facility] Last Admin: 10/13/18 10:08 Dose: Not Given Losartan Potassium (Cozaar) 50 mg PO DAILY [facility] Last Admin: 10/13/18 10:25 Dose: 50 mg Metformin HCl (Glucophage) 500 mg PO BID [facility] Last Admin: 10/13/18 10:25 Dose: 500 mg Pantoprazole Sodium (Protonix Ec Tab) 40 mg PO BID [facility] Last Admin: 10/13/18 10:25 Dose: 40 mg Rosuvastatin Calcium (Crestor) 5 mg PO HS [facility] Last Admin: 10/13/18 00:15 Dose: 5 mg - Labs Labs: 10/11/18 06:18 10/11/18 06:18 PT 14.4 SECONDS (9.7-12.2) H 10/02/18 06:51 INR 1.3 10/02/18 06:51 APTT 26 SECONDS (21-34) 10/02/18 06:51 - Constitutional Appears: Non-toxic, Chronically Ill - Head Exam Head Exam: NORMOCEPHALIC - Eye Exam Eye Exam: absent: Scleral icterus - ENT Exam ENT Exam: Mucous Membranes Dry - Neck Exam Neck Exam: absent: Lymphadenopathy - Respiratory Exam Respiratory Exam: Decreased Breath Sounds - Cardiovascular Exam Cardiovascular Exam: REGULAR RHYTHM - GI/Abdominal Exam GI & Abdominal Exam: Distended - Rectal Exam Rectal Exam: Deferred - Exam Exam: NORMAL INSPECTION - Extremities Exam Extremities Exam: Pedal Edema. absent: Calf Tenderness, Tenderness - Back Exam Back Exam: absent: CVA tenderness (L), CVA tenderness (R) - Neurological Exam Neurological Exam: Alert, Awake, Oriented x3 Assessment and Plan (1) Necrotizing fasciitis of ankle and foot Status: Acute (2) Sepsis Status: Acute (3) Diabetes mellitus, new onset Status: Acute - Assessment and Plan (Free Text) Assessment: cont iv rx wound vac for skin graft
--- NOTE | 2018-10-13 20:12 | CP.PCM.PN ---
Subjective - Subjective Subjective: dictated Objective - Vital Signs/Intake and Output Vital Signs (last 24 hours): Temp Pulse Resp BP Pulse Ox 98 F 72 18 146/86 98 10/13/18 15:25 10/13/18 15:25 10/13/18 15:25 10/13/18 15:25 10/13/18 15:25 Intake and Output: 10/13/18 10/14/18 18:59 06:59 Intake Total 100 Output Total 400 Balance -300 - Medications Medications: Current Medications Aspirin (Ecotrin) 81 mg PO DAILY [facility] Last Admin: 10/13/18 10:25 Dose: 81 mg Cefazolin Sodium 2 gm/ Sodium (Chloride) 100 mls @ 100 mls/hr IVPB Q8H [facility]; Protocol Last Admin: 10/13/18 14:44 Dose: 100 mls/hr Insulin Aspart (Novolog) 0 unit SC ACHS [facility]; Protocol Last Admin: 10/13/18 17:17 Dose: Not Given Lidocaine (Lidoderm) 1 ea TD DAILY [facility] Last Admin: 10/13/18 10:08 Dose: Not Given Losartan Potassium (Cozaar) 50 mg PO DAILY [facility] Last Admin: 10/13/18 10:25 Dose: 50 mg Metformin HCl (Glucophage) 500 mg PO BID [facility] Last Admin: 10/13/18 17:17 Dose: 500 mg Rosuvastatin Calcium (Crestor) 5 mg PO HS [facility] Last Admin: 10/13/18 00:15 Dose: 5 mg - Labs Labs: 10/11/18 06:18 10/11/18 06:18 PT 14.4 SECONDS (9.7-12.2) H 10/02/18 06:51 INR 1.3 10/02/18 06:51 APTT 26 SECONDS (21-34) 10/02/18 06:51
--- NOTE | 2018-10-14 03:08 | PN ---
DATE: 10/13/2018 SUBJECTIVE: The patient, [place], is afebrile. No shortness of breath. No chest pain. PHYSICAL EXAMINATION VITAL SIGNS: BP 146/86, pulse 72, respiratory rate 18, and temperature 98. LUNGS: Clear. CARDIOVASCULAR SYSTEM: S1 and S2, regular. ABDOMEN: Soft. ASSESSMENT: 1. Type 2 diabetes. 2. Hypertension. 3. Anemia of chronic disease. 4. Right foot necrotizing fasciitis. PLAN: Continue current medications. Monitor the patient. Taiwo Moreno MD
[2018-10-14] MEDS: ceFAZolin 2 GM in Sodium Chloride 0.9% 100 ML IVPB SCH ×3 (06:20→22:09)
[2018-10-14] MEDS: (Novolog) Insulin Aspart, Recombinant 100 u/ml 10 ml vial SC SCH ×4 (07:32→22:15)
[2018-10-14] MEDS: Lidocaine 5% Patch TD SCH (09:39)
--- NOTE | 2018-10-14 11:31 | CP.PCM.PN ---
Subjective - Date & Time of Evaluation Date of Evaluation: 10/14/18 Time of Evaluation: 08:00 - Subjective Subjective: 10 days s/p right lower extremity incision and drainage with washout of right leg for treatment of necrotizing fasciitis and application of wound vac therapy. Objective - Vital Signs/Intake and Output Vital Signs (last 24 hours): Temp Pulse Resp BP Pulse Ox 97.8 F 79 20 149/80 98 10/14/18 07:00 10/14/18 07:00 10/14/18 07:00 10/14/18 07:00 10/14/18 07:00 Intake and Output: 10/14/18 10/14/18 06:59 18:59 Output Total 600 Balance -600 - Medications Medications: Current Medications Aspirin (Ecotrin) 81 mg PO DAILY [facility] Last Admin: 10/14/18 09:39 Dose: Not Given Cefazolin Sodium 2 gm/ Sodium (Chloride) 100 mls @ 100 mls/hr IVPB Q8H [facility]; Protocol Last Admin: 10/14/18 06:20 Dose: 100 mls/hr Insulin Aspart (Novolog) 0 unit SC ACHS [facility]; Protocol Last Admin: 10/14/18 07:32 Dose: Not Given Lidocaine (Lidoderm) 1 ea TD DAILY [facility] Last Admin: 10/14/18 09:39 Dose: Not Given Losartan Potassium (Cozaar) 50 mg PO DAILY [facility] Last Admin: 10/14/18 09:39 Dose: Not Given Metformin HCl (Glucophage) 500 mg PO BID [facility] Last Admin: 10/14/18 09:39 Dose: Not Given Rosuvastatin Calcium (Crestor) 5 mg PO HS [facility] Last Admin: 10/13/18 21:42 Dose: 5 mg - Labs Labs: 10/11/18 06:18 10/11/18 06:18 PT 14.4 SECONDS (9.7-12.2) H 10/02/18 06:51 INR 1.3 10/02/18 06:51 APTT 26 SECONDS (21-34) 10/02/18 06:51 - Constitutional Appears: Non-toxic, Chronically Ill - Head Exam Head Exam: NORMOCEPHALIC - Eye Exam Eye Exam: absent: Scleral icterus - ENT Exam ENT Exam: Mucous Membranes Dry - Neck Exam Neck Exam: absent: Lymphadenopathy - Respiratory Exam Respiratory Exam: Decreased Breath Sounds - Cardiovascular Exam Cardiovascular Exam: REGULAR RHYTHM - GI/Abdominal Exam GI & Abdominal Exam: Distended - Rectal Exam Rectal Exam: Deferred - Exam Exam: NORMAL INSPECTION - Extremities Exam Extremities Exam: absent: Pedal Edema - Back Exam Back Exam: absent: CVA tenderness (L), CVA tenderness (R) Assessment and Plan (1) Necrotizing fasciitis of ankle and foot Status: Acute (2) Sepsis Status: Acute (3) Diabetes mellitus, new onset Status: Acute - Assessment and Plan (Free Text) Assessment: 10 days s/p right lower extremity incision and drainage with washout of right leg for treatment of necrotizing fasciitis and application of wound vac therapy. cont IV antibioitics for now
[2018-10-14] MEDS ORDERED: Bupivacaine 0.25% 20 ML INJ IJ ONE (14:12)
[2018-10-14] MEDS ORDERED: Lidocaine Hydrochloride 10 ML INJ ONE (14:12)
[2018-10-14 14:21] LABS: BASO # 0.1 K/uL (0.0-0.2); BASO % 1.3 % (0.0-2.0); EOS # 0.4 K/uL (0.0-0.7); HEMOGLOBIN 9.8 g/dL (12.0-18.0); LYMPH # 1.2 K/uL (1.0-4.3); LYMPH % 13.8 % (20.0-40.0); MEAN CELL VOLUME 85.5 fL (80.0-94.0); MEAN CORPUSCULAR HEMOGLOBIN 28.8 pg (27.0-31.0); MEAN CORPUSCULAR HGB CONC 33.7 g/dL (33.0-37.0); MONO # 0.6 K/uL (0.0-0.8); MONO % 6.5 % (0.0-10.0); NEUT # 6.4 K/uL (1.8-7.0); NEUT % 73.4 % (50.0-75.0); RBC 3.42 Mil/uL (4.40-5.90); RED CELL DISTRIBUTION WIDTH 13.9 % (11.5-14.5); WHITE BLOOD COUNT 8.7 K/uL (4.8-10.8)
[2018-10-14] MEDS ORDERED: Midazolam 2 MG/2 ML VIAL ONE (14:26)
[2018-10-14] MEDS ORDERED: Propofol 10 mg/ml Inj (20 ML) ONE (14:26)
[2018-10-14 14:45] LABS: BLOOD UREA NITROGEN 14 mg/dL (9-20); CALCIUM 8.8 mg/dl (8.6-10.4); GFR NON-AFRICAN AMERICAN > 60
[2018-10-14] MEDS ORDERED: HYDROmorphone 0.5 mg/0.5 ml ISec IVP PRN (15:58)
--- NOTE | 2018-10-14 16:25 | PCM.SURG1 ---
Surgeon's Initial Post Op Note - Surgeon's Notes Surgeon: Dr. Alford, DPM Compressor Repairer: Dr. Valencia Leblanc, PGY3, Dr. Glenny Arnold PGY1 Type of Anesthesia: IV Sedation, Local Pre-Operative Diagnosis: Right non-healing ulceration secondary to necrotizing fasciitis Operative Findings: See Dictation. I: none. M: 3-0 prolene, 2-0 prolene, 2-0 Monocril, 1/4 iodoform packing Post-Operative Diagnosis: Same Operation Performed: Wound debridement with graft application and 3rd digit amputation Specimen/Specimens Removed: Bone from right foot Estimated Blood Loss: EBL {In ML}: 20 Blood Products Given: N/A Drains Used: No Drains Post-Op Condition: Good Date of Surgery/Procedure: 10/14/18 Time of Surgery/Procedure: 16:25
[2018-10-14] MEDS ORDERED: Oxycodone/Acetaminophen 5/325 mg Tab PO PRN ×2 (16:26)
[2018-10-14 17:40] VITALS: RESP 20
--- NOTE | 2018-10-14 22:31 | CP.PCM.PN ---
Subjective - Subjective Subjective: dictated Objective - Vital Signs/Intake and Output Vital Signs (last 24 hours): Temp Pulse Resp BP Pulse Ox 98.1 F 74 20 157/89 H 98 10/14/18 17:15 10/14/18 17:15 10/14/18 17:15 10/14/18 17:15 10/14/18 17:15 Intake and Output: 10/14/18 10/15/18 18:59 06:59 Intake Total 900 Balance 900 - Medications Medications: Current Medications Acetaminophen (Tylenol 325mg Tab) 650 mg PO Q6 PRN PRN Reason: Pain, Mild (1-3) Last Admin: 10/14/18 19:31 Dose: 650 mg Aspirin (Ecotrin) 81 mg PO DAILY [facility] Last Admin: 10/14/18 09:39 Dose: Not Given Cefazolin Sodium 2 gm/ Sodium (Chloride) 100 mls @ 100 mls/hr IVPB Q8H [facility]; Protocol Last Admin: 10/14/18 22:09 Dose: 100 mls/hr Insulin Aspart (Novolog) 0 unit SC ACHS [facility]; Protocol Last Admin: 10/14/18 22:15 Dose: Not Given Lidocaine (Lidoderm) 1 ea TD DAILY [facility] Last Admin: 10/14/18 09:39 Dose: Not Given Losartan Potassium (Cozaar) 50 mg PO DAILY [facility] Last Admin: 10/14/18 09:39 Dose: Not Given Metformin HCl (Glucophage) 500 mg PO BID [facility] Last Admin: 10/14/18 19:31 Dose: 500 mg Oxycodone/Acetaminophen (Percocet 5/325 Mg Tab) 1 tab PO Q4H PRN PRN Reason: Pain, moderate (4-7) Stop: 10/17/18 16:27 Oxycodone/Acetaminophen (Percocet 5/325 Mg Tab) 2 tab PO Q4H PRN PRN Reason: Pain, severe (8-10) Stop: 10/17/18 16:27 Rosuvastatin Calcium (Crestor) 5 mg PO HS [facility] Last Admin: 10/14/18 21:48 Dose: 5 mg - Labs Labs: 10/14/18 14:14 10/14/18 14:14 PT 14.4 SECONDS (9.7-12.2) H 10/02/18 06:51 INR 1.3 10/02/18 06:51 APTT 26 SECONDS (21-34) 10/02/18 06:51
--- NOTE | 2018-10-15 03:57 | PN ---
DATE: 10/15/2018 SUBJECTIVE: The patient had skin graft done today to his right foot ____, has a dressing, afebrile. PHYSICAL EXAMINATION: VITAL SIGNS: Blood pressure 157/89, pulse 74, respiratory rate 20, temperature 98.1. LUNGS: Clear. CARDIOVASCULAR SYSTEM: S1, S2. Regular. ABDOMEN: Soft. ASSESSMENT: 1. Right foot necrotizing fascitis, status post infection and drainage and now has a skin graft. 2. Type 2 diabetes. 3. Hypertension. 4. Anemia of chronic disease. PLAN: Continue postop care. Monitor the patient. Taiwo Moreno MD
[2018-10-15] MEDS: ceFAZolin 2 GM in Sodium Chloride 0.9% 100 ML IVPB SCH ×3 (06:07→22:00)
[2018-10-15] MEDS: (Novolog) Insulin Aspart, Recombinant 100 u/ml 10 ml vial SC SCH ×4 (10:28→22:01)
[2018-10-15] MEDS: Lidocaine 5% Patch TD SCH (10:29)
--- NOTE | 2018-10-15 12:18 | CP.PCM.PN ---
Subjective - Date & Time of Evaluation Date of Evaluation: 10/15/18 Time of Evaluation: 09:00 - Subjective Subjective: wound looks good 2nd toe amp noted iv rx renewed Objective - Vital Signs/Intake and Output Vital Signs (last 24 hours): Temp Pulse Resp BP Pulse Ox 98.4 F 75 20 163/85 H 98 10/15/18 07:00 10/15/18 07:00 10/15/18 07:00 10/15/18 07:00 10/15/18 07:00 - Medications Medications: Current Medications Acetaminophen (Tylenol 325mg Tab) 650 mg PO Q6 PRN PRN Reason: Pain, Mild (1-3) Last Admin: 10/14/18 19:31 Dose: 650 mg Aspirin (Ecotrin) 81 mg PO DAILY [facility] Last Admin: 10/15/18 10:28 Dose: 81 mg Cefazolin Sodium 2 gm/ Sodium (Chloride) 100 mls @ 100 mls/hr IVPB Q8H [facility]; Protocol Last Admin: 10/15/18 06:07 Dose: 100 mls/hr Insulin Aspart (Novolog) 0 unit SC ACHS [facility]; Protocol Last Admin: 10/15/18 10:28 Dose: 2 units Losartan Potassium (Cozaar) 50 mg PO DAILY [facility] Last Admin: 10/15/18 10:28 Dose: 50 mg Metformin HCl (Glucophage) 500 mg PO BID [facility] Last Admin: 10/15/18 10:28 Dose: 500 mg Oxycodone/Acetaminophen (Percocet 5/325 Mg Tab) 1 tab PO Q4H PRN PRN Reason: Pain, moderate (4-7) Stop: 10/17/18 16:27 Oxycodone/Acetaminophen (Percocet 5/325 Mg Tab) 2 tab PO Q4H PRN PRN Reason: Pain, severe (8-10) Stop: 10/17/18 16:27 Rosuvastatin Calcium (Crestor) 5 mg PO HS [facility] Last Admin: 10/14/18 21:48 Dose: 5 mg - Labs Labs: 10/14/18 14:14 10/14/18 14:14 PT 14.4 SECONDS (9.7-12.2) H 10/02/18 06:51 INR 1.3 10/02/18 06:51 APTT 26 SECONDS (21-34) 11/28/18 06:51 Assessment and Plan (1) Necrotizing fasciitis of ankle and foot Status: Acute (2) Sepsis Status: Acute (3) Diabetes mellitus, new onset Status: Acute
--- NOTE | 2018-10-15 22:35 | CP.PCM.PN ---
Subjective - Date & Time of Evaluation Date of Evaluation: 10/15/18 Time of Evaluation: 10:00 - Subjective Subjective: Podiatry - Dr. Alford 58M seen and examined at bedside this AM, POD#1 right foot wound debridement with graft application and 2nd digit amputation. Patient resting comfortably, NAD. No acute events overnight. Denies any pain to RLE. Posterior splint clean/dry/intact with WoundVAC in place on continuous suction. Denies F/C/N/V/CP/SOB/NYE/D/C. Objective - Vital Signs/Intake and Output Vital Signs (last 24 hours): Temp Pulse Resp BP Pulse Ox 98.1 F 75 20 158/82 H 98 10/15/18 15:00 10/15/18 15:00 10/15/18 15:00 10/15/18 15:00 10/15/18 15:00 Intake and Output: 10/15/18 10/16/18 18:59 06:59 Intake Total 500 200 Output Total 900 400 Balance -400 -200 - Medications Medications: Current Medications Acetaminophen (Tylenol 325mg Tab) 650 mg PO Q6 PRN PRN Reason: Pain, Mild (1-3) Last Admin: 10/15/18 17:33 Dose: 650 mg Aspirin (Ecotrin) 81 mg PO DAILY [facility] Last Admin: 10/15/18 10:28 Dose: 81 mg Cefazolin Sodium 2 gm/ Sodium (Chloride) 100 mls @ 100 mls/hr IVPB Q8H [facility]; Protocol Last Admin: 10/15/18 22:00 Dose: 100 mls/hr Insulin Aspart (Novolog) 0 unit SC ACHS [facility]; Protocol Last Admin: 10/15/18 22:01 Dose: Not Given Losartan Potassium (Cozaar) 50 mg PO DAILY [facility] Last Admin: 10/15/18 10:28 Dose: 50 mg Metformin HCl (Glucophage) 500 mg PO BID [facility] Last Admin: 10/15/18 17:33 Dose: 500 mg Oxycodone/Acetaminophen (Percocet 5/325 Mg Tab) 1 tab PO Q4H PRN PRN Reason: Pain, moderate (4-7) Stop: 10/17/18 16:27 Oxycodone/Acetaminophen (Percocet 5/325 Mg Tab) 2 tab PO Q4H PRN PRN Reason: Pain, severe (8-10) Stop: 10/17/18 16:27 - Labs Labs: 10/14/18 14:14 10/14/18 14:14 PT 14.4 SECONDS (9.7-12.2) H 10/02/18 06:51 INR 1.3 10/02/18 06:51 APTT 26 SECONDS (21-34) 10/02/18 06:51 - Constitutional Appears: Non-toxic, No Acute Distress - Extremities Exam Additional comments: RLE focused exam: Wound VAC continuous @ 125 mmHG - minimal serosanguinous drainage in canister Distal and plantar surgical incisions appear well coapted with sutures intact and no wound dehiscence present Plantar surgical wound present with packing in place; no drainage able to be expressed; mild maceration present periwound Neurovascular status intact to digits x3 No pain upon calf compression - Neurological Exam Neurological Exam: Alert, Awake, Oriented x3 - Psychiatric Exam Psychiatric exam: Normal Affect, Normal Mood Assessment and Plan - Assessment and Plan (Free Text) Assessment: 58M with RLE necrotizing fasciitis, resolving POD#1 Wound debridement with graft application, 2nd digit amputation (DOS 10/14/18) POD#13 Right leg and foot incision and drainage, amputation of right 3rd digit, application of wound vac (DOS 10/02/18) POD#15 Incision and Drainage of right foot and leg (DOS 09/30/18) POD#22 Incision and drainage of R leg and foot with debridement of nonviable soft tissue and irrigation of tissue (DOS 09/23/18) Plan: Patient seen and evaluated Discussed with attending, Dr. Alford Afebrile Intra-op wound cx (09/23): Staph Aureus, Group G Strep Continue abx per ID - Cefazolin Post operative tib fib xray: No periosteal reaction or cortical interruption seen to suggest osteomyelitis. No lytic lesions. No fractures. Soft tissue changes are compatible with known soft tissue infection and recent incision and drainage and bandaging Post operative foot xray: No osseous destruction or periosteal reaction seen to suggest osteomyelitis. Extensive abnormal soft tissue findings as detailed above compatible with the history of a soft tissue infection and recent surgical intervention. Follow-up recommended RLE MRI: No definitive pattern suggest osteomyelitis though failure fat suppre ssion throughout the digits limits interpretation somewhat. No definitive abnormal bone enhancement appreciable. No definitive marrow edema. Extensive left foot edema is appreciate diffusely including multiple soft tissue and dermal defects packed by gauze at the forefoot to midfoot plantar and dorsal soft tissues as discussed above. Limitations: Failure fat suppression of the digits diffusely. Continue local wound care: plantar wound repacked, WoundVAC in place @ 125mmHg continuous suction, posterior splint reapplied -Integra graft in place dorsally and medially -minimal serosanguinous drainage present in canister, will continue to monitor Activity: NWHector NGUYENE Podiatry will continue to follow
--- NOTE | 2018-10-15 22:45 | CP.PCM.PN ---
Subjective - Subjective Subjective: dictated Objective - Vital Signs/Intake and Output Vital Signs (last 24 hours): Temp Pulse Resp BP Pulse Ox 98.1 F 75 20 158/82 H 98 10/15/18 15:00 10/15/18 15:00 10/15/18 15:00 10/15/18 15:00 10/15/18 15:00 Intake and Output: 10/15/18 10/16/18 18:59 06:59 Intake Total 500 200 Output Total 900 400 Balance -400 -200 - Medications Medications: Current Medications Acetaminophen (Tylenol 325mg Tab) 650 mg PO Q6 PRN PRN Reason: Pain, Mild (1-3) Last Admin: 10/15/18 17:33 Dose: 650 mg Aspirin (Ecotrin) 81 mg PO DAILY [facility] Last Admin: 10/15/18 10:28 Dose: 81 mg Cefazolin Sodium 2 gm/ Sodium (Chloride) 100 mls @ 100 mls/hr IVPB Q8H [facility]; Protocol Last Admin: 10/15/18 22:00 Dose: 100 mls/hr Insulin Aspart (Novolog) 0 unit SC ACHS [facility]; Protocol Last Admin: 10/15/18 22:01 Dose: Not Given Losartan Potassium (Cozaar) 50 mg PO DAILY [facility] Last Admin: 10/15/18 10:28 Dose: 50 mg Metformin HCl (Glucophage) 500 mg PO BID [facility] Last Admin: 10/15/18 17:33 Dose: 500 mg Oxycodone/Acetaminophen (Percocet 5/325 Mg Tab) 1 tab PO Q4H PRN PRN Reason: Pain, moderate (4-7) Stop: 10/17/18 16:27 Oxycodone/Acetaminophen (Percocet 5/325 Mg Tab) 2 tab PO Q4H PRN PRN Reason: Pain, severe (8-10) Stop: 10/17/18 16:27 - Labs Labs: 10/14/18 14:14 10/14/18 14:14 PT 14.4 SECONDS (9.7-12.2) H 10/02/18 06:51 INR 1.3 10/02/18 06:51 APTT 26 SECONDS (21-34) 10/02/18 06:51
--- NOTE | 2018-10-16 04:37 | PN ---
DATE: 10/15/2018 SUBJECTIVE: Mr. Aramis Cabrera is on bedrest. He has a graft done. He is afebrile. No shortness of breath. PHYSICAL EXAMINATION: VITAL SIGNS: Blood pressure 158/82, pulse 75, respiratory rate 20, temperature 98.1. CARDIOVASCULAR SYSTEM: S1 and S2, regular. LUNGS: Clear. ABDOMEN: Soft. ASSESSMENT 1. Right foot necrotizing fasciitis, status post skin graft. 2. Diabetes. 3. Hypertension. 4. Anemia of chronic disease. PLAN: Continue postop care monitor the patient. Taiwo Moreno MD
[2018-10-16] MEDS: ceFAZolin 2 GM in Sodium Chloride 0.9% 100 ML IVPB SCH ×3 (06:23→22:00)
[2018-10-16] MEDS: (Novolog) Insulin Aspart, Recombinant 100 u/ml 10 ml vial SC SCH ×3 (08:31→22:41)
--- NOTE | 2018-10-16 12:40 | CP.PCM.PN ---
Subjective - Date & Time of Evaluation Date of Evaluation: 10/16/18 Time of Evaluation: 12:40 - Subjective Subjective: Podiatry - Dr. Alford 58M seen and examined at bedside this AM, POD#2 right foot wound debridement with graft application and 2nd digit amputation. Patient resting comfortably, NAD. No acute events overnight. No new complaints to RLE. Posterior splint clean/dry/intact with WoundVAC in place and on continuous suction. Patient inquiring when he is able to start physical therapy. Denies F/C/N/V/CP/SOB/NYE/D/C. Objective - Vital Signs/Intake and Output Vital Signs (last 24 hours): Temp Pulse Resp BP Pulse Ox 98.1 F 83 20 157/81 H 98 10/16/18 07:45 10/16/18 07:45 10/16/18 07:45 10/16/18 07:45 10/16/18 07:45 Intake and Output: 10/16/18 10/16/18 06:59 18:59 Intake Total 200 Output Total 600 Balance -400 - Medications Medications: Current Medications Acetaminophen (Tylenol 325mg Tab) 650 mg PO Q6 PRN PRN Reason: Pain, Mild (1-3) Last Admin: 10/15/18 17:33 Dose: 650 mg Cefazolin Sodium 2 gm/ Sodium (Chloride) 100 mls @ 100 mls/hr IVPB Q8H [facility]; Pr otocol Last Admin: 10/16/18 06:23 Dose: 100 mls/hr Losartan Potassium (Cozaar) 50 mg PO DAILY [facility] Last Admin: 10/16/18 10:38 Dose: 50 mg Metformin HCl (Glucophage) 500 mg PO BID [facility] Last Admin: 10/16/18 10:38 Dose: 500 mg Oxycodone/Acetaminophen (Percocet 5/325 Mg Tab) 1 tab PO Q4H PRN PRN Reason: Pain, moderate (4-7) Stop: 10/17/18 16:27 Oxycodone/Acetaminophen (Percocet 5/325 Mg Tab) 2 tab PO Q4H PRN PRN Reason: Pain, severe (8-10) Stop: 10/17/18 16:27 - Labs Labs: 10/14/18 14:14 10/14/18 14:14 PT 14.4 SECONDS (9.7-12.2) H 10/02/18 06:51 INR 1.3 10/02/18 06:51 APTT 26 SECONDS (21-34) 10/02/18 06:51 - Constitutional Appears: Non-toxic, No Acute Distress - Extremities Exam Additional comments: RLE focused exam: Wound VAC continuous @ 125 mmHG - ~50cc serosanguinous drainage in canister Distal and plantar surgical incisions appear well coapted with sutures intact and no wound dehiscence present Plantar surgical wound present with packing in place; no drainage able to be expressed; maceration present periwound improving Neurovascular status intact to digits x3 No pain upon calf compression - Neurological Exam Neurological Exam: Alert, Awake, Oriented x3 - Psychiatric Exam Psychiatric exam: Normal Affect, Normal Mood Assessment and Plan - Assessment and Plan (Free Text) Assessment: 58M with RLE necrotizing fasciitis, resolving POD#2 Wound debridement with graft application, 2nd digit amputation (DOS 10/14/18) POD#14 Right leg and foot incision and drainage, amputation of right 3rd digit, application of wound vac (DOS 10/02/18) POD#16 Incision and Drainage of right foot and leg (DOS 09/30/18) POD#23 Incision and drainage of R leg and foot with debridement of nonviable soft tissue and irrigation of tissue (DOS 09/23/18) Plan: Patient seen and evaluated Discussed with attending, Dr. Prashanth Merritt Intra-op wound cx (09/23): Staph Aureus, Group G Strep Continue abx per ID - Cefazolin Post operative tib fib xray: No periosteal reaction or cortical interruption seen to suggest osteomyelitis. No lytic lesions. No fractures. Soft tissue changes are compatible with known soft tissue infection and recent incision and drainage and bandaging Post operative foot xray: No osseous destruction or periosteal reaction seen to suggest osteomyelitis. Extensive abnormal soft tissue findings as detailed above compatible with the history of a soft tissue infection and recent surgical intervention. Follow-up recommended RLE MRI: No definitive pattern suggest osteomyelitis though failure fat suppression throughout the digits limits interpretation somewhat. No definitive abnormal bone enhancement appreciable. No definitive marrow edema. Extensive left foot edema is appreciate diffusely including multiple soft tissue and dermal defects packed by gauze at the forefoot to midfoot plantar and dorsal soft tissues as discussed above. Limitations: Failure fat suppression of the digits diffusely. Continue local wound care: plantar wound repacked, WoundVAC in place @ 125mmHg continuous suction, posterior splint reapplied -Integra graft in place dorsally and medially -~50cc serosanguinous drainage present in canister, will continue to monitor Activity: NWB RLE with assistance; PT/OT consulted Podiatry will continue to follow
[2018-10-16] MEDS ORDERED: Dextrose 50% SYRINGE Inj (50 ml) IV PRN (14:56)
[2018-10-16] MEDS ORDERED: Glucagon Recombinant 1 mg Inj IM PRN (14:56)
--- NOTE | 2018-10-16 16:02 | OP ---
PROCEDURE DATE: 10/14/2018 PATIENT AGE: 58. PATIENT SEX: Male. SURGEON: Aniyah Alford DPM ASSISTANTS: Glenny Arnold, PGY-1 and Valencia Leblanc, PGY-3. ANESTHESIA: IV sedation with local. PREOPERATIVE DIAGNOSIS: Left nonhealing wound to foot/leg, second digit gangrene. POSTOPERATIVE DIAGNOSIS: Left nonhealing wound to foot/leg, second digit gangrene. PROCEDURES: 1. Debridement of nonhealing ulceration with application of Integra skin graft to right leg ulceration site. 2. Amputation of right second digit with skin plasty INDICATION: The patient is a 58-year-old male with the above diagnosis. The patient has exhausted all conservative treatments at this time and now requires surgical intervention. The patient signed the consent after careful explanation of risks, benefits, complications, and alternatives for surgical procedure. Nor guarantees were given or implied. N.p.o. status was confirmed prior to taking the patient to the operating room. DESCRIPTION OF PROCEDURE: The patient was brought back to the operating room and placed on the operating room table on supine position. Time-out was performed for identification of the correct patient and procedure. After induction of IV sedation, the right lower extremity was prepped and draped in a normal sterile manner and the procedure began. No tourniquet was used during the procedure. PROCEDURE #1: Debridement of nonhealing wound with application of Integra graft to the right leg ulceration site. Attention was directed to the anterior aspect of the right lower leg and foot where nonhealing wound extending from the distal one third of the right leg extending to the lateral forefoot to the level of the third through fifth tarsometatarsal joint. The wound is noted to have a necrotic base. An additional surgical incision was noted at the plantar aspect of the mid foot extending to the forefoot into the second and third interspaces including the site of the previously amputated third digit. Further more, a superficial circular ulceration measuring approximately 3 cm in diameter was noted to the medial aspect of the first metatarsal phalangeal joint. A sterile #15 blade and forceps were utilized to excise all necrotic tissue from the wound bed and wound margin. Next, using Versajet on the setting of 7, the wound was excisionally debrided of all remaining fibrotic and nonviable tissue to a fresh and healthy bleeding granular base. The plantar circular wound was then packed with 0.25 inch iodoform packing. Next, an Integra bilayer graft measuring 6 x 2 was prepared using normal sterile saline solution. After the graft was prepared, the graft was placed over the anterior leg wound site. The graft adhered to the base of the wound and covered the site fully. The graft was then secured to the wound edges using 3-0 Monocryl. Next, a wound VAC was applied to the right dorsolateral lower leg and the wound VAC was placed on a continuous pressure of 125 mmHg. Incision was dressed with gauze,DSD, and Kerlix. PROCEDURE #2: Amputation of the second digit with skin plasty Attention was directed to the right second digit, which was noted to have lateral gangrenous change with discoloration. Using a sterile #15 blade, a lateral incision was made at the level of the second distal phalanx and proximal to the second metatarsophalangeal joint. Using sterile forceps and #15 blade, the second digit was disarticulated at the level of the metatarsophalangeal joint and passed off operating field to be sent to Pathology. The site was then flushed with copious amounts of sterile saline. The skin coming from the medial aspect of the distal second digit was then rotated over the open surgical site of the second and third digits and sutured with 3-0 Prolene. The site was then dressed with Adaptic dressing. POSTOPERATIVE CONDITION: The patient tolerated the anesthesia and procedure well and was escorted to the recovery room with all vital signs are stable and neurovascular status intact to the right leg. The patient is to remain nonweightbearing for the right lower extremity. The patient will continue to be seen on the floor and to follow with Dr. Alford upon discharge. SUSAN Norman Aniyah Alford DPM [facility]
--- NOTE | 2018-10-16 18:08 | CP.PCM.PN ---
Subjective - Date & Time of Evaluation Date of Evaluation: 10/16/18 Time of Evaluation: 06:00 - Subjective Subjective: afeb vac in place Objective - Vital Signs/Intake and Output Vital Signs (last 24 hours): Temp Pulse Resp BP Pulse Ox 98.3 F 75 20 157/85 H 98 10/16/18 15:00 10/16/18 15:00 10/16/18 15:00 10/16/18 15:00 10/16/18 15:00 Intake and Output: 10/16/18 10/16/18 06:59 18:59 Intake Total 200 300 Output Total 600 603 Balance -400 -303 - Medications Medications: Current Medications Acetaminophen (Tylenol 325mg Tab) 650 mg PO Q6 PRN PRN Reason: Pain, Mild (1-3) Last Admin: 10/16/18 17:35 Dose: 650 mg Aspirin (Ecotrin) 81 mg PO DAILY [facility] Dextrose (Dextrose 50% Inj) 0 ml IV STAT PRN; Protocol PRN Reason: Hypoglycemia Protocol Dextrose (Glutose 15) 0 gm PO ONCE PRN; Protocol PRN Reason: Hypoglycemia Protocol Glucagon (Glucagen Diagnostic Kit) 0 mg IM STAT PRN; Protocol PRN Reason: Hypoglycemia Protocol Cefazolin Sodium 2 gm/ Sodium (Chloride) 100 mls @ 100 mls/hr IVPB Q8H [facility]; Protocol Last Admin: 10/16/18 14:44 Dose: 100 mls/hr Dextrose (Dextrose 5% In Water 1000 Ml) 1,000 mls @ 0 mls/hr IV .Q0M PRN; Protocol PRN Reason: Hypoglycemia Protocol Insulin Aspart (Novolog) 0 unit SC ACHS [facility]; Protocol Losartan Potassium (Cozaar) 50 mg PO DAILY [facility] Last Admin: 10/16/18 10:38 Dose: 50 mg Metformin HCl (Glucophage) 500 mg PO BID [facility] Last Admin: 10/16/18 17:34 Dose: 500 mg Oxycodone/Acetaminophen (Percocet 5/325 Mg Tab) 1 tab PO Q4H PRN PRN Reason: Pain, moderate (4-7) Stop: 10/17/18 16:27 Oxycodone/Acetaminophen (Percocet 5/325 Mg Tab) 2 tab PO Q4H PRN PRN Reason: Pain, severe (8-10) Stop: 10/17/18 16:27 Rosuvastatin Calcium (Crestor) 5 mg PO HS [facility] - Labs Labs: 10/14/18 14:14 10/14/18 14:14 PT 14.4 SECONDS (9.7-12.2) H 10/02/18 06:51 INR 1.3 10/02/18 06:51 APTT 26 SECONDS (21-34) 10/02/18 06:51 - Constitutional Appears: Non-toxic, Chronically Ill - Head Exam Head Exam: NORMOCEPHALIC - Eye Exam Eye Exam: PERRL - ENT Exam ENT Exam: Mucous Membranes Dry - Neck Exam Neck Exam: absent: Lymphadenopathy - Respiratory Exam Respiratory Exam: Decreased Breath Sounds - Cardiovascular Exam Cardiovascular Exam: REGULAR RHYTHM - GI/Abdominal Exam GI & Abdominal Exam: Distended - Rectal Exam Rectal Exam: Deferred - Exam Exam: Uretheral Discharge - Extremities Exam Extremities Exam: Pedal Edema. absent: Tenderness - Back Exam Back Exam: absent: CVA tenderness (L), CVA tenderness (R) Assessment and Plan (1) Necrotizing fasciitis of ankle and foot Status: Acute (2) Sepsis Status: Acute (3) Diabetes mellitus, new onset Status: Acute - Assessment and Plan (Free Text) Assessment: s/op amp of 2nd 3rd toes right foot nec fasc improving
--- NOTE | 2018-10-16 21:39 | CP.PCM.PN ---
Subjective - Subjective Subjective: dictated Objective - Vital Signs/Intake and Output Vital Signs (last 24 hours): Temp Pulse Resp BP Pulse Ox 98.3 F 75 20 157/85 H 98 10/16/18 15:00 10/16/18 15:00 10/16/18 15:00 10/16/18 15:00 10/16/18 15:00 Intake and Output: 10/16/18 10/17/18 18:59 06:59 Intake Total 300 Output Total 603 Balance -303 - Medications Medications: Current Medications Acetaminophen (Tylenol 325mg Tab) 650 mg PO Q6 PRN PRN Reason: Pain, Mild (1-3) Last Admin: 10/16/18 17:35 Dose: 650 mg Aspirin (Ecotrin) 81 mg PO DAILY [facility] Dextrose (Dextrose 50% Inj) 0 ml IV STAT PRN; Protocol PRN Reason: Hypoglycemia Protocol Dextrose (Glutose 15) 0 gm PO ONCE PRN; Protocol PRN Reason: Hypoglycemia Protocol Glucagon (Glucagen Diagnostic Kit) 0 mg IM STAT PRN; Protocol PRN Reason: Hypoglycemia Protocol Cefazolin Sodium 2 gm/ Sodium (Chloride) 100 mls @ 100 mls/hr IVPB Q8H [facility]; Protocol Last Admin: 10/16/18 14:44 Dose: 100 mls/hr Dextrose (Dextrose 5% In Water 1000 Ml) 1,000 mls @ 0 mls/hr IV .Q0M PRN; Protocol PRN Reason: Hypoglycemia Protocol Insulin Aspart (Novolog) 0 unit SC ACHS [facility]; Protocol Losartan Potassium (Cozaar) 50 mg PO DAILY [facility] Last Admin: 10/16/18 10:38 Dose: 50 mg Metformin HCl (Glucophage) 500 mg PO BID [facility] Last Admin: 10/16/18 17:34 Dose: 500 mg Oxycodone/Acetaminophen (Percocet 5/325 Mg Tab) 1 tab PO Q4H PRN PRN Reason: Pain, moderate (4-7) Stop: 10/17/18 16:27 Oxycodone/Acetaminophen (Percocet 5/325 Mg Tab) 2 tab PO Q4H PRN PRN Reason: Pain, severe (8-10) Stop: 10/17/18 16:27 Rosuvastatin Calcium (Crestor) 5 mg PO HS [facility] - Labs Labs: 10/14/18 14:14 12/10/18 14:14 PT 14.4 SECONDS (9.7-12.2) H 10/02/18 06:51 INR 1.3 10/02/18 06:51 APTT 26 SECONDS (21-34) 10/02/18 06:51
--- NOTE | 2018-10-17 02:05 | PN ---
DATE: 10/16/2018 SUBJECTIVE: The patient is postop and most likely he will be started on physiotherapy by Podiatry. No fever. No chills. No shortness of breath. PHYSICAL EXAMINATION VITAL SIGNS: Blood pressure 157/85, pulse 75, respiratory rate 20, and temperature 98.3. LUNGS: Clear. CVS: S1 and S2 regular. ABDOMEN: Soft. ASSESSMENT: 1. Right foot necrotizing fasciitis, status post surgery and now skin grafting, on antibiotics. 2. New-onset diabetes. 3. New-onset hypertension. 4. Anemia of chronic disease. PLAN: Continue postop care, physical therapy, rehab. Monitor the patient Taiwo Moreno MD
[2018-10-17] MEDS: ceFAZolin 2 GM in Sodium Chloride 0.9% 100 ML IVPB SCH ×3 (06:01→22:00)
[2018-10-17 08:02] LABS: BASO # 0.1 K/uL (0.0-0.2); BASO % 1.4 % (0.0-2.0); EOS # 0.5 K/uL (0.0-0.7); EOS % 6.1 % (0.0-4.0); HEMOGLOBIN 9.8 g/dL (12.0-18.0); LYMPH # 1.3 K/uL (1.0-4.3); LYMPH % 16.3 % (20.0-40.0); MEAN CELL VOLUME 85.2 fL (80.0-94.0); MEAN CORPUSCULAR HEMOGLOBIN 28.3 pg (27.0-31.0); MEAN CORPUSCULAR HGB CONC 33.3 g/dL (33.0-37.0); MONO # 0.6 K/uL (0.0-0.8); NEUT # 5.5 K/uL (1.8-7.0); NEUT % 69.2 % (50.0-75.0); NRBC % 0.1 % (0.0-2.0); RBC 3.47 Mil/uL (4.40-5.90)
[2018-10-17] MEDS: (Novolog) Insulin Aspart, Recombinant 100 u/ml 10 ml vial SC SCH ×4 (08:19→21:31)
[2018-10-17 08:22] LABS: BLOOD UREA NITROGEN 15 mg/dL (9-20); CALCIUM 8.8 mg/dl (8.6-10.4); GFR NON-AFRICAN AMERICAN > 60
--- NOTE | 2018-10-17 11:01 | CP.PCM.PN ---
Subjective - Date & Time of Evaluation Date of Evaluation: 10/17/18 Time of Evaluation: 11:01 - Subjective Subjective: Podiatry - Dr. Alford 58M seen and examined at bedside this AM, POD#3 right foot wound debridement with graft application and 2nd digit amputation. NAD. No acute events overnight. Patient states he started physical therapy today with complaints of generalized muscle weakness however tolerated well. No new complaints to RLE. Splint cl usha/dry/intact with VAC on continuous suction. Denies F/C/N/V/CP/SOB/NYE/D/C. Objective - Vital Signs/Intake and Output Vital Signs (last 24 hours): Temp Pulse Resp BP Pulse Ox 97.8 F 76 20 138/75 97 10/17/18 07:00 10/17/18 07:00 10/17/18 07:00 10/17/18 07:00 10/17/18 07:00 Intake and Output: 10/17/18 10/17/18 06:59 18:59 Intake Total 200 Output Total 400 Balance -200 - Medications Medications: Current Medications Acetaminophen (Tylenol 325mg Tab) 650 mg PO Q6 PRN PRN Reason: Pain, Mild (1-3) Last Admin: 10/16/18 17:35 Dose: 650 mg Aspirin (Ecotrin) 81 mg PO DAILY [facility] Last Admin: 10/17/18 09:08 Dose: 81 mg Dextrose (Dextrose 50% Inj) 0 ml IV STAT PRN; Protocol PRN Reason: Hypoglycemia Protocol Dextrose (Glutose 15) 0 gm PO ONCE PRN; Protocol PRN Reason: Hypoglycemia Protocol Glucagon (Glucagen Diagnostic Kit) 0 mg IM STAT PRN; Protocol PRN Reason: Hypoglycemia Protocol Cefazolin Sodium 2 gm/ Sodium (Chloride) 100 mls @ 100 mls/hr IVPB Q8H [facility]; Protocol Last Admin: 10/17/18 06:01 Dose: 100 mls/hr Dextrose (Dextrose 5% In Water 1000 Ml) 1,000 mls @ 0 mls/hr IV .Q0M PRN; Protocol PRN Reason: Hypoglycemia Protocol Insulin Aspart (Novolog) 0 unit SC ACHS [facility]; Protocol Last Admin: 10/17/18 08:19 Dose: Not Given Losartan Potassium (Cozaar) 50 mg PO DAILY [facility] Last Admin: 10/17/18 09:08 Dose: 50 mg Metformin HCl (Glucophage) 500 mg PO BID [facility] Last Admin: 10/17/18 09:08 Dose: 500 mg Oxycodone/Acetaminophen (Percocet 5/325 Mg Tab) 1 tab PO Q4H PRN PRN Reason: Pain, moderate (4-7) Stop: 10/17/18 16:27 Oxycodone/Acetaminophen (Percocet 5/325 Mg Tab) 2 tab PO Q4H PRN PRN Reason: Pain, severe (8-10) Stop: 10/17/18 16:27 Rosuvastatin Calcium (Crestor) 5 mg PO [facility] Last Admin: 10/16/18 21:57 Dose: 5 mg - Labs Labs: 10/17/18 07:52 10/17/18 07:52 PT 14.4 SECONDS (9.7-12.2) H 10/02/18 06:51 INR 1.3 10/02/18 06:51 APTT 26 SECONDS (21-34) 10/02/18 06:51 - Constitutional Appears: Non-toxic, No Acute Distress - Extremities Exam Additional comments: RLE focused exam: VASC: DP/PT pulses non-palpable secondary to edema. CFT approx 3 seconds to all digits. TG warm to warm, with adequate warmth to distal flap. Nonpitting edema present to LE. Derm: 1) Surgical wound extending down to tendons at anteriorlateral ankle and dorsum of foot with graft in place which appears well-adhered; mostly granular base underneath graft site 2) Longitudinal plantar incision from 1st interdigital space to level of midfoot appears well coapted and no evidence of wound dehiscence; opening noted at most proximal aspect with packing in place and minimal periwound maceration - upon removal of packing 1cc serosanguinous drainage able to be expressed from wound 3) Skin flap noted at 2nd and 3rd digit amputation sites appears to be intact with sutures intact and no evidence of dehiscence of graft failure, minimal erythema; no drainage; appropriate warmth at graft site 4) Surgical wound noted to medial 1st metatarsal head with graft in place which appears well-adhered; mostly granular base underneath graft site Neuro: Epicritic and protective sensation intact along distribution of Sural and Tibial nerves. Epicritic and protective sensation starting to return along distribution of superficial peroneal nerve as well as the tibial nerve MSK: Pain on palpation plantar surgical opening; no pain on palpation to graft sites. - Neurological Exam Neurological Exam: Alert, Awake, Oriented x3 - Psychiatric Exam Psychiatric exam: Normal Affect, Normal Mood Assessment and Plan - Assessment and Plan (Free Text) Assessment: 58M with RLE necrotizing fasciitis, resolving POD#3 Wound debridement with graft application, 2nd digit amputation (DOS 10/14/18) POD#15 Right leg and foot incision and drainage, amputation of right 3rd digit, application of wound vac (DOS 10/02/18) POD#17 Incision and Drainage of right foot and leg (DOS 09/30/18) POD#24 Incision and drainage of R leg and foot with debridement of nonviable soft tissue and irrigation of tissue (DOS 09/23/18) Plan: Patient seen and evaluated Discussed with attending, Dr. Prashanth Merritt, WBC 8.0 Intra-op wound cx (09/23): Staph Aureus, Group G Strep Continue abx per ID - Cefazolin Post operative tib fib xray: No periosteal reaction or cortical interruption seen to suggest osteomyelitis. No lytic lesions. No fractures. Soft tissue changes are compatible with known soft tissue infection and recent incision and drainage and bandaging Post operative foot xray: No osseous destruction or periosteal reaction seen to suggest osteomyelitis. Extensive abnormal soft tissue findings as detailed above compatible with the history of a soft tissue infection and recent surgical intervention. Follow-up recommended RLE MRI: No definitive pattern suggest osteomyelitis though failure fat suppression throughout the digits limits interpretation somewhat. No definitive abnormal bone enhancement appreciable. No definitive marrow edema. Extensive left foot edema is appreciate diffusely including multiple soft tissue and dermal defects packed by gauze at the forefoot to midfoot plantar and dorsal soft tissues as discussed above. Limitations: Failure fat suppression of the digits diffusely. Continue local wound care: plantar wound repacked, WoundVAC changed with appropaite suction @ 125mmHg, posterior splint reapplied -Integra graft in place dorsally and medially -~75cc serosanguinous drainage present in canister, will continue to monitor Activity: NWB RLE with assistance; continue PT/OT Podiatry will continue to follow
--- NOTE | 2018-10-17 18:01 | CP.PCM.PN ---
Subjective - Date & Time of Evaluation Date of Evaluation: 10/17/18 Time of Evaluation: 08:00 - Subjective Subjective: POD#3 right foot wound debridement with graft application and 2nd digit amputation. Objective - Vital Signs/Intake and Output Vital Signs (last 24 hours): Temp Pulse Resp BP Pulse Ox 97.9 F 74 20 151/83 H 99 10/17/18 15:00 10/17/18 15:00 10/17/18 15:00 10/17/18 15:00 10/17/18 15:00 Intake and Output: 10/17/18 10/17/18 06:59 18:59 Intake Total 200 300 Output Total 400 900 Balance -200 -600 - Medications Medications: Current Medications Acetaminophen (Tylenol 325mg Tab) 650 mg PO Q6 PRN PRN Reason: Pain, Mild (1-3) Last Admin: 10/16/18 17:35 Dose: 650 mg Aspirin (Ecotrin) 81 mg PO DAILY [facility] Last Admin: 10/17/18 09:08 Dose: 81 mg Dextrose (Dextrose 50% Inj) 0 ml IV STAT PRN; Protocol PRN Reason: Hypoglycemia Protocol Dextrose (Glutose 15) 0 gm PO ONCE PRN; Protocol PRN Reason: Hypoglycemia Protocol Glucagon (Glucagen Diagnostic Kit) 0 mg IM STAT PRN; Protocol PRN Reason: Hypoglycemia Protocol Cefazolin Sodium 2 gm/ Sodium (Chloride) 100 mls @ 100 mls/hr IVPB Q8H [facility]; Protocol Last Admin: 10/17/18 14:26 Dose: 100 mls/hr Dextrose (Dextrose 5% In Water 1000 Ml) 1,000 mls @ 0 mls/hr IV .Q0M PRN; Protocol PRN Reason: Hypoglycemia Protocol Insulin Aspart (Novolog) 0 unit SC ACHS [facility]; Protocol Last Admin: 10/17/18 16:41 Dose: Not Given Losartan Potassium (Cozaar) 50 mg PO DAILY [facility] Last Admin: 10/17/18 09:08 Dose: 50 mg Metformin HCl (Glucophage) 500 mg PO BID [facility] Last Admin: 10/17/18 09:08 Dose: 500 mg Rosuvastatin Calcium (Crestor) 5 mg PO HS [facility] Last Admin: 10/16/18 21:57 Dose: 5 mg - Labs Labs: 10/17/18 07:52 10/17/18 07:52 PT 14.4 SECONDS (9.7-12.2) H 10/02/18 06:51 INR 1.3 10/02/18 06:51 APTT 26 SECONDS (21-34) 10/02/18 06:51 - Constitutional Appears: Non-toxic, Chronically Ill - Head Exam Head Exam: NORMOCEPHALIC - Eye Exam Eye Exam: absent: Scleral icterus - ENT Exam ENT Exam: Mucous Membranes Dry - Neck Exam Neck Exam: absent: Lymphadenopathy - Respiratory Exam Respiratory Exam: Decreased Breath Sounds, Clear to Ausculation Bilateral - Cardiovascular Exam Cardiovascular Exam: REGULAR RHYTHM, +S1, +S2 - GI/Abdominal Exam GI & Abdominal Exam: Distended, Soft. absent: Tenderness - Rectal Exam Rectal Exam: Deferred - Exam Exam: NORMAL INSPECTION - Extremities Exam Extremities Exam: absent: Calf Tenderness, Normal Inspection, Tenderness - Back Exam Back Exam: absent: CVA tenderness (L), CVA tenderness (R) - Neurological Exam Neurological Exam: Alert, Awake, Oriented x3 Assessment and Plan (1) Necrotizing fasciitis of ankle and foot Status: Acute (2) Sepsis Status: Acute (3) Diabetes mellitus, new onset Status: Acute - Assessment and Plan (Free Text) Assessment: IV antibiotics renewed no new cultures possible d/c to [facility] on IV rx
--- NOTE | 2018-10-17 21:54 | CP.PCM.PN ---
Subjective - Subjective Subjective: dictated Objective - Vital Signs/Intake and Output Vital Signs (last 24 hours): Temp Pulse Resp BP Pulse Ox 97.9 F 74 20 151/83 H 99 10/17/18 15:00 10/17/18 15:00 10/17/18 15:00 10/17/18 15:00 10/17/18 15:00 Intake and Output: 10/17/18 10/18/18 18:59 06:59 Intake Total 300 Output Total 900 Balance -600 - Medications Medications: Current Medications Acetaminophen (Tylenol 325mg Tab) 650 mg PO Q6 PRN PRN Reason: Pain, Mild (1-3) Last Admin: 10/16/18 17:35 Dose: 650 mg Aspirin (Ecotrin) 81 mg PO DAILY [facility] Last Admin: 10/17/18 09:08 Dose: 81 mg Dextrose (Dextrose 50% Inj) 0 ml IV STAT PRN; Protocol PRN Reason: Hypoglycemia Protocol Dextrose (Glutose 15) 0 gm PO ONCE PRN; Protocol PRN Reason: Hypoglycemia Protocol Glucagon (Glucagen Diagnostic Kit) 0 mg IM STAT PRN; Protocol PRN Reason: Hypoglycemia Protocol Cefazolin Sodium 2 gm/ Sodium (Chloride) 100 mls @ 100 mls/hr IVPB Q8H [facility]; Protocol Last Admin: 10/17/18 14:26 Dose: 100 mls/hr Dextrose (Dextrose 5% In Water 1000 Ml) 1,000 mls @ 0 mls/hr IV .Q0M PRN; Protocol PRN Reason: Hypoglycemia Protocol Insulin Aspart (Novolog) 0 unit SC ACHS [facility]; Protocol Last Admin: 10/17/18 21:31 Dose: Not Given Losartan Potassium (Cozaar) 50 mg PO DAILY [facility] Last Admin: 10/17/18 09:08 Dose: 50 mg Metformin HCl (Glucophage) 500 mg PO BID [facility] Last Admin: 10/17/18 18:11 Dose: 500 mg Rosuvastatin Calcium (Crestor) 5 mg PO HS [facility] Last Admin: 10/17/18 21:42 Dose: 5 mg - Labs Labs: 10/17/18 07:52 10/17/18 07:52 PT 14.4 SECONDS (9.7-12.2) H 10/02/18 06:51 INR 1.3 10/02/18 06:51 APTT 26 SECONDS (21-34) 10/02/18 06:51
[2018-10-18] MEDS: ceFAZolin 2 GM in Sodium Chloride 0.9% 100 ML IVPB SCH ×2 (06:06→13:59)
[2018-10-18] MEDS: (Novolog) Insulin Aspart, Recombinant 100 u/ml 10 ml vial SC SCH ×2 (07:55→13:50)
[2018-10-18 08:33] VITALS: PULSE 75; TEMP 97.8; O2SAT 99
--- NOTE | 2018-10-18 08:57 | CP.PCM.PN ---
Subjective - Date & Time of Evaluation Date of Evaluation: 10/18/18 Time of Evaluation: 08:57 - Subjective Subjective: Podiatry - Dr. Alford 58M seen and examined at bedside this AM, POD#4 right foot wound debridement with graft application and 2nd digit amputation. NAD. No acute events overnight. No new RLE complaints. Tolerating physical therapy. Patient to be discharged to [facility] today. Splint clean/dry/intact with VAC on continuous suction. Denies F/C/N/V/CP/SOB/NYE/D/C. Objective - Vital Signs/Intake and Output Vital Signs (last 24 hours): Temp Pulse Resp BP Pulse Ox 97.8 F 75 20 142/73 99 10/18/18 07:00 10/18/18 07:00 10/18/18 07:00 10/18/18 07:00 10/18/18 07:00 Intake and Output: 10/18/18 10/18/18 06:59 18:59 Intake Total 450 Output Total 1105 Balance -655 - Medications Medications: Current Medications Acetaminophen (Tylenol 325mg Tab) 650 mg PO Q6 PRN PRN Reason: Pain, Mild (1-3) Last Admin: 10/16/18 17:35 Dose: 650 mg Aspirin (Ecotrin) 81 mg PO DAILY [facility] Last Admin: 10/17/18 09:08 Dose: 81 mg Dextrose (Dextrose 50% Inj) 0 ml IV STAT PRN; Protocol PRN Reason: Hypoglycemia Protocol Dextrose (Glutose 15) 0 gm PO ONCE PRN; Protocol PRN Reason: Hypoglycemia Protocol Glucagon (Glucagen Diagnostic Kit) 0 mg IM STAT PRN; Protocol PRN Reason: Hypoglycemia Protocol Cefazolin Sodium 2 gm/ Sodium (Chloride) 100 mls @ 100 mls/hr IVPB Q8H [facility]; Protocol Last Admin: 10/18/18 06:06 Dose: 100 mls/hr Dextrose (Dextrose 5% In Water 1000 Ml) 1,000 mls @ 0 mls/hr IV .Q0M PRN; Protocol PRN Reason: Hypoglycemia Protocol Insulin Aspart (Novolog) 0 unit SC ACHS [facility]; Protocol Last Admin: 10/18/18 07:55 Dose: Not Given Losartan Potassium (Cozaar) 50 mg PO DAILY [facility] Last Admin: 10/17/18 09:08 Dose: 50 mg Metformin HCl (Glucophage) 500 mg PO BID [facility] Last Admin: 10/17/18 18:11 Dose: 500 mg Rosuvastatin Calcium (Crestor) 5 mg PO HS [facility] Last Admin: 10/17/18 21:42 Dose: 5 mg - Labs Labs: 10/17/18 07:52 10/17/18 07:52 PT 14.4 SECONDS (9.7-12.2) H 10/02/18 06:51 INR 1.3 10/02/18 06:51 APTT 26 SECONDS (21-34) 10/02/18 06:51 - Constitutional Appears: Well, Non-toxic, No Acute Distress - Extremities Exam Additional comments: RLE focused exam: VASC: DP/PT pulses non-palpable secondary to edema. CFT approx 3 seconds to all digits. TG warm to warm, with adequate warmth to distal flap. Nonpitting edema present to LE. Derm: 1) Surgical wound extending down to tendons at anteriorlateral ankle and dorsum of foot with graft in place which appears well-adhered; mostly granular base underneath graft site 2) Longitudinal plantar incision from 1st interdigital space to level of midfoot appears well coapted and no evidence of wound dehiscence; opening noted at most proximal aspect with packing in place and minimal periwound maceration - upon removal of packing 1cc serosanguinous drainage able to be expressed from wound 3) Skin flap noted at 2nd and 3rd digit amputation sites appears to be intact with sutures intact and no evidence of dehiscence of graft failure, minimal erythema; no drainage; appropriate warmth at graft site 4) Surgical wound noted to medial 1st metatarsal head with graft in place which appears well-adhered; mostly granular base underneath graft site Neuro: Epicritic and protective sensation intact along distribution of Sural and Tibial nerves. Epicritic and protective sensation starting to return along distribution of superficial peroneal nerve as well as the tibial nerve MSK: Pain on palpation plantar surgical opening; no pain on palpation to graft sites. - Neurological Exam Neurological Exam: Alert, Awake, Oriented x3 - Psychiatric Exam Psychiatric exam: Normal Affect, Normal Mood Assessment and Plan - Assessment and Plan (Free Text) Assessment: 58M with RLE necrotizing fasciitis, resolved POD#4 Wound debridement with graft application, 2nd digit amputation (DOS 10/14/18) POD#16 Right leg and foot incision and drainage, amputation of right 3rd digit, application of wound vac (DOS 10/02/18) POD#18 Incision and Drainage of right foot and leg (DOS 09/30/18) POD#25 Incision and drainage of R leg and foot with debridement of nonviable soft tissue and irrigation of tissue (DOS 09/23/18) Plan: Patient seen and evaluated Discussed with attending, Dr. Alford Afebmally Intra-op wound cx (09/23): Staph Aureus, Group G Strep Continue abx per ID - Cefazolin Post operative tib fib xray: No periosteal reaction or cortical interruption seen to suggest osteomyelitis. No lytic lesions. No fractures. Soft tissue changes are compatible with known soft tissue infection and recent incision and drainage and bandaging Post operative foot xray: No osseous destruction or periosteal reaction seen to suggest osteomyelitis. Extensive abnormal soft tissue findings as detailed above compatible with the history of a soft tissue infection and recent surgical int ervention. Follow-up recommended RLE MRI: No definitive pattern suggest osteomyelitis though failure fat suppression throughout the digits limits interpretation somewhat. No definitive abnormal bone enhancement appreciable. No definitive marrow edema. Extensive left foot edema is appreciate diffusely including multiple soft tissue and dermal defects packed by gauze at the forefoot to midfoot plantar and dorsal soft tissues as discussed above. Limitations: Failure fat suppression of the digits diffusely. Continue local wound care: plantar wound repacked, WoundVAC left intact, posterior splint reapplied -Integra graft in place dorsally and medially -~75cc serosanguinous drainage present in canister, will continue to monitor Activity: NWB RLE with assistance; continue PT/OT Stable for dc per podiatry - patient to follow up with Dr. Alford in the [facility] next Sunday 10/21 WOUND CARE NURSE DRESSING ORDERS Change WoundVAC every 3 days - leave Integra graft intact Place Adaptic nonadherent dressing over exposed Integra graft sites 1/2" Iodoform packing in plantar opening QD Secondary dressing: gauze, ABD, kerlix Posterior splint - 3x 4" webril, posterior splint, CARMEN[place]A
[2018-10-18 16:02] VITALS: BP 152/88
--- NOTE | 2018-10-18 16:46 | CP.PCM.PN ---
Objective - Vital Signs/Intake and Output Vital Signs (last 24 hours): Temp Pulse Resp BP Pulse Ox 97.8 F 75 20 152/88 H 99 10/18/18 15:00 10/18/18 15:00 10/18/18 15:00 10/18/18 15:00 10/18/18 15:00 Intake and Output: 10/18/18 10/18/18 06:59 18:59 Intake Total 450 300 Output Total 1105 2000 Balance -655 -1700 - Medications Medications: Current Medications Acetaminophen (Tylenol 325mg Tab) 650 mg PO Q6 PRN PRN Reason: Pain, Mild (1-3) Last Admin: 10/16/18 17:35 Dose: 650 mg Aspirin (Ecotrin) 81 mg PO DAILY [facility] Last Admin: 10/18/18 10:39 Dose: 81 mg Dextrose (Dextrose 50% Inj) 0 ml IV STAT PRN; Protocol PRN Reason: Hypoglycemia Protocol Dextrose (Glutose 15) 0 gm PO ONCE PRN; Protocol PRN Reason: Hypoglycemia Protocol Glucagon (Glucagen Diagnostic Kit) 0 mg IM STAT PRN; Protocol PRN Reason: Hypoglycemia Protocol Cefazolin Sodium 2 gm/ Sodium (Chloride) 100 mls @ 100 mls/hr IVPB Q8H [facility]; Protocol Last Admin: 10/18/18 13:59 Dose: 100 mls/hr Dextrose (Dextrose 5% In Water 1000 Ml) 1,000 mls @ 0 mls/hr IV .Q0M PRN; Protocol PRN Reason: Hypoglycemia Protocol Insulin Aspart (Novolog) 0 unit SC ACHS [facility]; Protocol Last Admin: 10/18/18 13:50 Dose: 2 unit Losartan Potassium (Cozaar) 50 mg PO DAILY [facility] Last Admin: 10/18/18 10:39 Dose: 50 mg Metformin HCl (Glucophage) 500 mg PO BID [facility] Last Admin: 10/18/18 10:39 Dose: 500 mg Rosuvastatin Calcium (Crestor) 5 mg PO HS [facility] Last Admin: 10/17/18 21:42 Dose: 5 mg - Labs Labs: 10/17/18 07:52 10/17/18 07:52 PT 14.4 SECONDS (9.7-12.2) H 10/02/18 06:51 INR 1.3 10/02/18 06:51 APTT 26 SECONDS (21-34) 10/02/18 06:51 Assessment and Plan - Assessment and Plan (Free Text) Assessment: Patient is seen and examined. Alert, oriented, denies acute pain. Plan to discharge to [facility] today.
--- NOTE | 2018-10-18 23:52 | CP.PCM.DIS ---
Provider - Provider Date of Admission: 09/23/18 14:58 Attending physician: Taiwo Moreno MD Consults: 09/23/18 14:55 Podiatry Consult Stat Comment: Consulting Provider: Aniyah Alford Consulting Physician: Aniyah Alford Reason for Consult: nec fac 09/23/18 16:11 Infectious Disease Consult Routine Comment: Soft tissue emphysema/nec fasc Consulting Provider: Chepe Luevano Consulting Physician: Chepe Luevano Reason for Consult: Soft tissue emphysema/nec fasc 09/24/18 08:00 Nursing Referral for Wound Care Routine Comment: Physician Instructions: Reason For Exam: S/P I&D R leg/foot; reddened buttocks with rashes Nursing Referral for Wound Care Routine Comment: 09/23 s/p I&D,debridement R leg nonviable tissue Physician Instructions: Reason For Exam: reddened inner buttocks; with rashes like areas. Hospital Course - Lab Results Lab Results: Micro Results 09/23/18 14:14 Blood Blood Culture - Final NO GROWTH AFTER 5 DAYS 09/23/18 14:14 Blood Gram Stain - Final TEST NOT PERFORMED 09/23/18 21:05 Foot - Right Gram Stain - Final 09/23/18 21:05 Foot - Right Wound Culture - Final Staphylococcus Aureus Group G Streptococcus 09/23/18 20:23 Foot - Right Gram Stain - Final 09/23/18 20:23 Foot - Right Wound Culture - Final Staphylococcus Aureus Group G Streptococcus 09/23/18 14:28 Blood S.aureus & Coag-Neg Staph PNA FISH - Final 09/23/18 14:28 Blood Blood Culture - Final Staphylococcus Aureus 09/23/18 14:28 Blood Gram Stain - Final 09/24/18 13:57 Naris MRSA Culture - Final MRSA NOT DETECTED 09/23/18 22:32 Nose MRSA Culture (Admit) - Final MRSA NOT DETECTED Most Recent Lab Values WBC 8.0 K/uL (4.8-10.8) 10/17/18 07:52 RBC 3.47 Mil/uL (4.40-5.90) L 10/17/18 07:52 Hgb 9.8 g/dL (12.0-18.0) L 10/17/18 07:52 Hct 29.5 % (35.0-51.0) L 10/17/18 07:52 MCV 85.2 fL (80.0-94.0) 10/17/18 07:52 MCH 28.3 pg (27.0-31.0) 10/17/18 07:52 MCHC 33.3 g/dL (33.0-37.0) 10/17/18 07:52 RDW 14.0 % (11.5-14.5) 10/17/18 07:52 Plt Count 312 K/uL (130-400) 10/17/18 07:52 MPV 9.0 fL (7.2-11.7) 10/17/18 07:52 Neut % (Auto) 69.2 % (50.0-75.0) 10/17/18 07:52 Lymph % (Auto) 16.3 % (20.0-40.0) L 10/17/18 07:52 Dolores % (Auto) 7.0 % (0.0-10.0) 10/17/18 07:52 Eos % (Auto) 6.1 % (0.0-4.0) H 10/17/18 07:52 Baso % (Auto) 1.4 % (0.0-2.0) 10/17/18 07:52 Neut # (Auto) 5.5 K/uL (1.8-7.0) 10/17/18 07:52 Lymph # (Auto) 1.3 K/uL (1.0-4.3) 10/17/18 07:52 Dolores # (Auto) 0.6 K/uL (0.0-0.8) 10/17/18 07:52 Eos # (Auto) 0.5 K/uL (0.0-0.7) 10/17/18 07:52 Baso # (Auto) 0.1 K/uL (0.0-0.2) 10/17/18 07:52 Neutrophils % (Manual) 85 % (50-75) H 10/05/18 06:35 Band Neutrophils % 1 % (0-2) 10/05/18 06:35 Lymphocytes % (Manual) 5 % (20-40) L 10/05/18 06:35 Monocytes % (Manual) 6 % (0-10) 10/05/18 06:35 Eosinophils % (Manual) 3 % (0-4) 10/05/18 06:35 Basophils % (Manual) 1 % (0-2) 10/04/18 06:24 Myelocytes % 1 % (0-0) H 10/02/18 06:51 Toxic Granulation Present 10/05/18 06:35 Platelet Estimate Slightly increased (NORMAL) H 10/05/18 06:35 Large Platelets Present 10/05/18 06:35 Giant Platelets Present 10/05/18 06:35 RBC Morphology Normal 09/28/18 07:09 Polychromasia Slight 10/05/18 06:35 Hypochromasia (manual) Slight 10/05/18 06:35 Poikilocytosis (manual Slight 10/04/18 06:24 Anisocytosis (manual) Slight 10/05/18 06:35 Microcytosis (manual) Slight 10/02/18 06:51 Target Cells Slight 09/30/18 11: ESR 55 mm/hr (0-15) H 09/23/18 13:40 PT 14.4 SECONDS (9.7-12.2) H 10/02/18 06:51 INR 1.3 10/02/18 06:51 APTT 26 SECONDS (21-34) 10/02/18 06:51 pO2 32 mm/Hg (30-55) 09/23/18 14:32 VBG pH 7.41 (7.32-7.43) 09/23/18 14:32 VBG pCO2 53 mmHg (40-60) 09/23/18 14:32 VBG HCO3 29.7 mmol/L 09/23/18 14:32 VBG Total CO2 35.2 mmol/L (22-28) H 09/23/18 14:32 VBG O2 Sat (Calc) 68.7 % (40-65) H 09/23/18 14:32 VBG Base Excess 7.3 mmol/L (0.0-2.0) H 09/23/18 14:32 VBG Potassium 3.9 mmol/L (3.6-5.2) 09/23/18 14:32 Sodium 131.0 mmol/l (132-148) L 09/23/18 14:32 Chloride 84.0 mmol/L (98-107) L 09/23/18 14:32 Glucose 590 mg/dl (75-110) H* 09/23/18 14:32 Lactate 2.9 mmol/L (0.7-2.1) H 09/23/18 14:32 Crit Value Called To irvin Garcia 09/23/18 14:32 Crit Value Called By Angel solares 09/23/18 14:32 Crit Value Read Back Y 09/23/18 14:32 Blood Gas Notified Time 1439 09/23/18 14:32 Sodium 139 mmol/L (132-148) 10/17/18 07:52 Potassium 3.7 mmol/L (3.6-5.2) 10/17/18 07:52 Chloride 103 mmol/L (98-107) 10/17/18 07:52 Carbon Dioxide 30 mmol/L (22-30) 10/17/18 07:52 Anion Gap 10 (10-20) 10/17/18 07:52 BUN 15 mg/dL (9-20) 10/17/18 07:52 Creatinine 0.9 mg/dL (0.8-1.5) 10/17/18 07:52 Est GFR ( Amer) > 60 10/17/18 07:52 Est GFR (Non-Af Amer) > 60 10/17/18 07:52 POC Glucose (mg/dL) 97 mg/dL (65-110) 10/18/18 16:20 Random Glucose 128 mg/dL (75-110) H 10/17/18 07:52 Hemoglobin A1c 11.1 % (4.2-6.5) H 09/30/18 17:01 Serum Osmolality 303 mosm/kg (272-300) H 09/23/18 14:53 Lactic Acid 1.6 mmol/L (0.7-2.1) 09/23/18 22:44 Calcium 8.8 mg/dl (8.6-10.4) 10/17/18 07:52 Phosphorus 3.3 mg/dL (2.5-4.5) 09/24/18 06:30 Magnesium 2.0 mg/dL (1.6-2.3) 09/24/18 06:30 Total Bilirubin 0.3 mg/dL (0.2-1.3) 10/05/18 06:35 Direct Bilirubin 0.7 mg/dL (0.0-0.4) H 09/25/18 16:56 AST 23 U/L (17-59) 10/05/18 06:35 ALT 15 U/L (21-72) L D 10/05/18 06:35 Alkaline Phosphatase 116 U/L (38-126) 10/05/18 06:35 Troponin I < 0.0120 ng/mL (0.00-0.120) 09/23/18 14:08 C-Reactive Protein > 270.00 mg/L (0.0-9.9) H 09/23/18 14:08 Total Protein 6.0 g/dL (6.3-8.3) L 10/05/18 06:35 Albumin 2.4 g/dL (3.5-5.0) L 10/05/18 06:35 Globulin 3.6 gm/dL (2.2-3.9) 10/05/18 06:35 Albumin/Globulin Ratio 0.7 (1.0-2.1) L 10/05/18 06:35 Triglycerides 152 mg/dL (0-149) H 09/23/18 22:44 Cholesterol 64 mg/dL (0-199) 09/23/18 22:44 LDL Cholesterol Direct 42 mg/dL (0-129) 09/23/18 22:44 HDL Cholesterol 10 mg/dL (30-70) L 09/23/18 22:44 Venous Blood Potassium 3.9 mmol/L (3.6-5.2) 09/23/18 14:32 Hepatitis A IgM Ab Negative (NEGATIVE) 09/27/18 11:31 Hep Bs Antigen Negative (NEGATIVE) 09/27/18 11:31 Hep B Core IgM Ab Negative (NEGATIVE) 09/27/18 11:31 Hepatitis C Antibody Negative (NEGATIVE) 09/27/18 11:31 HIV 1&2 Antibody Screen Negative (NEGATIVE) 10/07/18 06:27 Blood Type AB POSITIVE 10/03/18 12:37 Antibody Screen Negative 10/03/18 12:37 Discharge Exam - Head Exam Head Exam: NORMOCEPHALIC Discharge Plan - Follow Up Plan Condition: CRITICAL Disposition: SUPPORT STAFF CARE [facility] Instructions: Diabetes Exchange Diet, Sepsis, Adult (DC), Upper GI Endoscopy (DC), Debridement of a Wound or Burn (DC), Wound Incision and Drainage (DC), Negative Pressure Wound Therapy, Diabetes and Diet Additional Instructions: continue with iv cefazolin for 3 more weeks as Continue with wound VAC, continue local wound care follow up with podiatry DR Prashanth Dill activity; NWHector RLE with assistance, continue PT/OT continue with iv cefazolin for 3 more weeks as prescribed. Referrals: Paloma Herrera MD [Staff Provider] -
--- NOTE | 2018-10-19 01:23 | PN ---
DATE: 10/18/2018 SUBJECTIVE: Aramis Cabrera is postop. He is doing well. He is doing partial weightbearing. He has a graft on the right foot. PHYSICAL EXAMINATION: VITAL SIGNS: Blood pressure 138/75, pulse 76, respiratory rate 20, and temperature 97.8. LUNGS: Clear. CARDIOVASCULAR SYSTEM: S1 and S2 are regular. ABDOMEN: Soft. ASSESSMENT: 1. Necrotizing fasciitis of right foot. 2. Type 2 diabetes. 3. Hypertension. PLAN: Continue postop care. Monitor the patient. Taiwo Moreno MD
--- NOTE | 2018-10-19 06:05 | DS ---
DISCHARGE DIAGNOSES: Necrotizing fasciitis of right foot, new-onset diabetes, anemia of chronic disease, and hypertension. HISTORY OF PRESENT ILLNESS AND HOSPITAL COURSE: This is a 58-year-old white male with no significant past medical history who came in because of acute onset of pain in the right foot, redness, erythema, purulent discharge with bleeding, found to have necrotizing fasciitis, underwent surgery and subsequent skin grafting and after that, the patient was discharged to long-term acute care facility for physical therapy, rehabilitation, and management of his foot wound. PHYSICAL EXAMINATION: VITAL SIGNS: Blood pressure 152/88, pulse 75, respiratory rate 20, and temperature 97.8. Afebrile. LABORATORY DATA: Glucose 197, 178, 141. Hematology: WBC 8, hemoglobin 9.8, hematocrit 29.5, platelets 312. Coagulation studies were negative. Chemistry: Sodium 139, potassium 3.7, chloride 103, bicarbonate 30, BUN 15, creatinine 0.9. CONDITION UPON DISCHARGE: Stable. Taiwo Moreno MD
== END 2018-10-18 17:45 | DRG 853 ==
LOC: C.ER 12:03 → C.9E 14:58 → C.9I 21:44 → C.3T 09-24 13:29 → C.6T 09-25 17:34
PROVIDERS: ADMIT Internal Medicine; ATTEND Internal Medicine
PROC: 0Y9M0ZZ Drainage of Right Foot, Open Approach (ICD-10-PCS; principal; 2018-09-23 17:00)
PROC: 0DB98ZX Excision of Duodenum, Via Natural or Artificial Opening Endoscopic, Diagnostic (ICD-10-PCS; 2018-09-27)
PROC: 0DB68ZX Excision of Stomach, Via Natural or Artificial Opening Endoscopic, Diagnostic (ICD-10-PCS; 2018-09-27)
PROC: 0DB28ZX Excision of Middle Esophagus, Via Natural or Artificial Opening Endoscopic, Diagnostic (ICD-10-PCS; 2018-09-27)
PROC: 0JBQ0ZZ Excision of Right Foot Subcutaneous Tissue and Fascia, Open Approach (ICD-10-PCS; 2018-09-30)
PROC: 0Y6U0Z0 Detachment at Left 3rd Toe, Complete, Open Approach (ICD-10-PCS; 2018-10-02)
PROC: 02HV33Z Insertion of Infusion Device into Superior Vena Cava, Percutaneous Approach (ICD-10-PCS; 2018-10-03)
PROC: 0Y6R0Z0 Detachment at Right 2nd Toe, Complete, Open Approach (ICD-10-PCS; 2018-10-14)
PROC: 0JR Subcutaneous Tissue and Fascia, Replacement (ICD-10-PCS; 2018-10-14)
DX: A41.9 Sepsis, unspecified organism (principal); M72.6 Necrotizing fasciitis; K25.4 Chronic or unspecified gastric ulcer with hemorrhage; K25.6 Chronic or unspecified gastric ulcer with both hemorrhage and perforation; L03.115 Cellulitis of right lower limb; M86.171 Other acute osteomyelitis, right ankle and foot; L97.919 Non-pressure chronic ulcer of unspecified part of right lower leg with unspecified severity; K29.80 Duodenitis without bleeding; K29.70 Gastritis, unspecified, without bleeding; I10 Essential (primary) hypertension; E87.6 Hypokalemia; E78.5 Hyperlipidemia, unspecified; D63.8 Anemia in other chronic diseases classified elsewhere; M72.2 Plantar fascial fibromatosis; K20.9 Esophagitis, unspecified; K22.2 Esophageal obstruction; E11.69 Type 2 diabetes mellitus with other specified complication; E11.65 Type 2 diabetes mellitus with hyperglycemia; Z79.4 Long term (current) use of insulin; E11.621 Type 2 diabetes mellitus with foot ulcer; L97.509 Non-pressure chronic ulcer of other part of unspecified foot with unspecified severity; K21.0 Gastro-esophageal reflux disease with esophagitis

== ENCOUNTER 2019-01-10 10:45 | Outpatient (CLI) | payer OTHER | END 2019-01-10 10:46 | disposition home or self-care (01) | LOC: C.VASC 10:45 ==